=== PATIENT | male | born 1960 | race Caucasian/White ===

== ENCOUNTER 2020-10-05 14:36 | Emergency (ER) | payer MEDICAID, SELFPAY ==
[2020-10-05 14:49] VITALS: BP 0/0; PULSE 82; RESP 16; TEMP 36.6; O2SAT 95; BMI 20.5
[2020-10-05 14:55] VITALS: BP 143/84
--- NOTE | 2020-10-05 14:58 | ED.OVERDOSE ---
HPI - Overdose General Chief Complaint: Overdose Stated Complaint: heroin od,narcan given at dr office Time Seen by Provider: 10/05/20 14:58 Source: EMS and kettle cleaner Mode of arrival: EMS Limitations: no limitations History of Present Illness HPI Narrative: patient used IV heroin and cocaine went to his doctor's and c/o overdose but he never actually had LOC or looked overdosed - he was given 4mg IN narcan he is here asking for detox MD complaint: accidental overdose Onset (ago): minute(s) How Overdose Was Discovered: other (showed up to his doctor's office stating he was overdosing) Context: Accidental Overdose: wanted to get high Treatments Prior to Arrival: narcan (4mg IN) Related Data Allergies Allergy/AdvReac Type Severity Reaction Status Date / Time No Known Allergies Allergy Unverified 08/13/20 16:58 [No Known Allergies*] Review of Systems Review of Systems: Constitutional : No Fever, No Chills ENT/Mouth : No Ear Pain, No Nasal Congestion, No sore throat Eyes: No Eye Pain, No Swelling, No Redness Cardiovascular : No Chest Pain, No SOB Respiratory : No Cough, No Sputum, No Dyspnea Gastrointestinal : No Nausea, No Vomiting, No Diarrhea, No Hematochezia, No Melena Genitourinary : No Dysuria, No Urinary Frequency, No Hematuria Musculoskeletal : No Myalgias Skin : No Skin Lesions, No rash Neuro : No Weakness, No Numbness, No Paresthesias, No Dizziness, No Headache Psych : no Anxiety, no Depression, no SI/HI Heme/Lymph: No Lymphadenopathy Endocrine : No Polyuria, No Polydipsia All other systems reviewed and are negative FORMERLY [facility], [facility] Past Medical History Attestation statement: The following information was validated with the patient. Source: old records reviewed Medical History (Updated 10/05/20 @ 16:18 by Desire Reinoso DO) Alcoholism Asthma Depression Hepatitis HIV disease Substance abuse Social History Social History (Updated 10/05/20 @ 15:13 by Desire Reinoso DO) Smoking Status: Current every day smoker Substance Use Type: Crack/Cocaine, Heroin and IV Drugs Advance Directives: No Advance Directives Information Provided: Yes Physical Exam Vital Signs: Vital Signs: Last Vital Signs Temp 98 F 10/05/20 14:49 Pulse 82 10/05/20 14:49 Resp 16 10/05/20 14:49 BP 143/84 H 10/05/20 14:55 Pulse Ox 95 10/05/20 14:49 Body Mass Index 20.5 Appearance: Alert. Oriented X3. No acute distress. appears embarassed covering his head with his blanket Eyes: Pupils equal, round and reactive to light. ENT: Pharynx normal. Neck: Normal inspection. Neck supple. CVS: Normal heart rate and rhythm. Pulses normal. Respiratory: No respiratory distress. Breath sounds normal. Abdomen: Soft and nontender. Skin: Skin warm and dry. Normal skin color. Normal skin turgor. Extremities: No lower extremity edema. No calf ttp Neuro: Oriented X 3. No motor deficit. No sensory deficit. Course Course Course Narrative: signed out to Dr. Dye pending repeat troponin MDM - Overdose MDM Narrative Medical decision making narrative: 60 yo male with hx of overdose, HIV, hepatitis here with accidental OD given narcan but unsure if he needed, he is here asking for detox - has possible bed, labs EKG ordered Lab Data Result diagrams: 10/05/20 15:37 10/05/20 15:37 Labs: Lab Results 10/05/20 10/05/20 10/05/20 Range/Units 15:37 15:37 15:37 WBC 2.8 L (4.8-10.8) X10*3/uL RBC 3.45 L (4.60-5.80) X10*6/uL Hgb 10.3 L (14.0-18.0) g/dl Hct 31.8 L (42-52) % MCV 92.2 (80-98) fL MCH 29.9 (27.0-33.0) pg MCHC 32.4 (31.0-36.0) g/dl RDW 17.7 H (11.0-16.0) % Plt Count 88 L (160-400) X10*3/uL MPV 11.6 (9.4-12.4) fL Immature Gran % (Auto) 0.4 (0.0-0.4) % Neut % (Auto) 64.9 (45-73) % Lymph % (Auto) 20.0 (20-40) % [facility] % (Auto) 13.6 H (2-11) % Eos % (Auto) 0.7 (0-4) % Baso % (Auto) 0.4 (0-2) % Lymph # (Auto) 0.6 L (1.2-4.9) X10*3/uL [facility] # (Auto) 0.4 (0.1-1.2) X10*3/uL Eos # (Auto) 0.0 (0.0-0.4) X10*3/uL Baso # (Auto) 0.0 (0.0-0.2) X10*3/uL Abs Immat Gran (auto) 0.01 (0.00-0.03) X10*3/uL Absolute Neuts (auto) 1.8 L (2.0-8.3) X10*3/uL Absolute Nucleated RBC 0.000 (0.0-0.012) X10*3/uL Nucleated RBC % (auto) 0.0 (0.0-0.2) /100WBC PT 12.4 (10.8-13.0) SEC INR 1.0 (0.9-1.1) APTT 32.0 (24.1-38.0) SEC Sodium 139 (135-145) mmol/L Potassium 4.6 (3.3-5.1) mmol/l Chloride 104 (96-108) mmol/L Carbon Dioxide 30 H (22-29) mmol/L Anion Gap 10 L (12-20) BUN 11 (9-16) mg/dL Creatinine 0.96 (0.5-1.4) mg/dL Estim Creat Clear Calc 62.9 Estimated GFR > 60 Random Glucose 133 H (60-115) mg/dL Calcium 8.0 L (8.4-10.2) mg/dL Magnesium (1.6-2.6) mg/dL Troponin I High Sens (<3.5-35.0) ng/L Ethyl Alcohol mg/dL 10/05/20 10/05/20 10/05/20 Range/Units 15:37 15:37 15:37 WBC (4.8-10.8) X10*3/uL RBC (4.60-5.80) X10*6/uL Hgb (14.0-18.0) g/dl Hct (42-52) % MCV (80-98) fL MCH (27.0-33.0) pg MCHC (31.0-36.0) g/dl RDW (11.0-16.0) % Plt Count (160-400) X10*3/uL MPV (9.4-12.4) fL Immature Gran % (Auto) (0.0-0.4) % Neut % (Auto) (45-73) % Lymph % (Auto) (20-40) % [facility] % (Auto) (2-11) % Eos % (Auto) (0-4) % Baso % (Auto) (0-2) % Lymph # (Auto) (1.2-4.9) X10*3/uL [facility] # (Auto) (0.1-1.2) X10*3/uL Eos # (Auto) (0.0-0.4) X10*3/uL Baso # (Auto) (0.0-0.2) X10*3/uL Abs Immat Gran (auto) (0.00-0.03) X10*3/uL Absolute Neuts (auto) (2.0-8.3) X10*3/uL Absolute Nucleated RBC (0.0-0.012) X10*3/uL Nucleated RBC % (auto) (0.0-0.2) /100WBC PT (10.8-13.0) SEC INR (0.9-1.1) APTT (24.1-38.0) SEC Sodium (135-145) mmol/L Potassium (3.3-5.1) mmol/l Chloride (96-108) mmol/L Carbon Dioxide (22-29) mmol/L Anion Gap (12-20) BUN (9-16) mg/dL Creatinine (0.5-1.4) mg/dL Estim Creat Clear Calc Estimated GFR Random Glucose (60-115) mg/dL Calcium (8.4-10.2) mg/dL Magnesium 1.9 (1.6-2.6) mg/dL Troponin I High Sens 10.4 (<3.5-35.0) ng/L Ethyl Alcohol < 10 mg/dL ECG Data Attestation: I personally reviewed and interpreted this ECG as follows: ECG interpretation date: 10/05/20 ECG interpretation time: 15:32 Interpretation: Rate: 87 Rhythm: NSR [place]: normal Normal P waves. Normal AUGUSTUS. Normal QRS complex. ST T wave : inverted 1 and AvL, V2-V6, no UMBERTO qTC: prolonged prior studies: changed from 2014 The study has been interpreted contemporaneously by me. . Discharge Plan Discharge Clinical Impression: Drug overdose, Abnormal ECG Instructions: Adult Overdose (ED) Additional Instructions: return to ED for any worsening symptoms or concerns Print Language: Pashto
--- NOTE | 2020-10-05 15:13 | ECG_ITS ---
Test Reason : OD Blood Pressure : / mmHG Vent. Rate : 087 BPM Atrial Rate : 087 BPM P-R Int : 144 ms QRS Dur : 084 ms QT Int : 416 ms P-R-T Axes : 038 016 142 degrees QTc Int : 500 ms Normal sinus rhythm T wave abnormality, consider lateral ischemia Prolonged QT Abnormal ECG Heart rate has decreased T wave inversion now evident in Lateral leads Referred By: Desire Reinoso Electronically Signed By:TOMMIE JAMES MD
--- NOTE | 2020-10-05 15:32 | MHC.CARE ---
Addiction Consult Service note: Patient is a 60 year old Iranian speaking male who presented to [facility] ED after an accidental overdose. Patient reports he has been using heroin since his twenties and he has been to detox in the past. Patient interested in going to detox however he is not willing to go to [place]. [facility] reports the soonest intake time they have is 1AM. [facility] reports that they may have a male bed and that they will await labs. Patient demographics have been faxed to [phone] and [phone].
[2020-10-05] MEDS: Aspirin 81 MG TAB.CHEW 162 MG PO (15:40)
[2020-10-05 15:46] LABS: Eosinophils Percent Auto 0.7 % (0-4); Hemoglobin 10.3 g/dl (14.0-18.0); Imm Gran Abs Auto 0.01 X10*3/uL (0.00-0.03); MANUAL DIFF FLAG SCAN
[2020-10-05 15:53] LABS: Prothrombin Time 12.4 SEC (10.8-13.0)
[2020-10-05 15:54] LABS: Hematocrit 31.8 % (42-52); Mean Corpuscular HGB Conc 32.4 g/dl (31.0-36.0); Mean Corpuscular Hemoglobin 29.9 pg (27.0-33.0); PLT CLUMP 1; Red Cell Distribution Width 17.7 % (11.0-16.0); SCAN SMEAR FLAG 1
[2020-10-05 15:56] LABS: Basophils Percent Auto 0.4 % (0-2); Imm Gran Pct Auto 0.4 % (0.0-0.4); Lymphocytes Absolute Auto 0.6 X10*3/uL (1.2-4.9); Mean Corpuscular Volume 92.2 fL (80-98); Mean Platelet Volume 11.6 fL (9.4-12.4); Monocytes Absolute Auto 0.4 X10*3/uL (0.1-1.2); Monocytes Percent Auto 13.6 % (2-11); Neutrophils Absolute Auto 1.8 X10*3/uL (2.0-8.3); Neutrophils Percent Auto 64.9 % (45-73); Red Blood Count 3.45 X10*6/uL (4.60-5.80); White Blood Count 2.8 X10*3/uL (4.8-10.8)
[2020-10-05 15:57] LABS: Platelet Count 88 X10*3/uL (160-400)
[2020-10-05 16:08] LABS: Ethanol < 10 mg/dL
[2020-10-05 16:09] LABS: Anion Gap 10 (12-20); Blood Urea Nitrogen 11 mg/dL (9-16); Carbon Dioxide 30 mmol/L (22-29); Chloride 104 mmol/L (96-108); Creatinine Clr Calc Pharmacy 62.9; Estimated Glomerular Filt Rate > 60; Glucose Random 133 mg/dL (60-115); Magnesium 1.9 mg/dL (1.6-2.6); Potassium 4.6 mmol/l (3.3-5.1); Sodium 139 mmol/L (135-145)
[2020-10-05 16:16] LABS: Troponin-I High Sensitivity 10.4 ng/L (<3.5-35.0)
[2020-10-05 16:18] LABS: SLIDE REVIEW VERIFIED
[2020-10-05 17:47] VITALS: BP 151/87; PULSE 82; RESP 18; O2SAT 97
[2020-10-05 19:01] LABS: Troponin-I High Sensitivity 12.6 ng/L (<3.5-35.0)
--- NOTE | 2020-10-05 20:30 | PC.NURSE ---
I was informed by charge nurse that patient was in [address] was my new patient. I went to check on patient but he was not in the bed and kayley was on bed. I searched ER and was unable to locate the patient. I informed charge nurse that patient left.
== END 2020-10-05 20:30 | disposition left against medical advice (07) ==
PROVIDERS: Emergency Provider Emergency Medicine
DX: T40.1X1A Poisoning by heroin, accidental (unintentional), initial encounter (principal); T40.5X1A Poisoning by cocaine, accidental (unintentional), initial encounter; R94.31 Abnormal electrocardiogram [ECG] [EKG]; Y92.9 Unspecified place or not applicable; F17.200 Nicotine dependence, unspecified, uncomplicated; Z71.6 Tobacco abuse counseling; Z21 Asymptomatic human immunodeficiency virus [HIV] infection status; Z79.899 Other long term (current) drug therapy
CPT/HCPCS: 36415; 80048; 80320; 83735; 84484; 85025; 85610; 85730; 93005; 99284; 99285

== ENCOUNTER → 2021-05-03 08:14 | Outpatient (REF) | payer MEDICAID, SELFPAY ==
--- NOTE | 2021-05-03 08:35 | ECG_ITS ---
Test Reason : CHECK QT Blood Pressure : / mmHG Vent. Rate : 057 BPM Atrial Rate : 057 BPM P-R Int : 168 ms QRS Dur : 080 ms QT Int : 496 ms P-R-T Axes : 028 024 066 degrees QTc Int : 482 ms Sinus bradycardia Prolonged QT Abnormal ECG When compared with ECG of 05-OCT-2020 15:25, Vent. rate has decreased BY 30 BPM T wave inversion no longer evident in Anterolateral leads Referred By: Doreen Vasquez Electronically Signed By:ROSALINDA SHEPHERD MD
== END ==
LOC: HO.CARD 08:14
PROVIDERS: Absent Provider Nurse Practitioner Primary Care; PCP Nurse Practitioner Primary Care; Visit Provider Family Medicine
DX: R94.31 Abnormal electrocardiogram [ECG] [EKG] (principal)
CPT/HCPCS: 93005

== ENCOUNTER 2021-08-11 17:11 | Emergency (ER) | payer MEDICAID, SELFPAY ==
[2021-08-11 18:35] VITALS: BP 97/69; PULSE 67; RESP 18; TEMP 36.3; O2SAT 98; BMI 20.2
--- NOTE | 2021-08-11 18:52 | ED.EXTPRO ---
HPI - Extremity Problem General Chief complaint: Extremity Injury, Upper Stated complaint: swollen arm Time Seen by Provider: 08/11/21 18:49 Source: patient Mode of arrival: ambulatory Limitations: no limitations History of Present Illness HPI Narrative: 61 y/o male presenting for evaluation of left hand swelling, pain and redness after he was stung by multiple bees 3 days ago. He reports his hand swelled up immediately after the stinging. He saw his doctor the next day who started him on antibiotics. He reports only taking the antibiotic once. He has not taken any benadryl. He reports going back to his PCP today who instructed him to come to the ER for evaluation. He denies fevers. He is not diabetic. MD Complaint: extremity pain and extremity swelling Onset (ago): day(s) (3) Pain Consistency: constant Location: right and upper extremity Severity scale (1-10): 6 Quality: aching Radiation: proximal Relieving factors: immobilization and elevation Exacerbating factors: range of motion and palpation Associated symptoms: denies other symptoms Related Data Previous Rx's Medication Instructions Recorded cephalexin 500 mg capsule 500 mg PO Q6H 7 Days #28 cap 08/11/21 diphenhydramine HCl 25 mg tablet 25 mg PO TID #10 tab 08/11/21 (Benadryl Allergy) doxycycline monohydrate 100 mg 100 mg PO BID #14 cap 08/11/21 capsule Allergies Allergy/AdvReac Type Severity Reaction Status Date / Time No Known Allergies Allergy Verified 08/11/21 18:35 [No Known Allergies*] Review of Systems Review of Systems: Constitutional: No Fever, No Chills Cardiovascular: No Chest Pain, No SOB, No Orthopnea, No Edema Respiratory: No Cough, No Sputum, No Wheezing, No dyspnea Gastrointestinal: No Nausea, No Vomiting, No Diarrhea, No abdominal Pain Genitourinary: No Dysuria, No Urinary Frequency, No Hematuria Musculoskeletal: + joint pain, + Myalgias Skin: No Skin Lesions, No rash, +redness, +swelling Neuro: No Weakness, No Numbness, No Dizziness, No Headache Psych: No Anxiety/Panic, No Depression Heme/Lymph: No Bruising, No Lymphadenopathy PMFSH Past Medical History Medical History (Updated 08/11/21 @ 19:25 by RIDGE Love) Alcoholism Asthma Depression Hepatitis HIV disease Substance abuse Social History Social History (Updated 10/05/20 @ 15:13 by Desire Reinoso DO) Alcohol intake: never Substance Use Type: Crack/Cocaine and Heroin Advance Directives: No Advance Directives Information Provided: No Physical Exam Vital Signs: Vital Signs: Last Vital Signs Temp 97.3 F 08/11/21 18:35 Pulse 67 08/11/21 18:35 Resp 18 08/11/21 18:35 BP 97/69 08/11/21 18:35 Pulse Ox 98 08/11/21 18:35 Body Mass Index 20.2 Appearance: Alert. Oriented X3. No acute distress. HEENT: normal inspection CVS: Normal heart rate and rhythm. Pulses normal. Respiratory: No respiratory distress. Skin: Skin warm and dry. Normal skin color. Normal skin turgor. No rashes. Extremities: left hand with moderate generalized swelling of the dorsal aspect with erythema and warmth up to the wrist, no erythema or swelling beyond the wrist. mildly tender metacarpals, normal ROM of wrist and all digits, NV intact distally. Neuro: Oriented X 3. No motor deficit. No sensory deficit. Course Course Course Narrative: 61 y/o male presents with left hand swelling and erythema 3 days after being stung by multiple bees. Noncompliant with previously prescribed antibiotics. His symptoms are most likely due to localized inflammatory and allergic response. Doubt DVT with localized hand swelling not extending in the arm. He was counseled on need for compliance with medications. Will start double coverage abx and around the clock benadryl for his symptoms. Plan to follow up with PCP in 2 days. Patient agrees with plan. Stable for d/c. Critical Care Time Critical Care Time Critical Care Time: No Discharge Plan Discharge Clinical Impression: Cellulitis Qualifiers: Site of cellulitis: extremity Site of cellulitis of extremity: upper extremity Laterality: left Qualified Code(s): L03.114 - Cellulitis of left upper limb Allergic reaction Qualifiers: Encounter type: initial encounter Qualified Code(s): T78.40XA - Allergy, unspecified, initial encounter Patient Disposition: Home, Self-Care Instructions: Cellulitis (ED), General Allergic Reaction (ED) Additional Instructions: Take ALL of the medications as prescribed - you are being started on 2 antibiotics and a medication for the allergic reaction. Follow up with your doctor on Monday. If you have worsening pain, redness, swelling despite taking the medications as directed, come back to the ER for further evaluation. Prescriptions: New cephalexin 500 mg capsule 500 mg PO Q6H 7 Days Qty: 28 RF: 0 doxycycline monohydrate 100 mg capsule 100 mg PO BID Qty: 14 RF: 0 diphenhydramine HCl [Benadryl Allergy] 25 mg tablet 25 mg PO TID Qty: 10 RF: 0 Interventions: ED Discharge Assessment Last Done: 08/11/21 19:49 Discharge Date/Time: 08/11/21 19:50
[2021-08-11] MEDS: diphenhydrAMINE HCL 25 MG TABLET PO (19:42)
[2021-08-11] MEDS: cephALEXin 500 MG CAPSULE PO (19:42)
[2021-08-11] MEDS: predniSONE 20 MG TABLET 40 MG PO (19:42)
== END 2021-08-11 19:50 | disposition home or self-care (01) ==
PROVIDERS: Emergency Provider Emergency Medicine Emergency Medical Services
DX: L03.114 Cellulitis of left upper limb (principal); L50.0 Allergic urticaria; M79.642 Pain in left hand; F11.90 Opioid use, unspecified, uncomplicated; F14.90 Cocaine use, unspecified, uncomplicated; Z79.899 Other long term (current) drug therapy
CPT/HCPCS: 99283; Q0163

== ENCOUNTER → 2021-11-04 10:16 | Outpatient (BNVA) | payer MEDICAID, SELFPAY | PROVIDERS: PCP Nurse Practitioner Primary Care; Visit Provider Surgery Vascular Surgery | DX: I83.12 Varicose veins of left lower extremity with inflammation (principal) | CPT/HCPCS: 99202 ==

== ENCOUNTER 2022-01-25 13:53 | Inpatient (IN) | payer MEDICAID, SELFPAY ==
[2022-01-25] VITALS (21 sets, daily range): BP systolic 109–198; BP diastolic 66–98; PULSE 61–118; RESP 12–22; TEMP 35–37.2; O2SAT 97–100; BMI 21.9
--- NOTE | ~2022-01-25 | CT_ITS ---
EXAMINATION: CT CHEST WITHOUT CONTRAST CLINICAL INFORMATION: Acute mental status. Found down. Question overdose or seizure COMPARISON: Previous chest x-ray most recent July 2018 TECHNIQUE: Multidetector volumetric CT imaging of the chest was done. Axial MIP volume rendering provided. Sagittal and coronal reformatted images were obtained. This CT examination was performed using dose optimization techniques as appropriate, variously including the following: *Automated exposure control *Adjustment of mA and/or kV according to patient size (this includes techniques or standardized protocols for targeted exams where dose is matched to indication/reason for exam; i.e. extremities or head) *Use of iterative reconstruction technique DLP: 248 mGy-cm FINDINGS: MANAGER MEDICARE: LUNGS: There is minimal dependent atelectasis or consolidation at the lung bases. The lungs are otherwise clear. There is evidence of mild paraseptal emphysema. There is an endotracheal tube with tip 4.5 cm above the jaymie. MEDIASTINUM: The mediastinum is normal. PLEURA: There is no pleural effusion. No pleural mass or thickening. No pneumothorax. AXILLA: No lymphadenopathy. There is air seen in the vessels of the left lower neck and axilla likely related to IV injection. UPPER ABDOMEN: Unremarkable. OSSEOUS STRUCTURES: No fracture is seen. There is partial fusion of the right upper ribs. There is partial fusion at C7-T1. There is mild curvature of the proximal thoracic spine to the right and mild T2 hemivertebrae. CT/CT chest wo con IMPRESSION: Mild dependent atelectasis or consolidation at the lung bases. Endotracheal tube 4.5 cm above the jaymie. Fleischner guidelines were followed.
--- NOTE | ~2022-01-25 | CT_ITS ---
EXAMINATION: CT CERVICAL SPINE WITHOUT CONTRAST CLINICAL INFORMATION: Found down. Question overdose or seizure COMPARISON: None TECHNIQUE: Axial images through the cervical spine without contrast. Sagittal and coronal reconstructions on the technologist workstation were performed. Patient dose 3 3 5 mg/cm. This CT examination was performed using dose optimization techniques as appropriate, variously including the following: *Automated exposure control *Adjustment of mA and/or kV according to patient size (this includes techniques or standardized protocols for targeted exams where dose is matched to indication/reason for exam; i.e. extremities or head) *Use of iterative reconstruction technique DLP: 335 mGy-cm FINDINGS: The head is tilted slightly to the left. Bone alignment is otherwise normal. No acute fracture or dislocation is seen. There is soft tissue ossification posterior to the C5 spinous process likely related to old trauma. There is degenerative spondylosis from C3-C4 to C6-C7. There is degenerative disc disease at C3-C4, C5-C6 and C6-C7. There is an endotracheal tube in place. There is air in the soft tissues of the left neck likely related to IV. CT/CT cervical spine wo con IMPRESSION: Degenerative changes. No fracture or dislocation seen. Fleischner guidelines were followed.
--- NOTE | ~2022-01-25 | CT_ITS ---
EXAMINATION: CT HEAD WITHOUT CONTRAST CLINICAL INFORMATION: Acute mental status change. Fixed gaze. COMPARISON: Previous head CT February 2016 TECHNIQUE: Contiguous axial imaging was performed from the skull base to vertex without intravenous administration of contrast. This CT examination was performed using dose optimization techniques as appropriate, variously including the following: *Automated exposure control *Adjustment of mA and/or kV according to patient size (this includes techniques or standardized protocols for targeted exams where dose is matched to indication/reason for exam; i.e. extremities or head) *Use of iterative reconstruction technique DLP: 668 mGy-cm FINDINGS: There is no evidence of an extra-axial collection. There is no evidence of intra-axial or extra-axial hemorrhage. There is an old-appearing infarct of the right posterior parietal and occipital lobes. This is new in the interval from February 2016 exam. Agudelo-white matter differentiation is normal. No mass, mass effect or acute infarct is seen. Review at bone windows is normal. No skull fracture is seen. Visualized paranasal sinuses, mastoid air cells and middle ears are clear. 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 This appears old but is new in the interval from 2016 exam. Age could be more accurately determined with MRI if clinically indicated.
--- NOTE | ~2022-01-25 | CT_ITS ---
EXAMINATION: CT ABDOMEN AND PELVIS WITHOUT CONTRAST CLINICAL INFORMATION: Acute mental status change. Found down. Question overdose or seizure. COMPARISON: None TECHNIQUE: Multidetector volumetric imaging was performed from the superior aspect of the liver through the pubic symphysis. Sagittal and coronal reformatted images were obtained on the technologist's workstation. This CT examination was performed using dose optimization techniques as appropriate, variously including the following: *Automated exposure control *Adjustment of mA and/or kV according to patient size (this includes techniques or standardized protocols for targeted exams where dose is matched to indication/reason for exam; i.e. extremities or head) *Use of iterative reconstruction technique DLP: 509 mGy-cm FINDINGS: LIVER, GALLBLADDER, AND BILIARY TREE: There are mild cirrhotic changes of the liver. The liver is otherwise unremarkable. The gallbladder is unremarkable. PANCREAS: Unremarkable. SPLEEN: The spleen is slightly enlarged and measures 13.7 cm in length. ADRENAL GLANDS: Unremarkable. KIDNEYS AND URETERS: The kidneys are normal in size, shape, and attenuation. No hydronephrosis, hydroureter, or calculi seen. No perinephric stranding. BLADDER: Unremarkable. GASTROINTESTINAL TRACT: There is apparent wall thickening of the right colon. This may be artifactual due to underdistention. Small and large bowel is otherwise unremarkable. The appendix is unremarkable. The stomach is unremarkable. ABDOMINAL WALL: There is a small umbilical hernia containing fat. LYMPH NODES: Normal. VASCULAR: Unremarkable. PELVIC VISCERA: Unremarkable. OSSEOUS STRUCTURES: Unremarkable. CT/CT abdomen pelvis wo con IMPRESSION: Mild cirrhotic changes of the liver. Mild splenomegaly. Question mild wall thickening of the right colon. This may be artifactual due to underdistention. Fleischner guidelines were followed.
--- NOTE | ~2022-01-25 | XR_ITS ---
EXAMINATION: XR CHEST CLINICAL INFORMATION: OG tube placement COMPARISON: Chest x-ray 08/02/2018. CT of chest 01/25/2022 TECHNIQUE: Frontal portable view of the chest was obtained. 4:11 PM FINDINGS: Tubes and lines: 1. Endotracheal tube catheter 6 and is above the jaymie. 2. OG tube catheter passes below diaphragm into stomach. Catheter tip is below lower margin of film. The sidehole is also below the diaphragm. No acute airspace disease. No pulmonary vascular congestion. No pleural effusion or pneumothorax. XR/XR chest 1V IMPRESSION: 1. Endotracheal tube catheter 6 and is above the jaymie. 2. OG tube catheter passes below diaphragm into stomach. Catheter tip is below lower margin of film. The sidehole is also below the diaphragm. 3. No acute airspace disease.
--- NOTE | 2022-01-25 14:00 | PC.NURSE ---
Addendum entered by Ame Gomez 01/25/22 14:50: versed 4mg ivp x 1 Original Note: versed 44mg ivp x 1, rocuriom 50m ivp x1, decision to intuubate, 7.5 tuube with 23 at teeth to right with colormetric change. poc 134, ns 1l infusing. vvs 189/[phone].
--- NOTE | 2022-01-25 14:07 | ECG_ITS ---
Test Reason : Overdose Blood Pressure : / mmHG Vent. Rate : 087 BPM Atrial Rate : 087 BPM P-R Int : 178 ms QRS Dur : 086 ms QT Int : 408 ms P-R-T Axes : 069 054 076 degrees QTc Int : 490 ms Normal sinus rhythm Prolonged QT Abnormal ECG When compared with ECG of 03-MAY-2021 08:47, Vent. rate has increased BY 30 BPM Referred By: Desire Reinoso Electronically Signed By:Octavio Salinas
--- NOTE | 2022-01-25 14:12 | PC.NURSE ---
per ems - when pt had stopped seizing pt had fixed gaze to the right.
--- NOTE | 2022-01-25 14:13 | ED_ITS ---
HPI - Altered Mental Status General Chief Complaint: Overdose Stated Complaint: POST ICTAL Time Seen by Provider: 01/25/22 14:05 Source: EMS Mode of arrival: EMS Limitations: altered mental status History of Present Illness HPI narrative: 61 yo male with hx of asthma, HIV, substance abuse here with c/o being found down by a neighbor - unknown downtime or last seen. EMS reports he was given 8mg IN narcan. patient was found with drug paraphernalia EMS noted her was seizing with fixed gaze to the left with full GTC movements for 10+ given 2mg and 2mg IVP of versed but fixed gaze and movements of L side did not stop. On arrival to the ED he was still with fixed gaze unresponsive, making gurgling sounds, no response to painful stimuli, HTNive, 100% on NRB, at that time decision to intubate was made for airway protection. Concern for prolonged hypoxia / overdose / vs ICH . EMS notes BS > 120 with them MD complaint: other (found laying face down by a neighbor) Onset (ago): unknown Severity: severe Consistency of symptoms: getting Worse Context: drug abuse and HIV Associated symptoms: other (10 minutes of seizure activity) Treatments prior to arrival: IV fluid and other (NRB, 4mg IV versed, 8mg narcan) Related Data Home Medications Medication Instructions Recorded Confirmed albuterol sulfate 90 mcg/actuation 2 puff PO Q6H PRN 11/04/21 aerosol inhaler (ProAir HFA) bictegravir 50 mg-emtricitabine 1 tab PO DAILY 11/04/21 200 mg-tenofovir alafenam 25 mg tablet (Biktarvy) capsaicin 0.025 % topical cream 1 appl TOPICAL TID 11/04/21 capsaicin 0.025 % topical cream appl TOPICAL TID 11/04/21 cephalexin 500 mg capsule 500 mg PO Q8H 11/04/21 cetirizine 10 mg tablet 10 mg PO DAILY PRN 11/04/21 docusate sodium 100 mg capsule 100 mg PO BID 11/04/21 (Colace) food supplemt, lactose-reduced ea PO TIDWMEAL ml 11/04/21 (Ensure) methadone 10 mg/5 mL oral solution 2.5 mg PO Q6H 11/04/21 prednisone 20 mg tablet 20 mg PO BID 11/04/21 sennosides 8.6 mg tablet (Senna 8.6 - 17.2 mg PO BEDTIME PRN 11/04/21 Laxative) sertraline 50 mg tablet 50 mg PO QAM 11/04/21 sulfamethoxazole 800 1 tab PO Q12H 11/04/21 mg-trimethoprim 160 mg tablet (Bactrim DS) Previous Rx's Medication Instructions Recorded cephalexin 500 mg capsule 500 mg PO Q6H 7 Days #28 cap 08/11/21 diphenhydramine HCl 25 mg tablet 25 mg PO TID #10 tab 08/11/21 (Benadryl Allergy) doxycycline monohydrate 100 mg 100 mg PO BID #14 cap 08/11/21 capsule Allergies Allergy/AdvReac Type Severity Reaction Status Date / Time No Known Allergies Allergy Verified 11/04/21 10:40 [No Known Allergies*] Review of Systems Review of Systems: ROS unable to be obtained due to altered mental status [facility] Past Medical History Attestation statement: The following information was validated with the patient. Medical History Alcoholism Asthma Depression Hepatitis HIV disease Substance abuse Social History Social History (Updated 01/25/22 @ 14:13 by Desire Reinoso DO) Alcohol intake: never Patient Tobacco Use Status: Tobacco use Unknown Substance Use Type: Crack/Cocaine and Heroin Advance Directives: No Physical Exam ED Vital Signs: Vital Signs - 24 hr 01/25/22 14:04 01/25/22 14:31 01/25/22 15:15 Pulse Rate 118 H 109 H 93 Respiratory Rate 17 16 Blood Pressure 198/87 H 175/98 H 159/86 H Pulse Oximetry 100 97 01/25/22 15:35 01/25/22 15:46 Pulse Rate 83 86 Respiratory Rate 22 H 16 Blood Pressure 136/90 H 122/71 Pulse Oximetry BMI result Body Mass Index 21.9 Appearance: Somnolent, fixed gaze to left, gurgling sounds noted, severe distress ENT: Mouth clenched no emesis noted Neck: Normal inspection. Neck supple. CVS: tachycardic heart rate and rhythm. Pulses normal. Respiratory: Poor inspiratory effort Abdomen: Soft and nontender. no signs of trauma, defecated himself Skin: Skin warm and dry. pale skin color. Normal skin turgor. Extremities: No lower extremity edema. Neuro: fixed gaze, constant rhythmic movement of LUE, otherwise no response to painful stimuli Course Course Course Narrative: contact number listed went right to voicemail and the mailbox is full at this time no longer fixed gaze also patient noted to have purposeful movement of R hand up to chest and ETT per RN during procedure MDM - Altered Mental Status MDM Narrative Medical decision making narrative: 61 yo male with hx of asthma, HIV, substance abuse here with c/o being found down by a neighbor surrounded by drug paraphernalia - unknown downtime or last seen. EMS reports he was given 8mg IN narcan. EMS noted he was seizing with fixed gaze to the left with full GTC movements for 10+ given 2mg and 2mg IVP of versed but fixed gaze and movements of side did not stop. On arrival to the ED he was still with fixed gaze unresponsive, making gurgling sounds, no response to painful stimuli, HTNive, 100% on NRB, intubated for airway protection. Initial concerns for prolonged hypoxia / overdose / vs ICH . Labs, cultures, CT scans for trauma ordered. IV keppra given prolonged seizure like activity. Lab Data Result diagrams: 01/25/22 15:02 01/25/22 15:02 Labs: Lab Results 01/25/22 01/25/22 01/25/22 Range/Units 14:02 14:12 14:35 WBC (4.8-10.8) X10*3/uL RBC (4.60-5.80) X10*6/uL Hgb (14.0-18.0) g/dl Hct (42.0-52.0) % MCV (80.0-98.0) fL MCH (27.0-33.0) pg MCHC (31.0-36.0) g/dl RDW (11.0-16.0) % Plt Count (160-400) X10*3/uL MPV (9.4-12.4) fL Immature Gran % (Auto) (0.0-0.4) % Neut % (Auto) (45-73) % Lymph % (Auto) (20-40) % [place] % (Auto) (2-11) % Eos % (Auto) (0-4) % Baso % (Auto) (0-2) % Lymph # (Auto) (1.2-4.9) X10*3/uL [place] # (Auto) (0.1-1.2) X10*3/uL Eos # (Auto) (0.0-0.4) X10*3/uL Baso # (Auto) (0.0-0.2) X10*3/uL Abs Immat Gran (auto) (0.00-0.03) X10*3/uL Absolute Neuts (auto) (2.0-8.3) x10*3/uL Absolute Nucleated RBC (0.0-0.012) X10*3/uL Nucleated RBC % (auto) (0.0-0.2) /100WBC PT 13.5 H (9.9-13.0) SEC Whole Blood PT 13.9 H (11.1-13.5) sec INR 1.2 H (0.9-1.1) Whole Blood INR 1.2 H (0.9-1.1) VBG pH (7.32-7.43) VBG pCO2 mmHg VBG pO2 mmHg VBG HCO3 (22-26) mmol/L VBG O2 Saturation % VBG Base Excess mmol/L Sodium (135-145) mmol/L Potassium (3.3-5.1) mmol/L Chloride (96-108) mmol/L Carbon Dioxide (22-29) mmol/L Anion Gap (12-20) BUN (9-16) mg/dL Creatinine (0.5-1.4) mg/dL Estim Creat Clear Calc Estimated GFR POC Glucose 134 H (60-115) mg/dL Random Glucose (60-115) mg/dL Lactic Acid (0.5-2.0) mmol/L Calcium (8.4-10.2) mg/dL Magnesium (1.6-2.6) mg/dL Total Bilirubin (0.0-1.0) mg/dL Direct Bilirubin (0.0-0.5) mg/dL AST (5-37) U/L ALT (0-40) U/L Alkaline Phosphatase (39-117) U/L Ammonia (13-55) umol/L Total Creatine Kinase (38-174) U/L Troponin I High Sens (<3.5-35.0) ng/L Total Protein (6.5-8.0) g/dL Albumin (3.5-5.0) g/dL Lipase (8-78) U/L Urine Color Urine Appearance Urine pH (5.0-8.0) Ur Specific [place] (1.005-1.025) Urine Protein (NEG-TRACE) MG/DL Urine Glucose (UA) (NEG) MG/DL Urine Ketones (NEG) MG/DL Urine Blood (NEG) Urine Nitrite (NEG) Ur Leukocyte Esterase (NEG) Urine RBC (0) /HPF Urine WBC (0-4) /HPF Ur Squamous Epith Cells /LPF Ur Renal Epithelial Cell /LPF Urine Bacteria /LPF Epithelial Casts /LPF Urine Mucus /LPF Salicylates (15-30) mg/dL Urine Opiates Screen (Not Detect) Urine Fentanyl Screen (Not Detect) Acetaminophen (<30) mcg/mL Ur Barbiturates Screen (Not Detect) Ur Phencyclidine Scrn (Not Detect) Ur Amphetamines Screen (Not Detect) U Benzodiazepines Scrn (Not Detect) Urine Cocaine Screen (Not Detect) U Marijuana (THC) Screen (Not Detect) Ethyl Alcohol mg/dL Acetone, Qual (Negative) COVID-19 (SAIDA) (Negative) COVID-19 Clin Com 01/25/22 01/25/22 01/25/22 Range/Units 15:00 15:00 15:02 WBC (4.8-10.8) X10*3/uL RBC (4.60-5.80) X10*6/uL Hgb (14.0-18.0) g/dl Hct (42.0-52.0) % MCV (80.0-98.0) fL MCH (27.0-33.0) pg MCHC (31.0-36.0) g/dl RDW (11.0-16.0) % Plt Count (160-400) X10*3/uL MPV (9.4-12.4) fL Immature Gran % (Auto) (0.0-0.4) % Neut % (Auto) (45-73) % Lymph % (Auto) (20-40) % [place] % (Auto) (2-11) % Eos % (Auto) (0-4) % Baso % (Auto) (0-2) % Lymph # (Auto) (1.2-4.9) X10*3/uL [place] # (Auto) (0.1-1.2) X10*3/uL Eos # (Auto) (0.0-0.4) X10*3/uL Baso # (Auto) (0.0-0.2) X10*3/uL Abs Immat Gran (auto) (0.00-0.03) X10*3/uL Absolute Neuts (auto) (2.0-8.3) x10*3/uL Absolute Nucleated RBC (0.0-0.012) X10*3/uL Nucleated RBC % (auto) (0.0-0.2) /100WBC PT (9.9-13.0) SEC Whole Blood PT (11.1-13.5) sec INR (0.9-1.1) Whole Blood INR (0.9-1.1) VBG pH (7.32-7.43) VBG pCO2 mmHg VBG pO2 mmHg VBG HCO3 (22-26) mmol/L VBG O2 Saturation % VBG Base Excess mmol/L Sodium (135-145) mmol/L Potassium (3.3-5.1) mmol/L Chloride (96-108) mmol/L Carbon Dioxide (22-29) mmol/L Anion Gap (12-20) BUN (9-16) mg/dL Creatinine (0.5-1.4) mg/dL Estim Creat Clear Calc Estimated GFR POC Glucose (60-115) mg/dL Random Glucose (60-115) mg/dL Lactic Acid 10.5 H* (0.5-2.0) mmol/L Calcium (8.4-10.2) mg/dL Magnesium (1.6-2.6) mg/dL Total Bilirubin (0.0-1.0) mg/dL Direct Bilirubin (0.0-0.5) mg/dL AST (5-37) U/L ALT (0-40) U/L Alkaline Phosphatase (39-117) U/L Ammonia 94 H (13-55) umol/L Total Creatine Kinase (38-174) U/L Troponin I High Sens (<3.5-35.0) ng/L Total Protein (6.5-8.0) g/dL Albumin (3.5-5.0) g/dL Lipase (8-78) U/L Urine Color Urine Appearance Urine pH (5.0-8.0) Ur Specific [place] (1.005-1.025) Urine Protein (NEG-TRACE) MG/DL Urine Glucose (UA) (NEG) MG/DL Urine Ketones (NEG) MG/DL Urine Blood (NEG) Urine Nitrite (NEG) Ur Leukocyte Esterase (NEG) Urine RBC (0) /HPF Urine WBC (0-4) /HPF Ur Squamous Epith Cells /LPF Ur Renal Epithelial Cell /LPF Urine Bacteria /LPF Epithelial Casts /LPF Urine Mucus /LPF Salicylates < 5.0 L (15-30) mg/dL Urine Opiates Screen (Not Detect) Urine Fentanyl Screen (Not Detect) Acetaminophen < 1 (<30) mcg/mL Ur Barbiturates Screen (Not Detect) Ur Phencyclidine Scrn (Not Detect) Ur Amphetamines Screen (Not Detect) U Benzodiazepines Scrn (Not Detect) Urine Cocaine Screen (Not Detect) U Marijuana (THC) Screen (Not Detect) Ethyl Alcohol mg/dL Acetone, Qual (Negative) COVID-19 (SAIDA) (Negative) COVID-19 Clin Com 01/25/22 01/25/22 01/25/22 Range/Units 15:02 15:02 15:02 WBC 5.8 (4.8-10.8) X10*3/uL RBC 3.75 L (4.60-5.80) X10*6/uL Hgb 10.9 L (14.0-18.0) g/dl Hct 35.2 L (42.0-52.0) % MCV 93.9 (80.0-98.0) fL MCH 29.1 (27.0-33.0) pg MCHC 31.0 (31.0-36.0) g/dl RDW 15.8 (11.0-16.0) % Plt Count 99 L (160-400) X10*3/uL MPV 13.0 H (9.4-12.4) fL Immature Gran % (Auto) 0.9 H (0.0-0.4) % Neut % (Auto) 71.0 (45-73) % Lymph % (Auto) 13.3 L (20-40) % [place] % (Auto) 14.1 H (2-11) % Eos % (Auto) 0.5 (0-4) % Baso % (Auto) 0.2 (0-2) % Lymph # (Auto) 0.8 L (1.2-4.9) X10*3/uL [place] # (Auto) 0.8 (0.1-1.2) X10*3/uL Eos # (Auto) 0.0 (0.0-0.4) X10*3/uL Baso # (Auto) 0.0 (0.0-0.2) X10*3/uL Abs Immat Gran (auto) 0.05 H (0.00-0.03) X10*3/uL Absolute Neuts (auto) 4.1 (2.0-8.3) x10*3/uL Absolute Nucleated RBC 0.000 (0.0-0.012) X10*3/uL Nucleated RBC % (auto) 0.0 (0.0-0.2) /100WBC PT (9.9-13.0) SEC Whole Blood PT (11.1-13.5) sec INR (0.9-1.1) Whole Blood INR (0.9-1.1) VBG pH (7.32-7.43) VBG pCO2 mmHg VBG pO2 mmHg VBG HCO3 (22-26) mmol/L VBG O2 Saturation % VBG Base Excess mmol/L Sodium 136 (135-145) mmol/L Potassium 4.0 (3.3-5.1) mmol/L Chloride 106 (96-108) mmol/L Carbon Dioxide 15 L (22-29) mmol/L Anion Gap 19 (12-20) BUN 28 H (9-16) mg/dL Creatinine 1.25 (0.5-1.4) mg/dL Estim Creat Clear Calc 55.8 Estimated GFR 59 POC Glucose (60-115) mg/dL Random Glucose 124 H (60-115) mg/dL Lactic Acid (0.5-2.0) mmol/L Calcium 8.7 D (8.4-10.2) mg/dL Magnesium 2.6 (1.6-2.6) mg/dL Total Bilirubin 0.5 (0.0-1.0) mg/dL Direct Bilirubin 0.3 (0.0-0.5) mg/dL AST 71 H (5-37) U/L ALT 28 (0-40) U/L Alkaline Phosphatase 267 H (39-117) U/L Ammonia (13-55) umol/L Total Creatine Kinase 180 H (38-174) U/L Troponin I High Sens 24.8 (<3.5-35.0) ng/L Total Protein 9.6 H (6.5-8.0) g/dL Albumin 3.3 L (3.5-5.0) g/dL Lipase 87 H (8-78) U/L Urine Color Urine Appearance Urine pH (5.0-8.0) Ur Specific [place] (1.005-1.025) Urine Protein (NEG-TRACE) MG/DL Urine Glucose (UA) (NEG) MG/DL Urine Ketones (NEG) MG/DL Urine Blood (NEG) Urine Nitrite (NEG) Ur Leukocyte Esterase (NEG) Urine RBC (0) /HPF Urine WBC (0-4) /HPF Ur Squamous Epith Cells /LPF Ur Renal Epithelial Cell /LPF Urine Bacteria /LPF Epithelial Casts /LPF Urine Mucus /LPF Salicylates (15-30) mg/dL Urine Opiates Screen (Not Detect) Urine Fentanyl Screen (Not Detect) Acetaminophen (<30) mcg/mL Ur Barbiturates Screen (Not Detect) Ur Phencyclidine Scrn (Not Detect) Ur Amphetamines Screen (Not Detect) U Benzodiazepines Scrn (Not Detect) Urine Cocaine Screen (Not Detect) U Marijuana (THC) Screen (Not Detect) Ethyl Alcohol mg/dL Acetone, Qual Negative (Negative) COVID-19 (SAIDA) (Negative) COVID-19 Clin Com 01/25/22 01/25/22 01/25/22 Range/Units 15:02 15:02 15:06 WBC (4.8-10.8) X10*3/uL RBC (4.60-5.80) X10*6/uL Hgb (14.0-18.0) g/dl Hct (42.0-52.0) % MCV (80.0-98.0) fL MCH (27.0-33.0) pg MCHC (31.0-36.0) g/dl RDW (11.0-16.0) % Plt Count (160-400) X10*3/uL MPV (9.4-12.4) fL Immature Gran % (Auto) (0.0-0.4) % Neut % (Auto) (45-73) % Lymph % (Auto) (20-40) % [place] % (Auto) (2-11) % Eos % (Auto) (0-4) % Baso % (Auto) (0-2) % Lymph # (Auto) (1.2-4.9) X10*3/uL [place] # (Auto) (0.1-1.2) X10*3/uL Eos # (Auto) (0.0-0.4) X10*3/uL Baso # (Auto) (0.0-0.2) X10*3/uL Abs Immat Gran (auto) (0.00-0.03) X10*3/uL Absolute Neuts (auto) (2.0-8.3) x10*3/uL Absolute Nucleated RBC (0.0-0.012) X10*3/uL Nucleated RBC % (auto) (0.0-0.2) /100WBC PT (9.9-13.0) SEC Whole Blood PT (11.1-13.5) sec INR (0.9-1.1) Whole Blood INR (0.9-1.1) VBG pH 7.16 L* (7.32-7.43) VBG pCO2 39 mmHg VBG pO2 73 mmHg VBG HCO3 14 L (22-26) mmol/L VBG O2 Saturation 85.0 % VBG Base Excess -13.5 mmol/L Sodium (135-145) mmol/L Potassium (3.3-5.1) mmol/L Chloride (96-108) mmol/L Carbon Dioxide (22-29) mmol/L Anion Gap (12-20) BUN (9-16) mg/dL Creatinine (0.5-1.4) mg/dL Estim Creat Clear Calc Estimated GFR POC Glucose (60-115) mg/dL Random Glucose (60-115) mg/dL Lactic Acid (0.5-2.0) mmol/L Calcium (8.4-10.2) mg/dL Magnesium (1.6-2.6) mg/dL Total Bilirubin (0.0-1.0) mg/dL Direct Bilirubin (0.0-0.5) mg/dL AST (5-37) U/L ALT (0-40) U/L Alkaline Phosphatase (39-117) U/L Ammonia (13-55) umol/L Total Creatine Kinase (38-174) U/L Troponin I High Sens (<3.5-35.0) ng/L Total Protein (6.5-8.0) g/dL Albumin (3.5-5.0) g/dL Lipase (8-78) U/L Urine Color Urine Appearance Urine pH (5.0-8.0) Ur Specific [place] (1.005-1.025) Urine Protein (NEG-TRACE) MG/DL Urine Glucose (UA) (NEG) MG/DL Urine Ketones (NEG) MG/DL Urine Blood (NEG) Urine Nitrite (NEG) Ur Leukocyte Esterase (NEG) Urine RBC (0) /HPF Urine WBC (0-4) /HPF Ur Squamous Epith Cells /LPF Ur Renal Epithelial Cell /LPF Urine Bacteria /LPF Epithelial Casts /LPF Urine Mucus /LPF Salicylates (15-30) mg/dL Urine Opiates Screen (Not Detect) Urine Fentanyl Screen (Not Detect) Acetaminophen (<30) mcg/mL Ur Barbiturates Screen (Not Detect) Ur Phencyclidine Scrn (Not Detect) Ur Amphetamines Screen (Not Detect) U Benzodiazepines Scrn (Not Detect) Urine Cocaine Screen (Not Detect) U Marijuana (THC) Screen (Not Detect) Ethyl Alcohol < 10 mg/dL Acetone, Qual (Negative) COVID-19 (SAIDA) Negative (Negative) COVID-19 Clin Com See Note 01/25/22 01/25/22 Range/Units 15:21 15:21 WBC (4.8-10.8) X10*3/uL RBC (4.60-5.80) X10*6/uL Hgb (14.0-18.0) g/dl Hct (42.0-52.0) % MCV (80.0-98.0) fL MCH (27.0-33.0) pg MCHC (31.0-36.0) g/dl RDW (11.0-16.0) % Plt Count (160-400) X10*3/uL MPV (9.4-12.4) fL Immature Gran % (Auto) (0.0-0.4) % Neut % (Auto) (45-73) % Lymph % (Auto) (20-40) % [place] % (Auto) (2-11) % Eos % (Auto) (0-4) % Baso % (Auto) (0-2) % Lymph # (Auto) (1.2-4.9) X10*3/uL [place] # (Auto) (0.1-1.2) X10*3/uL Eos # (Auto) (0.0-0.4) X10*3/uL Baso # (Auto) (0.0-0.2) X10*3/uL Abs Immat Gran (auto) (0.00-0.03) X10*3/uL Absolute Neuts (auto) (2.0-8.3) x10*3/uL Absolute Nucleated RBC (0.0-0.012) X10*3/uL Nucleated RBC % (auto) (0.0-0.2) /100WBC PT (9.9-13.0) SEC Whole Blood PT (11.1-13.5) sec INR (0.9-1.1) Whole Blood INR (0.9-1.1) VBG pH (7.32-7.43) VBG pCO2 mmHg VBG pO2 mmHg VBG HCO3 (22-26) mmol/L VBG O2 Saturation % VBG Base Excess mmol/L Sodium (135-145) mmol/L Potassium (3.3-5.1) mmol/L Chloride (96-108) mmol/L Carbon Dioxide (22-29) mmol/L Anion Gap (12-20) BUN (9-16) mg/dL Creatinine (0.5-1.4) mg/dL Estim Creat Clear Calc Estimated GFR POC Glucose (60-115) mg/dL Random Glucose (60-115) mg/dL Lactic Acid (0.5-2.0) mmol/L Calcium (8.4-10.2) mg/dL Magnesium (1.6-2.6) mg/dL Total Bilirubin (0.0-1.0) mg/dL Direct Bilirubin (0.0-0.5) mg/dL AST (5-37) U/L ALT (0-40) U/L Alkaline Phosphatase (39-117) U/L Ammonia (13-55) umol/L Total Creatine Kinase (38-174) U/L Troponin I High Sens (<3.5-35.0) ng/L Total Protein (6.5-8.0) g/dL Albumin (3.5-5.0) g/dL Lipase (8-78) U/L Urine Color YELLOW Urine Appearance HAZY Urine pH 5.5 (5.0-8.0) Ur Specific [place] 1.025 (1.005-1.025) Urine Protein 1+ H (NEG-TRACE) MG/DL Urine Glucose (UA) NEG (NEG) MG/DL Urine Ketones NEG (NEG) MG/DL Urine Blood 3+ H (NEG) Urine Nitrite NEG (NEG) Ur Leukocyte Esterase NEG (NEG) Urine RBC 10-14 H (0) /HPF Urine WBC 0-2 (0-4) /HPF Ur Squamous Epith Cells 2+ /LPF Ur Renal Epithelial Cell 4+ /LPF Urine Bacteria NONE /LPF Epithelial Casts 0-2 /LPF Urine Mucus 4+ /LPF Salicylates (15-30) mg/dL Urine Opiates Screen POSITIVE H (Not Detect) Urine Fentanyl Screen POSITIVE H (Not Detect) Acetaminophen (<30) mcg/mL Ur Barbiturates Screen Not Detected (Not Detect) Ur Phencyclidine Scrn Not Detected (Not Detect) Ur Amphetamines Screen Not Detected (Not Detect) U Benzodiazepines Scrn POSITIVE H (Not Detect) Urine Cocaine Screen POSITIVE H (Not Detect) U Marijuana (THC) Screen Not Detected (Not Detect) Ethyl Alcohol mg/dL Acetone, Qual (Negative) COVID-19 (SAIDA) (Negative) COVID-19 Clin Com ECG Data ECG #1: Attestation: I personally reviewed and interpreted this ECG as follows: ECG interpretation date: 01/25/22 ECG interpretation time: 15:26 Interpretation: Rate: 87 Rhythm: NSR Hester: normal Normal P waves. Normal AUGUSTUS. Normal QRS complex. ST T wave : no UMBERTO, nonspecific qTC:prolonged prior studies: no acute ischemia The study has been interpreted contemporaneously by me. . Procedures EJ/Peripheral Line Neck L: Time Out Performed: Yes Skin Cleansed in Sterile Fashion: Yes Size (gauge): 18 IV Secured and Dressing Applied: Yes Patient Tolerated Procedure: well and no complications Intubation Time out performed: Yes sedative: Versed Mg Given: 4 paralytic: Rocuronium Mg Given: 50 Laryngoscope: other (glidescope 4 blade) ET Tube Size: 7.5 ET Tube Uncuffed: Yes Tube Secured Depth (cm): 23 Tube Secured Location: teeth Tube Placement Confirmation: visualized tube passing through cords, equal breath sounds bilaterally, no breath sounds over epigastrium and confirmation by capnometry Patient Tolerated Procedure: well and no complications Intubation Complications: none Critical Care Time Critical Care Time Critical Care Time: Yes Total Critical Care Time: 60 Attestation: review of records, bedside repeat assessments, medical admission to ICU, 2L of IVF I attest to this time spent taking care of the patient Discharge Plan Discharge Clinical Impression: Drug overdose, Metabolic acidosis, Acidosis, lactic, Seizure Patient Disposition: Admitted As Inpatient Prescriptions: No Action cephalexin 500 mg capsule 500 mg PO Q6H 7 Days Qty: 28 0RF doxycycline monohydrate 100 mg capsule 100 mg PO BID Qty: 14 0RF diphenhydramine HCl [Benadryl Allergy] 25 mg tablet 25 mg PO TID Qty: 10 0RF
[2022-01-25 14:16] LABS: Prothrombin Time Whole Bld POC 13.9 sec (11.1-13.5); ~PT, ~INR - Anti Coag Clinic 1.2 (0.9-1.1)
--- NOTE | 2022-01-25 14:29 | PC.NURSE ---
pt return from ct scan
[2022-01-25 14:30] LABS: Glucose, Whole Blood 134 mg/dL (60-115)
[2022-01-25] MEDS: propofoL 1,000 MG/100 ML VIAL 7.63 MG IVCONT (14:31)
[2022-01-25] MEDS: fentaNYL citrate/NS 1,000 MCG/100 ML PLAST..BAG 2.5 MCG IVCONT (14:46)
[2022-01-25] MEDS: levETIRAcetam in NaCl (iso-os) 1,000 MG/100 ML PIGGYBACK 400 MG IV (14:48)
[2022-01-25] MEDS: 0.9 % Sodium Chloride 1,000 ML 999 ML IVCONT (14:50)
[2022-01-25] MEDS: Midazolam HCl/PF 2 MG/2 ML VIAL 4 MG IVPUSH (14:54)
[2022-01-25] MEDS: Rocuronium Bromide 50 MG/5 ML VIAL IVPUSH (14:54)
--- NOTE | 2022-01-25 14:57 | HO.SUDE ---
Pt is not able to participate in SUDE assessment at this time due to current medical needs.
[2022-01-25 15:12] LABS: MANUAL DIFF FLAG NO
[2022-01-25 15:13] LABS: Basophils Percent Auto 0.2 % (0-2); Eosinophils Percent Auto 0.5 % (0-4); Hematocrit 35.2 % (42.0-52.0); Hemoglobin 10.9 g/dl (14.0-18.0); Imm Gran Abs Auto 0.05 X10*3/uL (0.00-0.03); Imm Gran Pct Auto 0.9 % (0.0-0.4); Lymphocytes Absolute Auto 0.8 X10*3/uL (1.2-4.9); Lymphocytes Percent Auto 13.3 % (20-40); Mean Corpuscular Hemoglobin 29.1 pg (27.0-33.0); Mean Corpuscular Volume 93.9 fL (80.0-98.0); Monocytes Absolute Auto 0.8 X10*3/uL (0.1-1.2); Monocytes Percent Auto 14.1 % (2-11); Neutrophils Absolute Auto 4.1 x10*3/uL (2.0-8.3); Red Blood Count 3.75 X10*6/uL (4.60-5.80); Red Cell Distribution Width 15.8 % (11.0-16.0); White Blood Count 5.8 X10*3/uL (4.8-10.8)
[2022-01-25 15:13] LABS: Venous Blood Gas Refer to POC result
[2022-01-25 15:14] LABS: VBG Base Excess -13.5 mmol/L; VBG HCO3 14 mmol/L (22-26); VBG pCO2 39 mmHg; VBG pH 7.16 (7.32-7.43); VBG pO2 73 mmHg
[2022-01-25 15:17] LABS: Platelet Count 99 X10*3/uL (160-400)
[2022-01-25 15:18] LABS: INTERNATIONAL NORM RATIO 1.2 (0.9-1.1); Prothrombin Time 13.5 SEC (9.9-13.0)
[2022-01-25 15:21] LABS: Ammonia 94 umol/L (13-55)
[2022-01-25 15:25] LABS: Ethanol < 10 mg/dL
[2022-01-25 15:28] LABS: Acetaminophen LAB < 1 mcg/mL (<30); Salicylate < 5.0 mg/dL (15-30)
[2022-01-25 15:29] LABS: COVID-19 Test Negative (Negative)
--- NOTE | 2022-01-25 15:30 | PC.NURSE ---
oragastric tube #14 place with + auscultation. scant amt of light brown/parekh fluids noted.
[2022-01-25 15:31] LABS: Alanine Aminotransferase 28 U/L (0-40); Albumin Level 3.3 g/dL (3.5-5.0); Alkaline Phosphatase 267 U/L (39-117); Anion Gap 19 (12-20); Aspartate Amino Transferase 71 U/L (5-37); Bilirubin Direct 0.3 mg/dL (0.0-0.5); Bilirubin Total 0.5 mg/dL (0.0-1.0); Blood Urea Nitrogen 28 mg/dL (9-16); Calcium 8.7 mg/dL (8.4-10.2); Carbon Dioxide 15 mmol/L (22-29); Chloride 106 mmol/L (96-108); Creatinine Clr Calc Pharmacy 55.8; Estimated Glomerular Filt Rate 59; Glucose Random 124 mg/dL (60-115); Lipase 87 U/L (8-78); Magnesium 2.6 mg/dL (1.6-2.6); Sodium 136 mmol/L (135-145); Total Protein 9.6 g/dL (6.5-8.0)
[2022-01-25 15:33] LABS: Troponin-I High Sensitivity 24.8 ng/L (<3.5-35.0)
[2022-01-25 15:33] LABS: Appearance Urine HAZY; Color Urine YELLOW; Glucose Urine UA NEG (NEG); Leukocyte Esterase Urine NEG (NEG); Nitrite Urine NEG (NEG); PH 5.5 (5.0-8.0); Specific Gravity - Urine 1.025 (1.005-1.025); UACC Culture Trigger NO; Urine Blood 3+ (NEG); Urine Ketones NEG (NEG); Urine Protein 1+ MG/DL (NEG-TRACE)
[2022-01-25 15:42] LABS: Epith (RTE) Cast 0-2 /LPF; Mucus Urine 4+ /LPF; Renal Epithelial Cells Urine 4+ /LPF; Squamous Epithelial Cell Urine 2+ /LPF; WBC Urine 0-2 /HPF (0-4)
[2022-01-25 15:44] LABS: Lactic Acid 10.5 mmol/L (0.5-2.0)
[2022-01-25 15:46] LABS: Acetone, serum QL Negative (Negative)
[2022-01-25 15:47] LABS: Amphetamine Screen Urine Not Detected (Not Detect); Barbiturates, Urine Not Detected (Not Detect); Benzodiazepines Screen Urine POSITIVE (Not Detect); Cannabinoid Screen Urine Not Detected (Not Detect); Cocaine Screen Urine POSITIVE (Not Detect); Fentanyl, urine POSITIVE (Not Detect); Opiate Screen Urine POSITIVE (Not Detect); Phencyclidine Screen Urine Not Detected (Not Detect)
[2022-01-25] MEDS: Piperacillin Sodium/Tazobactam 3.375 GM in 0.9 % Sodium Chloride 50 ML IV (16:03)
--- NOTE | 2022-01-25 16:12 | P.HPCC_ITS ---
History of Present Illness Date of Service: 01/25/22 Chief Complaint: Polysubstance overdose, acute respiratory failure 61-year-old gentleman with underlying history of asthma, HIV, Hep C, polysubstance abuse found unresponsiveby his neighbors with unclear down time. EMS called, patient with grand mal seizure and fluid given 4 mg of Versed. On ER evaluation still actively seizing requiring another for mg dose of Versed and intubation for airway protection. Initial CT head with no acute cranial abnormalities. Initial workup significant for metabolic acidosis, likely lactic acidosis secondary to seizures. CT abdomen and CT chest with no acute findings. Patient admitted to the intensive care unit. Review of Systems Review of Systems: Yes unobtainable due to endotracheal tube, Unobtainable due to mental condition and Unobtainable due to mental status PMFSH Past Medical History Medical History (Updated 01/25/22 @ 16:15 by Gibson Ford MD) Alcoholism Asthma Depression Hepatitis HIV disease Substance abuse Social History Social History (Updated 01/25/22 @ 14:13 by Desire Reinoso DO) Alcohol intake: never Patient Tobacco Use Status: Tobacco use Unknown Substance Use Type: Crack/Cocaine and Heroin Advance Directives: No Meds Allergies Allergy/AdvReac Type Severity Reaction Status Date / Time No Known Allergies Allergy Verified 11/04/21 10:40 [No Known Allergies*] Active Medications: Current Medications Chlorhexidine Gluconate (Chlorhexidine Gluc Oral Rinse 15 Ml Mouthwash) 15 ml BUCCAL Q8H [place] Famotidine (Famotidine/Pf 20 Mg/2 Ml Vial) 20 mg IVPUSH BID [place] Heparin Sodium (Porcine) (Heparin Sodium,Porcine 5,000 Unit/Ml Vial) 5,000 unit SUBCUT Q8H [place] Propofol (Diprivan) 1,000 mg in 100 mls @ 0 mls/hr IVCONT .Q0M [place]; Protocol Last Titration: 01/25/22 15:46 Dose: 31.26 mcg/kg/min, 11.93 mls/hr Documented by: Fentanyl (Sublimaze/Ns) 1,000 mcg in 100 mls @ 0 mls/hr IVCONT .Q0M [facility]; Protocol Last Titration: 01/25/22 15:51 Dose: 50 mcg/hr, 5 mls/hr Documented by: Naloxone HCl (Naloxone Hcl 0.4 Mg/Ml Vial) 0.2 mg IVPUSH Q2M PRN PRN Reason: Excessive sedation or RR < 8 Pharmacy Consult (Consult Rx Perform Med Rec) 1 each MISCELLANE ONCE PRN PRN Reason: Consult order Home Medications Medication Instructions Recorded Confirmed Last Taken Type albuterol sulfate 90 mcg/actuation 2 puff PO Q6H PRN 11/04/21 Unknown History aerosol inhaler (ProAir HFA) bictegravir 50 mg-emtricitabine 1 tab PO DAILY 11/04/21 Unknown History 200 mg-tenofovir alafenam 25 mg tablet (Biktarvy) capsaicin 0.025 % topical cream 1 appl TOPICAL TID 11/04/21 Unknown History capsaicin 0.025 % topical cream appl TOPICAL TID 11/04/21 Unknown History cephalexin 500 mg capsule 500 mg PO Q8H 11/04/21 Unknown History cetirizine 10 mg tablet 10 mg PO DAILY PRN 11/04/21 Unknown History docusate sodium 100 mg capsule 100 mg PO BID 11/04/21 Unknown History (Colace) food supplemt, lactose-reduced ea PO TIDWMEAL ml 11/04/21 Unknown History (Ensure) methadone 10 mg/5 mL oral solution 2.5 mg PO Q6H 11/04/21 Unknown History prednisone 20 mg tablet 20 mg PO BID 11/04/21 Unknown History sennosides 8.6 mg tablet (Senna 8.6 - 17.2 mg PO BEDTIME PRN 11/04/21 Unknown History Laxative) sertraline 50 mg tablet 50 mg PO QAM 11/04/21 Unknown History sulfamethoxazole 800 1 tab PO Q12H 11/04/21 Unknown History mg-trimethoprim 160 mg tablet (Bactrim DS) famotidine 40 mg tablet 20 mg PO BID 01/25/22 01/25/22 Unknown History Physical Exam Vital Signs: Vital Signs: Last Vital Signs Temp 99.0 F 01/25/22 16:00 Pulse 79 01/25/22 16:00 Resp 12 01/25/22 16:00 BP 122/71 01/25/22 16:00 Pulse Ox 100 01/25/22 16:00 BMI result Body Mass Index 21.9 Const: General: no acute distress and other (Sedated on the vent) Eyes: Sclerae: sclerae normal Neck: Neck: Yes no lymphadenopathy, Yes trachea midline and Yes supple Resp: Auscultation: clear to auscultation bilaterally Cardio: Rate: regular rate Rhythm: regular rhythm Heart sounds: no alicea ps, no murmurs and no rubs GI: Palpation (GI): Soft to palpation and Other GI palpation findings present ( Nontender) Auscultation: normal bowel sounds Extrem: General: Yes no pedal edema, No clubbing and No cyanosis Results Labs CBC and Chem 7: 01/25/22 15:02 01/25/22 15:02 Labs: Laboratory Results - last 24 hr 01/25/22 01/25/22 01/25/22 14:02 14:12 14:35 MCV MCH MCHC RDW Plt Count MPV Immature Gran % (Auto) Neut % (Auto) Lymph % (Auto) [place] % (Auto) Eos % (Auto) Baso % (Auto) Lymph # (Auto) [place] # (Auto) Eos # (Auto) Baso # (Auto) Abs Immat Gran (auto) Absolute Neuts (auto) Absolute Nucleated RBC Nucleated RBC % (auto) PT 13.5 H Whole Blood PT 13.9 H INR 1.2 H Whole Blood INR 1.2 H VBG pH VBG pCO2 VBG pO2 VBG HCO3 VBG O2 Saturation VBG Base Excess Anion Gap Estim Creat Clear Calc Estimated GFR POC Glucose 134 H Random Glucose Lactic Acid Calcium Magnesium Total Bilirubin Direct Bilirubin AST ALT Alkaline Phosphatase Ammonia Total Creatine Kinase Total Protein Albumin Lipase Urine Color Urine Appearance Urine pH Ur Specific [place] Urine Protein Urine Glucose (UA) Urine Ketones Urine Blood Urine Nitrite Ur Leukocyte Esterase Urine RBC Urine WBC Ur Squamous Epith Cells Ur Renal Epithelial Cell Urine Bacteria Epithelial Casts Urine Mucus Salicylates Urine Opiates Screen Urine Fentanyl Screen Acetaminophen Ur Barbiturates Screen Ur Phencyclidine Scrn Ur Amphetamines Screen U Benzodiazepines Scrn Urine Cocaine Screen U Marijuana (THC) Screen Ethyl Alcohol Acetone, Qual COVID-19 (SAIDA) COVID-19 Clin Com 01/25/22 01/25/22 01/25/22 15:00 15:00 15:02 MCV MCH MCHC RDW Plt Count MPV Immature Gran % (Auto) Neut % (Auto) Lymph % (Auto) [place] % (Auto) Eos % (Auto) Baso % (Auto) Lymph # (Auto) [place] # (Auto) Eos # (Auto) Baso # (Auto) Abs Immat Gran (auto) Absolute Neuts (auto) Absolute Nucleated RBC Nucleated RBC % (auto) PT Whole Blood PT INR Whole Blood INR VBG pH VBG pCO2 VBG pO2 VBG HCO3 VBG O2 Saturation VBG Base Excess Anion Gap Estim Creat Clear Calc Estimated GFR POC Glucose Random Glucose Lactic Acid 10.5 H* Calcium Magnesium Total Bilirubin Direct Bilirubin AST ALT Alkaline Phosphatase Ammonia 94 H Total Creatine Kinase Total Protein Albumin Lipase Urine Color Urine Appearance Urine pH Ur Specific [place] Urine Protein Urine Glucose (UA) Urine Ketones Urine Blood Urine Nitrite Ur Leukocyte Esterase Urine RBC Urine WBC Ur Squamous Epith Cells Ur Renal Epithelial Cell Urine Bacteria Epithelial Casts Urine Mucus Salicylates < 5.0 L Urine Opiates Screen Urine Fentanyl Screen Acetaminophen < 1 Ur Barbiturates Screen Ur Phencyclidine Scrn Ur Amphetamines Screen U Benzodiazepines Scrn Urine Cocaine Screen U Marijuana (THC) Screen Ethyl Alcohol Acetone, Qual COVID-19 (SAIDA) COVID-19 Clin Com 01/25/22 01/25/22 01/25/22 15:02 15:02 15:02 MCV 93.9 MCH 29.1 MCHC 31.0 RDW 15.8 Plt Count 99 L MPV 13.0 H Immature Gran % (Auto) 0.9 H Neut % (Auto) 71.0 Lymph % (Auto) 13.3 L [place] % (Auto) 14.1 H Eos % (Auto) 0.5 Baso % (Auto) 0.2 Lymph # (Auto) 0.8 L [place] # (Auto) 0.8 Eos # (Auto) 0.0 Baso # (Auto) 0.0 Abs Immat Gran (auto) 0.05 H Absolute Neuts (auto) 4.1 Absolute Nucleated RBC 0.000 Nucleated RBC % (auto) 0.0 PT Whole Blood PT INR Whole Blood INR VBG pH VBG pCO2 VBG pO2 VBG HCO3 VBG O2 Saturation VBG Base Excess Anion Gap 19 Estim Creat Clear Calc 55.8 Estimated GFR 59 POC Glucose Random Glucose 124 H Lactic Acid Calcium 8.7 D Magnesium 2.6 Total Bilirubin 0.5 Direct Bilirubin 0.3 AST 71 H ALT 28 Alkaline Phosphatase 267 H Ammonia Total Creatine Kinase 180 H Total Protein 9.6 H Albumin 3.3 L Lipase 87 H Urine Color Urine Appearance Urine pH Ur Specific [place] Urine Protein Urine Glucose (UA) Urine Ketones Urine Blood Urine Nitrite Ur Leukocyte Esterase Urine RBC Urine WBC Ur Squamous Epith Cells Ur Renal Epithelial Cell Urine Bacteria Epithelial Casts Urine Mucus Salicylates Urine Opiates Screen Urine Fentanyl Screen Acetaminophen Ur Barbiturates Screen Ur Phencyclidine Scrn Ur Amphetamines Screen U Benzodiazepines Scrn Urine Cocaine Screen U Marijuana (THC) Screen Ethyl Alcohol Acetone, Qual Negative COVID-19 (SAIDA) Negative COVID-19 Clin Com See Note 01/25/22 01/25/22 01/25/22 15:02 15:06 15:21 MCV MCH MCHC RDW Plt Count MPV Immature Gran % (Auto) Neut % (Auto) Lymph % (Auto) [place] % (Auto) Eos % (Auto) Baso % (Auto) Lymph # (Auto) [place] # (Auto) Eos # (Auto) Baso # (Auto) Abs Immat Gran (auto) Absolute Neuts (auto) Absolute Nucleated RBC Nucleated RBC % (auto) PT Whole Blood PT INR Whole Blood INR VBG pH 7.16 L* VBG pCO2 39 VBG pO2 73 VBG HCO3 14 L VBG O2 Saturation 85.0 VBG Base Excess -13.5 Anion Gap Estim Creat Clear Calc Estimated GFR POC Glucose Random Glucose Lactic Acid Calcium Magnesium Total Bilirubin Direct Bilirubin AST ALT Alkaline Phosphatase [place] Total Creatine Kinase Total Protein Albumin Lipase Urine Color YELLOW Urine Appearance HAZY Urine pH 5.5 Ur Specific [place] 1.025 Urine Protein 1+ H Urine Glucose (UA) NEG Urine Ketones NEG Urine Blood 3+ H Urine Nitrite NEG Ur Leukocyte Esterase NEG Urine RBC 10-14 H Urine WBC 0-2 Ur Squamous Epith Cells 2+ Ur Renal Epithelial Cell 4+ Urine Bacteria NONE Epithelial Casts 0-2 Urine Mucus 4+ Salicylates Urine Opiates Screen Urine Fentanyl Screen Acetaminophen Ur Barbiturates Screen Ur Phencyclidine Scrn Ur Amphetamines Screen U Benzodiazepines Scrn Urine Cocaine Screen U Marijuana (THC) Screen Ethyl Alcohol < 10 Acetone, Qual COVID-19 (SAIDA) COVID-19 Clin Com 01/25/22 15:21 MCV MCH MCHC RDW Plt Count MPV Immature Gran % (Auto) Neut % (Auto) Lymph % (Auto) [place] % (Auto) Eos % (Auto) Baso % (Auto) Lymph # (Auto) [place] # (Auto) Eos # (Auto) Baso # (Auto) Abs Immat Gran (auto) Absolute Neuts (auto) Absolute Nucleated RBC Nucleated RBC % (auto) PT Whole Blood PT INR Whole Blood INR VBG pH VBG pCO2 VBG pO2 VBG HCO3 VBG O2 Saturation VBG Base Excess Anion Gap Estim Creat Clear Calc Estimated GFR POC Glucose Random Glucose Lactic Acid Calcium Magnesium Total Bilirubin Direct Bilirubin AST ALT Alkaline Phosphatase [place] Total Creatine Kinase Total Protein Albumin Lipase Urine Color Urine Appearance Urine pH Ur Specific [place] Urine Protein Urine Glucose (UA) Urine Ketones Urine Blood Urine Nitrite Ur Leukocyte Esterase Urine RBC Urine WBC Ur Squamous Epith Cells Ur Renal Epithelial Cell Urine Bacteria Epithelial Casts Urine Mucus Salicylates Urine Opiates Screen POSITIVE H Urine Fentanyl Screen POSITIVE H Acetaminophen Ur Barbiturates Screen Not Detected Ur Phencyclidine Scrn Not Detected Ur Amphetamines Screen Not Detected U Benzodiazepines Scrn POSITIVE H Urine Cocaine Screen POSITIVE H U Marijuana (THC) Screen Not Detected Ethyl Alcohol Acetone, Qual COVID-19 (SAIDA) COVID-19 Clin Com Imaging Radiologist's Impressions: Impressions Abdomen/Pelvis CT 01/25/22 14:56 IMPRESSION: Mild cirrhotic changes of the liver. Mild splenomegaly. Question mild wall thickening of the right colon. This may be artifactual due to underdistention. Fleischner guidelines were followed. Cervical Spine CT 01/25/22 14:56 IMPRESSION: Degenerative changes. No fracture or dislocation seen. Fleischner guidelines were followed. Chest CT 01/25/22 14:56 IMPRESSION: Mild dependent atelectasis or consolidation at the lung bases. Endotracheal tube 4.5 cm above the jyamie. Fleischner guidelines were followed. 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 This appears old but is new in the interval from 2016 exam. Age could be more accurately determined with MRI if clinically indicated. Assessment and Plan (1) Drug overdose: Qualifiers: Encounter type: initial encounter Injury intent: undetermined intent Qualified Code(s): T50.904A - Poisoning by unspecified drugs, medicaments and biological substances, undetermined, initial encounter Status: Acute (2) Metabolic acidosis: Status: Acute (3) Seizure: Status: Acute (4) Acute respiratory failure: Status: Acute (5) Hepatitis C: Status: Acute (6) HIV disease: Status: Acute (7) Acidosis, lactic: Status: Acute Plan Assessment: 61-year-old gentleman admitted with polysubstance abuse, new onset of seizures, alteration of mental status with unclear down time requiring intubation and ventilatory support for airway protection. Plan: Neuro: New onset seizures, initial CT head with no acute findings. Concern for possible hypoxic damage. Also, polysubstance abuse. Continue Keppra. Cardiac: No acute issues. Pulmonary: Acute respiratory failure requiring intubation for airway protection and ventilatory support. Continue to titrate off as tolerated. Renal: No acute issues. Endo: No acute issues. GI: No acute issues. ID: No acute issues. Underlying history of hepatitis-C and HIV. Heme/Onc: No acute issues. Psych: No acute issues. Miscellaneous: No acute issues. Prophylaxis: Heparin, famotidine Diet: Nothing by mouth Critical care time spent: 45 minutes
[2022-01-25 16:33] LABS: ABG Base Excess -4.1 mmol/L; ABG HCO3 20 mmol/L (22-26); ABG pCO2 35 mmHg (32-45); ABG pH 7.36 (7.35-7.45); ABG pO2 74 mmHg (83-108)
--- NOTE | 2022-01-25 16:40 | PHA.MEDREC ---
MED REC DONE BY PHARMACY CLAIM HISTORY, WHEN PATIENT IS ALERT AND ORIENTED WE CAN REVIEW MED LIST Pharmacy Consult ? Medication Reconciliation Pharmacy has completed the medication reconciliation.
[2022-01-25 17:10] LABS: Reflex Lactate? Lactic Acid Added
[2022-01-25] MEDS: Heparin Sodium,Porcine 5,000 UNIT/ML VIAL 5000 UNIT SUBCUT (18:19)
[2022-01-25 18:26] LABS: ~Lactic Acid-LAB USE ONLY 3.4 mmol/L (0.5-2.0)
[2022-01-25 18:35] LABS: ABG Refer to POC result
[2022-01-25] MEDS: propofoL 1,000 MG/100 ML VIAL 11.93 MG IVCONT (19:02)
[2022-01-25 19:44] LABS: Reflex Lactate? 2 Y
[2022-01-25 20:25] LABS: ~Lactic Acid-LAB USE ONLY 1.3 mmol/L (0.5-2.0)
[2022-01-25] MEDS: Chlorhexidine Gluc Oral Rinse 15 ML MOUTHWASH BUCCAL (22:11)
[2022-01-25] MEDS: Famotidine/PF 20 MG/2 ML VIAL IVPUSH (22:13)
[2022-01-26] VITALS (28 sets, daily range): BP systolic 96–161; BP diastolic 52–91; PULSE 59–83; RESP 14–114; TEMP 34–37.6; O2SAT 91–99; BMI 20.8
[2022-01-26] MEDS: propofoL 1,000 MG/100 ML VIAL 7.63 MG IVCONT (01:37)
[2022-01-26] MEDS: levETIRAcetam in NaCl (iso-os) 1,000 MG/100 ML PIGGYBACK 400 MG IV ×2 (04:07→16:14)
[2022-01-26] MEDS: Heparin Sodium,Porcine 5,000 UNIT/ML VIAL 5000 UNIT SUBCUT ×3 (04:07→17:34)
--- NOTE | 2022-01-26 05:06 | PC.NURSE ---
Pt admitted to ICU at approx 1999. Afebrile. NSR on tele, HR 60s. SBP WNL. Sedated on propofol/fentanyl, titrated down as tolerated- responds to tactile stimuli, agitated with care and reaches for lines/tubes. ETT #7.5, 23 cm at lip. On AC 20/450/5/21%, synchronous, SpO2>97%. Scant oral secretions. Garnica in place, UOP approx 30 ml/hr. Skin intact. Family called/updated on plan of care.
[2022-01-26 05:23] LABS: VBG Base Excess -0.3 mmol/L; VBG HCO3 20 mmol/L (22-26); VBG pCO2 23 mmHg; VBG pH 7.55 (7.32-7.43); VBG pO2 86 mmHg
[2022-01-26 05:24] LABS: Venous Blood Gas Refer to POC result
[2022-01-26 05:33] LABS: Basophils Percent Auto 0.3 % (0-2); Eosinophils Percent Auto 0.7 % (0-4); Hematocrit 27.3 % (42.0-52.0); Hemoglobin 9.1 g/dl (14.0-18.0); Imm Gran Abs Auto 0.01 X10*3/uL (0.00-0.03); Imm Gran Pct Auto 0.3 % (0.0-0.4); Lymphocytes Percent Auto 36.2 % (20-40); Mean Corpuscular HGB Conc 33.3 g/dl (31.0-36.0); Mean Corpuscular Hemoglobin 29.4 pg (27.0-33.0); Mean Corpuscular Volume 88.1 fL (80.0-98.0); Mean Platelet Volume 12.4 fL (9.4-12.4); Monocytes Absolute Auto 0.5 X10*3/uL (0.1-1.2); Monocytes Percent Auto 17.8 % (2-11); Neutrophils Absolute Auto 1.3 x10*3/uL (2.0-8.3); Neutrophils Percent Auto 44.7 % (45-73); Red Cell Distribution Width 15.8 % (11.0-16.0); White Blood Count 2.9 X10*3/uL (4.8-10.8)
[2022-01-26 05:39] LABS: MANUAL DIFF FLAG SCAN; Platelet Count 73 X10*3/uL (160-400)
[2022-01-26 05:50] LABS: Alanine Aminotransferase 23 U/L (0-40); Albumin Level 2.6 g/dL (3.5-5.0); Alkaline Phosphatase 199 U/L (39-117); Anion Gap 10 (12-20); Aspartate Amino Transferase 65 U/L (5-37); Bilirubin Total 0.8 mg/dL (0.0-1.0); Blood Urea Nitrogen 24 mg/dL (9-16); Calcium 8.1 mg/dL (8.4-10.2); Carbon Dioxide 21 mmol/L (22-29); Chloride 109 mmol/L (96-108); Creatinine Clr Calc Pharmacy 67.6; Estimated Glomerular Filt Rate > 60; Glucose Random 79 mg/dL (60-115); Magnesium 2.3 mg/dL (1.6-2.6); Phosphorus 2.8 mg/dL (2.7-4.5); Potassium 3.7 mmol/L (3.3-5.1); Sodium 136 mmol/L (135-145); Total Protein 7.5 g/dL (6.5-8.0)
[2022-01-26 05:52] LABS: SLIDE REVIEW VERIFIED
[2022-01-26] MEDS: fentaNYL citrate/NS 1,000 MCG/100 ML PLAST..BAG 5 MCG IVCONT (06:33)
--- NOTE | 2022-01-26 07:18 | P.CDIC_ITS ---
CDI Concurrent Query Documentation Clarification: PHYSICIAN'S DOCUMENTATION REQUEST Date of Query: 01/26/22 0719 Patient Name: Mino Morales Admit Date: 01/25/22 Dear Doctor, A review of the medical record indicates additional documentation may be needed. Please review below and update the documentation accordingly. Clinical Indicators: The following information is noted in the medical record: Risk Factors/Clinical Indicators/Treatments Per ED note: found down and unresponsive, seizing, altered mental status, somnolent, fixed gaze to left. Per H&P: possible hypoxic damage Based on the above, could you clarify in the Progress Notes which, if any of the following, best reflects the patient's level of consciousness? * Unconscious * Comatose * Persistent vegetative state * Transient level of awareness * Other (please specify) * Unable to determine Use of terms such as suspected, likely, concern for, or probable (associated with a specific diagnosis that is being evaluated, monitored, or treated as if it exists) are acceptable and can be coded in the inpatient setting, when documented at the time of discharge. Thank you, Dalia Garvey RN Extension: [phone] Please use your independent medical judgment in providing your response. THIS QUERY IS PART OF THE PERMANENT MEDICAL RECORD Provider Response: Other (Postictal) Other Diagnosis: postictal
[2022-01-26] MEDS: Albumin Human 25 % 100 ML IV ×3 (08:12→20:38)
[2022-01-26] MEDS: Famotidine/PF 20 MG/2 ML VIAL IVPUSH (08:12)
[2022-01-26] MEDS: Chlorhexidine Gluc Oral Rinse 15 ML MOUTHWASH BUCCAL (08:12)
--- NOTE | 2022-01-26 11:37 | P.PNCC_ITS ---
Subjective Subjective Date of Service: 01/26/22 Interval History: 61-year-old gentleman with underlying history of asthma, HIV, Hep C, polysubstance abuse found unresponsiveby his neighbors with unclear down time. EMS called, patient with grand mal seizure and fluid given 4 mg of Versed. On ER evaluation still actively seizing requiring another for mg dose of Versed and intubation for airway protection. Initial CT head with no acute cranial abnormalities. Initial workup significant for metabolic acidosis, likely lactic acidosis secondary to seizures. CT abdomen and CT chest with no acute findings. Patient admitted to the intensive care unit. No events overnight. No recurrence of seizures. Extubated uneventfully this a.m.. Critical Care Time (minutes): 45 Physical Exam Vital Signs: Vital Signs: Last Vital Signs Temp 98.1 F 01/26/22 11:00 Pulse 66 01/26/22 11:00 Resp 17 01/26/22 11:00 BP 139/84 01/26/22 11:00 Pulse Ox 94 01/26/22 11:00 BMI result Body Mass Index 20.8 Const: General: no acute distress and lethargic ( Arousable and follows comma nds) Orientation/consciousness: lethargic ( Arousable and follows commands) Eyes: Sclerae: sclerae normal EOM: EOMs intact bilaterally Neck: Neck: Yes no lymphadenopathy, Yes trachea midline and Yes supple Resp: Effort & Inspection: normal respiratory effort and no respiratory distr ess Auscultation: clear to auscultation bilaterally Cardio: Rate: regular rate Rhythm: regular rhythm Heart sounds: no gallops, no murmurs and no rubs GI: Palpation (GI): Soft to palpation and Other GI palpation findings present ( Nontender) Auscultation: normal bowel sounds Extrem: General: Yes no pedal edema, No clubbing and No cyanosis Objective Data Labs CBC & Chem 7: 01/26/22 05:17 01/26/22 05:17 Labs: Laboratory Results - last 24 hr 01/25/22 01/25/22 01/25/22 14:02 14:12 14:35 WBC RBC Hgb Hct MCV MCH MCHC RDW Plt Count MPV Immature Gran % (Auto) Neut % (Auto) Lymph % (Auto) [place] % (Auto) Eos % (Auto) Baso % (Auto) Lymph # (Auto) [place] # (Auto) Eos # (Auto) Baso # (Auto) Abs Immat Gran (auto) Absolute Neuts (auto) Absolute Nucleated RBC Nucleated RBC % (auto) Smear Tech's Comments PT 13.5 H Whole Blood PT 13.9 H INR 1.2 H Whole Blood INR 1.2 H O2 Saturation ABG pH at Pt Temp ABG pCO2 at Pt Temp ABG pO2 at Pt Temp ABG HCO3 ABG Base Excess (Actual) VBG pH VBG pCO2 VBG pO2 VBG HCO3 VBG O2 Saturation VBG Base Excess Sodium Potassium Chloride Carbon Dioxide Anion Gap BUN Creatinine Estim Creat Clear Calc Estimated GFR POC Glucose 134 H Random Glucose Lactic Acid Lactic Acid F/U @ 2Hr Lactic Acid F/U @ 4Hr Calcium Phosphorus Magnesium Total Bilirubin Direct Bilirubin AST ALT Alkaline Phosphatase Ammonia Total Creatine Kinase Troponin I High Sens Total Protein Albumin Lipase Urine Color Urine Appearance Urine pH Ur Specific [place] Urine Protein Urine Glucose (UA) Urine Ketones Urine Blood Urine Nitrite Ur Leukocyte Esterase Urine RBC Urine WBC Ur Squamous Epith Cells Ur Renal Epithelial Cell Urine Bacteria Epithelial Casts Urine Mucus Salicylates Urine Opiates Screen Urine Fentanyl Screen Acetaminophen Ur Barbiturates Screen Ur Phencyclidine Scrn Ur Amphetamines Screen U Benzodiazepines Scrn Urine Cocaine Screen U Marijuana (THC) Screen Ethyl Alcohol Acetone, Qual COVID-19 (SAIDA) COVID-19 Clin Com 01/25/22 01/25/22 01/25/22 15:00 15:00 15:02 WBC RBC Hgb Hct MCV MCH MCHC RDW Plt Count MPV Immature Gran % (Auto) Neut % (Auto) Lymph % (Auto) [place] % (Auto) Eos % (Auto) Baso % (Auto) Lymph # (Auto) [place] # (Auto) Eos # (Auto) Baso # (Auto) Abs Immat Gran (auto) Absolute Neuts (auto) Absolute Nucleated RBC Nucleated RBC % (auto) Smear Tech's Comments PT Whole Blood PT INR Whole Blood INR O2 Saturation ABG pH at Pt Temp ABG pCO2 at Pt Temp ABG pO2 at Pt Temp ABG HCO3 ABG Base Excess (Actual) VBG pH VBG pCO2 VBG pO2 VBG HCO3 VBG O2 Saturation VBG Base Excess Sodium Potassium Chloride Carbon Dioxide Anion Gap BUN Creatinine Estim Creat Clear Calc Estimated GFR POC Glucose Random Glucose Lactic Acid 10.5 H* Lactic Acid F/U @ 2Hr Lactic Acid F/U @ 4Hr Calcium Phosphorus Magnesium Total Bilirubin Direct Bilirubin AST ALT Alkaline Phosphatase Ammonia 94 H Total Creatine Kinase Troponin I High Sens Total Protein Albumin Lipase Urine Color Urine Appearance Urine pH Ur Specific [place] Urine Protein Urine Glucose (UA) Urine Ketones Urine Blood Urine Nitrite Ur Leukocyte Esterase Urine RBC Urine WBC Ur Squamous Epith Cells Ur Renal Epithelial Cell Urine Bacteria Epithelial Casts Urine Mucus Salicylates < 5.0 L Urine Opiates Screen Urine Fentanyl Screen Acetaminophen < 1 Ur Barbiturates Screen Ur Phencyclidine Scrn Ur Amphetamines Screen U Benzodiazepines Scrn Urine Cocaine Screen U Marijuana (THC) Screen Ethyl Alcohol Acetone, Qual COVID-19 (SAIDA) COVID-19 Clin Com 01/25/22 01/25/22 01/25/22 15:02 15:02 15:02 WBC 5.8 RBC 3.75 L Hgb 10.9 L Hct 35.2 L MCV 93.9 MCH 29.1 MCHC 31.0 RDW 15.8 Plt Count 99 L MPV 13.0 H Immature Gran % (Auto) 0.9 H Neut % (Auto) 71.0 Lymph % (Auto) 13.3 L [place] % (Auto) 14.1 H Eos % (Auto) 0.5 Baso % (Auto) 0.2 Lymph # (Auto) 0.8 L [place] # (Auto) 0.8 Eos # (Auto) 0.0 Baso # (Auto) 0.0 Abs Immat Gran (auto) 0.05 H Absolute Neuts (auto) 4.1 Absolute Nucleated RBC 0.000 Nucleated RBC % (auto) 0.0 Smear Tech's Comments PT Whole Blood PT INR Whole Blood INR O2 Saturation ABG pH at Pt Temp ABG pCO2 at Pt Temp ABG pO2 at Pt Temp ABG HCO3 ABG Base Excess (Actual) VBG pH VBG pCO2 VBG pO2 VBG HCO3 VBG O2 Saturation VBG Base Excess Sodium 136 Potassium 4.0 Chloride 106 Carbon Dioxide 15 L Anion Gap 19 BUN 28 H Creatinine 1.25 Estim Creat Clear Calc 55.8 Estimated GFR 59 POC Glucose Random Glucose 124 H Lactic Acid Lactic Acid F/U @ 2Hr Lactic Acid F/U @ 4Hr Calcium 8.7 D Phosphorus Magnesium 2.6 Total Bilirubin 0.5 Direct Bilirubin 0.3 AST 71 H ALT 28 Alkaline Phosphatase 267 H Ammonia Total Creatine Kinase 180 H Troponin I High Sens 24.8 Total Protein 9.6 H Albumin 3.3 L Lipase 87 H Urine Color Urine Appearance Urine pH Ur Specific [place] Urine Protein Urine Glucose (UA) Urine Ketones Urine Blood Urine Nitrite Ur Leukocyte Esterase Urine RBC Urine WBC Ur Squamous Epith Cells Ur Renal Epithelial Cell Urine Bacteria Epithelial Casts Urine Mucus Salicylates Urine Opiates Screen Urine Fentanyl Screen Acetaminophen Ur Barbiturates Screen Ur Phencyclidine Scrn Ur Amphetamines Screen U Benzodiazepines Scrn Urine Cocaine Screen U Marijuana (THC) Screen Ethyl Alcohol Acetone, Qual Negative COVID-19 (SAIDA) COVID-19 Clin Com 01/25/22 01/25/22 01/25/22 15:02 15:02 15:06 WBC RBC Hgb Hct MCV MCH MCHC RDW Plt Count MPV Immature Gran % (Auto) Neut % (Auto) Lymph % (Auto) [place] % (Auto) Eos % (Auto) Baso % (Auto) Lymph # (Auto) [place] # (Auto) Eos # (Auto) Baso # (Auto) Abs Immat Gran (auto) Absolute Neuts (auto) Absolute Nucleated RBC Nucleated RBC % (auto) Smear Tech's Comments PT Whole Blood PT INR Whole Blood INR O2 Saturation ABG pH at Pt Temp ABG pCO2 at Pt Temp ABG pO2 at Pt Temp ABG HCO3 ABG Base Excess (Actual) VBG pH 7.16 L* VBG pCO2 39 VBG pO2 73 VBG HCO3 14 L VBG O2 Saturation 85.0 VBG Base Excess -13.5 Sodium Potassium Chloride Carbon Dioxide Anion Gap BUN Creatinine Estim Creat Clear Calc Estimated GFR POC Glucose Random Glucose Lactic Acid Lactic Acid F/U @ 2Hr Lactic Acid F/U @ 4Hr Calcium Phosphorus Magnesium Total Bilirubin Direct Bilirubin AST ALT Alkaline Phosphatase Ammonia Total Creatine Kinase Troponin I High Sens Total Protein Albumin Lipase Urine Color Urine Appearance Urine pH Ur Specific [place] Urine Protein Urine Glucose (UA) Urine Ketones Urine Blood Urine Nitrite Ur Leukocyte Esterase Urine RBC Urine WBC Ur Squamous Epith Cells Ur Renal Epithelial Cell Urine Bacteria Epithelial Casts Urine Mucus Salicylates Urine Opiates Screen Urine Fentanyl Screen Acetaminophen Ur Barbiturates Screen Ur Phencyclidine Scrn Ur Amphetamines Screen U Benzodiazepines Scrn Urine Cocaine Screen U Marijuana (THC) Screen Ethyl Alcohol < 10 Acetone, Qual COVID-19 (SAIDA) Negative COVID-19 Clin Com See Note 01/25/22 01/25/22 01/25/22 15:21 15:21 16:26 WBC RBC Hgb Hct MCV MCH MCHC RDW Plt Count MPV Immature Gran % (Auto) Neut % (Auto) Lymph % (Auto) [place] % (Auto) Eos % (Auto) Baso % (Auto) Lymph # (Auto) [place] # (Auto) Eos # (Auto) Baso # (Auto) Abs Immat Gran (auto) Absolute Neuts (auto) Absolute Nucleated RBC Nucleated RBC % (auto) Smear Tech's Comments PT Whole Blood PT INR Whole Blood INR O2 Saturation 90.0 ABG pH at Pt Temp 7.36 ABG pCO2 at Pt Temp 35 ABG pO2 at Pt Temp 74 L ABG HCO3 20 L ABG Base Excess (Actual) -4.1 VBG pH VBG pCO2 VBG pO2 VBG HCO3 VBG O2 Saturation VBG Base Excess Sodium Potassium Chloride Carbon Dioxide Anion Gap BUN Creatinine Estim Creat Clear Calc Estimated GFR POC Glucose Random Glucose Lactic Acid Lactic Acid F/U @ 2Hr Lactic Acid F/U @ 4Hr Calcium Phosphorus Magnesium Total Bilirubin Direct Bilirubin AST ALT Alkaline Phosphatase Ammon[place] Total Creatine Kinase Troponin I High Sens Total Protein Albumin Lipase Urine Color YELLOW Urine Appearance HAZY Urine pH 5.5 Ur Specific [place] 1.025 Urine Protein 1+ H Urine Glucose (UA) NEG Urine Ketones NEG Urine Blood 3+ H Urine Nitrite NEG Ur Leukocyte Esterase NEG Urine RBC 10-14 H Urine WBC 0-2 Ur Squamous Epith Cells 2+ Ur Renal Epithelial Cell 4+ Urine Bacteria NONE Epithelial Casts 0-2 Urine Mucus 4+ Salicylates Urine Opiates Screen POSITIVE H Urine Fentanyl Screen POSITIVE H Acetaminophen Ur Barbiturates Screen Not Detected Ur Phencyclidine Scrn Not Detected Ur Amphetamines Screen Not Detected U Benzodiazepines Scrn POSITIVE H Urine Cocaine Screen POSITIVE H U Marijuana (THC) Screen Not Detected Ethyl Alcohol Acetone, Qual COVID-19 (SAIDA) COVID-19 Clin Com 01/25/22 01/25/22 01/26/22 17:42 20:06 05:15 WBC RBC Hgb Hct MCV MCH MCHC RDW Plt Count MPV Immature Gran % (Auto) Neut % (Auto) Lymph % (Auto) [place] % (Auto) Eos % (Auto) Baso % (Auto) Lymph # (Auto) [place] # (Auto) Eos # (Auto) Baso # (Auto) Abs Immat Gran (auto) Absolute Neuts (auto) Absolute Nucleated RBC Nucleated RBC % (auto) Smear Tech's Comments PT Whole Blood PT INR Whole Blood INR O2 Saturation ABG pH at Pt Temp ABG pCO2 at Pt Temp ABG pO2 at Pt Temp ABG HCO3 ABG Base Excess (Actual) VBG pH 7.55 H VBG pCO2 23 VBG pO2 86 VBG HCO3 20 L VBG O2 Saturation 96.0 VBG Base Excess -0.3 Sodium Potassium Chloride Carbon Dioxide Anion Gap BUN Creatinine Estim Creat Clear Calc Estimated GFR POC Glucose Random Glucose Lactic Acid Lactic Acid F/U @ 2Hr 3.4 H* Lactic Acid F/U @ 4Hr 1.3 Calcium Phosphorus Magnesium Total Bilirubin Direct Bilirubin AST ALT Alkaline Phosphatase Ammonia Total Creatine Kinase Troponin I High Sens Total Protein Albumin Lipase Urine Color Urine Appearance Urine pH Ur Specific [place] Urine Protein Urine Glucose (UA) Urine Ketones Urine Blood Urine Nitrite Ur Leukocyte Esterase Urine RBC Urine WBC Ur Squamous Epith Cells Ur Renal Epithelial Cell Urine Bacteria Epithelial Casts Urine Mucus Salicylates Urine Opiates Screen Urine Fentanyl Screen Acetaminophen Ur Barbiturates Screen Ur Phencyclidine Scrn Ur Amphetamines Screen U Benzodiazepines Scrn Urine Cocaine Screen U Marijuana (THC) Screen Ethyl Alcohol Acetone, Qual COVID-19 (SAIDA) COVID-19 Clin Com 01/26/22 01/26/22 05:17 05:17 WBC 2.9 L RBC 3.10 L Hgb 9.1 L Hct 27.3 L D MCV 88.1 D MCH 29.4 MCHC 33.3 RDW 15.8 Plt Count 73 L D MPV 12.4 Immature Gran % (Auto) 0.3 Neut % (Auto) 44.7 L Lymph % (Auto) 36.2 [place] % (Auto) 17.8 H Eos % (Auto) 0.7 Baso % (Auto) 0.3 Lymph # (Auto) 1.0 L [place] # (Auto) 0.5 Eos # (Auto) 0.0 Baso # (Auto) 0.0 Abs Immat Gran (auto) 0.01 Absolute Neuts (auto) 1.3 L Absolute Nucleated RBC 0.000 Nucleated RBC % (auto) 0.0 Smear Tech's Comments VERIFIED PT Whole Blood PT INR Whole Blood INR O2 Saturation ABG pH at Pt Temp ABG pCO2 at Pt Temp ABG pO2 at Pt Temp ABG HCO3 ABG Base Excess (Actual) VBG pH VBG pCO2 VBG pO2 VBG HCO3 VBG O2 Saturation VBG Base Excess Sodium 136 Potassium 3.7 Chloride 109 H Carbon Dioxide 21 L Anion Gap 10 L BUN 24 H Creatinine 0.98 Estim Creat Clear Calc 67.6 Estimated GFR > 60 POC Glucose Random Glucose 79 D Lactic Acid Lactic Acid F/U @ 2Hr Lactic Acid F/U @ 4Hr Calcium 8.1 L D Phosphorus 2.8 Magnesium 2.3 Total Bilirubin 0.8 Direct Bilirubin AST 65 H ALT 23 Alkaline Phosphatase 199 H D Ammonia Total Creatine Kinase Troponin I High Sens Total Protein 7.5 D Albumin 2.6 L D Lipase Urine Color Urine Appearance Urine pH Ur Specific [place] Urine Protein Urine Glucose (UA) Urine Ketones Urine Blood Urine Nitrite Ur Leukocyte Esterase Urine RBC Urine WBC Ur Squamous Epith Cells Ur Renal Epithelial Cell Urine Bacteria Epithelial Casts Urine Mucus Salicylates Urine Opiates Screen Urine Fentanyl Screen Acetaminophen Ur Barbiturates Screen Ur Phencyclidine Scrn Ur Amphetamines Screen U Benzodiazepines Scrn Urine Cocaine Screen U Marijuana (THC) Screen Ethyl Alcohol Acetone, Qual COVID-19 (SAIDA) COVID-19 Clin Com Progress Note: A&P Assessment and plan (1) Hepatitis C: Status: Acute (2) HIV disease: Status: Acute (3) Drug overdose: Status: Acute (4) Seizure: Status: Acute Plan Assessment: 61-year-old gentleman admitted with polysubstance abuse, new onset of seizures, alteration of mental status with unclear down time requiring intubation and ventilatory support for airway protection. Plan: Neuro: New onset seizures, initial CT head with no acute findings. Polysubstance abuse. No recurrence of seizures. Continue Keppra. Cardiac: No acute issues. Pulmonary: Acute respiratory failure requiring intubation for airway protection and ventilatory support. Extubated uneventfully this a.m.. Renal: No acute issues. Endo: No acute issues. GI: No acute issues. ID: No acute issues. Underlying history of hepatitis-C and HIV. Heme/Onc: No acute issues. Psych: No acute issues. Miscellaneous: No acute issues. Prophylaxis: Heparin Diet: pending swallow evaluation Critical care time spent: 45 minutes Quality Stroke Does the patient have a stroke diagnosis?: No VTE Prior VTE?: No VTE Risk Level:: Medical - moderate - high VTE Device Contraindication: Treatment Not Indicated VTE Drug Contraindication: N/A - Med Ordered
--- NOTE | 2022-01-26 14:34 | MHC.CM.PN ---
Pt in ICU recently extubated: Attempted to meet with pt who was sluggish to respond and not in a condition to relay accurate information. CM to follow pt on 01/27 for completion of CM assessment and d/c planning needs. Information obtained from EMR notes pt is an active substance abuser - no HCP found. CM to follow on 01/27
[2022-01-26] MEDS: Haloperidol Lactate 5 MG/ML VIAL IVPUSH (23:33)
[2022-01-27] VITALS (13 sets, daily range): BP systolic 112–161; BP diastolic 67–82; PULSE 65–96; RESP 19–25; TEMP 37.5–38; O2SAT 90–96; BMI 19.8
[2022-01-27] MEDS: Albumin Human 25 % 100 ML IV (02:51)
[2022-01-27] MEDS: Heparin Sodium,Porcine 5,000 UNIT/ML VIAL 5000 UNIT SUBCUT (02:52)
[2022-01-27] MEDS: levETIRAcetam in NaCl (iso-os) 1,000 MG/100 ML PIGGYBACK 400 MG IV (04:49)
[2022-01-27 05:28] LABS: VBG Base Excess 2.6 mmol/L; VBG HCO3 24 mmol/L (22-26); VBG pCO2 27 mmHg; VBG pH 7.54 (7.32-7.43); VBG pO2 46 mmHg
[2022-01-27 05:29] LABS: Venous Blood Gas Refer to POC result
[2022-01-27 05:52] LABS: Basophils Percent Auto 0.5 % (0-2); Eosinophils Percent Auto 0.9 % (0-4); Hematocrit 28.3 % (42.0-52.0); Hemoglobin 9.2 g/dl (14.0-18.0); Lymphocytes Absolute Auto 0.7 X10*3/uL (1.2-4.9); Lymphocytes Percent Auto 30.7 % (20-40); MANUAL DIFF FLAG SCAN; Mean Corpuscular HGB Conc 32.5 g/dl (31.0-36.0); Mean Corpuscular Hemoglobin 28.9 pg (27.0-33.0); Mean Platelet Volume 13.4 fL (9.4-12.4); Monocytes Absolute Auto 0.4 X10*3/uL (0.1-1.2); Monocytes Percent Auto 20.5 % (2-11); Neutrophils Percent Auto 47.4 % (45-73); Red Blood Count 3.18 X10*6/uL (4.60-5.80); Red Cell Distribution Width 15.7 % (11.0-16.0); SCAN SMEAR FLAG 1
[2022-01-27 05:53] LABS: Platelet Count 59 X10*3/uL (160-400); White Blood Count 2.2 X10*3/uL (4.8-10.8)
[2022-01-27 06:28] LABS: Albumin Level 3.9 g/dL (3.5-5.0); Anion Gap 14 (12-20); Blood Urea Nitrogen 13 mg/dL (9-16); Calcium 8.8 mg/dL (8.4-10.2); Carbon Dioxide 20 mmol/L (22-29); Chloride 107 mmol/L (96-108); Creatinine Clr Calc Pharmacy 73.9; Estimated Glomerular Filt Rate > 60; Glucose Random 95 mg/dL (60-115); Phosphorus 2.7 mg/dL (2.7-4.5); Potassium 3.7 mmol/L (3.3-5.1); Sodium 137 mmol/L (135-145)
[2022-01-27 07:48] LABS: SLIDE REVIEW VERIFIED
[2022-01-27] MEDS: Bictegrav/Emtricit/Tenofov Ala TABLET 1 TAB PO (08:32)
--- NOTE | 2022-01-27 08:55 | MHC.CLN ---
F/U PT EXTUBATED DIET ADVANCED TO REGULAR PO 75% X 1 MEAL RECOMMEND ADDING ENSURE BID TO INCREASE KCALS R/T MALNUTRITION MONITOR PO INTAKE CLOSELY
--- NOTE | 2022-01-27 10:16 | MHC.CM.PN ---
Addendum entered by Holly Black 01/27/22 10:24: Attempted to contact pts sisterReshma: no answer and no VM option: attempted to contact pt's mother - same scenario. Original Note: Met with pt in ICU to discuss d/c plans: pt having difficulty focusing - continuously asking to leave, Where are my possessions? I want to go home Pt trying to get OOB: redirected. Pt will transfer to [facility] for continued care. Pt vague with responses: states he had a COVID vax x1 and listed his PCP at Dr. Isaac at [facility]. Declined HCP completion. States he can get himself home but would not state how. Unknown if pt has any services or if he uses any adaptive equipment. Updated MD on pt's anxiousness and requesting to leave. Will update [facility] CM on above.
--- NOTE | 2022-01-27 11:45 | P.PNCC_ITS ---
Subjective Subjective Date of Service: 01/27/22 Interval History: 61-year-old gentleman with underlying history of asthma, HIV, Hep C, polysubstance abuse found unresponsiveby his neighbors with unclear down time. EMS called, patient with grand mal seizure and fluid given 4 mg of Versed. On ER evaluation still actively seizing requiring another for mg dose of Versed and intubation for airway protection. Initial CT head with no acute cranial abnormalities. Initial workup significant for metabolic acidosis, likely lactic acidosis secondary to seizures. CT abdomen and CT chest with no acute findings. Patient admitted to the intensive care unit. No events overnight. No recurrence of seizures. Passed swallow evaluation. Critical Care Time (minutes): 0 Physical Exam Vital Signs: Vital Signs: Last Vital Signs Temp 100.0 F 01/27/22 07:57 Pulse 66 01/27/22 07:57 Resp 25 H 01/27/22 07:57 BP 141/76 H 01/27/22 07:57 Pulse Ox 95 01/27/22 07:57 BMI result Body Mass Index 19.8 Const: General: no acute distress, alert and awake Eyes: Sclerae: sclerae normal EOM: EOMs intact bilaterally Neck: Neck: Yes no lymphadenopathy, Yes trachea midline and Yes supple Resp: Effort & Inspection: normal respiratory effort and no respiratory distress Auscultation: clear to auscultation bilaterally Cardio: Rate: regular rate Rhythm: regular rhythm Heart sounds: no gallops, no murmurs and no rubs GI: Palpation (GI): Soft to palpation and Other GI palpation findings present ( Nontender) Auscultation: normal bowel sounds Extrem: General: Yes no pedal edema, No clubbing and No cyanosis Objective Data Labs CBC & Chem 7: 01/27/22 05:26 01/27/22 05:26 Labs: Laboratory Results - last 24 hr 01/27/22 01/27/22 01/27/22 05:21 05:26 05:26 WBC 2.2 L RBC 3.18 L Hgb 9.2 L Hct 28.3 L MCV 89.0 MCH 28.9 MCHC 32.5 RDW 15.7 Plt Count 59 L MPV 13.4 H Immature Gran % (Auto) 0.0 Neut % (Auto) 47.4 Lymph % (Auto) 30.7 [place] % (Auto) 20.5 H Eos % (Auto) 0.9 Baso % (Auto) 0.5 Lymph # (Auto) 0.7 L [place] # (Auto) 0.4 Eos # (Auto) 0.0 Baso # (Auto) 0.0 Abs Immat Gran (auto) 0.00 Absolute Neuts (auto) 1.0 L Absolute Nucleated RBC 0.000 Nucleated RBC % (auto) 0.0 Smear Tech's Comments VERIFIED Smear Path Review SEE NOTE VBG pH 7.54 H VBG pCO2 27 VBG pO2 46 VBG HCO3 24 VBG O2 Saturation 78.0 VBG Base Excess 2.6 Sodium 137 Potassium 3.7 Chloride 107 Carbon Dioxide 20 L Anion Gap 14 BUN 13 Creatinine 0.85 Estim Creat Clear Calc 73.9 Estimated GFR > 60 Random Glucose 95 Calcium 8.8 D Phosphorus 2.7 Magnesium 2.0 Albumin 3.9 D Microbiology Microbiology Results: Microbiology 01/25/22 18:54 Blood - Venous Blood Culture - Preliminary No growth after 24 hours. 01/25/22 18:54 Blood - Venous Blood Culture - Preliminary No growth after 24 hours. Progress Note: A&P Assessment and plan (1) Hepatitis C: Status: Acute (2) HIV disease: Status: Acute (3) Acute respiratory failure: Status: Acute (4) Drug overdose: Status: Acute (5) Seizure: Status: Acute Plan Assessment: 61-year-old gentleman admitted with polysubstance abuse, new onset of seizures, alteration of mental status with unclear down time requiring intubation and ventilatory support for airway protection. Plan: Neuro: New onset seizures, initial CT head with no acute findings. Polysubstance abuse. No recurrence of seizures. Continue Keppra. Neurology evaluation requested. Cardiac: No acute issues. Pulmonary: Acute respiratory failure requiring intubation for airway protection and ventilatory support. Extubated 01/26/2022. Renal: No acute issues. Endo: No acute issues. GI: No acute issues. ID: No acute issues. Underlying history of hepatitis-C and HIV. Heme/Onc: No acute issues. Psych: No acute issues. Miscellaneous: No acute issues. Prophylaxis: Heparin Diet: Regular Quality Stroke Does the patient have a stroke diagnosis?: No VTE Prior VTE?: No VTE Risk Level:: Medical - moderate - high VTE Device Contraindication: Treatment Not Indicated VTE Drug Contraindication: N/A - Med Ordered
--- NOTE | 2022-01-27 13:29 | PC.NURSE ---
dunham removed, dtv at [phone]
--- NOTE | 2022-01-27 14:17 | PM.NEUROCN ---
History of Present Illness Data of Consult Service Date: 01/27/22 Primary Care Provider: Dilia Isaac NP [facility] Reason for consult: Seizure 61 years old man with HIV, hepatitis C and polydrug abuse brought to hospital with change in mental status and had couple of grand mal seizures. Now he was in ICU. His initial drug screen was positive for cocaine. Review of Systems Review of Systems: Positive recent drug use PMFSH Past Medical History Medical History (Updated 01/25/22 @ 16:15 by Gibson Ford MD) Alcoholism Asthma Depression Hepatitis HIV disease Substance abuse Social History Social History (Updated 01/25/22 @ 14:13 by Desire Reinoso DO) Household Members: Unknown / Unable to assess Unable to assess alcohol history related to: Unknown Alcohol intake: never Patient Tobacco Use Status: Tobacco use Unknown Substance Use Type: Crack/Cocaine and Heroin service: No Current occupational status: unemployed Meds Allergies Allergy/AdvReac Type Severity Reaction Status Date / Time No Known Allergies Allergy Verified 11/04/21 10:40 [No Known Allergies*] Active Medications: Current Medications Albuterol Sulfate (Albuterol Sulfate 90 Mcg 8 Gm Inhaler) 2 puff INHALE RQ6H PRN PRN Reason: Respiratory Distress Bictegravir/Emtricitabine/Tenofovir (Bictegrav/Emtricit/Tenofov Ala Tablet) 1 tab PO DAILY [facility] Last Admin: 01/27/22 08:32 Dose: 1 tab Documented by: Famotidine (Famotidine 20 Mg Tablet) 20 mg PO BID [place] Haloperidol Lactate (Haloperidol Lactate 5 Mg/Ml Vial) 5 mg IVPUSH ONCE PRN PRN Reason: anxiety/restlessness Last Admin: 01/26/22 23:33 Dose: 5 mg Documented by: Levetiracetam (Levetiracetam 1,000 Mg Tablet) 1,000 mg PO BID [place] Loratadine (Loratadine 10 Mg Tablet) 10 mg PO DAILY PRN PRN Reason: SWELLING Mirtazapine (Mirtazapine 7.5 Mg Tablet) 7.5 mg PO BEDTIME [facility] Multivitamins/Vitamin C (Multivitamin Tablet) 1 tab PO DAILY [facility] Pharmacy Consult (Consult Rx Perform Med Rec) 1 each MISCELLANE ONCE PRN PRN Reason: Consult order Quetiapine Fumarate (Quetiapine Fumarate 50 Mg Tablet) 150 mg PO DAILY [facility] Sertraline HCl (Sertraline Hcl 50 Mg Tablet) 50 mg PO DAILY [facility] Home Medications Medication Instructions Recorded Confirmed Last Taken Type albuterol sulfate 90 mcg/actuation 2 puff PO Q6H PRN 11/04/21 01/25/22 Unknown History aerosol inhaler (ProAir HFA) bictegravir 50 mg-emtricitabine 1 tab PO DAILY 11/04/21 01/25/22 Unknown History 200 mg-tenofovir alafenam 25 mg tablet (Biktarvy) capsaicin 0.025 % topical cream 1 appl TOPICAL TID 11/04/21 01/25/22 Unknown History cetirizine 10 mg tablet 10 mg PO DAILY PRN 11/04/21 01/25/22 Unknown History docusate sodium 100 mg capsule 100 mg PO BID 11/04/21 Unknown History (Colace) food supplemt, lactose-reduced ea PO TIDWMEAL ml 11/04/21 Unknown History (Ensure) methadone 10 mg/5 mL oral solution 2.5 mg PO Q6H 11/04/21 Unknown History sennosides 8.6 mg tablet (Senna 8.6 - 17.2 mg PO BEDTIME PRN 11/04/21 Unknown History Laxative) sertraline 50 mg tablet 50 mg PO DAILY 11/04/21 01/25/22 Unknown History famotidine 40 mg tablet 20 mg PO BID 01/25/22 01/25/22 Unknown History levetiracetam 1,000 mg tablet 1,000 mg PO BID 01/25/22 01/25/22 Unknown History (Keppra) mirtazapine 7.5 mg tablet 7.5 mg PO BEDTIME 01/25/22 01/25/22 Unknown History multivitamin 1 tab PO DAILY 01/25/22 01/25/22 Unknown History quetiapine 100 mg tablet (Seroquel) 150 mg PO DAILY 01/25/22 01/25/22 Unknown History Physical Exam Vital Signs: Vital Signs: Last Vital Signs Temp 100.2 F 01/27/22 12:00 Pulse 83 01/27/22 12:00 Resp 20 01/27/22 12:00 BP 151/79 H 01/27/22 12:00 Pulse Ox 94 01/27/22 12:00 BMI result Body Mass Index 19.8 Neuro: Other: Alert and awake with normal spontaneity of speech and fluency. Affect was jovial. Face was symmetrical. Visual bentley were probably okay. There was no obvious focal weakness. Deep tendon reflexes are absent with withdrawing plantars. Results Labs CBC & Chem 7: 01/27/22 05:26 01/27/22 05:26 Labs: Short CBC 01/27/22 Range/Units 05:26 WBC 2.2 L (4.8-10.8) X10*3/uL Hgb 9.2 L (14.0-18.0) g/dl Hct 28.3 L (42.0-52.0) % Plt Count 59 L (160-400) X10*3/uL BMP 01/27/22 05:26 Sodium 137 Potassium 3.7 Chloride 107 Carbon Dioxide 20 L BUN 13 Creatinine 0.85 Calcium 8.8 D Liver Function 01/27/22 Range/Units 05:26 Albumin 3.9 D (3.5-5.0) g/dL Noncontrast head CT revealed [id number] diffuse atrophy and a chronic right occipital area hypodensity probably and chronic ischemic infarction. Microbiology Microbiology Results: Microbiology 01/25/22 18:54 Blood - Venous Blood Culture - Preliminary No growth after 24 hours. 01/25/22 18:54 Blood - Venous Blood Culture - Preliminary No growth after 24 hours. Assessment and Plan (1) Seizure: Status: Acute 61 years old man with underlying history of HIV disease hepatitis C and polydrug abuse including cocaine. He was brought to hospital with unresponsiveness and and then had 2 seizures. His tox screen was positive for cocaine in his head CT revealed a right occipital chronic ischemic infarction. His potential risk for seizure disorder is high and it might be reasonable to continue a prophylactic medicine such as Keppra. But the issue is that he also was positive for cocaine that could trigger seizures. If he was not taking Keppra before this hospitalization, I would suggest decreasing it to 500 mg twice a day. But if he was already taking it then 1000 mg twice a day is fine. He should be advised to not use drug of abuse and not drive. Procedures Date of Service Date of Service: 01/27/22
[2022-01-27] MEDS: levETIRAcetam 1,000 MG TABLET 1000 MG PO (20:53)
[2022-01-27] MEDS: Mirtazapine 7.5 MG TABLET PO (20:53)
[2022-01-27] MEDS: Famotidine 20 MG TABLET PO (20:53)
[2022-01-28 04:05] VITALS: BP 142/79; PULSE 75; RESP 15; TEMP 36.8; O2SAT 99
[2022-01-28 06:29] LABS: Basophils Percent Auto 0.4 % (0-2); Eosinophils Percent Auto 1.1 % (0-4); Hematocrit 33.4 % (42.0-52.0); Hemoglobin 11.1 g/dl (14.0-18.0); Imm Gran Abs Auto 0.01 X10*3/uL (0.00-0.03); Imm Gran Pct Auto 0.4 % (0.0-0.4); Lymphocytes Absolute Auto 0.8 X10*3/uL (1.2-4.9); MANUAL DIFF FLAG SCAN; Mean Corpuscular HGB Conc 33.2 g/dl (31.0-36.0); Mean Corpuscular Hemoglobin 29.6 pg (27.0-33.0); Mean Corpuscular Volume 89.1 fL (80.0-98.0); Mean Platelet Volume 12.2 fL (9.4-12.4); Monocytes Absolute Auto 0.6 X10*3/uL (0.1-1.2); Monocytes Percent Auto 22.1 % (2-11); Neutrophils Absolute Auto 1.4 x10*3/uL (2.0-8.3); Red Blood Count 3.75 X10*6/uL (4.60-5.80); Red Cell Distribution Width 15.4 % (11.0-16.0); SCAN SMEAR FLAG 1; White Blood Count 2.8 X10*3/uL (4.8-10.8)
[2022-01-28 06:49] LABS: Anion Gap 12 (12-20); Blood Urea Nitrogen 14 mg/dL (9-16); Calcium 9.6 mg/dL (8.4-10.2); Carbon Dioxide 24 mmol/L (22-29); Chloride 103 mmol/L (96-108); Creatinine Clr Calc Pharmacy 80.6; Estimated Glomerular Filt Rate > 60; Glucose Random 101 mg/dL (60-115); Potassium 3.9 mmol/L (3.3-5.1); Sodium 135 mmol/L (135-145)
[2022-01-28 07:29] LABS: Platelet Count 81 X10*3/uL (160-400)
[2022-01-28 07:31] LABS: SLIDE REVIEW VERIFIED
[2022-01-28 07:37] VITALS: BP 132/92; PULSE 79; RESP 18; TEMP 37.7; O2SAT 98
[2022-01-28] MEDS: QUEtiapine Fumarate 50 MG TABLET 150 MG PO (07:50)
[2022-01-28] MEDS: levETIRAcetam 1,000 MG TABLET 1000 MG PO (07:50)
[2022-01-28] MEDS: Bictegrav/Emtricit/Tenofov Ala TABLET 1 TAB PO (07:51)
[2022-01-28] MEDS: Famotidine 20 MG TABLET PO (07:51)
[2022-01-28] MEDS: Multivitamin TABLET 1 TAB PO (07:51)
[2022-01-28] MEDS: Sertraline HCL 50 MG TABLET PO (07:51)
--- NOTE | 2022-01-28 09:35 | PM.DS ---
DS: Providers Provider Date of Service: 01/28/22 Date of admission: 01/25/22 16:07 Primary care physician: Dilia Isaac NP Consults: 01/27/22 11:51 Consult to Neurology Routine Consulting Provider: [facility] [place] [facility] Reason for consultation: New onset seizures Has provider been notified: No 01/28/22 07:43 Consult to Care Team Routine Comment: Reason for consultation: polysubstance abuse 01/28/22 09:28 Addiction Medicine Routine Consulting Provider: Beatriz Ibrahim Reason for consultation: Substance dependence Has provider been notified: Yes DS: Diagnosis Discharge Diagnosis (1) Seizure: Status: Acute DS: Summary Hospital Course Hospital Course: Chief Complaint: Polysubstance overdose, acute respiratory failure 61-year-old gentleman with underlying history of asthma, HIV, Hep C, polysubstance abuse found unresponsiveby his neighbors with unclear down time. EMS called, patient with grand mal seizure and fluid given 4 mg of Versed.? On ER evaluation still actively seizing requiring another for mg dose of Versed and intubation for airway protection.? Initial CT head with no acute cranial abnormalities.? Initial workup significant for metabolic acidosis, likely lactic acidosis secondary to seizures.? CT abdomen and CT chest with no acute findings.? Patient admitted to the intensive care unit. hospital course: This patient with comobid condition of asthama, HIV, Hep C, polysubstance abuse was found down and witnessed to have grand mal seizures as described above and was intubated and admitted to the ICU for airway protection and was extubated the following day. He has been given keppra per Neurology recommendation. He has not had further seizures since admission and Neurology is recommendation permanent use of anti seizure meds therefore will discharge him on Keppra 500 bid, further testing included CT of head showing right posterior parietal and occipital infarct or encephalomalacia--this old which is likely focus area of seizure. For addiction including cocaine use--He was evaluated and councelled by Addiction medicine provider Beatriz Ibrahim NP and restarted on Methatone and advised to avoid substance. He is to continue chronic medications for HIV, to seek outpatient treatment for Hep C Time Spent with Patient Time attestation: Total time spent providing and/or coordinating discharge services: Discharge coordination time: Greater than 30 minutes Quality: Stroke Does the patient have a stroke diagnosis?: No Physical Exam Vital Signs: Vital Signs: Last Vital Signs Temp 99.8 F 01/28/22 07:37 Pulse 79 01/28/22 07:37 Resp 18 01/28/22 07:37 BP 132/92 H 01/28/22 07:37 Pulse Ox 98 01/28/22 07:37 BMI result Body Mass Index 19.8 DS: Data Data Completed and Pending Labs on day of discharge: Laboratory Results - last 24 hr 01/27/22 01/28/22 01/28/22 05:26 06:16 06:16 WBC 2.8 L RBC 3.75 L Hgb 11.1 L D Hct 33.4 L MCV 89.1 MCH 29.6 MCHC 33.2 RDW 15.4 Plt Count 81 L D MPV 12.2 Immature Gran % (Auto) 0.4 Neut % (Auto) 49.0 Lymph % (Auto) 27.0 [place] % (Auto) 22.1 H Eos % (Auto) 1.1 Baso % (Auto) 0.4 Lymph # (Auto) 0.8 L [place] # (Auto) 0.6 Eos # (Auto) 0.0 Baso # (Auto) 0.0 Abs Immat Gran (auto) 0.01 Absolute Neuts (auto) 1.4 L Absolute Nucleated RBC 0.000 Nucleated RBC % (auto) 0.0 Smear Tech's Comments VERIFIED Smear Path Review SEE NOTE Sodium 135 Potassium 3.9 Chloride 103 Carbon Dioxide 24 Anion Gap 12 BUN 14 Creatinine 0.78 Estim Creat Clear Calc 80.6 Estimated GFR > 60 Random Glucose 101 Calcium 9.6 D Preliminary micro results at discharge 01/25/22 18:54 Blood Culture - Preliminary Blood - Venous No growth after 48 hours. 01/25/22 18:54 Blood Culture - Preliminary Blood - Venous No growth after 48 hours. Discharge Plan Discharge Anticipated Discharge Date/Time: 01/28/22 09:29 Patient Disposition: Home, Self-Care Discharge Diagnosis: Seizure Referrals: Dilia Isaac NP [Primary Care Provider] - 1 Week Discharge Medications: New levetiracetam [Keppra] 500 mg tablet 500 mg PO BID Qty: 60 0RF Continued doxycycline monohydrate 100 mg capsule 100 mg PO BID Qty: 14 0RF diphenhydramine HCl [Benadryl Allergy] 25 mg tablet 25 mg PO TID Qty: 10 0RF famotidine 40 mg Tablet 20 mg PO BID 0RF quetiapine [Seroquel] 100 mg Tablet 150 mg PO DAILY 0RF mirtazapine 7.5 mg Tablet 7.5 mg PO BEDTIME 0RF levetiracetam [Keppra] 1,000 mg Tablet 1,000 mg PO BID 0RF multivitamin Tablet 1 tab PO DAILY 0RF albuterol sulfate [ProAir HFA] 90 mcg/actuation HFA aerosol inhaler 2 puff PO Q6H PRN (Reason: Respiratory Distress) 0RF capsaicin 0.025 % cream 1 appl topical TID 0RF Biktarvy 50-200-25 mg tablet 1 tab PO DAILY 0RF cetirizine 10 mg tablet 10 mg PO DAILY PRN (Reason: SWELLING) 0RF sertraline 50 mg tablet 50 mg PO DAILY 0RF Discharge Orders: Discharge Order (Routine); Ordered 01/28/22 Ordered By: Marcello Elizabeth Diet: advance to usual diet Activity on Discharge: As tolerated Stand Alone Forms: Patient Portal Discharge page Care Plan Goals: Seizure prevent and to stay away from ilicit substances Health Concerns: new onset seizure Plan of Treatment: Take Keppra as recommended, follow up with your Doctor in aweek, call for appointment Avoid all ilicit substances including cocaine He advised NOT to drive or operate heavy machinery or swiming unattended Assessment: as above Discharge Date/Time: 01/28/22 12:51
--- NOTE | 2022-01-28 09:49 | HO.ADDICTCON ---
History of Present Illness Date of Service: 01/28/2022 Chief Complaint: Polysubstance overdose,acute respiratory failure Reason for Consult: OUD, overdose Requesting physician: Marcello Elizabeth Discussed with referring provider: Yes Sources of Information: patient interviewed and chart reviewed HPI Narrative: Patient is a 61 year old male with history of OUD and HIV. Presented to [facility] after being found by neighbor unresponsive. Patient intubated in ED and later extubated without issue while in ICU. Seen by this rewriter yesterday, and patient was awake, alert, but question of some delirium as patient was giggling and appeared to be looking at things that were not there. Seen again today and clear, oriented and appropriate Discussed his overdose, reports that he used 2 bags. Unwilling to discuss use any further Reports he is engaged with [facility] in [place] (RSRN confirmed last dose as 01/23 82mg) Reports several previous ODs, though not any in the last year History of MOUD both methadone and buprenorphine BH history not reviewed, althought patient is prescribed higher dose of seroquel QD He reports engagement with all providers and denies any need for further supports Has not had any methadone since 01/23. Denies any withdrawal sx, requesting discharge Medical Evaluation Reviewed: Yes Review of Systems Constitutional: Reports as per HPI and Reports no additional constitutional complaints Diagnostics Vital Signs (24Hr): Vital Signs - 24 hr 01/27/22 12:00 01/27/22 15:57 01/27/22 19:07 Temperature 100.2 F 99.5 F 100.2 F Pulse Rate 83 96 80 Respiratory Rate 20 20 20 Blood Pressure 151/79 H 158/77 H 161/71 H Pulse Oximetry 94 96 93 01/27/22 23:06 01/28/22 04:05 01/28/22 07:37 Temperature 100.4 F 98.3 F 99.8 F Pulse Rate 75 75 79 Respiratory Rate 20 15 18 Blood Pressure 144/78 H 142/79 H 132/92 H Pulse Oximetry 96 99 98 BMI result Body Mass Index 19.8 Labs Results: 01/28/22 06:16 01/28/22 06:16 Labs: Laboratory Results - last 48 hr 01/27/22 01/27/22 01/27/22 05:21 05:26 05:26 WBC 2.2 L RBC 3.18 L Hgb 9.2 L Hct 28.3 L MCV 89.0 MCH 28.9 MCHC 32.5 RDW 15.7 Plt Count 59 L MPV 13.4 H Immature Gran % (Auto) 0.0 Neut % (Auto) 47.4 Lymph % (Auto) 30.7 [place] % (Auto) 20.5 H Eos % (Auto) 0.9 Baso % (Auto) 0.5 Lymph # (Auto) 0.7 L [place] # (Auto) 0.4 Eos # (Auto) 0.0 Baso # (Auto) 0.0 Abs Immat Gran (auto) 0.00 Absolute Neuts (auto) 1.0 L Absolute Nucleated RBC 0.000 Nucleated RBC % (auto) 0.0 Smear Tech's Comments VERIFIED Smear Path Review SEE NOTE VBG pH 7.54 H VBG pCO2 27 VBG pO2 46 VBG HCO3 24 VBG O2 Saturation 78.0 VBG Base Excess 2.6 Sodium 137 Potassium 3.7 Chloride 107 Carbon Dioxide 20 L Anion Gap 14 BUN 13 Creatinine 0.85 Estim Creat Clear Calc 73.9 Estimated GFR > 60 Random Glucose 95 Calcium 8.8 D Phosphorus 2.7 Magnesium 2.0 Albumin 3.9 D 01/28/22 01/28/22 06:16 06:16 WBC 2.8 L RBC 3.75 L Hgb 11.1 L D Hct 33.4 L MCV 89.1 MCH 29.6 MCHC 33.2 RDW 15.4 Plt Count 81 L D MPV 12.2 Immature Gran % (Auto) 0.4 Neut % (Auto) 49.0 Lymph % (Auto) 27.0 [place] % (Auto) 22.1 H Eos % (Auto) 1.1 Baso % (Auto) 0.4 Lymph # (Auto) 0.8 L [place] # (Auto) 0.6 Eos # (Auto) 0.0 Baso # (Auto) 0.0 Abs Immat Gran (auto) 0.01 Absolute Neuts (auto) 1.4 L Absolute Nucleated RBC 0.000 Nucleated RBC % (auto) 0.0 Smear Tech's Comments VERIFIED Smear Path Review VBG pH VBG pCO2 VBG pO2 VBG HCO3 VBG O2 Saturation VBG Base Excess Sodium 135 Potassium 3.9 Chloride 103 Carbon Dioxide 24 Anion Gap 12 BUN 14 Creatinine 0.78 Estim Creat Clear Calc 80.6 Estimated GFR > 60 Random Glucose 101 Calcium 9.6 D Phosphorus Magnesium Albumin Imaging Radiology Impressions: ITS Impressions Abdomen/Pelvis CT 01/25/22 14:56 IMPRESSION: Mild cirrhotic changes of the liver. Mild splenomegaly. Question mild wall thickening of the right colon. This may be artifactual due to underdistention. Fleischner guidelines were followed. Cervical Spine CT 01/25/22 14:56 IMPRESSION: Degenerative changes. No fracture or dislocation seen. Fleischner guidelines were followed. Chest CT 01/25/22 14:56 IMPRESSION: Mild dependent atelectasis or consolidation at the lung bases. Endotracheal tube 4.5 cm above the jaymie. Fleischner guidelines were followed. 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 This appears old but is new in the interval from 2016 exam. Age could be more accurately determined with MRI if clinically indicated. Chest X-Ray 01/25/22 16:15 IMPRESSION: 1. Endotracheal tube catheter 6 and is above the jaymie. 2. OG tube catheter passes below diaphragm into stomach. Catheter tip is below lower margin of film. The sidehole is also below the diaphragm. 3. No acute airspace disease. Mental Status Exam Mental Status Exam Patient Appearance: Disheveled and Appropriate Patient Orientation: Person, Place, Time and Situation Level of Consciousness: Awake, Appropriate and Alert Patient Behavior: Appropriate Mood Description: Appropriate (slightly irritable ) Affect Description: Appropriate Speech Pattern: Clear Judgement: Fair Medications Medications Current Medications Albuterol Sulfate (Albuterol Sulfate 90 Mcg 8 Gm Inhaler) 2 puff INHALE RQ6H PRN PRN Reason: Respiratory Distress Bictegravir/Emtricitabine/Tenofovir (Bictegrav/Emtricit/Tenofov Ala Tablet) 1 tab PO DAILY [facility] Last Admin: 01/28/22 07:51 Dose: 1 tab Documented by: Famotidine (Famotidine 20 Mg Tablet) 20 mg PO BID [facility] Last Admin: 01/28/22 07:51 Dose: 20 mg Documented by: Haloperidol Lactate (Haloperidol Lactate 5 Mg/Ml Vial) 5 mg IVPUSH ONCE PRN PRN Reason: anxiety/restlessness Last Admin: 01/26/22 23:33 Dose: 5 mg Documented by: Levetiracetam (Levetiracetam 1,000 Mg Tablet) 1,000 mg PO BID [facility] Last Admin: 01/28/22 07:50 Dose: 1,000 mg Documented by: Loratadine (Loratadine 10 Mg Tablet) 10 mg PO DAILY PRN PRN Reason: SWELLING Methadone HCl (Methadone Hcl 20 Mg/2 Ml Oral.Conc) 30 mg PO ONCE ONE Stop: 01/28/22 09:30 Mirtazapine (Mirtazapine 7.5 Mg Tablet) 7.5 mg PO BEDTIME [facility] Last Admin: 01/27/22 20:53 Dose: 7.5 mg Documented by: Multivitamins/Vitamin C (Multivitamin Tablet) 1 tab PO DAILY [facility] Last Admin: 01/28/22 07:51 Dose: 1 tab Documented by: Naloxone HCl (Naloxone Hcl Nasal Take Home 4 Mg [place]) 4 mg NOSTRILALT ONCE ONE Stop: 01/28/22 09:46 Pharmacy Consult (Consult Rx Perform Med Rec) 1 each MISCELLANE ONCE PRN PRN Reason: Consult order Quetiapine Fumarate (Quetiapine Fumarate 50 Mg Tablet) 150 mg PO DAILY [facility] Last Admin: 01/28/22 07:50 Dose: 150 mg Documented by: Sertraline HCl (Sertraline Hcl 50 Mg Tablet) 50 mg PO DAILY [facility] Last Admin: 01/28/22 07:51 Dose: 50 mg Documented by: Allergies Allergies Allergy/AdvReac Type Severity Reaction Status Date / Time No Known Allergies Allergy Verified 11/04/21 10:40 [No Known Allergies*] Assessment & Plan Assessment & Plan (1) Opioid use disorder: Status: Acute Code(s): F11.90 - Opioid use, unspecified, uncomplicated Assessment and Plan: restart methadone at 40mg since it has been 4+ days since last dose take home narcan ordered discussion with OTP provider regarding reduction in dose no further follow up necessary I spent __50____ minutes with the patient and/or on the patient floor today, greater than?50% of which was spent counseling/coordinating care. PMFSH Past Medical History Medical History (Updated 01/28/22 @ 12:28 by Beatriz Ibrahim CNP) Alcoholism Asthma Depression Hepatitis HIV disease Substance abuse Social History Social History (Updated 01/25/22 @ 14:13 by Desire Reinoso DO) Household Members: Unknown / Unable to assess Unable to assess alcohol history related to: Unknown Alcohol intake: never Patient Tobacco Use Status: Tobacco use Unknown Substance Use Type: Crack/Cocaine and Heroin service: No Current occupational status: unemployed
[2022-01-28] MEDS: methADONE HCl 20 MG/2 ML ORAL.CONC 40 MG PO (10:13)
--- NOTE | 2022-01-28 10:20 | HO.SUDE ---
Please see Addiction Medicine Consult note by Beatriz Ibrahim, COREY.
--- NOTE | 2022-01-28 10:59 | MHC.CM.PN ---
Recieved callback from Reshma, pt's sister: per Reshma, her brother is very vague at baseline but able to manage his own care at home. 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 Pt will need [facility] [place] transportation as family is not able to transport today.
--- NOTE | 2022-01-28 11:17 | MHC.CM.PN ---
Addendum entered by Celina Moss 01/28/22 12:28: PT PROVIDED WITH A SWEATSHIRT, SOCKS AND PANTS HIS WERE WET. PT REPORTS HIS COAT AND SHOES ARE OK TO WEAR SHUTTLE TRANSPORT HAS BEEN ARRANGED FOR 1330 HOURS. VOUCHER WAS GIVEN TO PT Original Note: PT WILL DC HOME TODAY WITH NO NEW SERVICES PT WILL NEED TRANSPORT VIA [facility] SHUTTLE
[2022-01-28] MEDS: Naloxone HCl Nasal TAKE HOME 4 MG SPRAY NOSTRILALT (12:48)
--- NOTE | 2022-01-28 12:52 | PC.NURSE ---
Narcan given to take home. Understands med
== END 2022-01-28 12:51 | disposition home or self-care (01) | DRG 816 ==
LOC: HO.ED 16:04 → HO.EDOVER 16:14 → HO.ICU 18:13 → HO.IMC 01-27 15:11
PROVIDERS: Registered Nurse Community Health; Admitting Provider Internal Medicine Pulmonary Disease; Emergency Provider Emergency Medicine; PCP Nurse Practitioner Primary Care; Visit Provider Internal Medicine
DX: T40.5X1A Poisoning by cocaine, accidental (unintentional), initial encounter (principal); E87.2 Acidosis; G40.409 Other generalized epilepsy and epileptic syndromes, not intractable, without status epilepticus; F11.20 Opioid dependence, uncomplicated; Z21 Asymptomatic human immunodeficiency virus [HIV] infection status; B19.20 Unspecified viral hepatitis C without hepatic coma; Z20.822 Contact with and (suspected) exposure to COVID-19; Z79.899 Other long term (current) drug therapy
CPT/HCPCS: 36415; 36600; 70450; 71045; 71250; 72125; 74176; 80048; 80053; 80076; 80143; 80179; 80307; 81001; 82009; 82040; 82077; 82140; 82550; 82803; 82947; 83605; 83690; 83735; 84100; 84484; 85025; 85610; 87040; 87635; 93005; 94002; 94003; 94799; 99285; J1953; J2250; J2543; J3010; P9047

== ENCOUNTER 2022-06-19 09:41 | Emergency (ER) | payer MEDICAID, SELFPAY ==
--- NOTE | ~2022-06-19 | US_ITS ---
EXAMINATION: US VENOUS ULTRASOUND WITH DOPPLER LOWER EXTREMITY, LEFT CLINICAL INFORMATION: Left leg edema. Evaluate for a deep vein thrombosis. COMPARISON: None TECHNIQUE: Ultrasound of the deep veins is performed from the hip to the calf with compression sonography and color and pulse Doppler assessment. Spectral analysis with color-flow imaging is performed. FINDINGS: There is normal venous compression and respiratory variation and augmented flow. The visualized common femoral vein, superficial femoral vein, profunda femoral vein, popliteal vein, and the trifurcation region shows no evidence of deep venous thrombosis. There is no significant popliteal fossa cyst. Left inguinal lymph nodes with the largest measuring up to 2.5 x 0.8 x 1.9 cm. The lymph nodes demonstrate normal architecture. If the patient's symptoms persist, followup ultrasound in 5 days 7 days might be of value to exclude proximal propagation from a non-visualized calf vein. US/US venous duplex LE LT IMPRESSION: No DVT demonstrated in the left lower extremity. Mildly prominent left inguinal lymph nodes.
--- NOTE | 2022-06-19 10:02 | ED.GENADULT ---
HPI - General Adult General Chief complaint: General Medical Stated complaint: dvt? Time Seen by Provider: 06/19/22 09:54 Source: patient Mode of arrival: EMS Limitations: no limitations History of Present Illness HPI narrative: This is 61 years old patient with history of opioid use disorder on methadone, HIV presented to the emergency department complaining of left lower extremity pain x1 month. Denies any fever and chills denies any trauma Onset (ago): month(s) (1) Location: lower extremity (left) Radiation: non-radiation Severity: mild Quality: burning Relieving factors: none Exacerbating factors: none Related Data Home Medications Medication Instructions Recorded Confirmed albuterol sulfate 90 mcg/actuation 2 puff PO Q6H PRN Respiratory 11/04/21 01/25/22 aerosol inhaler (ProAir HFA) Distress bictegravir 50 mg-emtricitabine 1 tab PO DAILY 11/04/21 01/25/22 200 mg-tenofovir alafenam 25 mg tablet (Biktarvy) capsaicin 0.025 % topical cream 1 appl topical TID 11/04/21 01/25/22 cetirizine 10 mg tablet 10 mg PO DAILY PRN SWELLING 11/04/21 01/25/22 docusate sodium 100 mg capsule 100 mg PO BID 11/04/21 (Colace) food supplemt, lactose-reduced ea PO TIDWMEAL 11/04/21 (Ensure oral liquid) methadone 10 mg/5 mL oral solution 2.5 mg PO Q6H 11/04/21 sennosides 8.6 mg tablet (Senna 8.6 - 17.2 mg PO BEDTIME PRN 11/04/21 Laxative) constipation sertraline 50 mg tablet 50 mg PO DAILY 11/04/21 01/25/22 famotidine 40 mg tablet 20 mg PO BID 01/25/22 01/25/22 levetiracetam 1,000 mg tablet 1,000 mg PO BID 01/25/22 01/25/22 (Keppra) mirtazapine 7.5 mg tablet 7.5 mg PO BEDTIME 01/25/22 01/25/22 multivitamin 1 tab PO DAILY 01/25/22 01/25/22 quetiapine 100 mg tablet (Seroquel) 150 mg PO DAILY 01/25/22 01/25/22 Previous Rx's Medication Instructions Recorded diphenhydramine HCl 25 mg tablet 25 mg PO TID #10 tabs 08/11/21 (Benadryl Allergy) doxycycline monohydrate 100 mg 100 mg PO BID #14 caps 08/11/21 capsule levetiracetam 500 mg tablet 500 mg PO BID #60 tabs 01/28/22 (Keppra) cephalexin 500 mg capsule 500 mg PO Q8H #21 caps 06/19/22 Allergies Allergy/AdvReac Type Severity Reaction Status Date / Time No Known Allergies Allergy Verified 11/04/21 10:40 [No Known Allergies*] Review of Systems Constitutional: Constitutional: Reports no additional constitutional complaints Cardiovascular: Cardiovascular: Reports no additional cardiovascular complaints Gastrointestinal: Gastrointestinal: Reports no additional gastrointestinal complaints [facility] Past Medical History Medical History Alcoholism Asthma Depression Hepatitis HIV disease Substance abuse Social History Social History Household Members: Unknown / Unable to assess Unable to assess alcohol history related to: Unknown Alcohol intake: never Patient Tobacco Use Status: Tobacco use Unknown Substance Use Type: Crack/Cocaine and Heroin Advance Directives: No Advance Directives Information Provided: Yes service: No Current occupational status: unemployed Physical Exam ED Vital Signs: Vital Signs - 24 hr 06/19/22 10:09 06/19/22 12:21 Temperature 98.3 F 97.6 F Pulse Rate 78 66 Respiratory Rate 14 12 Blood Pressure 96/57 L 141/72 H Pulse Oximetry 94 96 Oxygen Delivery Method Room Air BMI result Body Mass Index 20.6 Const General: cooperative, comfortable and no acute distress HENMT Head: Yes normal to inspection and Yes No palpable skull fracture present General nose exam: Normal external nose present Face and sinus: Yes normal facial exam Mouth: Normal oral and palatal mucosa present Throat: Yes posterior oropharynx normal Neck Neck: Yes normal visual inspection and Yes full ROM Thyroid: Thyroid normal Carotids: normal carotid upstroke Chest Chest palpation & inspection: normal inspection of the chest Resp Effort & Inspection: normal respiratory effort Auscultation: clear to auscultation bilaterally Cardio Jugular venous distension: no JVD Rate: regular rate Rhythm: regular rhythm GI Inspection: Yes normal to inspection Palpation (GI): Soft to palpation, not firm, nontender and no aortic enlargement Percussion: Yes normal to percussion Skin General skin exam: no rashes or lesions noted and elasticity normal Rashes: no rashes Extrem Other: Examination of the left lower extremity shows good peripheral pulses, left leg is slightly red, there is some calf tenderness. Course Reevaluation(s) Reevaluation #1: Patient is stable ultrasound is negative;he is fully ambulatory; at this time a will discharge the patient home I will cover him with antibiotics ant treat him as early cellulitis given his immune deficiency (HIV) Medical Decision Making Lab Data Result diagrams: 06/19/22 10:49 06/19/22 10:49 Labs: Lab Results 06/19/22 06/19/22 06/19/22 Range/Units 10:49 10:49 10:49 WBC 2.3 L (4.8-10.8) X10*3/uL RBC 3.14 L (4.60-5.80) X10*6/uL Hgb 9.1 L (14.0-18.0) g/dl Hct 28.5 L (42.0-52.0) % MCV 90.8 (80.0-98.0) fL MCH 29.0 (27.0-33.0) pg MCHC 31.9 (31.0-36.0) g/dl RDW 17.2 H (11.0-16.0) % Plt Count 73 L (160-400) X10*3/uL MPV 11.8 (9.4-12.4) fL Immature Gran % (Auto) 0.0 (0.0-0.4) % Neut % (Auto) 42.0 L (45-73) % Lymph % (Auto) 39.4 (20-40) % [place] % (Auto) 15.9 H (2-11) % Eos % (Auto) 2.7 (0-4) % Baso % (Auto) 0.0 (0-2) % Lymph # (Auto) 0.9 L (1.2-4.9) X10*3/uL [place] # (Auto) 0.4 (0.1-1.2) X10*3/uL Eos # (Auto) 0.1 (0.0-0.4) X10*3/uL Baso # (Auto) 0.0 (0.0-0.2) X10*3/uL Abs Immat Gran (auto) 0.00 (0.00-0.03) X10*3/uL Absolute Neuts (auto) 1.0 L (2.0-8.3) x10*3/uL Absolute Nucleated RBC 0.000 (0.0-0.012) X10*3/uL Nucleated RBC % (auto) 0.0 (0.0-0.2) /100WBC Smear Tech's Comments VERIFIED APTT 34.7 (24.1-38.0) SEC Sodium 138 (135-145) mmol/L Potassium 3.3 (3.3-5.1) mmol/L Chloride 107 (96-108) mmol/L Carbon Dioxide 27 (22-29) mmol/L Anion Gap 7 L (12-20) BUN 12 (9-16) mg/dL Creatinine 0.77 (0.5-1.4) mg/dL Estim Creat Clear Calc 85.0 Estimated GFR > 60 Random Glucose 131 H (60-115) mg/dL Calcium 7.9 L D (8.4-10.2) mg/dL Total Bilirubin 0.3 (0.0-1.0) mg/dL AST 61 H (5-37) U/L ALT 27 (0-40) U/L Alkaline Phosphatase 291 H D (39-117) U/L Total Protein 7.8 (6.5-8.0) g/dL Albumin 2.3 L D (3.5-5.0) g/dL Imaging Data us lower extr: Radiologist's impression: US VENOUS ULTRASOUND WITH DOPPLER LOWER EXTREMITY, LEFT CLINICAL INFORMATION:? Left leg edema. Evaluate for a deep vein thrombosis. COMPARISON:? None TECHNIQUE: Ultrasound of the deep veins is performed from the hip to the calf with compression sonography and color and pulse Doppler assessment. Spectral analysis with color-flow imaging is performed. FINDINGS: There is normal venous compression and respiratory variation and augmented flow. The visualized common femoral vein, superficial femoral vein, profunda femoral vein, popliteal vein, and the trifurcation region shows no evidence of deep venous thrombosis. There is no significant popliteal fossa cyst. Left inguinal lymph nodes with the largest measuring up to 2.5 x 0.8 x 1.9 cm. The lymph nodes demonstrate normal architecture. If the patient's symptoms persist, followup ultrasound in 5 days 7 days might be of value to exclude proximal propagation from a non-visualized calf vein. US/US venous duplex LE LT IMPRESSION: No DVT demonstrated in the left lower extremity. ? Mildly prominent left inguinal lymph nodes. Discharge Plan Discharge Clinical Impression: Acute pain of left lower extremity, Cellulitis Patient Disposition: Home, Self-Care Instructions: Leg Pain (ED) Additional Instructions: Follow-up with your primary care physician in 1-2 days ,return if you worse Prescriptions: New cephalexin 500 mg capsule 500 mg PO Q8H Qty: 21 0RF No Action doxycycline monohydrate 100 mg capsule 100 mg PO BID Qty: 14 0RF diphenhydramine HCl [Benadryl Allergy] 25 mg tablet 25 mg PO TID Qty: 10 0RF famotidine 40 mg Tablet 20 mg PO BID quetiapine [Seroquel] 100 mg Tablet 150 mg PO DAILY mirtazapine 7.5 mg Tablet 7.5 mg PO BEDTIME levetiracetam [Keppra] 1,000 mg Tablet 1,000 mg PO BID multivitamin Tablet 1 tab PO DAILY levetiracetam [Keppra] 500 mg tablet 500 mg PO BID Qty: 60 0RF albuterol sulfate [ProAir HFA] 90 mcg/actuation HFA aerosol inhaler 2 puff PO Q6H PRN (Reason: Respiratory Distress) capsaicin 0.025 % cream 1 appl topical TID Biktarvy 50-200-25 mg tablet 1 tab PO DAILY cetirizine 10 mg tablet 10 mg PO DAILY PRN (Reason: SWELLING) sertraline 50 mg tablet 50 mg PO DAILY Referrals: Dilia Isaac, [employer] [employer] [facility] DIRECTOR [Primary Care Provider] - 2 days
[2022-06-19 10:09] VITALS: BP 110/70; BP 96/57; PULSE 78; PULSE 90; RESP 14; TEMP 36.8; O2SAT 94; O2SAT 97; BMI 20.6
[2022-06-19 10:56] LABS: Eosinophils Absolute Auto 0.1 X10*3/uL (0.0-0.4); Eosinophils Percent Auto 2.7 % (0-4); Hematocrit 28.5 % (42.0-52.0); Hemoglobin 9.1 g/dl (14.0-18.0); Lymphocytes Absolute Auto 0.9 X10*3/uL (1.2-4.9); Lymphocytes Percent Auto 39.4 % (20-40); MANUAL DIFF FLAG SCAN; Mean Corpuscular HGB Conc 31.9 g/dl (31.0-36.0); Mean Corpuscular Volume 90.8 fL (80.0-98.0); Mean Platelet Volume 11.8 fL (9.4-12.4); Monocytes Absolute Auto 0.4 X10*3/uL (0.1-1.2); Monocytes Percent Auto 15.9 % (2-11); Red Blood Count 3.14 X10*6/uL (4.60-5.80); Red Cell Distribution Width 17.2 % (11.0-16.0); SCAN SMEAR FLAG 1
[2022-06-19 11:00] LABS: Platelet Count 73 X10*3/uL (160-400); White Blood Count 2.3 X10*3/uL (4.8-10.8)
[2022-06-19 11:05] LABS: Partial Thromboplastin Time 34.7 SEC (24.1-38.0)
[2022-06-19 11:18] LABS: Alanine Aminotransferase 27 U/L (0-40); Albumin Level 2.3 g/dL (3.5-5.0); Alkaline Phosphatase 291 U/L (39-117); Anion Gap 7 (12-20); Aspartate Amino Transferase 61 U/L (5-37); Bilirubin Total 0.3 mg/dL (0.0-1.0); Blood Urea Nitrogen 12 mg/dL (9-16); Calcium 7.9 mg/dL (8.4-10.2); Carbon Dioxide 27 mmol/L (22-29); Chloride 107 mmol/L (96-108); Estimated Glomerular Filt Rate > 60; Glucose Random 131 mg/dL (60-115); Potassium 3.3 mmol/L (3.3-5.1); SLIDE REVIEW VERIFIED; Sodium 138 mmol/L (135-145); Total Protein 7.8 g/dL (6.5-8.0)
[2022-06-19 12:21] VITALS: BP 141/72; PULSE 66; RESP 12; TEMP 36.4; O2SAT 96
== END 2022-06-19 13:33 | disposition home or self-care (01) ==
PROVIDERS: Emergency Provider Emergency Medicine; PCP Nurse Practitioner Primary Care
DX: R60.0 Localized edema (principal); M79.605 Pain in left leg; M79.604 Pain in right leg; L03.116 Cellulitis of left lower limb; F11.10 Opioid abuse, uncomplicated; F14.10 Cocaine abuse, uncomplicated; Z79.899 Other long term (current) drug therapy
CPT/HCPCS: 36415; 80053; 85025; 85730; 93971; 99283

== ENCOUNTER 2022-09-08 19:31 | Emergency (ER) | payer MEDICAID, SELFPAY ==
--- NOTE | ~2022-09-08 | CT_ITS ---
EXAMINATION: CT head/brain wo IV con CLINICAL INFORMATION: Reason for Exam AMS COMPARISON: CT head without contrast 01/25/2022 TECHNIQUE: Contiguous axial imaging was performed from the skull base to vertex without intravenous contrast. Sagittal and coronal reformatted images were obtained. This CT examination was performed using dose optimization techniques as appropriate, variously including the following: * Automated exposure control * Adjustment of mA and/or kV according to patient size (this includes techniques or standardized protocols for targeted exams where dose is matched to indication/reason for exam; i.e. extremities or head) Use of iterative reconstruction technique DLP: 1055 mGy-cm FINDINGS: No acute osseous or soft tissue abnormality. The mastoid air cells and visualized portions of the paranasal sinuses are well aerated. There is no evidence of acute intracranial hemorrhage or territorial infarction. No abnormal mass effect or midline shift is seen. [place] to white matter differentiation is well preserved. No extra-axial fluid collections are identified. No hydrocephalus. Proportional prominence of the ventricles and sulcal spaces is consistent with mild volume loss. Patchy periventricular and deep white matter hypoattenuation is consistent with mild small vessel ischemic changes. Chronic encephalomalacia in the right parietal and occipital lobes. 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 CT/CT head/brain wo IV con IMPRESSION: No acute intracranial abnormality including hemorrhage, mass effect, hydrocephalus, or acute territorial edematous infarction.
[2022-09-08 19:41] VITALS: BP 148/91; PULSE 98; O2SAT 96
--- NOTE | 2022-09-08 19:43 | ED.AMS ---
HPI - Altered Mental Status General Chief Complaint: General Medical Stated Complaint: Crisis Drug use Time Seen by Provider: 09/08/22 19:34 Source: patient and old records reviewed Mode of arrival: EMS Limitations: altered mental status History of Present Illness HPI narrative: 62 yo male with hx of opiate and cocaine abuse, HIV, asthma, hepatitis C, seizure back in january was on keppra 1000BID but I do not see a fill since April - tonight was found wandering the streets with no pants - he walked into a house and defecated on the floor. He is confused. Patient has dried blood on his chin. He cannot provide history MD complaint: altered mental status and intoxication Onset (ago): unknown Severity: moderate Consistency of symptoms: unknown Context: drug abuse and seizure disorder Associated symptoms: denies other symptoms Treatments prior to arrival: other (none) Related Data Home Medications Medication Instructions Recorded Confirmed albuterol sulfate 90 mcg/actuation 2 puff PO Q6H PRN Respiratory 11/04/21 01/25/22 aerosol inhaler (ProAir HFA) Distress bictegravir 50 mg-emtricitabine 1 tab PO DAILY 11/04/21 01/25/22 200 mg-tenofovir alafenam 25 mg tablet (Biktarvy) capsaicin 0.025 % topical cream 1 appl topical TID 11/04/21 01/25/22 cetirizine 10 mg tablet 10 mg PO DAILY PRN SWELLING 11/04/21 01/25/22 docusate sodium 100 mg capsule 100 mg PO BID 11/04/21 (Colace) food supplemt, lactose-reduced ea PO TIDWMEAL 11/04/21 (Ensure oral liquid) methadone 10 mg/5 mL oral solution 2.5 mg PO Q6H 11/04/21 sennosides 8.6 mg tablet (Senna 8.6 - 17.2 mg PO BEDTIME PRN 11/04/21 Laxative) constipation sertraline 50 mg tablet 50 mg PO DAILY 11/04/21 01/25/22 famotidine 40 mg tablet 20 mg PO BID 01/25/22 01/25/22 levetiracetam 1,000 mg tablet 1,000 mg PO BID 01/25/22 01/25/22 (Keppra) mirtazapine 7.5 mg tablet 7.5 mg PO BEDTIME 01/25/22 01/25/22 multivitamin 1 tab PO DAILY 01/25/22 01/25/22 quetiapine 100 mg tablet (Seroquel) 150 mg PO DAILY 01/25/22 01/25/22 Previous Rx's Medication Instructions Recorded diphenhydramine HCl 25 mg tablet 25 mg PO TID #10 tabs 08/11/21 (Benadryl Allergy) doxycycline monohydrate 100 mg 100 mg PO BID #14 caps 08/11/21 capsule levetiracetam 500 mg tablet 500 mg PO BID #60 tabs 01/28/22 (Keppra) cephalexin 500 mg capsule 500 mg PO Q8H #21 caps 06/19/22 Allergies Allergy/AdvReac Type Severity Reaction Status Date / Time No Known Allergies Allergy Verified 11/04/21 10:40 [No Known Allergies*] Review of Systems Review of Systems: ROS unable to be obtained due to altered mental status [facility] Past Medical History Source: old records reviewed Medical History Alcoholism Asthma Depression Hepatitis HIV disease Polysubstance abuse Substance abuse Social History Social History Household Members: Unknown / Unable to assess Unable to assess alcohol history related to: Unknown Alcohol intake: current Alcohol intake frequency: a few times a week Alcohol type: hard liquor Patient Tobacco Use Status: Current everyday Tobacco user Smoked in Last 30 Days: Yes Substance Use Type: Crack/Cocaine and Heroin Advance Directives: No Advance Directives Information Provided: No service: No Current occupational status: unemployed Physical Exam ED Vital Signs: Vital Signs - 24 hr 09/08/22 20:15 09/08/22 20:41 09/08/22 21:36 Temperature 98.1 F 99.3 F 99.1 F Pulse Rate 83 77 75 Respiratory Rate 19 15 20 Blood Pressure 134/82 138/84 142/79 H Pulse Oximetry 98 98 97 Oxygen Delivery Method Room Air Room Air Room Air BMI result Body Mass Index 20.6 Appearance: Somnolent, Confused. No acute distress. Eyes: Pupils equal, round and reactive to light. ENT: Pharynx normal. no tongue biting, dried blood on left lower chin/lip area small abrasion Neck: Normal inspection. Neck supple. CVS: Normal heart rate and rhythm. Pulses normal. Respiratory: No respiratory distress. Breath sounds normal. Abdomen: Soft and non-tender. atraumatic Skin: Skin warm and dry. Normal skin color. Normal skin turgor. Extremities: No lower extremity edema. No calf ttp Neuro: confused No motor deficit. No sensory deficit. Course Course Course Narrative: COVID + no hypoxia, WBC at baseline Physician observation started at 946pm Patient placed in physician observation because the patient needed more time for sobriety and observation given presentation. At the time observation was started the patient's vitals were stable, patient is still sleepy, Neuro: nonfocal, CV RRR, Lungs clear. urine tox study pending signed out to Dr. Bonilla MDM - Altered Mental Status MDM Narrative Medical decision making narrative: 62 yo male with hx of opiate and cocaine abuse, HIV, asthma, hepatitis C, seizure here with c/o being found wandering the streets he has dried blood on chin - at this time will need labs, CT head for trauma, I am going to load him with keppra in case this was a seizure and not substance related. Dispo per results and findings. Lab Data Result diagrams: 09/08/22 20:23 09/08/22 20:23 Labs: Lab Results 09/08/22 09/08/22 09/08/22 Range/Units 20:23 20:23 20:38 WBC 2.1 L (4.8-10.8) X10*3/uL RBC 4.08 L D (4.60-5.80) X10*6/uL Hgb 11.8 L D (14.0-18.0) g/dl Hct 36.1 L D (42.0-52.0) % MCV 88.5 (80.0-98.0) fL MCH 28.9 (27.0-33.0) pg MCHC 32.7 (31.0-36.0) g/dl RDW 15.7 (11.0-16.0) % Plt Count 72 L (160-400) X10*3/uL MPV 12.9 H (9.4-12.4) fL Immature Gran % (Auto) 0.0 (0.0-0.4) % Neut % (Auto) 57.4 (45-73) % Lymph % (Auto) 20.1 (20-40) % [place] % (Auto) 19.1 H (2-11) % Eos % (Auto) 2.9 (0-4) % Baso % (Auto) 0.5 (0-2) % Lymph # (Auto) 0.4 L (1.2-4.9) X10*3/uL [place] # (Auto) 0.4 (0.1-1.2) X10*3/uL Eos # (Auto) 0.1 (0.0-0.4) X10*3/uL Baso # (Auto) 0.0 (0.0-0.2) X10*3/uL Abs Immat Gran (auto) 0.00 (0.00-0.03) X10*3/uL Absolute Neuts (auto) 1.2 L (2.0-8.3) x10*3/uL Absolute Nucleated RBC 0.000 (0.0-0.012) X10*3/uL Nucleated RBC % (auto) 0.0 (0.0-0.2) /100WBC Smear Tech's Comments VERIFIED Sodium 136 (135-145) mmol/L Potassium 4.1 D (3.3-5.1) mmol/L Chloride 102 (96-108) mmol/L Carbon Dioxide 24 (22-29) mmol/L Anion Gap 14 (12-20) BUN 7 L (9-16) mg/dL Creatinine 0.77 (0.5-1.4) mg/dL Estim Creat Clear Calc 83.9 Estimated GFR > 60 Random Glucose 93 (60-115) mg/dL Calcium 8.8 D (8.4-10.2) mg/dL Magnesium 1.8 (1.6-2.6) mg/dL Total Bilirubin 0.4 (0.0-1.0) mg/dL Direct Bilirubin 0.2 (0.0-0.5) mg/dL AST 84 H (5-37) U/L ALT 34 (0-40) U/L Alkaline Phosphatase 309 H (39-117) U/L Total Protein 8.7 H (6.5-8.0) g/dL Albumin 2.8 L D (3.5-5.0) g/dL Ethyl Alcohol < 10 mg/dL COVID-19 ([facility]IDA) Positive A (Negative) COVID-19 Clin Com See Note Discharge Plan Discharge Clinical Impression: COVID-19, Acute alteration in mental status, Polysubstance abuse Patient Disposition: Still a Patient Prescriptions: No Action doxycycline monohydrate 100 mg capsule 100 mg PO BID Qty: 14 0RF diphenhydramine HCl [Benadryl Allergy] 25 mg tablet 25 mg PO TID Qty: 10 0RF cephalexin 500 mg capsule 500 mg PO Q8H Qty: 21 0RF famotidine 40 mg Tablet 20 mg PO BID quetiapine [Seroquel] 100 mg Tablet 150 mg PO DAILY mirtazapine 7.5 mg Tablet 7.5 mg PO BEDTIME levetiracetam [Keppra] 1,000 mg Tablet 1,000 mg PO BID multivitamin Tablet 1 tab PO DAILY levetiracetam [Keppra] 500 mg tablet 500 mg PO BID Qty: 60 0RF albuterol sulfate [ProAir HFA] 90 mcg/actuation HFA aerosol inhaler 2 puff PO Q6H PRN (Reason: Respiratory Distress) capsaicin 0.025 % cream 1 appl topical TID Biktarvy 50-200-25 mg tablet 1 tab PO DAILY cetirizine 10 mg tablet 10 mg PO DAILY PRN (Reason: SWELLING) sertraline 50 mg tablet 50 mg PO DAILY
[2022-09-08 20:15] VITALS: BP 134/82; BP 148/91; PULSE 83; PULSE 98; RESP 19; TEMP 36.7; O2SAT 96; O2SAT 98; BMI 20.6
[2022-09-08] MEDS: levETIRAcetam in NaCl (iso-os) 1,000 MG/100 ML PIGGYBACK 400 MG IV (20:26)
[2022-09-08 20:30] LABS: Basophils Percent Auto 0.5 % (0-2); Eosinophils Absolute Auto 0.1 X10*3/uL (0.0-0.4); Eosinophils Percent Auto 2.9 % (0-4); Hematocrit 36.1 % (42.0-52.0); Hemoglobin 11.8 g/dl (14.0-18.0); Lymphocytes Absolute Auto 0.4 X10*3/uL (1.2-4.9); Lymphocytes Percent Auto 20.1 % (20-40); MANUAL DIFF FLAG SCAN; Mean Corpuscular HGB Conc 32.7 g/dl (31.0-36.0); Mean Corpuscular Hemoglobin 28.9 pg (27.0-33.0); Mean Corpuscular Volume 88.5 fL (80.0-98.0); Mean Platelet Volume 12.9 fL (9.4-12.4); Monocytes Absolute Auto 0.4 X10*3/uL (0.1-1.2); Monocytes Percent Auto 19.1 % (2-11); Neutrophils Absolute Auto 1.2 x10*3/uL (2.0-8.3); Neutrophils Percent Auto 57.4 % (45-73); Red Blood Count 4.08 X10*6/uL (4.60-5.80); Red Cell Distribution Width 15.7 % (11.0-16.0); SCAN SMEAR FLAG 1
--- NOTE | 2022-09-08 20:33 | PC.NURSE ---
Pt V/S are stable, pt temp is 99.3, pt reports drinking alcohol, smoking crack and injecting heroin prior coming into the hospital. Pt clothes was wet, pt was change into a hospital gown, pt meds administered as order by the provider. Pt has hx of seizures, and was placed on seizures precautions. Pt lower lips are bitten and with blood. Pt has an IV on his right forearm. Pt bowel sounds were active on 4 quadrants, lungs sounds are clear. Pt was connected on the telemetry and it shows NSR. Pt capillary refills <3 sec. pt is a/o x 2.
[2022-09-08 20:41] VITALS: BP 138/84; PULSE 77; RESP 15; TEMP 37.4; O2SAT 98
[2022-09-08 20:46] LABS: Alanine Aminotransferase 34 U/L (0-40); Albumin Level 2.8 g/dL (3.5-5.0); Alkaline Phosphatase 309 U/L (39-117); Anion Gap 14 (12-20); Aspartate Amino Transferase 84 U/L (5-37); Bilirubin Direct 0.2 mg/dL (0.0-0.5); Bilirubin Total 0.4 mg/dL (0.0-1.0); Blood Urea Nitrogen 7 mg/dL (9-16); Calcium 8.8 mg/dL (8.4-10.2); Carbon Dioxide 24 mmol/L (22-29); Chloride 102 mmol/L (96-108); Creatinine Clr Calc Pharmacy 83.9; Estimated Glomerular Filt Rate > 60; Ethanol < 10 mg/dL; Glucose Random 93 mg/dL (60-115); Magnesium 1.8 mg/dL (1.6-2.6); Potassium 4.1 mmol/L (3.3-5.1); Sodium 136 mmol/L (135-145); Total Protein 8.7 g/dL (6.5-8.0)
[2022-09-08 20:48] LABS: Platelet Count 72 X10*3/uL (160-400); White Blood Count 2.1 X10*3/uL (4.8-10.8)
[2022-09-08 20:49] LABS: SLIDE REVIEW VERIFIED
[2022-09-08 20:52] LABS: COVID-19 Test Positive (Negative); IDNOW Serial# 16C4AD1C
[2022-09-08 21:36] VITALS: BP 142/79; PULSE 75; RESP 20; TEMP 37.3; O2SAT 97
[2022-09-08 23:42] VITALS: BP 123/78; PULSE 71; RESP 21; O2SAT 95
[2022-09-09 05:56] VITALS: BP 104/59; PULSE 67; RESP 18; TEMP 37.3; O2SAT 97
[2022-09-09 15:19] VITALS: BP 116/74; PULSE 77; RESP 18; TEMP 37.1; O2SAT 98
[2022-09-09 15:44] LABS: Amphetamine Screen Urine Not Detected (Not Detect); Barbiturates, Urine Not Detected (Not Detect); Benzodiazepines Screen Urine Not Detected (Not Detect); Cannabinoid Screen Urine Not Detected (Not Detect); Cocaine Screen Urine POSITIVE (Not Detect); Fentanyl, urine POSITIVE (Not Detect); Opiate Screen Urine POSITIVE (Not Detect); Phencyclidine Screen Urine Not Detected (Not Detect)
--- NOTE | 2022-09-09 16:07 | PC.NURSE ---
PT resting quietly, denies pain, breakfast, lunch, and warm blankets given.
--- NOTE | 2022-09-09 17:11 | MHC.RECOVSUP ---
Recovery Support note: Patient is a 62 year old Turkish speaking male who presented to [facility] ED due to being in the community under the influence of substances. 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 Patient denied all substance use. This fiction writer reassured patient we are not interested in causing problems for him and only want to help. Patient acknowledged and continued to deny substance use. Patient reports he has an apartment he can go back to. Clean clothes provided. Discussed case with ED provider and RN.
== END 2022-09-09 17:35 | disposition home or self-care (01) ==
PROVIDERS: Emergency Provider Emergency Medicine; PCP Nurse Practitioner Primary Care
DX: U07.1 COVID-19 (principal); R41.82 Altered mental status, unspecified; F19.10 Other psychoactive substance abuse, uncomplicated; F14.10 Cocaine abuse, uncomplicated; B20 Human immunodeficiency virus [HIV] disease; B19.20 Unspecified viral hepatitis C without hepatic coma; G40.909 Epilepsy, unspecified, not intractable, without status epilepticus; F17.200 Nicotine dependence, unspecified, uncomplicated; Z79.899 Other long term (current) drug therapy
CPT/HCPCS: 36415; 70450; 80048; 80076; 80307; 82077; 83735; 85025; 87635; 96374; 99284; J1953

== ENCOUNTER 2022-09-18 14:12 | Inpatient (IN) | payer MEDICAID, SELFPAY ==
[2022-09-18] VITALS (7 sets, daily range): BP systolic 123–187; BP diastolic 71–99; PULSE 73–95; RESP 16–22; TEMP 36.6–37.4; O2SAT 96–100; BMI 22.2
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
--- NOTE | 2022-09-18 14:51 | ECG_ITS ---
Test Reason : SEIZURE Blood Pressure : / mmHG Vent. Rate : 091 BPM Atrial Rate : 091 BPM P-R Int : 200 ms QRS Dur : 080 ms QT Int : 380 ms P-R-T Axes : 063 009 083 degrees QTc Int : 467 ms Normal sinus rhythm RSR' or QR pattern in V1 suggests right ventricular conduction delay Nonspecific ST abnormality Lateral leads Abnormal ECG When compared with ECG of 25-JAN-2022 15:20, No significant change was found Referred By: Aurea Carson Electronically Signed By:TOMMIE JAMES MD
[2022-09-18 17:31] LABS: Basophils Percent Auto 0.3 % (0-2); Eosinophils Percent Auto 0.7 % (0-4); Hemoglobin 11.2 g/dl (14.0-18.0); PLT CLUMP 1; SCAN SMEAR FLAG 1
[2022-09-18 17:33] LABS: Hematocrit 33.7 % (42.0-52.0); Imm Gran Abs Auto 0.01 X10*3/uL (0.00-0.03); Imm Gran Pct Auto 0.3 % (0.0-0.4); Lymphocytes Absolute Auto 0.6 X10*3/uL (1.2-4.9); Lymphocytes Percent Auto 18.4 % (20-40); MANUAL DIFF FLAG SCAN; Mean Corpuscular HGB Conc 33.2 g/dl (31.0-36.0); Mean Corpuscular Hemoglobin 29.6 pg (27.0-33.0); Mean Corpuscular Volume 89.2 fL (80.0-98.0); Mean Platelet Volume 11.3 fL (9.4-12.4); Monocytes Absolute Auto 0.4 X10*3/uL (0.1-1.2); Neutrophils Percent Auto 67.3 % (45-73); Red Blood Count 3.78 X10*6/uL (4.60-5.80); Red Cell Distribution Width 15.3 % (11.0-16.0)
[2022-09-18 17:45] LABS: Ammonia 41 umol/L (13-55)
[2022-09-18 17:48] LABS: Alanine Aminotransferase 32 U/L (0-40); Albumin Level 2.8 g/dL (3.5-5.0); Alkaline Phosphatase 299 U/L (39-117); Anion Gap 12 (12-20); Aspartate Amino Transferase 71 U/L (5-37); Bilirubin Direct 0.3 mg/dL (0.0-0.5); Bilirubin Total 0.6 mg/dL (0.0-1.0); Blood Urea Nitrogen 6 mg/dL (9-16); Calcium 8.6 mg/dL (8.4-10.2); Carbon Dioxide 28 mmol/L (22-29); Chloride 101 mmol/L (96-108); Estimated Glomerular Filt Rate > 60; Ethanol < 10 mg/dL; Glucose Random 105 mg/dL (60-115); Lipase 18 U/L (8-78); Magnesium 1.9 mg/dL (1.6-2.6); Potassium 4.6 mmol/L (3.3-5.1); Sodium 136 mmol/L (135-145); Total Protein 8.5 g/dL (6.5-8.0)
[2022-09-18 17:49] LABS: Platelet Count 82 X10*3/uL (160-400); SLIDE REVIEW VERIFIED
[2022-09-18 17:50] LABS: Lactic Acid 2.1 mmol/L (0.5-2.0)
[2022-09-18 17:50] LABS: Troponin-I High Sensitivity 21.1 ng/L (<3.5-35.0)
[2022-09-18 17:59] LABS: Acetaminophen LAB < 1 mcg/mL (<30); Salicylate < 5.0 mg/dL (15-30)
[2022-09-18] MEDS: Midazolam HCl/PF 2 MG/2 ML VIAL 4 MG IM (18:40)
--- NOTE | 2022-09-18 18:54 | PC.NURSE ---
attempted IV insertion, failed, charge nurse attempted to establish access, where pt eyes began rolling back in head with tonic clonic movements lasting approximately 3min 20sec, airway suctioned, safety maintained- pt transferred to main ED
[2022-09-18 18:59] LABS: Appearance Urine Cloudy; Color Urine Yellow; Glucose Urine UA Negative (Negative); Leukocyte Esterase Urine Negative (Negative); Nitrite Urine Negative (Negative); Specific Gravity - Urine 1.015 (1.005-1.025); UMIC TRIGGER UACC YES; Urine Blood Negative (Negative); Urine Ketones Negative (Negative); Urine Protein 100 (2+) mg/dL (Neg-Trace)
[2022-09-18] MEDS: levETIRAcetam in NaCl (iso-os) 1,000 MG/100 ML PIGGYBACK 400 MG IV (19:05)
[2022-09-18] MEDS: 0.9 % Sodium Chloride 1,000 ML 999 ML IV ×2 (19:05→20:45)
--- NOTE | 2022-09-18 19:08 | PC.NURSE ---
Float RN This RN to [facility] to assist for pt seizing, brought to Main ED room 9. IV access obtained, 20g to right wrist and 18g to left EJ by Dr Bonilla. Pt medicated prior to transfer to main ED with Versed 4mg IM. Pt appears postictal, rectal temp 99.3. Fluids infusing and Keppra started. Initially on NRB titrated to 6lpm via nc. VSS. NSR on tele rate 90s.
[2022-09-18 19:13] LABS: Amphetamine Screen Urine Not Detected (Not Detect); Bacteria Urine None Seen (None Seen); Barbiturates, Urine Not Detected (Not Detect); Benzodiazepines Screen Urine Not Detected (Not Detect); Cannabinoid Screen Urine Not Detected (Not Detect); Cocaine Screen Urine POSITIVE (Not Detect); Fentanyl, urine POSITIVE (Not Detect); Hyaline Casts Urine 0-2 /LPF (0-2); Opiate Screen Urine POSITIVE (Not Detect); Phencyclidine Screen Urine Not Detected (Not Detect); Squamous Epithelial Cell Urine 0-2 /HPF (0-2); WBC Urine 0-5 /HPF (0-5)
[2022-09-18 19:23] LABS: COVID-19 Test Positive (Negative); IDNOW Serial# 16C4AD1C
[2022-09-18 19:26] LABS: Reflex Lactate? Lactic Acid Added
[2022-09-18 19:30] LABS: Influenza A Negative (Negative); Influenza B2 Negative (Negative)
--- NOTE | 2022-09-18 20:21 | PC.NURSE ---
MULTIPLE ATTEMPT MADE TO DO EKG ,PT UNCOOPERATIVE3 ,ALFRED LITTLE AND PA FLOR AWARE .
[2022-09-18 20:36] LABS: ~Lactic Acid-LAB USE ONLY 3.9 mmol/L (0.5-2.0)
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
[2022-09-18] MEDS: Midazolam HCl/PF 2 MG/2 ML VIAL IVPUSH (21:05)
--- NOTE | 2022-09-18 21:05 | PC.NURSE ---
please see medication restraint form
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
[2022-09-18 22:19] LABS: Reflex Lactate? 2 Y
[2022-09-18] MEDS: Enoxaparin Sodium 40 MG/0.4 ML SYRINGE SUBCUT (22:54)
[2022-09-18] MEDS: PHENobarbitaL sodium 130 MG/ML IM ONCE 218 MG IM (22:54)
--- NOTE | 2022-09-18 23:03 | PC.NURSE ---
pt medicated per order, lab draw performed, fun house attendant nsr 80s, seizure precautions in place, pt wakes and becomes combative provider notified, call willis within reach, will continue to monitor
[2022-09-18 23:23] LABS: ~Lactic Acid-LAB USE ONLY 1.4 mmol/L (0.5-2.0)
[2022-09-19] VITALS (7 sets, daily range): BP systolic 116–169; BP diastolic 63–82; PULSE 70–79; RESP 17–25; TEMP 36.2–37.3; O2SAT 93–98; BMI 23.2
[2022-09-19] MEDS: Haloperidol Lactate 5 MG/ML VIAL 2.5 MG IVPUSH (01:01)
--- NOTE | 2022-09-19 01:03 | PC.NURSE ---
pt sleeping, RR even and unlabored, repositioned, medicated per provider order.
[2022-09-19] MEDS: PHENobarbitaL sodium 130 MG/ML VIAL IM Q3Hx2 164 MG IM ×2 (03:34→06:13)
--- NOTE | 2022-09-19 03:38 | PC.NURSE ---
medicated per provider order, pt sleeping RR even and unlabored, camera at bedside.
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
[2022-09-19] MEDS: 0.9 % Sodium Chloride Flush 3 ML SYRINGE IVFLUSH ×2 (09:53→22:22)
--- NOTE | 2022-09-19 10:40 | PHA.MEDREC ---
Pharmacy Consult ? Medication Reconciliation Pharmacy has completed the medication reconciliation.Used tank cleaner services. Patient is poor historian and unable to confirm medications. Used claim history to review medication history. 

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
--- NOTE | 2022-09-19 15:36 | PC.NURSE ---
PT HAS BEEN NON COOPERATIVE, PULLING OFF EVERYTHING, PULLED OUT EJ, HAS BEEN VOIDING ON FLOOR AND IN TRASH CANS PROVIDER AWARE
--- NOTE | 2022-09-19 16:41 | PC.NURSE ---
At approx 1600 responded to Stat alarm in pt room, pt found on floor. Patient had avasys camera in place, per patient observer patient quickly got out of bed and lowered himself to floor. Patient denies hitting head, VSS. Denies dizziness prior to fall. Supervisor Knitting to bedside with this RN to assess what occurred, pt asked why he got out of bed, unable to verbalize and very vague. Pt re-instructed on fall precautions, requires frequent re-direction; several minutes after patient fall patient attempted to get OOB again. Noncompliant with care, refusing IV start. Oriented to person and place but very vague. All high fall risk precautions in place including bed alarm and avasys camera. Hospitalist notified of event, to come and assess patient.
--- NOTE | 2022-09-19 16:46 | PM.EVENT ---
Event Note Date of Service: 09/19/22 Event Note: Fall in ED, discussed with nurse Ash. Camera captured the fall, patient had no trauma to his head. Mental status seems to be at baseline at this point. No need for further testing, monitor vital signs.
[2022-09-19] MEDS: levETIRAcetam in NaCl (iso-os) 500 MG/100 ML PIGGYBACK 400 MG IV (19:01)
--- NOTE | 2022-09-19 21:08 | PC.NURSE ---
Nurse to nurse report given to ALFRED Wright at [facility], patient to be transferred by health information technologist to [facility], bed 478.
[2022-09-19] MEDS: Enoxaparin Sodium 40 MG/0.4 ML SYRINGE SUBCUT (22:11)
[2022-09-19] MEDS: PHENobarbitaL 15 MG TABLET 45 MG PO (22:11)
[2022-09-20] VITALS (7 sets, daily range): BP systolic 137–163; BP diastolic 73–97; PULSE 66–85; RESP 16–20; TEMP 36.4–37.3; O2SAT 82–98
[2022-09-20] MEDS: levETIRAcetam in NaCl (iso-os) 500 MG/100 ML PIGGYBACK 400 MG IV ×2 (06:25→17:05)
[2022-09-20] MEDS: 0.9 % Sodium Chloride Flush 3 ML SYRINGE IVFLUSH ×2 (07:36→11:17)
[2022-09-20] MEDS: PHENobarbitaL 15 MG TABLET 45 MG PO ×2 (07:36→21:01)
[2022-09-20] MEDS: Acetaminophen 325 MG TABLET 650 MG PO (07:44)
--- NOTE | 2022-09-20 08:12 | PC.NURSE ---
Patient reports he takes methadone at the [facility] on [address] in [place]. Called to verify dose at this time with ELLIOT Moffett- Methadone dose at 60mg PO. She verifies the last time he was physically in the clinic and dosed was on 09/13. She details he was provided 2 bottles on 09/13 to take home because he was Covid positive- those doses would've been for 09/14 and 09/15. Patient did not show up in our ED until 09/18. Dr. Elizabeth aware at this time via tiger text.
--- NOTE | 2022-09-20 09:32 | HE.PHANOTE ---
METHADONE VERIFICATION SPOKE WITH RAQUEL AT [facility]. PATIENT TAKES 60 MG DAILY. PATIENT WAS LAST AT CLINIC ON 09/13/22 AND WAS GIVEN TAKE HOME DOSES FOR 09/14/22 AND 09/17/22. PATIENT HAS NOT RECEIVED A DOSE SINCE 09/15. METHADONE CLINIC WILL NOT ADJUST DOSES UNTIL PATIENT HAS MISSED >7 DAYS
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
[2022-09-20] MEDS: methADONE HCl 20 MG/2 ML ORAL.CONC 60 MG PO (11:17)
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
[2022-09-20 16:16] LABS: Glucose, Whole Blood 90 mg/dL (60-115)
[2022-09-20] MEDS: Enoxaparin Sodium 40 MG/0.4 ML SYRINGE SUBCUT (21:01)
[2022-09-21] VITALS (7 sets, daily range): BP systolic 122–152; BP diastolic 69–97; PULSE 68–98; RESP 16–20; TEMP 36.1–37.4; O2SAT 94–99
[2022-09-21] MEDS: 0.9 % Sodium Chloride Flush 3 ML SYRINGE IVFLUSH ×2 (01:55→09:24)
[2022-09-21] MEDS: levETIRAcetam in NaCl (iso-os) 500 MG/100 ML PIGGYBACK 400 MG IV ×2 (06:13→20:03)
[2022-09-21] MEDS: methADONE HCl 20 MG/2 ML ORAL.CONC 60 MG PO (09:20)
[2022-09-21] MEDS: PHENobarbitaL 15 MG TABLET 45 MG PO (09:24)
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
--- NOTE | 2022-09-21 14:26 | MHC.CM.PN ---
PER PT/MD NOTE, UNSAFE TO DC HOME AT THIS TIME, SN[facility] REFERRALS PLACED TO [facility]. AWAITING RESPONSES.
--- NOTE | 2022-09-21 16:20 | PM.EVENT ---
Event Note Date of Service: 09/21/22 Event Note: Patient is not exhibing right judgement, he has poor insight into why he's here, he's very unsteady on his feet and is at high risk for fall. He wants to leave AMA which at this this point, I don't think is he's in right mind right now and poses great risk for self injury. Will request a sitter. Psych consult to help determine capacity. I needed use meds to calm him down
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
[2022-09-21] MEDS: QUEtiapine Fumarate 25 MG TABLET PO (20:50)
[2022-09-21] MEDS: PHENobarbitaL 30 MG TABLET PO (20:50)
[2022-09-21] MEDS: Enoxaparin Sodium 40 MG/0.4 ML SYRINGE SUBCUT (20:55)
[2022-09-22] MEDS: QUEtiapine Fumarate 25 MG TABLET PO ×3 (02:21→20:15)
[2022-09-22] MEDS: Melatonin 3 MG TABLET 6 MG PO (02:21)
[2022-09-22] MEDS: 0.9 % Sodium Chloride Flush 3 ML SYRINGE IVFLUSH ×4 (02:23→20:40)
[2022-09-22 03:21] VITALS: BP 122/72; PULSE 89; RESP 16; TEMP 36.9; O2SAT 95
[2022-09-22] MEDS: levETIRAcetam in NaCl (iso-os) 500 MG/100 ML PIGGYBACK 400 MG IV ×2 (06:17→20:15)
[2022-09-22 07:43] VITALS: BP 104/57; PULSE 110; RESP 20; TEMP 36.4; O2SAT 97
[2022-09-22] MEDS: methADONE HCl 20 MG/2 ML ORAL.CONC 60 MG PO (08:05)
[2022-09-22] MEDS: PHENobarbitaL 30 MG TABLET PO ×2 (08:06→20:15)
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
[2022-09-22 11:14] VITALS: BP 117/76; PULSE 74; RESP 20; TEMP 36.3; O2SAT 98
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
[2022-09-22] MEDS: Midazolam HCl/PF 2 MG/2 ML VIAL IM (14:43)
[2022-09-22 15:51] VITALS: BP 143/65; PULSE 82; RESP 19; TEMP 36.3
[2022-09-22 19:18] VITALS: BP 155/81; PULSE 70; RESP 19; TEMP 36.1
[2022-09-22] MEDS: Enoxaparin Sodium 40 MG/0.4 ML SYRINGE SUBCUT (20:41)
[2022-09-23] VITALS (8 sets, daily range): BP systolic 100–144; BP diastolic 63–82; PULSE 77–89; RESP 15–18; TEMP 36.2–37.3; O2SAT 98–99
[2022-09-23] MEDS: QUEtiapine Fumarate 25 MG TABLET PO (02:36)
[2022-09-23] MEDS: Melatonin 3 MG TABLET 6 MG PO (02:36)
[2022-09-23] MEDS: PHENobarbitaL 30 MG TABLET PO (07:18)
[2022-09-23] MEDS: levETIRAcetam in NaCl (iso-os) 500 MG/100 ML PIGGYBACK 400 MG IV ×2 (07:18→19:56)
[2022-09-23] MEDS: methADONE HCl 20 MG/2 ML ORAL.CONC 60 MG PO (07:18)
[2022-09-23] MEDS: 0.9 % Sodium Chloride Flush 3 ML SYRINGE IVFLUSH ×3 (07:18→23:02)
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
[2022-09-23] MEDS: Midazolam HCl/PF 2 MG/2 ML VIAL IM (14:32)
--- NOTE | 2022-09-23 16:29 | MHC.CM.PN ---
Per MD rounds reconsult PT and Psych. PT re LTC. Psych eval pending. [facility] will follow for placement. Tj and Marni Viveros are following. Patient will transport via S.
--- NOTE | 2022-09-23 17:22 | PM.PSYCN ---
History of Present Illness Date of Service: 09/23/2022 Chief Complaint: seizure,withdrawl Reason for Consult: capacity Requesting physician: Marcello Elizabeth Discussed with referring provider: Yes Sources of Information: patient interviewed, chart reviewed and crisis/core team assessment reviewed HPI Narrative: Pt seen in follow up for re-evaluation of capacity. He is agitated, security had to be called. Pt continues to present with lack of understanding for his medical condition. Unable to tell me what meds he takes or how he would obtain them. Disregarding and dismissive of PT recommendations. He does not appear to understand the risks of not treating his seizures, wont even engage in a conversation about safe discharge planning. Insists he has to go home to obtain his check and pay bills. Says he was told he could leave this morning, continues to appear confused. At this time, pt appears to lack capacity to make medical decisions. Recommend for case management to obtain VNA services for pt prior to him going home, as he has been unable to remember to take his medication. Past Psychiatric History: Hx of OP psych services at [facility], has not followed up since 10/2021, non-adherent with remeron, sertraline, and seroquel since 06/2022. [facility] Medical History Alcoholism Asthma Depression Hepatitis HIV disease Polysubstance abuse Seizure Substance abuse Diagnostics Vital Signs (24Hr): Vital Signs - 24 hr 09/22/22 19:18 09/23/22 00:00 09/23/22 03:34 Temperature 96.9 F 99.2 F 99.0 F Pulse Rate 70 77 82 Respiratory Rate 19 15 15 Blood Pressure 155/81 H 144/82 H 125/73 Pulse Oximetry 99 98 Oxygen Delivery Method Room Air Room Air Room Air Fraction of Inspired Oxygen 99 09/23/22 07:06 09/23/22 11:30 09/23/22 12:56 Temperature 98.3 F 98.2 F Pulse Rate 87 89 89 Respiratory Rate 18 18 Blood Pressure 120/80 100/63 100/63 Pulse Oximetry 98 99 99 Oxygen Delivery Method Room Air Room Air Fraction of Inspired Oxygen 09/23/22 15:22 Temperature 97.1 F Pulse Rate 78 Respiratory Rate 18 Blood Pressure 122/70 Pulse Oximetry 98 Oxygen Delivery Method Room Air Fraction of Inspired Oxygen BMI result Body Mass Index 23.2 Labs Results: 09/18/22 17:22 09/18/22 17:22 Labs: Laboratory Results - last 48 hr 09/18/22 20:45 Levetiracetam 25.0 Imaging Radiology Impressions: ITS Impressions Cervical Spine CT 09/18/22 15:49 IMPRESSION: 1. Straightening of the normal cervical lordosis may be secondary to positioning and/or muscle spasm. 2. Mild to moderate multilevel degenerative changes without acute abnormality. Degenerative changes are mildly increased compared to the previous study. Face CT 09/18/22 15:49 IMPRESSION: 1. No acute facial bone fracture appreciated. 2. Chronic sinusitis. Head CT 09/18/22 15:49 IMPRESSION: No acute intracranial pathology. Increased paranasal sinus inflammatory changes. Abdomen/Pelvis CT 09/18/22 15:51 IMPRESSION: No fractures or acute abnormalities seen. Hepatic cirrhosis with splenomegaly Chest CT 09/18/22 15:51 IMPRESSION: No fractures or acute abnormalities seen. Hepatic cirrhosis with splenomegaly Mental Status Exam Mental Status Exam Narrative: A&O. Frail, has scab on face, unkempt. Poor eye contact, inattentive. No Tics or Tremors. No abnormal involuntary movements. Agitated, guarded, pacing. Non-pressured speech, spontaneous with regular rate and rhythm, normal volume and prosody. No prolonged speech latency or dysarthria. Mood is agitated, affect is constricted. Denies SI/SIB/HI upon inquiry. Denies A/VH or delusional thought content. Thoughts are perseverative on leaving. Insight/ Judgment poor. Medications Medications Current Medications Acetaminophen (Acetaminophen 325 Mg Tablet) 650 mg PO Q6H PRN PRN Reason: Pain, Mild (Pain Scale 1-3) Last Admin: 09/20/22 07:44 Dose: 650 mg Docusate Sodium (Docusate Sodium 100 Mg Capsule) 100 mg PO DAILY PRN PRN Reason: Constipation Enoxaparin Sodium (Enoxaparin Sodium 40 Mg/0.4 Ml Syringe) 40 mg SUBCUT Q24H [facility] Last Admin: 09/22/22 20:41 Dose: 40 mg Levetiracetam (Keppra) 500 mg in 100 mls @ 400 mls/hr IV Q12H [facility] Last Infusion: 09/23/22 07:43 Dose: Infused Melatonin (Melatonin 3 Mg Tablet) 6 mg PO BEDTIME PRN PRN Reason: insomnia Last Admin: 09/23/22 02:36 Dose: 6 mg Methadone HCl (Methadone Hcl 20 Mg/2 Ml Oral.Conc) 60 mg PO DAILY [facility] Last Admin: 09/23/22 07:18 Dose: 60 mg Midazolam HCl (Midazolam Hcl/Pf 2 Mg/2 Ml Vial) 2 mg IM Q8H PRN PRN Reason: anxiety/agitation Last Admin: 09/23/22 14:32 Dose: 2 mg Ondansetron HCl (Ondansetron Hcl 4 Mg/2 Ml Vial) 4 mg IVPUSH Q8H PRN PRN Reason: Nausea and Vomiting Pharmacy Consult (Consult Rx Etoh Phenob Im/Po) 1 each MISCELLANE ONCE PRN; Protocol PRN Reason: Consult order Pharmacy Consult (Consult Rx Perform Med Rec) 1 each MISCELLANE ONCE PRN PRN Reason: Consult order Phenobarbital (Phenobarbital 15 Mg Tablet) 15 mg PO DAILY [facility] Stop: 09/25/22 09:01 Quetiapine Fumarate (Quetiapine Fumarate 25 Mg Tablet) 25 mg PO Q6H PRN PRN Reason: anxiety, agitation Last Admin: 09/23/22 02:36 Dose: 25 mg Sodium Chloride (0.9 % Sodium Chloride Flush 3 Ml Syringe) 3 ml IVFLUSH QSHIFT [facility] Last Admin: 09/23/22 07:18 Dose: 3 ml Allergies Allergies Allergy/AdvReac Type Severity Reaction Status Date / Time No Known Allergies Allergy Verified 11/04/21 10:40 [No Known Allergies*] Assessment & Plan Assessment & Plan (1) Alcohol abuse with withdrawal: Status: Acute Code(s): F10.139 - Alcohol abuse with withdrawal, unspecified (2) Polysubstance abuse: Status: Acute Code(s): F19.10 - Other psychoactive substance abuse, uncomplicated Plan At this time, pt appears to lack capacity to make medical decisions. Recommend for case management to obtain VNA services for pt prior to him going home, as he has been unable to remember to take his keppra and does not understand the risks involved. I have shared this with Dr. Nava Thank you for this consultation. If you have any questions or concerns, please do not hesitate to contact psychiatry service. I spent minutes with the patient and/or on the patient floor today, greater than?50% of which was spent counseling/coordinating care. Patient educated on: medication risk/benefits and therapeutic strategies
[2022-09-23] MEDS: OLANZapine 10 MG TABLET PO (18:57)
--- NOTE | 2022-09-23 19:40 | PC.NURSE ---
At 18:00 Patient became anxious and agitated wanting to leave the hospital AMA. Behavioral Nurse Practitioner determine that pt is not on capacity to leave AMA, Nurse building insulation supervisor and security at bedside. Zyprexa 10mg order and given. PT lying down quietly in bed afterwards.
[2022-09-23] MEDS: Enoxaparin Sodium 40 MG/0.4 ML SYRINGE SUBCUT (22:57)
[2022-09-24 04:00] VITALS: BP 147/92; PULSE 85; RESP 21; O2SAT 100
[2022-09-24] MEDS: OLANZapine 10 MG TABLET PO ×2 (04:09→14:44)
[2022-09-24] MEDS: levETIRAcetam in NaCl (iso-os) 500 MG/100 ML PIGGYBACK 400 MG IV ×2 (06:19→18:18)
[2022-09-24 07:32] VITALS: BP 160/93; PULSE 88; RESP 18; TEMP 36.8; O2SAT 100
[2022-09-24 07:52] LABS: Glucose, Whole Blood 88 mg/dL (60-115)
[2022-09-24] MEDS: methADONE HCl 20 MG/2 ML ORAL.CONC 60 MG PO (08:26)
[2022-09-24] MEDS: PHENobarbitaL 15 MG TABLET PO (08:27)
[2022-09-24] MEDS: 0.9 % Sodium Chloride Flush 3 ML SYRINGE IVFLUSH ×2 (08:34→18:05)
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
[2022-09-24 11:23] VITALS: BP 110/72; PULSE 88; RESP 18; TEMP 36.9; O2SAT 100
[2022-09-24 16:00] VITALS: BP 144/80; PULSE 71; RESP 16; TEMP 36.2; O2SAT 98
[2022-09-24 20:00] VITALS: BP 153/87; PULSE 84; RESP 16; TEMP 36.2
[2022-09-24] MEDS: Enoxaparin Sodium 40 MG/0.4 ML SYRINGE SUBCUT (21:53)
[2022-09-25 04:00] VITALS: BP 152/89; PULSE 95; RESP 20; TEMP 36.6; O2SAT 99
[2022-09-25] MEDS: OLANZapine 10 MG TABLET PO (04:08)
[2022-09-25] MEDS: 0.9 % Sodium Chloride Flush 3 ML SYRINGE IVFLUSH ×3 (06:15→17:56)
[2022-09-25] MEDS: levETIRAcetam in NaCl (iso-os) 500 MG/100 ML PIGGYBACK 400 MG IV ×2 (06:15→18:00)
[2022-09-25 08:00] VITALS: BP 142/84; PULSE 85; RESP 18; TEMP 36.6; O2SAT 99
[2022-09-25] MEDS: methADONE HCl 20 MG/2 ML ORAL.CONC 60 MG PO (09:40)
[2022-09-25] MEDS: PHENobarbitaL 15 MG TABLET PO (09:41)
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
[2022-09-25 11:54] VITALS: BP 139/73; PULSE 90; RESP 18; TEMP 36.4; O2SAT 97
[2022-09-25 16:00] VITALS: BP 119/60; PULSE 90; RESP 17; TEMP 37.5; O2SAT 98
[2022-09-25 19:52] VITALS: BP 133/64; PULSE 94; RESP 17; TEMP 37.5; O2SAT 98
[2022-09-25] MEDS: Enoxaparin Sodium 40 MG/0.4 ML SYRINGE SUBCUT (21:16)
[2022-09-26] MEDS: 0.9 % Sodium Chloride Flush 3 ML SYRINGE IVFLUSH ×2 (01:50→08:54)
[2022-09-26 03:12] VITALS: BP 114/69; PULSE 76; RESP 14; TEMP 37.3; O2SAT 98
[2022-09-26 07:55] VITALS: BP 119/86; PULSE 102; RESP 18; TEMP 36.8; O2SAT 99
[2022-09-26] MEDS: methADONE HCl 20 MG/2 ML ORAL.CONC 60 MG PO (08:54)
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
[2022-09-26 11:37] VITALS: BP 155/73; PULSE 96; RESP 20; TEMP 36.9; O2SAT 98
[2022-09-26] MEDS: levETIRAcetam 500 MG TABLET PO (12:10)
--- NOTE | 2022-09-26 14:13 | MHC.CM.PN ---
Male 62 DX SZ WD Patient has been evaluated for capacity by Psych [facility]. Patient does not have capacity per documentation. [facility] and [facility] are following. The referrals has been updated. No bed available today.
--- NOTE | 2022-09-26 15:44 | MHC.CM.PN ---
Patient's PCP is Dr. Dilia Isaac.
[2022-09-26 16:00] VITALS: BP 141/110; PULSE 98; RESP 16; TEMP 37.2; O2SAT 98
== END 2022-09-26 17:14 | disposition home health service (06) | DRG 53 ==
LOC: HO.ED 19:56 → HO.EDOVER 09-19 07:13 → HO.IMC 09-19 19:50
PROVIDERS: Physician Assistant; Admitting Provider Internal Medicine; Emergency Provider Emergency Medicine; PCP Nurse Practitioner Primary Care; Visit Provider Internal Medicine
DX: G40.909 Epilepsy, unspecified, not intractable, without status epilepticus (principal); U07.1 COVID-19; F10.239 Alcohol dependence with withdrawal, unspecified; F11.20 Opioid dependence, uncomplicated; R56.9 Unspecified convulsions; Z21 Asymptomatic human immunodeficiency virus [HIV] infection status; F41.8 Other specified anxiety disorders; Z91.14 Patient's other noncompliance with medication regimen; Z79.899 Other long term (current) drug therapy
CPT/HCPCS: 36415; 70450; 70486; 71250; 72125; 74176; 80048; 80076; 80143; 80177; 80179; 80307; 81001; 82077; 82140; 82550; 82947; 83605; 83690; 83735; 84484; 85025; 85610; 87040; 87502; 87635; 93005; 97116; 97163; 99285; J1650; J1953; J2250; J2560

== ENCOUNTER 2022-11-25 19:37 | Emergency (ER) | payer MEDICAID, SELFPAY ==
--- NOTE | 2022-11-25 | ECG_ITS ---
Test Reason : CHEST PAIN Blood Pressure : / mmHG Vent. Rate : 080 BPM Atrial Rate : 080 BPM P-R Int : 190 ms QRS Dur : 084 ms QT Int : 408 ms P-R-T Axes : -10 029 -18 degrees QTc Int : 470 ms Normal sinus rhythm T wave abnormality, consider inferior ischemia Abnormal ECG When compared with ECG of 18-SEP-2022 21:14, T wave inversion now evident in Inferior leads Nonspecific T wave abnormality no longer evident in Anterior leads Referred By: Generic ED Physician Electronically Signed By:ROSALINDA SHEPHERD MD
--- NOTE | ~2022-11-25 | XR_ITS ---
EXAMINATION: XR CHEST CLINICAL INFORMATION: Chest pain COMPARISON: Chest x-ray 01/25/2022 TECHNIQUE: Frontal view of the chest was obtained. FINDINGS: The lungs appear clear. No airspace consolidation. No pleural effusion or pneumothorax is identified. The cardiomediastinal silhouette and pulmonary vascularity within normal limits. No evidence pulmonary edema. No acute osseous injury identified. XR/XR chest 1V IMPRESSION: No acute pulmonary disease.
[2022-11-25 19:44] VITALS: BP 143/84; BP 158/83; PULSE 79; PULSE 81; RESP 18; TEMP 36.7; O2SAT 98; O2SAT 99; BMI 17.7
[2022-11-25 20:23] LABS: Hemoglobin 11.9 g/dl (14.0-18.0); Red Cell Distribution Width 15.4 % (11.0-16.0); SCAN SMEAR FLAG 1
[2022-11-25 20:25] LABS: Hematocrit 35.7 % (42.0-52.0); Imm Gran Abs Auto 0.01 X10*3/uL (0.00-0.03); Imm Gran Pct Auto 0.3 % (0.0-0.4); Lymphocytes Absolute Auto 0.6 X10*3/uL (1.2-4.9); MANUAL DIFF FLAG SCAN; Mean Corpuscular HGB Conc 33.3 g/dl (31.0-36.0); Mean Corpuscular Hemoglobin 29.5 pg (27.0-33.0); Mean Corpuscular Volume 88.4 fL (80.0-98.0); Mean Platelet Volume 12.6 fL (9.4-12.4); Monocytes Absolute Auto 0.2 X10*3/uL (0.1-1.2); Monocytes Percent Auto 6.6 % (2-11); Neutrophils Absolute Auto 2.4 x10*3/uL (2.0-8.3); Neutrophils Percent Auto 75.1 % (45-73); Red Blood Count 4.04 X10*6/uL (4.60-5.80); White Blood Count 3.2 X10*3/uL (4.8-10.8)
[2022-11-25 20:30] VITALS: BP 123/77; PULSE 78; RESP 16; TEMP 37; O2SAT 98
[2022-11-25 20:32] LABS: PLT ABN DIST 1; Platelet Count 74 X10*3/uL (160-400)
[2022-11-25 20:42] LABS: SLIDE REVIEW VERIFIED
[2022-11-25 20:50] LABS: Troponin-I High Sensitivity 19.2 ng/L (<3.5-35.0)
[2022-11-25 21:06] LABS: Alanine Aminotransferase 23 U/L (0-40); Albumin Level 3.3 g/dL (3.5-5.0); Alkaline Phosphatase 219 U/L (39-117); Anion Gap 15 (12-20); Aspartate Amino Transferase 71 U/L (5-37); Bilirubin Total 0.7 mg/dL (0.0-1.0); Blood Urea Nitrogen 20 mg/dL (9-16); Calcium 9.2 mg/dL (8.4-10.2); Carbon Dioxide 23 mmol/L (22-29); Chloride 101 mmol/L (96-108); Creatinine Clr Calc Pharmacy 55.7; Estimated Glomerular Filt Rate > 60; Glucose Random 114 mg/dL (60-115); Potassium 5.6 mmol/L (3.3-5.1); Sodium 133 mmol/L (135-145); Total Protein 9.6 g/dL (6.5-8.0)
--- NOTE | 2022-11-25 21:15 | ED.CHESTPAIN ---
HPI - Chest Pain General Chief Complaint: Chest Pain Stated Complaint: ams Time Seen by Provider: 11/25/22 21:15 Source: EMS Mode of arrival: EMS History of Present Illness HPI narrative: Patient is 62 years old with past medical history of alcoholism, asthma, depression, hepatitis, HIV, history of cocaine and opiate abuse, TBI with history of seizures on Keppra was found confused and lethargic at [employer] saturating 98% at room air Related Data Home Medications Medication Instructions Recorded Confirmed albuterol sulfate 90 mcg/actuation 2 puff inhalation Q6H PRN 09/19/22 09/19/22 aerosol inhaler (ProAir HFA) Shortness Of Breath hydrocortisone 1 % topical cream appl topical BID 09/19/22 moxifloxacin 0.5 % eye drops 1 drp ophthalmic-Right QID 09/19/22 09/19/22 methadone 10 mg/mL oral concentrate 60 mg PO DAILY 09/20/22 09/20/22 Previous Rx's Medication Instructions Recorded levetiracetam 500 mg tablet 500 mg PO BID #60 tabs 09/26/22 Allergies Allergy/AdvReac Type Severity Reaction Status Date / Time No Known Allergies Allergy Verified 11/04/21 10:40 [No Known Allergies*] Review of Systems Review of Systems: Yes Unobtainable due to mental status PMFSH Past Medical History Medical History Alcoholism Asthma Depression Depression with anxiety Hepatitis HIV disease Polysubstance abuse Polysubstance abuse Seizure Substance abuse Social History Social History Household Members: Unknown / Unable to assess Housing: Unknown / Unable to assess Unable to assess alcohol history related to: Refusing to respond Alcohol intake: current Alcohol intake frequency: a few times a week Alcohol type: hard liquor Patient Tobacco Use Status: Refuse Tobacco use screen Substance Use Type: Crack/Cocaine and Heroin Advance Directives: No Advance Directives Information Provided: No service: No Current occupational status: unemployed Physical Exam Vital Signs: Vital Signs: Last Vital Signs Temp 97.7 F 11/26/22 03:58 Pulse 72 11/26/22 05:43 Resp 16 11/26/22 05:43 BP 129/69 11/26/22 05:43 Pulse Ox 95 11/26/22 05:43 O2 Del Method 11/26/22 05:43 BMI result Body Mass Index 17.7 Appearance: Alert. Oriented X1-2. No acute distress. Eyes: PERRLA, No Nystagmus ENT: Pharynx normal. Oral Mucosa moist Neck: Normal inspection. Neck supple. CVS: Normal heart rate and rhythm. Pulses normal. Respiratory: No respiratory distress. Equal air entry bilateral, no wheezing/rales/rhonchi Abdomen: Soft and nontender. Bowel sounds are present, no mass palpable, no CVA tenderness Skin: Skin warm and dry. Normal skin color. Normal skin turgor. Extremities: No lower extremity edema. No calf tenderness IVDA track monzon++ Neuro: Oriented X1-2. No motor deficit. No sensory deficit.No cerebellar signs , cranial nerves II-XII intact Medical Decision Making Medical Decision Making [facility] Narrative: Patient ambulatory at this time denies any complaints 2 sets of troponin negative EKG without acute ischemic changes discharge patient home urine positive for cocaine and opiates patient potassium was 5.6 with normal kidney functions with no history of hyperkalemia this sample was with moderate hemolysis likely the cause of hyperkalemia Lab Data [facility] Lab Attestation statement: I reviewed the patient's lab results. Result Diagrams: 11/25/22 20:18 11/25/22 20:18 Labs: Lab Results 11/25/22 11/25/22 11/25/22 Range/Units 20:18 20:18 20:18 WBC 3.2 L (4.8-10.8) X10*3/uL RBC 4.04 L (4.60-5.80) X10*6/uL Hgb 11.9 L (14.0-18.0) g/dl Hct 35.7 L (42.0-52.0) % MCV 88.4 (80.0-98.0) fL MCH 29.5 (27.0-33.0) pg MCHC 33.3 (31.0-36.0) g/dl RDW 15.4 (11.0-16.0) % Plt Count 74 L (160-400) X10*3/uL MPV 12.6 H (9.4-12.4) fL Immature Gran % (Auto) 0.3 (0.0-0.4) % Neut % (Auto) 75.1 H (45-73) % Lymph % (Auto) 18.0 L (20-40) % [place] % (Auto) 6.6 (2-11) % Eos % (Auto) 0.0 (0-4) % Baso % (Auto) 0.0 (0-2) % Lymph # (Auto) 0.6 L (1.2-4.9) X10*3/uL [place] # (Auto) 0.2 (0.1-1.2) X10*3/uL Eos # (Auto) 0.0 (0.0-0.4) X10*3/uL Baso # (Auto) 0.0 (0.0-0.2) X10*3/uL Abs Immat Gran (auto) 0.01 (0.00-0.03) X10*3/uL Absolute Neuts (auto) 2.4 (2.0-8.3) x10*3/uL Absolute Nucleated RBC 0.000 (0.0-0.012) X10*3/uL Nucleated RBC % (auto) 0.0 (0.0-0.2) /100WBC Smear Tech's Comments VERIFIED PT (10.0-13.1) SEC INR (0.9-1.1) APTT (26.0-36.4) SEC Sodium 133 L (135-145) mmol/L Potassium 5.6 H D (3.3-5.1) mmol/L Chloride 101 (96-108) mmol/L Carbon Dioxide 23 (22-29) mmol/L Anion Gap 15 (12-20) BUN 20 H D (9-16) mg/dL Creatinine 0.97 (0.5-1.4) mg/dL Estim Creat Clear Calc 55.7 Estimated GFR > 60 Random Glucose 114 (60-115) mg/dL Calcium 9.2 D (8.4-10.2) mg/dL Total Bilirubin 0.7 (0.0-1.0) mg/dL AST 71 H (5-37) U/L ALT 23 (0-40) U/L Alkaline Phosphatase 219 H D (39-117) U/L Troponin I High Sens 19.2 (<3.5-35.0) ng/L Total Protein 9.6 H (6.5-8.0) g/dL Albumin 3.3 L (3.5-5.0) g/dL Urine Opiates Screen (Not Detect) Urine Fentanyl Screen (Not Detect) Ur Barbiturates Screen (Not Detect) Ur Phencyclidine Scrn (Not Detect) Ur Amphetamines Screen (Not Detect) U Benzodiazepines Scrn (Not Detect) Urine Cocaine Screen (Not Detect) U Marijuana (THC) Screen (Not Detect) Ethyl Alcohol < 10 mg/dL Influenza Type A (PCR) (Negative) Influenza Type B (PCR) (Negative) RSV RNA Qual (PCR) (Negative) SARS-CoV-2 RNA (RT-PCR) (Negative) 11/25/22 11/25/22 11/25/22 Range/Units 20:32 21:50 22:30 WBC (4.8-10.8) X10*3/uL RBC (4.60-5.80) X10*6/uL Hgb (14.0-18.0) g/dl Hct (42.0-52.0) % MCV (80.0-98.0) fL MCH (27.0-33.0) pg MCHC (31.0-36.0) g/dl RDW (11.0-16.0) % Plt Count (160-400) X10*3/uL MPV (9.4-12.4) fL Immature Gran % (Auto) (0.0-0.4) % Neut % (Auto) (45-73) % Lymph % (Auto) (20-40) % [place] % (Auto) (2-11) % Eos % (Auto) (0-4) % Baso % (Auto) (0-2) % Lymph # (Auto) (1.2-4.9) X10*3/uL [place] # (Auto) (0.1-1.2) X10*3/uL Eos # (Auto) (0.0-0.4) X10*3/uL Baso # (Auto) (0.0-0.2) X10*3/uL Abs Immat Gran (auto) (0.00-0.03) X10*3/uL Absolute Neuts (auto) (2.0-8.3) x10*3/uL Absolute Nucleated RBC (0.0-0.012) X10*3/uL Nucleated RBC % (auto) (0.0-0.2) /100WBC Smear Tech's Comments PT 12.5 (10.0-13.1) SEC INR 1.1 (0.9-1.1) APTT 30.8 (26.0-36.4) SEC Sodium (135-145) mmol/L Potassium (3.3-5.1) mmol/L Chloride (96-108) mmol/L Carbon Dioxide (22-29) mmol/L Anion Gap (12-20) BUN (9-16) mg/dL Creatinine (0.5-1.4) mg/dL Estim Creat Clear Calc Estimated GFR Random Glucose (60-115) mg/dL Calcium (8.4-10.2) mg/dL Total Bilirubin (0.0-1.0) mg/dL AST (5-37) U/L ALT (0-40) U/L Alkaline Phosphatase (39-117) U/L Troponin I High Sens (<3.5-35.0) ng/L Total Protein (6.5-8.0) g/dL Albumin (3.5-5.0) g/dL Urine Opiates Screen POSITIVE H (Not Detect) Urine Fentanyl Screen POSITIVE H (Not Detect) Ur Barbiturates Screen Not Detected (Not Detect) Ur Phencyclidine Scrn Not Detected (Not Detect) Ur Amphetamines Screen Not Detected (Not Detect) U Benzodiazepines Scrn Not Detected (Not Detect) Urine Cocaine Screen POSITIVE H (Not Detect) U Marijuana (THC) Screen Not Detected (Not Detect) Ethyl Alcohol mg/dL Influenza Type A (PCR) NEGATIVE (Negative) Influenza Type B (PCR) NEGATIVE (Negative) RSV RNA Qual (PCR) NEGATIVE (Negative) SARS-CoV-2 RNA (RT-PCR) NEGATIVE (Negative) 11/26/22 Range/Units 01:07 WBC (4.8-10.8) X10*3/uL RBC (4.60-5.80) X10*6/uL Hgb (14.0-18.0) g/dl Hct (42.0-52.0) % MCV (80.0-98.0) fL MCH (27.0-33.0) pg MCHC (31.0-36.0) g/dl RDW (11.0-16.0) % Plt Count (160-400) X10*3/uL MPV (9.4-12.4) fL Immature Gran % (Auto) (0.0-0.4) % Neut % (Auto) (45-73) % Lymph % (Auto) (20-40) % [place] % (Auto) (2-11) % Eos % (Auto) (0-4) % Baso % (Auto) (0-2) % Lymph # (Auto) (1.2-4.9) X10*3/uL [place] # (Auto) (0.1-1.2) X10*3/uL Eos # (Auto) (0.0-0.4) X10*3/uL Baso # (Auto) (0.0-0.2) X10*3/uL Abs Immat Gran (auto) (0.00-0.03) X10*3/uL Absolute Neuts (auto) (2.0-8.3) x10*3/uL Absolute Nucleated RBC (0.0-0.012) X10*3/uL Nucleated RBC % (auto) (0.0-0.2) /100WBC Smear Tech's Comments PT (10.0-13.1) SEC INR (0.9-1.1) APTT (26.0-36.4) SEC Sodium (135-145) mmol/L Potassium (3.3-5.1) mmol/L Chloride (96-108) mmol/L Carbon Dioxide (22-29) mmol/L Anion Gap (12-20) BUN (9-16) mg/dL Creatinine (0.5-1.4) mg/dL Estim Creat Clear Calc Estimated GFR Random Glucose (60-115) mg/dL Calcium (8.4-10.2) mg/dL Total Bilirubin (0.0-1.0) mg/dL AST (5-37) U/L ALT (0-40) U/L Alkaline Phosphatase (39-117) U/L Troponin I High Sens 15.4 (<3.5-35.0) ng/L Total Protein (6.5-8.0) g/dL Albumin (3.5-5.0) g/dL Urine Opiates Screen (Not Detect) Urine Fentanyl Screen (Not Detect) Ur Barbiturates Screen (Not Detect) Ur Phencyclidine Scrn (Not Detect) Ur Amphetamines Screen (Not Detect) U Benzodiazepines Scrn (Not Detect) Urine Cocaine Screen (Not Detect) U Marijuana (THC) Screen (Not Detect) Ethyl Alcohol mg/dL Influenza Type A (PCR) (Negative) Influenza Type B (PCR) (Negative) RSV RNA Qual (PCR) (Negative) SARS-CoV-2 RNA (RT-PCR) (Negative) Independent Interpretation I performed an independent interpretation of an: EKG Interpretation: Normal sinus rhythm heart rate 80 beats per T inversion in lead 3 and AVF which is new, no acute ST elevation normal axis Discharge Plan Discharge Clinical Impression: Polysubstance (including opioids) dependence, daily use Patient Disposition: Home, Self-Care Instructions: Narcotic Use Disorder (ED) Additional Instructions: Stop using drugs and follow up with detox Prescriptions: No Action hydrocortisone 1 % cream topical BID moxifloxacin 0.5 % drops 1 drp ophthalmic-Right QID albuterol sulfate [ProAir HFA] 90 mcg/actuation HFA aerosol inhaler 2 puff INHALATION Q6H MDD 4 PRN (Reason: Shortness Of Breath) methadone 10 mg/mL Concentrate 60 mg PO DAILY Rx Instructions: CALLED [facility] AND VERIFIED DOSE levetiracetam 500 mg Tablet 500 mg PO BID Qty: 60 2RF
[2022-11-25 21:20] LABS: Influenza A PCR NEGATIVE (Negative); Influenza B PCR NEGATIVE (Negative); Resp Syncy Virus RNA Qual PCR NEGATIVE (Negative); SARS COV2 PCR INHOUSE NEGATIVE (Negative)
--- NOTE | 2022-11-25 21:52 | PC.NURSE ---
Pt resting quietly, pt informed they need to provide a urine sample.
[2022-11-25 21:55] VITALS: BP 141/90; PULSE 66; RESP 16; TEMP 36.5; O2SAT 96
[2022-11-25 22:00] LABS: INTERNATIONAL NORM RATIO 1.1 (0.9-1.1); Prothrombin Time 12.5 SEC (10.0-13.1)
[2022-11-25 22:03] LABS: Partial Thromboplastin Time 30.8 SEC (26.0-36.4)
[2022-11-25 22:46] LABS: Ethanol < 10 mg/dL
[2022-11-25 22:48] LABS: Fentanyl, urine POSITIVE (Not Detect)
[2022-11-25 22:50] LABS: Amphetamine Screen Urine Not Detected (Not Detect); Barbiturates, Urine Not Detected (Not Detect); Benzodiazepines Screen Urine Not Detected (Not Detect); Cannabinoid Screen Urine Not Detected (Not Detect); Opiate Screen Urine POSITIVE (Not Detect); Phencyclidine Screen Urine Not Detected (Not Detect)
[2022-11-25 23:15] LABS: Cocaine Screen Urine POSITIVE (Not Detect)
--- NOTE | 2022-11-25 23:19 | PC.NURSE ---
Pt sleeping, VSS.
[2022-11-26] VITALS: BP 127/74; PULSE 74; RESP 16; TEMP 36.9; O2SAT 98
--- NOTE | 2022-11-26 00:55 | PC.NURSE ---
Pt sleeping, VSS
[2022-11-26 01:43] VITALS: BP 117/70; PULSE 73; RESP 16; TEMP 36.6; O2SAT 96
[2022-11-26 01:47] LABS: Troponin-I High Sensitivity 15.4 ng/L (<3.5-35.0)
--- NOTE | 2022-11-26 02:31 | PC.NURSE ---
Pt walked to restroom, pt has steady gait.
[2022-11-26 03:58] VITALS: BP 120/71; PULSE 81; RESP 16; TEMP 36.5; O2SAT 97
--- NOTE | 2022-11-26 04:47 | PC.NURSE ---
Pt sleeping at this time, respirations regular.
[2022-11-26 05:43] VITALS: BP 129/69; PULSE 72; RESP 16; O2SAT 95
[2022-11-26 06:00] VITALS: BP 132/66; PULSE 73; RESP 16; TEMP 36.5; O2SAT 98
== END 2022-11-26 06:26 | disposition home or self-care (01) ==
PROVIDERS: Emergency Provider Internal Medicine
DX: F11.20 Opioid dependence, uncomplicated (principal); R07.89 Other chest pain; F14.10 Cocaine abuse, uncomplicated; Z20.822 Contact with and (suspected) exposure to COVID-19; Z71.51 Drug abuse counseling and surveillance of drug abuser; Z79.899 Other long term (current) drug therapy
CPT/HCPCS: 0241U; 36415; 71045; 80053; 80307; 82077; 84484; 85025; 85610; 85730; 93005; 99284

== ENCOUNTER 2023-02-15 10:43 | Inpatient (IN) | payer MEDICAID, SELFPAY ==
--- NOTE | ~2023-02-15 | CT_ITS ---
EXAMINATION: CT HEAD WITHOUT CONTRAST CLINICAL INFORMATION: Seizure COMPARISON: CT brain 09/18/2022 TECHNIQUE: Contiguous axial imaging was performed from the skull base to vertex without intravenous administration of contrast. This CT examination was performed using dose optimization techniques as appropriate, variously including the following: *Automated exposure control *Adjustment of mA and/or kV according to patient size (this includes techniques or standardized protocols for targeted exams where dose is matched to indication/reason for exam; i.e. extremities or head) *Use of iterative reconstruction technique DLP: 615 mGy-cm FINDINGS: There is no acute intra-axial, extra-axial bleed, masses or midline shift. There is no acute infarction evolution. No edema or midline shift. There is old right upper lobe infarct without mass effect. The lateral ventricles are symmetrical in size and configuration but mildly enlarged. There is dystrophic bibasal ganglia calcification. Bone windows reveal no calvarial abnormality. There is no scalp soft tissue abnormality. CT/CT head/brain wo IV con IMPRESSION: 1. No acute intracranial process seen. 2. Old right frontal lobe infarct. 3. Mild cerebral volume loss.
--- NOTE | ~2023-02-15 | XR_ITS ---
EXAMINATION: XR CHEST CLINICAL INFORMATION: Seizure COMPARISON: 03/26/2022 TECHNIQUE: Frontal view of the chest was obtained. FINDINGS: Mid to upper lobe opacities on the right hand left. This could represent vascular cephalization. The cardiac silhouette is within normal limits for AP projection. Mediastinum is not widened. There is no effusion. There is no pneumothorax. No displaced fracture is seen. XR/XR chest 1V IMPRESSION: Mild mid to upper lung opacities could represent vascular prominence. Attention to follow-up. No overt failure. Mild retrocardiac opacity could represent mild atelectasis or infiltrate.
[2023-02-15 10:48] VITALS: BP 138/94; PULSE 96; RESP 20; O2SAT 97; BMI 20.2
--- NOTE | 2023-02-15 10:48 | ED.SEIZURE ---
HPI - Seizure General Chief Complaint: Seizure Stated Complaint: Witnessed seizure, AMS per EMS Source: patient and EMS Mode of arrival: EMS History of Present Illness HPI Narrative: 62-year-old male with a past medical history of alcoholism, asthma, depression, hepatitis, HIV, polysubstance abuse, seizures on Keppra, BIBA s/p witnessed seizure on bus [employer]. Per EMS/bystanders patient was sitting, no evidence of head trauma, & was incontinent of stool. After EMS arrival patient became combative received 2mg IM Versed. On ED arrival patient remains confused, lethargic, easily arousable, does not remember incident. No evidence of head trauma. MD complaint: possible seizure Onset (ago): minute(s) Related Data Home Medications Medication Instructions Recorded Confirmed albuterol sulfate 90 mcg/actuation 2 puff inhalation Q6H PRN 09/19/22 02/15/23 aerosol inhaler (ProAir HFA) Shortness Of Breath hydrocortisone 1 % topical cream 1 appl topical BID 09/19/22 02/15/23 methadone 10 mg/mL oral concentrate 60 mg PO DAILY 09/20/22 09/20/22 atovaquone 750 mg/5 mL oral 5 ml PO DAILY 02/15/23 02/15/23 suspension bictegravir 50 mg-emtricitabine 1 tab PO BEDTIME 02/15/23 02/15/23 200 mg-tenofovir alafenam 25 mg tablet (Biktarvy) cetirizine 10 mg tablet 1 tab PO DAILY 02/15/23 02/15/23 docusate sodium 100 mg capsule 1 cap PO BID PRN constipation 02/15/23 02/15/23 mirtazapine 7.5 mg tablet 1 tab PO BEDTIME 02/15/23 02/15/23 quetiapine 50 mg tablet 1 tab PO BEDTIME 02/15/23 02/15/23 sertraline 25 mg tablet 1 tab PO DAILY 02/15/23 02/15/23 Previous Rx's Medication Instructions Recorded levetiracetam 500 mg tablet 500 mg PO BID #60 tabs 09/26/22 Allergies Allergy/AdvReac Type Severity Reaction Status Date / Time No Known Allergies Allergy Verified 11/04/21 10:40 [No Known Allergies*] Review of Systems Review of Systems: ROS limited due to patient's acute mental status Yes all other systems are reviewed and are negative Constitutional: Constitutional: Reports as per HPI Neurologic: Reports confusion Psychiatric: Psychiatric: Reports confusion [facility] Past Medical History Attestation statement: The following information was validated with the patient. Medical History Alcoholism Asthma Depression Depression with anxiety Hepatitis HIV disease Polysubstance abuse Polysubstance abuse Seizure Substance abuse Social History Social History Household Members: Unknown / Unable to assess Housing: Unknown / Unable to assess Unable to assess alcohol history related to: Refusing to respond Alcohol intake: current Alcohol intake frequency: a few times a week Alcohol type: hard liquor Patient Tobacco Use Status: Refuse Tobacco use screen Substance Use Type: Crack/Cocaine and Heroin Advance Directives: No Advance Directives Information Provided: No service: No Current occupational status: unemployed Physical Exam Vital Signs: Vital Signs: Last Vital Signs Pulse 96 02/15/23 10:48 Resp 20 02/15/23 10:48 BP 138/94 H 02/15/23 10:48 Pulse Ox 97 02/15/23 10:48 O2 Del Method 02/15/23 10:48 BMI result Body Mass Index 20.2 Const: Other: lethargic/confused, alert to voice General: confusion Orientation/consciousness: confusion HEENT: Head: Yes normal to inspection and Yes atraumatic Ears: hearing grossly normal bilaterally General nose exam: Normal external nose present Face and sinus: Yes normal facial exam Eyes: General: appearance normal, both eyes and all related structures Pupils: Dilated pupils bilaterally EOM: EOMs intact bilaterally Neck: Neck: Yes normal visual inspection and Yes no meningeal signs Resp: Effort & Inspection: normal respiratory effort and no respiratory distress Auscultation: clear to auscultation bilaterally Cardio: Rate: regular rate Heart sounds: S1 normal heart sound present and S2 normal heart sound present GI: Inspection: Yes normal to inspection Palpation (GI): Soft to palpation, nontender, no guarding and not rigid Skin: Rashes: no rashes Wounds: no wounds Neuro: General: tone normal, moves all extremities, no meningeal signs and confusion Extrem: General: Yes normal to inspection Course Course Course Narrative: -1305--chronic pancytopenia likely from ETOH abuse. Lactic acidosis of 5.6 > likely from seizure activity rather than severe sepsis. -initial troponin 6.5 > will obtain 3 hour repeat -ethanol negative XR chest 1V IMPRESSION: Mild mid to upper lung opacities could represent vascular prominence. Attention to follow-up. No overt failure. ? Mild retrocardiac opacity could represent mild atelectasis or infiltrate. >> Will give empiric IV Zosyn -patient ambulating in room, reports he had a seizure. States last seizure about 3 weeks ago, reports noncompliance with his medications. Denies EtOH or drug use. States he is on methadone -1350--patient with grand mal seizure while in the ED, given 2 mg of IM Ativan, patient very combative, swinging at staff, given 2 mg of IM Versed and loading dose of IV Keppra. Plan to admit for further management CT head/brain wo IV con IMPRESSION: 1.? No acute intracranial process seen. 2.? Old right frontal lobe infarct. 3.? Mild cerebral volume loss. -tox screen positive for opiates, fentanyl, benzos, cocaine Medications Administered Discontinued Medications Generic Name Dose Route Start Last Admin Trade Name Freq PRN Reason Stop Dose Admin Sodium Chloride 1,000 mls @ 999 mls/hr 02/15/23 11:00 02/15/23 12:28 Ns IV 02/15/23 12:00 Infused .Q1H1M DEBORA Infusion Sodium Chloride 1,000 mls @ 999 mls/hr 02/15/23 12:15 02/15/23 14:22 Ns IV 02/15/23 13:15 Infused .Q1H1M DEBORA Infusion Piperacillin Sod/Tazobactam 50 mls @ 100 mls/hr 02/15/23 12:51 02/15/23 13:50 Sod 3.375 gm/ Sodium Chloride IV 02/15/23 13:20 Infused ONCE ONE Infusion Lorazepam 2 mg 02/15/23 13:54 02/15/23 13:54 Lorazepam 2 Mg/Ml Vial IM 02/15/23 13:55 2 mg STAT STA Administration Midazolam HCl 2 mg 02/15/23 13:54 02/15/23 13:58 Midazolam Hcl/Pf 2 Mg/2 Ml Vial IM 02/15/23 13:55 2 mg ONCE ONE Administration Medical Decision Making Medical Decision Making MDM Narrative: 62-year-old male with a past medical history of alcoholism, asthma, depression, hepatitis, HIV, polysubstance abuse, seizures on Keppra BIBA s/p witnessed seizure on bus [employer]. On ED arrival vital signs stable, patient remains confused, lethargic, easily arousable, does not remember incident. No evidence of trauma. Concern for grand mal seizure with postictal state vs ETOH withdrawal seizure vs substance abuse vs metabolic/infectious etiologies. Lower suspicion for ICH/CVA Plan: EKG, labs, UA, CXR, head CT, drug screen, anticipated admission Please refer to course for remaining clinical decision making, interpretation of labs/imaging results, and discussions with consultants and/or family members. Differential Diagnosis Differential Diagnoses: The differential diagnosis associated with the presentation includes As above Admission/Observation Consideration of admission/observation: Escalation of care including admission/observation considered Consult Healthcare Provider Management of the patient was discussed with: Hospitalist Lab Data MDM Lab Attestation statement: I reviewed the patient's lab results. 02/15/23 11:24 02/15/23 11:24 Labs: Lab Results 02/15/23 02/15/23 02/15/23 Range/Units 11:24 11:24 11:24 WBC 2.2 L (4.8-10.8) X10*3/uL RBC 3.72 L (4.60-5.80) X10*6/uL Hgb 10.9 L (14.0-18.0) g/dl Hct 33.6 L (42.0-52.0) % MCV 90.3 (80.0-98.0) fL MCH 29.3 (27.0-33.0) pg MCHC 32.4 (31.0-36.0) g/dl RDW 16.7 H (11.0-16.0) % Plt Count 92 L (160-400) X10*3/uL MPV 10.8 (9.4-12.4) fL Immature Gran % (Auto) 0.5 H (0.0-0.4) % Neut % (Auto) 57.2 (45-73) % Lymph % (Auto) 24.3 (20-40) % [place] % (Auto) 14.7 H (2-11) % Eos % (Auto) 2.8 (0-4) % Baso % (Auto) 0.5 (0-2) % Lymph # (Auto) 0.5 L (1.2-4.9) X10*3/uL [place] # (Auto) 0.3 (0.1-1.2) X10*3/uL Eos # (Auto) 0.1 (0.0-0.4) X10*3/uL Baso # (Auto) 0.0 (0.0-0.2) X10*3/uL Abs Immat Gran (auto) 0.01 (0.00-0.03) X10*3/uL Absolute Neuts (auto) 1.3 L (2.0-8.3) x10*3/uL Absolute Nucleated RBC 0.000 (0.0-0.012) X10*3/uL Nucleated RBC % (auto) 0.0 (0.0-0.2) /100WBC Smear Tech's Comments VERIFIED PT 11.9 (10.0-13.1) SEC INR 1.0 (0.9-1.1) Sodium 136 (135-145) mmol/L Potassium 3.5 D (3.3-5.1) mmol/L Chloride 107 (96-108) mmol/L Carbon Dioxide 21 L (22-29) mmol/L Anion Gap 12 (12-20) BUN 13 (9-16) mg/dL Creatinine 0.88 (0.5-1.4) mg/dL Estim Creat Clear Calc 70.1 Estimated GFR > 60 Random Glucose 107 (60-115) mg/dL Lactic Acid (0.5-2.0) mmol/L Calcium 8.2 L D (8.4-10.2) mg/dL Magnesium 2.0 (1.6-2.6) mg/dL Total Bilirubin 0.7 (0.0-1.0) mg/dL Direct Bilirubin 0.3 (0.0-0.5) mg/dL AST 73 H (5-37) U/L ALT 27 (0-40) U/L Alkaline Phosphatase 233 H (39-117) U/L Troponin I High Sens (<3.5-35.0) ng/L B-Natriuretic Peptide (<100) pg/mL Total Protein 7.8 (6.5-8.0) g/dL Albumin 2.8 L (3.5-5.0) g/dL Lipase 30 (8-78) U/L Urine Color Urine Appearance Urine pH (5.0-9.0) Ur Specific [place] (1.005-1.025) Urine Protein (Neg-Trace) mg/dL Urine Glucose (UA) (Negative) mg/dL Urine Ketones (Negative) mg/dL Urine Blood (Negative) Urine Nitrite (Negative) Ur Leukocyte Esterase (Negative) Urine RBC (0-2) /HPF Urine WBC (0-5) /HPF Ur Squamous Epith Cells (0-2) /HPF Urine Bacteria (None Seen) Hyaline Casts (0-2) /LPF Urine Opiates Screen (Not Detect) Urine Fentanyl Screen (Not Detect) Ur Barbiturates Screen (Not Detect) Ur Phencyclidine Scrn (Not Detect) Ur Amphetamines Screen (Not Detect) U Benzodiazepines Scrn (Not Detect) Urine Cocaine Screen (Not Detect) U Marijuana (THC) Screen (Not Detect) Ethyl Alcohol < 10 mg/dL COVID-19 ([facility]) (Negative) COVID-19 Clin Com Influenza Type A (PCR) (Negative) Influenza Type B (PCR) (Negative) RSV RNA Qual (PCR) (Negative) SARS-CoV-2 RNA (RT-PCR) (Negative) 02/15/23 02/15/23 02/15/23 Range/Units 11:24 11:24 11:24 WBC (4.8-10.8) X10*3/uL RBC (4.60-5.80) X10*6/uL Hgb (14.0-18.0) g/dl Hct (42.0-52.0) % MCV (80.0-98.0) fL MCH (27.0-33.0) pg MCHC (31.0-36.0) g/dl RDW (11.0-16.0) % Plt Count (160-400) X10*3/uL MPV (9.4-12.4) fL Immature Gran % (Auto) (0.0-0.4) % Neut % (Auto) (45-73) % Lymph % (Auto) (20-40) % [place] % (Auto) (2-11) % Eos % (Auto) (0-4) % Baso % (Auto) (0-2) % Lymph # (Auto) (1.2-4.9) X10*3/uL [place] # (Auto) (0.1-1.2) X10*3/uL Eos # (Auto) (0.0-0.4) X10*3/uL Baso # (Auto) (0.0-0.2) X10*3/uL Abs Immat Gran (auto) (0.00-0.03) X10*3/uL Absolute Neuts (auto) (2.0-8.3) x10*3/uL Absolute Nucleated RBC (0.0-0.012) X10*3/uL Nucleated RBC % (auto) (0.0-0.2) /100WBC Smear Tech's Comments PT (10.0-13.1) SEC INR (0.9-1.1) Sodium (135-145) mmol/L Potassium (3.3-5.1) mmol/L Chloride (96-108) mmol/L Carbon Dioxide (22-29) mmol/L Anion Gap (12-20) BUN (9-16) mg/dL Creatinine (0.5-1.4) mg/dL Estim Creat Clear Calc Estimated GFR Random Glucose (60-115) mg/dL Lactic Acid 5.6 H* (0.5-2.0) mmol/L Calcium (8.4-10.2) mg/dL Magnesium (1.6-2.6) mg/dL Total Bilirubin (0.0-1.0) mg/dL Direct Bilirubin (0.0-0.5) mg/dL AST (5-37) U/L ALT (0-40) U/L Alkaline Phosphatase (39-117) U/L Troponin I High Sens 6.5 D (<3.5-35.0) ng/L B-Natriuretic Peptide (<100) pg/mL Total Protein (6.5-8.0) g/dL Albumin (3.5-5.0) g/dL Lipase (8-78) U/L Urine Color Urine Appearance Urine pH (5.0-9.0) Ur Specific [place] (1.005-1.025) Urine Protein (Neg-Trace) mg/dL Urine Glucose (UA) (Negative) mg/dL Urine Ketones (Negative) mg/dL Urine Blood (Negative) Urine Nitrite (Negative) Ur Leukocyte Esterase (Negative) Urine RBC (0-2) /HPF Urine WBC (0-5) /HPF Ur Squamous Epith Cells (0-2) /HPF Urine Bacteria (None Seen) Hyaline Casts (0-2) /LPF Urine Opiates Screen (Not Detect) Urine Fentanyl Screen (Not Detect) Ur Barbiturates Screen (Not Detect) Ur Phencyclidine Scrn (Not Detect) Ur Amphetamines Screen (Not Detect) U Benzodiazepines Scrn (Not Detect) Urine Cocaine Screen (Not Detect) U Marijuana (THC) Screen (Not Detect) Ethyl Alcohol mg/dL COVID-19 ([facility]) Negative (Negative) COVID-19 Clin Com See Note Influenza Type A (PCR) (Negative) Influenza Type B (PCR) (Negative) RSV RNA Qual (PCR) (Negative) SARS-CoV-2 RNA (RT-PCR) (Negative) 02/15/23 02/15/23 02/15/23 Range/Units 11:24 11:24 13:16 WBC (4.8-10.8) X10*3/uL RBC (4.60-5.80) X10*6/uL Hgb (14.0-18.0) g/dl Hct (42.0-52.0) % MCV (80.0-98.0) fL MCH (27.0-33.0) pg MCHC (31.0-36.0) g/dl RDW (11.0-16.0) % Plt Count (160-400) X10*3/uL MPV (9.4-12.4) fL Immature Gran % (Auto) (0.0-0.4) % Neut % (Auto) (45-73) % Lymph % (Auto) (20-40) % [place] % (Auto) (2-11) % Eos % (Auto) (0-4) % Baso % (Auto) (0-2) % Lymph # (Auto) (1.2-4.9) X10*3/uL [place] # (Auto) (0.1-1.2) X10*3/uL Eos # (Auto) (0.0-0.4) X10*3/uL Baso # (Auto) (0.0-0.2) X10*3/uL Abs Immat Gran (auto) (0.00-0.03) X10*3/uL Absolute Neuts (auto) (2.0-8.3) x10*3/uL Absolute Nucleated RBC (0.0-0.012) X10*3/uL Nucleated RBC % (auto) (0.0-0.2) /100WBC Smear Tech's Comments PT (10.0-13.1) SEC INR (0.9-1.1) Sodium (135-145) mmol/L Potassium (3.3-5.1) mmol/L Chloride (96-108) mmol/L Carbon Dioxide (22-29) mmol/L Anion Gap (12-20) BUN (9-16) mg/dL Creatinine (0.5-1.4) mg/dL Estim Creat Clear Calc Estimated GFR Random Glucose (60-115) mg/dL Lactic Acid (0.5-2.0) mmol/L Calcium (8.4-10.2) mg/dL Magnesium (1.6-2.6) mg/dL Total Bilirubin (0.0-1.0) mg/dL Direct Bilirubin (0.0-0.5) mg/dL AST (5-37) U/L ALT (0-40) U/L Alkaline Phosphatase (39-117) U/L Troponin I High Sens (<3.5-35.0) ng/L B-Natriuretic Peptide 20 (<100) pg/mL Total Protein (6.5-8.0) g/dL Albumin (3.5-5.0) g/dL Lipase (8-78) U/L Urine Color Yellow Urine Appearance Clear Urine pH 6.5 (5.0-9.0) Ur Specific [place] 1.015 (1.005-1.025) Urine Protein 30 (1+) H (Neg-Trace) mg/dL Urine Glucose (UA) Negative (Negative) mg/dL Urine Ketones Negative (Negative) mg/dL Urine Blood Negative (Negative) Urine Nitrite Negative (Negative) Ur Leukocyte Esterase Negative (Negative) Urine RBC 0-2 (0-2) /HPF Urine WBC 0-5 (0-5) /HPF Ur Squamous Epith Cells 0-2 (0-2) /HPF Urine Bacteria None Seen (None Seen) Hyaline Casts 0-2 (0-2) /LPF Urine Opiates Screen (Not Detect) Urine Fentanyl Screen (Not Detect) Ur Barbiturates Screen (Not Detect) Ur Phencyclidine Scrn (Not Detect) Ur Amphetamines Screen (Not Detect) U Benzodiazepines Scrn (Not Detect) Urine Cocaine Screen (Not Detect) U Marijuana (THC) Screen (Not Detect) Ethyl Alcohol mg/dL COVID-19 ([facility]) (Negative) COVID-19 Clin Com Influenza Type A (PCR) NEGATIVE (Negative) Influenza Type B (PCR) NEGATIVE (Negative) RSV RNA Qual (PCR) NEGATIVE (Negative) SARS-CoV-2 RNA (RT-PCR) NEGATIVE (Negative) 02/15/23 Range/Units 13:16 WBC (4.8-10.8) X10*3/uL RBC (4.60-5.80) X10*6/uL Hgb (14.0-18.0) g/dl Hct (42.0-52.0) % MCV (80.0-98.0) fL MCH (27.0-33.0) pg MCHC (31.0-36.0) g/dl RDW (11.0-16.0) % Plt Count (160-400) X10*3/uL MPV (9.4-12.4) fL Immature Gran % (Auto) (0.0-0.4) % Neut % (Auto) (45-73) % Lymph % (Auto) (20-40) % [place] % (Auto) (2-11) % Eos % (Auto) (0-4) % Baso % (Auto) (0-2) % Lymph # (Auto) (1.2-4.9) X10*3/uL [place] # (Auto) (0.1-1.2) X10*3/uL Eos # (Auto) (0.0-0.4) X10*3/uL Baso # (Auto) (0.0-0.2) X10*3/uL Abs Immat Gran (auto) (0.00-0.03) X10*3/uL Absolute Neuts (auto) (2.0-8.3) x10*3/uL Absolute Nucleated RBC (0.0-0.012) X10*3/uL Nucleated RBC % (auto) (0.0-0.2) /100WBC Smear Tech's Comments PT (10.0-13.1) SEC INR (0.9-1.1) Sodium (135-145) mmol/L Potassium (3.3-5.1) mmol/L Chloride (96-108) mmol/L Carbon Dioxide (22-29) mmol/L Anion Gap (12-20) BUN (9-16) mg/dL Creatinine (0.5-1.4) mg/dL Estim Creat Clear Calc Estimated GFR Random Glucose (60-115) mg/dL Lactic Acid (0.5-2.0) mmol/L Calcium (8.4-10.2) mg/dL Magnesium (1.6-2.6) mg/dL Total Bilirubin (0.0-1.0) mg/dL Direct Bilirubin (0.0-0.5) mg/dL AST (5-37) U/L ALT (0-40) U/L Alkaline Phosphatase (39-117) U/L Troponin I High Sens (<3.5-35.0) ng/L B-Natriuretic Peptide (<100) pg/mL Total Protein (6.5-8.0) g/dL Albumin (3.5-5.0) g/dL Lipase (8-78) U/L Urine Color Urine Appearance Urine pH (5.0-9.0) Ur Specific [place] (1.005-1.025) Urine Protein (Neg-Trace) mg/dL Urine Glucose (UA) (Negative) mg/dL Urine Ketones (Negative) mg/dL Urine Blood (Negative) Urine Nitrite (Negative) Ur Leukocyte Esterase (Negative) Urine RBC (0-2) /HPF Urine WBC (0-5) /HPF Ur Squamous Epith Cells (0-2) /HPF Urine Bacteria (None Seen) Hyaline Casts (0-2) /LPF Urine Opiates Screen POSITIVE H (Not Detect) Urine Fentanyl Screen POSITIVE H (Not Detect) Ur Barbiturates Screen Not Detected (Not Detect) Ur Phencyclidine Scrn Not Detected (Not Detect) Ur Amphetamines Screen Not Detected (Not Detect) U Benzodiazepines Scrn POSITIVE H (Not Detect) Urine Cocaine Screen POSITIVE H (Not Detect) U Marijuana (THC) Screen Not Detected (Not Detect) Ethyl Alcohol mg/dL COVID-19 ([facility]) (Negative) COVID-19 Clin Com Influenza Type A (PCR) (Negative) Influenza Type B (PCR) (Negative) RSV RNA Qual (PCR) (Negative) SARS-CoV-2 RNA (RT-PCR) (Negative) Independent Interpretation I performed an independent interpretation of an: EKG Interpretation: My interpretation EKG is normal sinus rhythm at a rate of 82. GA interval 164. QTC 486. No STEMI. Radiology Impression Discussion of test interpretation with radiology: I have reviewed the radiologist's reading. External Record Review External record reviewed: Inpatient record, Office record, Outpatient record, Prior outpatient labs, Prior outpatient radiology, Primary care record and Outside ED record Critical Care Time Critical Care Time Critical Care Time: Yes Total Critical Care Time: 40 Attestation: I have personally provided critical care time exclusive of time spent on separately billable procedures. Time includes review of lab data, radiology results, discussion with consultants, and monitoring for potential decompensation. Intervention performed as documented. Discharge Plan Discharge Clinical Impression: Seizure, Pneumonia, Polysubstance abuse Patient Disposition: Admitted As Inpatient
--- NOTE | 2023-02-15 10:52 | ECG_ITS ---
Test Reason : seizure Blood Pressure : / mmHG Vent. Rate : 082 BPM Atrial Rate : 082 BPM P-R Int : 164 ms QRS Dur : 076 ms QT Int : 416 ms P-R-T Axes : 051 006 089 degrees QTc Int : 486 ms Normal sinus rhythm Nonspecific ST abnormality Prolonged QT Abnormal ECG When compared with ECG of 25-NOV-2022 20:04, Non-specific change in ST segment in Inferior leads ST now depressed in Lateral leads T wave inversion no longer evident in Inferior leads T wave amplitude has decreased in Anterolateral leads Referred By: Aurea Carson Electronically Signed By:ROSALINDA SHEPHERD MD
[2023-02-15] MEDS: 0.9 % Sodium Chloride 1,000 ML 999 ML IV ×2 (11:27→13:21)
[2023-02-15 11:31] LABS: Basophils Percent Auto 0.5 % (0-2); Eosinophils Absolute Auto 0.1 X10*3/uL (0.0-0.4); Eosinophils Percent Auto 2.8 % (0-4); Hematocrit 33.6 % (42.0-52.0); Hemoglobin 10.9 g/dl (14.0-18.0); Imm Gran Abs Auto 0.01 X10*3/uL (0.00-0.03); Imm Gran Pct Auto 0.5 % (0.0-0.4); Lymphocytes Absolute Auto 0.5 X10*3/uL (1.2-4.9); Lymphocytes Percent Auto 24.3 % (20-40); MANUAL DIFF FLAG SCAN; Mean Corpuscular HGB Conc 32.4 g/dl (31.0-36.0); Mean Corpuscular Hemoglobin 29.3 pg (27.0-33.0); Mean Corpuscular Volume 90.3 fL (80.0-98.0); Mean Platelet Volume 10.8 fL (9.4-12.4); Monocytes Absolute Auto 0.3 X10*3/uL (0.1-1.2); Monocytes Percent Auto 14.7 % (2-11); Neutrophils Absolute Auto 1.3 x10*3/uL (2.0-8.3); Neutrophils Percent Auto 57.2 % (45-73); Platelet Count 92 X10*3/uL (160-400); Red Blood Count 3.72 X10*6/uL (4.60-5.80); Red Cell Distribution Width 16.7 % (11.0-16.0); SCAN SMEAR FLAG 1; White Blood Count 2.2 X10*3/uL (4.8-10.8)
[2023-02-15 11:45] LABS: Prothrombin Time 11.9 SEC (10.0-13.1)
[2023-02-15 11:48] LABS: SLIDE REVIEW VERIFIED
[2023-02-15 11:55] LABS: Troponin-I High Sensitivity 6.5 ng/L (<3.5-35.0)
[2023-02-15 11:56] LABS: Alanine Aminotransferase 27 U/L (0-40); Albumin Level 2.8 g/dL (3.5-5.0); Alkaline Phosphatase 233 U/L (39-117); Anion Gap 12 (12-20); Aspartate Amino Transferase 73 U/L (5-37); Bilirubin Direct 0.3 mg/dL (0.0-0.5); Bilirubin Total 0.7 mg/dL (0.0-1.0); Blood Urea Nitrogen 13 mg/dL (9-16); Calcium 8.2 mg/dL (8.4-10.2); Carbon Dioxide 21 mmol/L (22-29); Chloride 107 mmol/L (96-108); Creatinine Clr Calc Pharmacy 70.1; Estimated Glomerular Filt Rate > 60; Ethanol < 10 mg/dL; Glucose Random 107 mg/dL (60-115); Lipase 30 U/L (8-78); Potassium 3.5 mmol/L (3.3-5.1); Sodium 136 mmol/L (135-145); Total Protein 7.8 g/dL (6.5-8.0)
[2023-02-15 12:04] LABS: Lactic Acid 5.6 mmol/L (0.5-2.0)
[2023-02-15 12:05] LABS: COVID-19 Test Negative (Negative); IDNOW Serial# 08D9AD1C
[2023-02-15 12:12] LABS: Influenza A PCR NEGATIVE (Negative); Influenza B PCR NEGATIVE (Negative); Resp Syncy Virus RNA Qual PCR NEGATIVE (Negative); SARS COV2 PCR INHOUSE NEGATIVE (Negative)
--- NOTE | 2023-02-15 12:30 | PHA.MEDREC ---
Pharmacy Consult ? Medication Reconciliation Pharmacy has completed the medication reconciliation. Med rec done with claim history due to patient mental status post seizure.
[2023-02-15] MEDS: Piperacillin Sodium/Tazobactam 3.375 GM in 0.9 % Sodium Chloride 50 ML IV (13:20)
[2023-02-15 13:26] LABS: Appearance Urine Clear; Color Urine Yellow; Glucose Urine UA Negative (Negative); Leukocyte Esterase Urine Negative (Negative); Nitrite Urine Negative (Negative); PH 6.5 (5.0-9.0); Specific Gravity - Urine 1.015 (1.005-1.025); UMIC TRIGGER UACC YES; Urine Blood Negative (Negative); Urine Ketones Negative (Negative); Urine Protein 30 (1+) mg/dL (Neg-Trace)
[2023-02-15 13:27] LABS: Reflex Lactate? Lactic Acid Added
[2023-02-15 13:31] LABS: Bacteria Urine None Seen (None Seen); Hyaline Casts Urine 0-2 /LPF (0-2); RBC Urine 0-2 /HPF (0-2); Squamous Epithelial Cell Urine 0-2 /HPF (0-2); WBC Urine 0-5 /HPF (0-5)
[2023-02-15 13:34] LABS: Amphetamine Screen Urine Not Detected (Not Detect); Barbiturates, Urine Not Detected (Not Detect); Benzodiazepines Screen Urine POSITIVE (Not Detect); Cannabinoid Screen Urine Not Detected (Not Detect); Cocaine Screen Urine POSITIVE (Not Detect); Fentanyl, urine POSITIVE (Not Detect); Opiate Screen Urine POSITIVE (Not Detect); Phencyclidine Screen Urine Not Detected (Not Detect)
[2023-02-15] MEDS: LORazepam 2 MG/ML VIAL IM (13:54)
[2023-02-15 13:56] LABS: B Type Natriuretic Peptide 20 pg/mL (<100)
[2023-02-15] MEDS: Midazolam HCl/PF 2 MG/2 ML VIAL IM (13:58)
--- NOTE | 2023-02-15 15:05 | PC.NURSE ---
Patient seizing in MD betsy made aware. 2mg IM ativan given. Patient becoming very aggressive and resless, IM versed given per MAR. IV infiltrating, this RN attempting twice, Ramiro RN also attempting. Provider made aware patient does not have IV access at this time.
[2023-02-15 16:11] VITALS: BP 169/92; PULSE 82; RESP 16; TEMP 36.2; O2SAT 94
--- NOTE | 2023-02-15 16:23 | P.HPHOSP_ITS ---
History of Present Illness Date of Service: 02/15/23 Attending physician on admission: Jada Burroughs Chief Complaint: Witnessed seizure Pt is a 62-year-old male with a PMH significant for?alcohol use disorder, asthma, depression, HIV, hepatitis B and C, polysubstance abuse, seizure disorder on Keppra, and hx of alcohol withdrawal who presents to the ED via EMS after a witnessed seizure on a [employer] bus. Patient currently According to EMS/witnesses, pt was sitting at the time of seizure and became incontinent of stool. No evidence pt suffered head trauma. EMS states pt became combative when they arrived and was given 2mg of Versed. In the ED pt was postictal: confused, lethargic, easily arousable, and with no memory of seizures incident. Patient became agitated and combative in the ED. Experienced another witnessed tonic- clonic seizure, given lorazepam and midazolam IM. Patient sleeping, possibly postictal at time of interview. Unable to obtain history. In the ED patient was afebrile, satting at 97% on RA. Labs were significant for chronic pancytopenia of WBC 2.2, H&H of 10.9/33.6, lactic acid of 5.6. AST and alk-phos chronically elevated. Tox screen positive for opiates, fentanyl, benzodiazepines, and cocaine. Ethyl alcohol undetectable. Patient is negative for COVID, influenza type A and B, RSV. CXR showed mild retrocardiac opacity: Mild atelectasis versus infiltrate. CT of?head showed no acute intracranial process. EKG demonstrated normal sinus rhythm with nonspecific ST abnormality and prolonged QTc of 486. Pt was treated with IVF, Zosyn, lorazepam, and midazolam. Pt will be admitted to the hospital to telemetry overtreatment further evaluation of seizure disorder and possible pneumonia. Review of Systems Review of Systems: Unable to obtain due to patient's mentation [facility] Medical History Alcoholism Asthma Depression Depression with anxiety Hepatitis HIV disease Polysubstance abuse Polysubstance abuse Seizure Substance abuse Social History Household Members: Unknown / Unable to assess Housing: Unknown / Unable to assess Unable to assess alcohol history related to: Refusing to respond Alcohol intake: current Alcohol intake frequency: a few times a week Alcohol type: hard liquor Patient Tobacco Use Status: Refuse Tobacco use screen Substance Use Type: Crack/Cocaine and Heroin Advance Directives: No Advance Directives Information Provided: No service: No Current occupational status: unemployed Meds Allergies Allergy/AdvReac Type Severity Reaction Status Date / Time No Known Allergies Allergy Verified 11/04/21 10:40 [No Known Allergies*] Active Medications: Current Medications Acetaminophen (Acetaminophen 325 Mg Tablet) 650 mg PO Q6H PRN PRN Reason: Pain, Mild (Pain Scale 1-3) Albuterol Sulfate (Albuterol Sulfate 90 Mcg 8 Gm Inhaler) 2 puff INHALE Q6H PRN PRN Reason: Shortness Of Breath Atovaquone (Atovaquone 750 Mg/5 Ml Oral.Susp) 750 mg PO DAILY [facility] Bictegravir/Emtricitabine/Tenofovir (Bictegrav/Emtricit/Tenofov Ala Tablet) 1 tab PO BEDTIME [facility] Enoxaparin Sodium (Enoxaparin Sodium 40 Mg/0.4 Ml Syringe) 40 mg SUBCUT Q24H [facility] Levetiracetam (Levetiracetam 500 Mg/5 Ml Vial) 500 mg IV BID [facility] Loratadine (Loratadine 10 Mg Tablet) 10 mg PO DAILY [facility] Lorazepam (Lorazepam 2 Mg/Ml Vial) 2 mg IVPUSH Q4H PRN PRN Reason: Seizures Mirtazapine (Mirtazapine 7.5 Mg Tablet) 7.5 mg PO BEDTIME [facility] Quetiapine Fumarate (Quetiapine Fumarate 50 Mg Tablet) 50 mg PO BEDTIME [facility] Sertraline HCl (Sertraline Hcl 25 Mg Tablet) 25 mg PO DAILY [facility] Sodium Chloride (0.9 % Sodium Chloride Flush 3 Ml Syringe) 3 ml IVFLUSH QSHIFT [facility] Sodium Chloride (0.9 % Sodium Chloride Flush 3 Ml Syringe) 3 ml IVFLUSH QSHIFT [facility] Home Medications Medication Instructions Recorded Confirmed Last Taken Type albuterol sulfate 90 mcg/actuation 2 puff inhalation Q6H PRN 09/19/22 02/15/23 Unknown History aerosol inhaler (ProAir HFA) Shortness Of Breath hydrocortisone 1 % topical cream 1 appl topical BID 09/19/22 02/15/23 Unknown H istory methadone 10 mg/mL oral concentrate 60 mg PO DAILY 09/20/22 09/20/22 09/15/22 History atovaquone 750 mg/5 mL oral 5 ml PO DAILY 02/15/23 02/15/23 Unknown History suspension bictegravir 50 mg-emtricitabine 1 tab PO BEDTIME 02/15/23 02/15/23 Unknown History 200 mg-tenofovir alafenam 25 mg tablet (Biktarvy) cetirizine 10 mg tablet 1 tab PO DAILY 02/15/23 02/15/23 Unknown History docusate sodium 100 mg capsule 1 cap PO BID PRN constipation 02/15/23 02/15/23 Unknown History mirtazapine 7.5 mg tablet 1 tab PO BEDTIME 02/15/23 02/15/23 Unknown History quetiapine 50 mg tablet 1 tab PO BEDTIME 02/15/23 02/15/23 Unknown History sertraline 25 mg tablet 1 tab PO DAILY 02/15/23 02/15/23 Unknown History Physical Exam Vital Signs and Narrative: Vital Signs: Last Vital Signs Pulse 96 02/15/23 10:48 Resp 20 02/15/23 10:48 BP 138/94 H 02/15/23 10:48 Pulse Ox 97 02/15/23 10:48 O2 Del Method 02/15/23 10:48 BMI result Body Mass Index 20.2 Is difficult to obtain a full exam due to patient's mentation and uncooperativeness. General: Pt sleeping, possibly postictal. Opens eyes with sternal rub. Incapable of answering questions or responding to commands. Resp: Diffuse expiratory rhonchi. CVS: S1, S2, RRR GI: +BS, NT, no distention Skin: No rash Neuro: Moves all extremities spontaneously Extremities: No edema Results Labs 02/15/23 11:24 02/15/23 11:24 Labs: Laboratory Results - last 24 hr 02/15/23 02/15/23 02/15/23 11:24 11:24 11:24 MCV 90.3 MCH 29.3 MCHC 32.4 RDW 16.7 H Plt Count 92 L MPV 10.8 Immature Gran % (Auto) 0.5 H Neut % (Auto) 57.2 Lymph % (Auto) 24.3 [place] % (Auto) 14.7 H Eos % (Auto) 2.8 Baso % (Auto) 0.5 Lymph # (Auto) 0.5 L [place] # (Auto) 0.3 Eos # (Auto) 0.1 Baso # (Auto) 0.0 Abs Immat Gran (auto) 0.01 Absolute Neuts (auto) 1.3 L Absolute Nucleated RBC 0.000 Nucleated RBC % (auto) 0.0 Smear Tech's Comments VERIFIED PT 11.9 INR 1.0 Anion Gap 12 Estim Creat Clear Calc 70.1 Estimated GFR > 60 Random Glucose 107 Lactic Acid Calcium 8.2 L D Magnesium 2.0 Total Bilirubin 0.7 Direct Bilirubin 0.3 AST 73 H ALT 27 Alkaline Phosphatase 233 H Troponin I High Sens B-Natriuretic Peptide Total Protein 7.8 Albumin 2.8 L Lipase 30 Urine Color Urine Appearance Urine pH Ur Specific [place] Urine Protein Urine Glucose (UA) Urine Ketones Urine Blood Urine Nitrite Ur Leukocyte Esterase Urine RBC Urine WBC Ur Squamous Epith Cells Urine Bacteria Hyaline Casts Urine Opiates Screen Urine Fentanyl Screen Ur Barbiturates Screen Ur Phencyclidine Scrn Ur Amphetamines Screen U Benzodiazepines Scrn Urine Cocaine Screen U Marijuana (THC) Screen Ethyl Alcohol < 10 COVID-19 ([facility]) COVID-19 Clin Com Influenza Type A (PCR) Influenza Type B (PCR) RSV RNA Qual (PCR) SARS-CoV-2 RNA (RT-PCR) 02/15/23 02/15/23 02/15/23 11:24 11:24 11:24 MCV MCH MCHC RDW Plt Count MPV Immature Gran % (Auto) Neut % (Auto) Lymph % (Auto) [place] % (Auto) Eos % (Auto) Baso % (Auto) Lymph # (Auto) [place] # (Auto) Eos # (Auto) Baso # (Auto) Abs Immat Gran (auto) Absolute Neuts (auto) Absolute Nucleated RBC Nucleated RBC % (auto) Smear Tech's Comments PT INR Anion Gap Estim Creat Clear Calc Estimated GFR Random Glucose Lactic Acid 5.6 H* Calcium Magnesium Total Bilirubin Direct Bilirubin AST ALT Alkaline Phosphatase Troponin I High Sens 6.5 D B-Natriuretic Peptide Total Protein Albumin Lipase Urine Color Urine Appearance Urine pH Ur Specific [place] Urine Protein Urine Glucose (UA) Urine Ketones Urine Blood Urine Nitrite Ur Leukocyte Esterase Urine RBC Urine WBC Ur Squamous Epith Cells Urine Bacteria Hyaline Casts Urine Opiates Screen Urine Fentanyl Screen Ur Barbiturates Screen Ur Phencyclidine Scrn Ur Amphetamines Screen U Benzodiazepines Scrn Urine Cocaine Screen U Marijuana (THC) Screen Ethyl Alcohol COVID-19 ([facility]) Negative COVID-19 Clin Com See Note Influenza Type A (PCR) Influenza Type B (PCR) RSV RNA Qual (PCR) SARS-CoV-2 RNA (RT-PCR) 02/15/23 02/15/23 02/15/23 11:24 11:24 13:16 MCV MCH MCHC RDW Plt Count MPV Immature Gran % (Auto) Neut % (Auto) Lymph % (Auto) [place] % (Auto) Eos % (Auto) Baso % (Auto) Lymph # (Auto) [place] # (Auto) Eos # (Auto) Baso # (Auto) Abs Immat Gran (auto) Absolute Neuts (auto) Absolute Nucleated RBC Nucleated RBC % (auto) Smear Tech's Comments PT INR Anion Gap Estim Creat Clear Calc Estimated GFR Random Glucose Lactic Acid Calcium Magnesium Total Bilirubin Direct Bilirubin AST ALT Alkaline Phosphatase Troponin I High Sens B-Natriuretic Peptide 20 Total Protein Albumin Lipase Urine Color Yellow Urine Appearance Clear Urine pH 6.5 Ur Specific [place] 1.015 Urine Protein 30 (1+) H Urine Glucose (UA) Negative Urine Ketones Negative Urine Blood Negative Urine Nitrite Negative Ur Leukocyte Esterase Negative Urine RBC 0-2 Urine WBC 0-5 Ur Squamous Epith Cells 0-2 Urine Bacteria None Seen Hyaline Casts 0-2 Urine Opiates Screen Urine Fentanyl Screen Ur Barbiturates Screen Ur Phencyclidine Scrn Ur Amphetamines Screen U Benzodiazepines Scrn Urine Cocaine Screen U Marijuana (THC) Screen Ethyl Alcohol COVID-19 ([facility]) COVID-19 Clin Com Influenza Type A (PCR) NEGATIVE Influenza Type B (PCR) NEGATIVE RSV RNA Qual (PCR) NEGATIVE SARS-CoV-2 RNA (RT-PCR) NEGATIVE 02/15/23 13:16 MCV MCH MCHC RDW Plt Count MPV Immature Gran % (Auto) Neut % (Auto) Lymph % (Auto) [place] % (Auto) Eos % (Auto) Baso % (Auto) Lymph # (Auto) [place] # (Auto) Eos # (Auto) Baso # (Auto) Abs Immat Gran (auto) Absolute Neuts (auto) Absolute Nucleated RBC Nucleated RBC % (auto) Smear Tech's Comments PT INR Anion Gap Estim Creat Clear Calc Estimated GFR Random Glucose Lactic Acid Calcium Magnesium Total Bilirubin Direct Bilirubin AST ALT Alkaline Phosphatase Troponin I High Sens B-Natriuretic Peptide Total Protein Albumin Lipase Urine Color Urine Appearance Urine pH Ur Specific [place] Urine Protein Urine Glucose (UA) Urine Ketones Urine Blood Urine Nitrite Ur Leukocyte Esterase Urine RBC Urine WBC Ur Squamous Epith Cells Urine Bacteria Hyaline Casts Urine Opiates Screen POSITIVE H Urine Fentanyl Screen POSITIVE H Ur Barbiturates Screen Not Detected Ur Phencyclidine Scrn Not Detected Ur Amphetamines Screen Not Detected U Benzodiazepines Scrn POSITIVE H Urine Cocaine Screen POSITIVE H U Marijuana (THC) Screen Not Detected Ethyl Alcohol COVID-19 ([facility]) COVID-19 Clin Com Influenza Type A (PCR) Influenza Type B (PCR) RSV RNA Qual (PCR) SARS-CoV-2 RNA (RT-PCR) Imaging Radiologist's Impressions: Impressions Chest X-Ray 02/15/23 11:07 IMPRESSION: Mild mid to upper lung opacities could represent vascular prominence. Attention to follow-up. No overt failure. Mild retrocardiac opacity could represent mild atelectasis or infiltrate. Head CT 02/15/23 11:51 IMPRESSION: 1. No acute intracranial process seen. 2. Old right frontal lobe infarct. 3. Mild cerebral volume loss. Assessment and Plan (1) Seizure: Status: Acute (2) Pneumonia: Status: Acute (3) Polysubstance abuse: Status: Acute Plan Pt is a 62-year-old male with a PMH significant for?alcohol use disorder, asthma, depression, HIV, hepatitis B and C, polysubstance abuse, seizure disorder on Keppra, and hx of alcohol withdrawal who presents to the ED via EMS after a witnessed seizure on a [employer] bus. Pt will be admitted to the hospital to telemetry overtreatment further evaluation of seizure disorder and possible pneumonia. Acute seizure episode Most likely secondary to non-compliance with Keppra, less likely from alcohol withdrawal Patient with previous history of admissions for similar symptoms Keppra level pending At this time continue keppra 500 mg b.i.d. Ativan 2mg q4 prn for break-thru seizures Seizure protocols Neurology consult Admit to telemetry Question of pneumonia CXR shows mild retrocardiac opacity: Mild atelectasis versus infiltrate Likely non-compliant with atovaquone, ?aspiration from seizure IV abx: Zosyn and doxy ID consult Lactic acidosis Most likely secondary to seizure episode, not sepsis Repeat lactic acid, if trending down do not repeat Pt receiving IVF and IV abx Hx of alcohol withdrawal Unable to determine when last drink was Ethyl alcohol levels undetectable in the ED CIWA scale Prolonged QTc EKG with QTc of 486 Avoid QT-prolonging agents Mood disorder Continue quetiapine, sertraline HIV Continue Biktarvy COPD Continue home inhalers Full Code Attending:?Dr. Burroughs DVT Prophylaxis: Lovenox Pt will require a hospitalization of at least two nights for treatment of? seizure disorder and pneumonia with IV abx. Time Spent With Patient Time: Total time managing care of this patient today ____ minutes. Quality Stroke Does the patient have a stroke diagnosis?: No VTE Prior VTE?: No VTE Risk Level:: Medical - moderate - high VTE Device Contraindication: Treatment Not Indicated VTE Drug Contraindication: N/A - Med Ordered
[2023-02-15] MEDS: levETIRAcetam in NaCl (iso-os) 1,000 MG/100 ML PIGGYBACK 400 MG IV (16:28)
[2023-02-15 16:33] LABS: Glucose, Whole Blood 98 mg/dL (60-115)
--- NOTE | 2023-02-15 16:34 | PC.NURSE ---
IV access obtained, Zhengra infusing at this time.
--- NOTE | 2023-02-15 16:37 | PM.EVENT ---
Event Note Date of Service: 02/16/23 Event Note: This patient is seen and examined with APC. Patient 62-year-old male with multiple comorbidities including alcoholism, asthma, depression, HIV-brought to the emergency room because of seizure-in the EMS he received Versed-patient had another grand mal seizure in the ED received Ativan and also was combative, received Versed also and loading dose of IV Keppra-seems to be postictal when we saw the patient open eyes but does not answer any questions. Unable to obtain history. Lab imaging, EKG reviewed. Pancytopenia seems chronic, BMP seems fine, acute lactic acidosis, mild elevated LFTs-seems chronic also. EKG -nsr Hypoalbuminemia-probably related to poor oral intake. CT head: No new changes,cxr: Chest x-ray question of atelectasis/pneumonia Physical exam and assessment and plan coordinated in APCs note, Agree with the plan in addition: Breakthrough seizure: Question noncompliant to seizure medication, polysubstance use, currently postictal status post IV Ativan/Versed Seizure precaution, neurology evaluation, IV Keppra, check keppra levels Acute lactic acidosis: Probably related to seizure episode. Add hydration, repeat lactic acid if trending down no need to further trend. Possible pneumonia:? Related to seizure episode/aspiration: Continue doxycycline/Zosyn.blood culture sent. added procalcitonin levels id eval-pneumonia/hiv Pancytopenia seems chronic possible related to hiv, mild elevated LFTs-seems chronic also. Hypoalbuminemia-probably related to poor oral intake.nutrition eval need care team eval for polysubstance use (opoids,fentnyl,cocaine). alcochol use -moniter yannick,? unable to tell if drinkin Time Spent With Patient Time: Total time managing care of this patient today ____ minutes.
[2023-02-15] MEDS: Doxycycline Hyclate 100 MG in 0.9 % Sodium Chloride 250 ML 166.67 MG IV (17:06)
[2023-02-15] MEDS: Enoxaparin Sodium 40 MG/0.4 ML SYRINGE SUBCUT (17:06)
--- NOTE | 2023-02-15 17:07 | P.CNID_ITS ---
History of Present Illness Data of Consult Service Date: 02/15/23 Requesting physician: Luis Reyes Primary Care Provider: [facility] HPI Reason for consult: seizure? pneumonia He presents after witnessed seizure at bus stop. He was incontinent of stool and postictal combative after event. CT head no intracranial bleed or acute abnormality. He takes Keppra for seizures. He has no fever or chills or leukocytosis. I see him at [facility] for HIV care which he has been compliant. Review of Systems Review of Systems: Yes Unobtainable due to mental status PMFSH Past Medical History Medical History Alcoholism Asthma Depression Depression with anxiety Hepatitis HIV disease Polysubstance abuse Polysubstance abuse Seizure Substance abuse Family History Family history: reviewed and not pertinent Social History Social History Household Members: Unknown / Unable to assess Housing: Unknown / Unable to assess Unable to assess alcohol history related to: Refusing to respond Alcohol intake: current Alcohol intake frequency: a few times a week Alcohol type: hard liquor Patient Tobacco Use Status: Refuse Tobacco use screen Substance Use Type: Crack/Cocaine and Heroin Advance Directives: No Advance Directives Information Provided: No service: No Current occupational status: unemployed Meds Allergies Allergy/AdvReac Type Severity Reaction Status Date / Time No Known Allergies Allergy Verified 11/04/21 10:40 [No Known Allergies*] Active Medications: Current Medications Acetaminophen (Acetaminophen 325 Mg Tablet) 650 mg PO Q6H PRN PRN Reason: Pain, Mild (Pain Scale 1-3) Albuterol Sulfate (Albuterol Sulfate 90 Mcg 8 Gm Inhaler) 2 puff INHALE Q6H PRN PRN Reason: Shortness Of Breath Atovaquone (Atovaquone 750 Mg/5 Ml Oral.Susp) 750 mg PO DAILY [facility] Bictegravir/Emtricitabine/Tenofovir (Bictegrav/Emtricit/Tenofov Ala Tablet) 1 tab PO BEDTIME [facility] Enoxaparin Sodium (Enoxaparin Sodium 40 Mg/0.4 Ml Syringe) 40 mg SUBCUT Q24H [facility] Last Admin: 02/15/23 17:06 Dose: 40 mg Doxycycline Hyclate 100 mg/ (Sodium Chloride) 250 mls @ 166.67 mls/hr IV Q12H [facility] Last Admin: 02/15/23 17:06 Dose: 166.67 mls/hr Levetiracetam (Keppra) 500 mg in 100 mls @ 400 mls/hr IV BID [facility] Lactated Ringer's (Lr) 1,000 mls @ 100 mls/hr IVCONT .Q10H [facility] Thiamine HCl 400 mg/ Sodium (Chloride) 104 mls @ 208 mls/hr IV Q12H [facility] Folic Acid 1 mg/ Sodium (Chloride) 50.2 mls @ 100.4 mls/hr IV DAILY [facility] Potassium Chloride (Potassium Chloride/H20) 10 meq in 100 mls @ 100 mls/hr IV Q1H [facility] Stop: 02/15/23 18:59 Loratadine (Loratadine 10 Mg Tablet) 10 mg PO DAILY [facility] Lorazepam (Lorazepam 2 Mg/Ml Vial) 2 mg IVPUSH Q4H PRN PRN Reason: Seizures Mirtazapine (Mirtazapine 7.5 Mg Tablet) 7.5 mg PO BEDTIME [facility] Quetiapine Fumarate (Quetiapine Fumarate 50 Mg Tablet) 50 mg PO BEDTIME [facility] Sertraline HCl (Sertraline Hcl 25 Mg Tablet) 25 mg PO DAILY [facility] Sodium Chloride (0.9 % Sodium Chloride Flush 3 Ml Syringe) 3 ml IVFLUSH QSHIFT [facility] Sodium Chloride (0.9 % Sodium Chloride Flush 3 Ml Syringe) 3 ml IVFLUSH QSHIFT [facility] Home Medications Medication Instructions Recorded Confirmed Last Taken Type albuterol sulfate 90 mcg/actuation 2 puff inhalation Q6H PRN 09/19/22 02/15/23 Unknown History aerosol inhaler (ProAir HFA) Shortness Of Breath hydrocortisone 1 % topical cream 1 appl topical BID 09/19/22 02/15/23 Unknown History methadone 10 mg/mL oral concentrate 60 mg PO DAILY 09/20/22 09/20/22 09/15/22 History atovaquone 750 mg/5 mL oral 5 ml PO DAILY 02/15/23 02/15/23 Unknown History suspension bictegravir 50 mg-emtricitabine 1 tab PO BEDTIME 02/15/23 02/15/23 Unknown History 200 mg-tenofovir alafenam 25 mg tablet (Biktarvy) cetirizine 10 mg tablet 1 tab PO DAILY 02/15/23 02/15/23 Unknown History docusate sodium 100 mg capsule 1 cap PO BID PRN constipation 02/15/23 02/15/23 Unknown History mirtazapine 7.5 mg tablet 1 tab PO BEDTIME 02/15/23 02/15/23 Unknown History quetiapine 50 mg tablet 1 tab PO BEDTIME 02/15/23 02/15/23 Unknown History sertraline 25 mg tablet 1 tab PO DAILY 02/15/23 02/15/23 Unknown History Physical Exam Vital Signs: Vital Signs: Last Vital Signs Temp 97.1 F 02/15/23 16:11 Pulse 82 02/15/23 16:11 Resp 16 02/15/23 16:11 BP 169/92 H 02/15/23 16:11 Pulse Ox 94 02/15/23 16:11 O2 Del Method 02/15/23 16:11 BMI result Body Mass Index 20.2 Const: General: cooperative HEENT: Head: Yes normal to inspection Face and sinus: Yes normal facial exam Mouth: Normal oral and palatal mucosa present Teeth and gingiva: dentition normal Eyes: General: appearance normal, both eyes and all related structures Pupils: Equal, round and reactive pupils present Resp: Effort & Inspection: normal respiratory effort Cardio: Rate: regular rate Rhythm: regular rhythm GI: Palpation (GI): Soft to palpation and nontender : General: Yes no CVA tenderness Back/Spine/Pelvis: Back: no CVA tenderness Skin: General skin exam: no rashes or lesions noted Neuro: General: moves all extremities Cranial nerves: Yes Equal, round and reactive pupils present Extrem: Other: thin male thin extremities curled up Psych: Appearance: disheveled Results Labs 02/15/23 11:24 02/15/23 11:24 Labs: Short CBC 02/15/23 Range/Units 11:24 WBC 2.2 L (4.8-10.8) X10*3/uL Hgb 10.9 L (14.0-18.0) g/dl Hct 33.6 L (42.0-52.0) % Plt Count 92 L (160-400) X10*3/uL BMP 02/15/23 11:24 Sodium 136 Potassium 3.5 D Chloride 107 Carbon Dioxide 21 L BUN 13 Creatinine 0.88 Calcium 8.2 L D Liver Function 02/15/23 Range/Units 11:24 Total Bilirubin 0.7 (0.0-1.0) mg/dL Direct Bilirubin 0.3 (0.0-0.5) mg/dL AST 73 H (5-37) U/L ALT 27 (0-40) U/L Alkaline Phosphatase 233 H (39-117) U/L Albumin 2.8 L (3.5-5.0) g/dL Urine 02/15/23 Range/Units 13:16 Urine Color Yellow Urine Appearance Clear Urine pH 6.5 (5.0-9.0) Ur Specific [place] 1.015 (1.005-1.025) Urine Protein 30 (1+) H (Neg-Trace) mg/dL Urine Glucose (UA) Negative (Negative) mg/dL Assessment and Plan (1) Seizure: Status: Acute He has had seizures in past,likely related to prior TBI due to CVA/scarring There has been no evidence of acute concerns on CT or meningitis and has been on Keppra If drinking alcohol or using cocaine this can be contributory. Sometimes herpes simplex or zoster in CSF can cause seizures (2) Pneumonia: Status: Acute pneumonia is very small retrocardiac there is no bacterial lobar aspiration pneumonia requiring broad spectrum intense gram negative coverage at this point most acute aspiration immediately postictal is chemical such as acidic gastric fluid ,not resistant bacteria With that being said he may have some early general community acquired pneumonia (3) Hepatitis B: Status: Acute his HIV regimen consisting of Biktarvy treats Hepatitis B (4) HIV disease: Status: Acute He still has low CD4 count but has been attending appointments at [facility] and is prescribed Biktarvy (integrase inhibitor with two NRTIs) Plan Ceftriaxone and Doxycycline appropriate for now and when alert possible po Doxycycline outpatient seven days. Continue Biktarvy daily as treats HIV and Hepatitis B Have Neurology see patient and adjust seizure regimen if needed. May hold atovaquone for now (liquid with aspiration potential). Time Spent With Patient Time: Total time managing care of this patient today ____ minutes.
[2023-02-15 17:08] LABS: ~Lactic Acid-LAB USE ONLY 1.8 mmol/L (0.5-2.0)
--- NOTE | 2023-02-15 17:25 | PC.NURSE ---
This RN trying to call for nurse to nurse report. Told they will take a message and call back.
--- NOTE | 2023-02-15 17:26 | MHC.SLORD ---
Addendum entered and electronically signed by Elisabeth Jimenes MA, CCC-HEATING AND COOLING SYSTEMS ENGINEER 02/16/23 15:46: D.S. Original Note: Speech Language Pathology Order Status: HEATING AND COOLING SYSTEMS ENGINEER bedside swallow evaluation received. Per MD, patient not appropriate for swallow evaluation at current time. HEATING AND COOLING SYSTEMS ENGINEER to attempt bedside swallow evaluation tomorrow morning 02/16.
[2023-02-15 18:09] LABS: Procalcitonin 0.21 ng/mL
--- NOTE | 2023-02-15 18:17 | PC.NURSE ---
Patient getting out of bed, walking and urinating in hallway. Patient removed IV again. Provider to place ultrasound guided.
[2023-02-15 19:46] VITALS: BP 146/69; PULSE 70; RESP 14; TEMP 36.6; O2SAT 95
[2023-02-15] MEDS: cefTRIAXone sodium 2 GM in 0.9 % Sodium Chloride 50 ML IV (20:11)
[2023-02-15] MEDS: Thiamine HCL 400 MG in 0.9 % Sodium Chloride 100 ML 208 MG IV (21:04)
[2023-02-15] MEDS: levETIRAcetam in NaCl (iso-os) 500 MG/100 ML PIGGYBACK 400 MG IV (22:16)
[2023-02-15 23:14] VITALS: BP 139/76; PULSE 80; RESP 14; TEMP 37.4; O2SAT 95
[2023-02-15] MEDS: 0.9 % Sodium Chloride Flush 3 ML SYRINGE IVFLUSH (23:26)
[2023-02-15] MEDS: Potassium Chloride/H20 10 MEQ/100 ML PIGGYBACK 100 MEQ IV (23:26)
--- NOTE | 2023-02-16 00:08 | PC.NURSE ---
Addendum entered by Dolly Moffett RN 02/16/23 03:17: ordered po IV replacement which Pt took fine. New IV placed. IVF infusing, 1:1 sitter at bedside. Original Note: Pt not able to tolerate IV potassium. His last K+ level was a 3.5. He attempted to pull out IV and IV is infiltrated. Currently no access. Will work on re-establishing access. Pt is also requesting to eat. He passed a nursing swallow eval. He was able to swallow some water w/o coughing and take a bite of applesauce sitting up without coughing.
[2023-02-16] MEDS: Potassium Chloride Packet 20 MEQ PACKET 40 MEQ PO (00:31)
[2023-02-16] MEDS: Lactated Ringers 1,000 ML 100 ML IVCONT (01:20)
[2023-02-16 02:59] VITALS: BP 121/69; PULSE 69; RESP 14; TEMP 36.9; O2SAT 97
[2023-02-16] MEDS: Doxycycline Hyclate 100 MG in 0.9 % Sodium Chloride 250 ML 166.67 MG IV ×2 (06:57→16:59)
[2023-02-16 07:00] LABS: Hematocrit 31.2 % (42.0-52.0); Hemoglobin 10.2 g/dl (14.0-18.0); Mean Corpuscular HGB Conc 32.7 g/dl (31.0-36.0); Mean Corpuscular Hemoglobin 29.2 pg (27.0-33.0); Mean Corpuscular Volume 89.4 fL (80.0-98.0); Mean Platelet Volume 12.4 fL (9.4-12.4); Red Blood Count 3.49 X10*6/uL (4.60-5.80); White Blood Count 2.7 X10*3/uL (4.8-10.8)
[2023-02-16 07:02] LABS: Platelet Count 96 X10*3/uL (160-400)
[2023-02-16 07:43] VITALS: BP 119/82; PULSE 77; RESP 20; TEMP 36.7; O2SAT 93
--- NOTE | 2023-02-16 09:53 | MHC.CM.PN ---
CM attempted to meet with Patient in his room; upon entering MD was in room with Patient and an Television Production Assistant. Patient wants to leave and appeared agitated. CM will re-attempt to meet with Patient. PCP appears to be Dr. Dilia Isaac. Patient does nor appear to be Covid vax'd. Patient is on Methadone and walking independently in the room. CM will follow.
[2023-02-16] MEDS: Loratadine 10 MG TABLET PO (10:30)
[2023-02-16] MEDS: Atovaquone 750 MG/5 ML ORAL.SUSP PO (10:30)
[2023-02-16] MEDS: Sertraline HCL 25 MG TABLET PO (10:30)
[2023-02-16] MEDS: levETIRAcetam in NaCl (iso-os) 500 MG/100 ML PIGGYBACK 400 MG IV (10:30)
[2023-02-16] MEDS: 0.9 % Sodium Chloride Flush 3 ML SYRINGE IVFLUSH ×3 (10:31→17:01)
--- NOTE | 2023-02-16 10:49 | MHC.CM.PN ---
Per ROUNDS discussion, Patient will be evaluated by Psych for capacity. CM spoke briefly with Sister/Primary Contact/Reshma at [phone]. Reshma is unsure where Patient gets his Methadone but she believes that Patient has a [employer] & RN visits. PCP is from [facility]. Reshma was unsure of covid vax status. CM will follow.
--- NOTE | 2023-02-16 11:23 | MHC.CARE ---
CARE Team spoke with Dr. Burroughs for clarification regarding CARE Team consult - Per Dr. Burroughs he is requesting recovery consult and psych consult for capacity. CARE Team intervention not requested at this time.
--- NOTE | 2023-02-16 11:42 | P.CNPS_ITS ---
History of Present Illness Date of Service: 02/16/2023 Chief Complaint: Seizure,Pneumonia Reason for Consult: capacity Requesting physician: Jada Burroughs Discussed with referring provider: Yes Sources of Information: patient interviewed, chart reviewed and crisis/core team assessment reviewed Additional Sources of Information: This food writer obtained collateral information from Sister Reshma [phone] HPI Narrative: Mr. Goldstein is a 62 year-old male with hx of HIV, opioid, cocaine use disorder who was brought via EMS after witnessed seizure at bus stop. Pt combative and confused in ED. Utox positive for opioid, fentanyl, cocaine, benzodiazepine. Pt admitted medically for pneumonia. Psychiatry asked to see pt for evaluation of capacity. Pt has been seen by psychiatry back in 09/21/2022 also for evaluation of capacity as pt was asking to leave AMA- found not to have capacity as pt unable to show understanding of medical condition and appreciation for risks versus benefits of accepting or refusing care. Today, pt laying in bed, he is superficially cooperative. He reports he feels better and wants to leave because he has to see his mother who is sick. When asked about his understanding of events leading to this admission and reasons for continued medical treatment, pt states he had a seizure. He reports he has not taken his seizure medications. When asked about reason for continued medical admission, pt states I feel fine, I can go now, can you go get my clothes. Pt informed about diagnosis of pneumonia and treatment with IV antibiotics. Pt continues to state, I'm fine, I can go now! Pt unable to show appreciation of risks versus benefits of accepting or refusing medical treatment. Pt asked if craving substances, he states he does not. Pt is oriented to place, month, did say year is 1922. Collateral information was gathered from his sister who reports neither her nor their mother has seen pt since last year. Sister reports she also suspects pt may be craving substances and this also playing a role as to why he wants to go. Past Psychiatric History: Hx of OP psych services at [facility], has not followed up since 10/2021, non-adherent with remeron, sertraline, and seroquel since 06/2022. Medical Evaluation Reviewed: Yes [facility] Medical History Alcoholism Asthma Depression Depression with anxiety Hepatitis HIV disease Polysubstance abuse Polysubstance abuse Seizure Substance abuse Diagnostics Vital Signs (24Hr): Vital Signs - 24 hr 02/15/23 16:11 02/15/23 19:46 02/15/23 23:14 Temperature 97.1 F 97.8 F 99.3 F Pulse Rate 82 70 80 Respiratory Rate 16 14 14 Blood Pressure 169/92 H 146/69 H 139/76 Pulse Oximetry 94 95 95 Oxygen Delivery Method Room Air Room Air Room Air 02/16/23 02:59 02/16/23 07:43 Temperature 98.5 F 98.0 F Pulse Rate 69 77 Respiratory Rate 14 20 Blood Pressure 121/69 119/82 Pulse Oximetry 97 93 Oxygen Delivery Method Room Air Room Air BMI result Body Mass Index 20.2 Labs 02/16/23 06:10 02/15/23 11:24 Labs: Laboratory Results - last 48 hr 02/15/23 02/15/23 02/15/23 11:24 11:24 11:24 WBC 2.2 L RBC 3.72 L Hgb 10.9 L Hct 33.6 L MCV 90.3 MCH 29.3 MCHC 32.4 RDW 16.7 H Plt Count 92 L MPV 10.8 Immature Gran % (Auto) 0.5 H Neut % (Auto) 57.2 Lymph % (Auto) 24.3 [place] % (Auto) 14.7 H Eos % (Auto) 2.8 Baso % (Auto) 0.5 Lymph # (Auto) 0.5 L [place] # (Auto) 0.3 Eos # (Auto) 0.1 Baso # (Auto) 0.0 Abs Immat Gran (auto) 0.01 Absolute Neuts (auto) 1.3 L Absolute Nucleated RBC 0.000 Nucleated RBC % (auto) 0.0 Smear Tech's Comments VERIFIED PT 11.9 INR 1.0 Sodium 136 Potassium 3.5 D Chloride 107 Carbon Dioxide 21 L Anion Gap 12 BUN 13 Creatinine 0.88 Estim Creat Clear Calc 70.1 Estimated GFR > 60 POC Glucose Random Glucose 107 Lactic Acid Lactic Acid F/U @ 2Hr Calcium 8.2 L D Magnesium 2.0 Total Bilirubin 0.7 Direct Bilirubin 0.3 AST 73 H ALT 27 Alkaline Phosphatase 233 H Troponin I High Sens B-Natriuretic Peptide Total Protein 7.8 Albumin 2.8 L Lipase 30 Procalcitonin 0.21 Urine Color Urine Appearance Urine pH Ur Specific [place] Urine Protein Urine Glucose (UA) Urine Ketones Urine Blood Urine Nitrite Ur Leukocyte Esterase Urine RBC Urine WBC Ur Squamous Epith Cells Urine Bacteria Hyaline Casts Urine Opiates Screen Urine Fentanyl Screen Ur Barbiturates Screen Ur Phencyclidine Scrn Ur Amphetamines Screen U Benzodiazepines Scrn Urine Cocaine Screen U Marijuana (THC) Screen Ethyl Alcohol < 10 COVID-19 ([facility]) COVID-19 Clin Com Influenza Type A (PCR) Influenza Type B (PCR) RSV RNA Qual (PCR) SARS-CoV-2 RNA (RT-PCR) 02/15/23 02/15/23 02/15/23 11:24 11:24 11:24 WBC RBC Hgb Hct MCV MCH MCHC RDW Plt Count MPV Immature Gran % (Auto) Neut % (Auto) Lymph % (Auto) [place] % (Auto) Eos % (Auto) Baso % (Auto) Lymph # (Auto) [place] # (Auto) Eos # (Auto) Baso # (Auto) Abs Immat Gran (auto) Absolute Neuts (auto) Absolute Nucleated RBC Nucleated RBC % (auto) Smear Tech's Comments PT INR Sodium Potassium Chloride Carbon Dioxide Anion Gap BUN Creatinine Estim Creat Clear Calc Estimated GFR POC Glucose Random Glucose Lactic Acid 5.6 H* Lactic Acid F/U @ 2Hr Calcium Magnesium Total Bilirubin Direct Bilirubin AST ALT Alkaline Phosphatase Troponin I High Sens 6.5 D B-Natriuretic Peptide Total Protein Albumin Lipase Procalcitonin Urine Color Urine Appearance Urine pH Ur Specific [place] Urine Protein Urine Glucose (UA) Urine Ketones Urine Blood Urine Nitrite Ur Leukocyte Esterase Urine RBC Urine WBC Ur Squamous Epith Cells Urine Bacteria Hyaline Casts Urine Opiates Screen Urine Fentanyl Screen Ur Barbiturates Screen Ur Phencyclidine Scrn Ur Amphetamines Screen U Benzodiazepines Scrn Urine Cocaine Screen U Marijuana (THC) Screen Ethyl Alcohol COVID-19 ([facility]) Negative COVID-19 Clin Com See Note Influenza Type A (PCR) Influenza Type B (PCR) RSV RNA Qual (PCR) SARS-CoV-2 RNA (RT-PCR) 02/15/23 02/15/23 02/15/23 11:24 11:24 13:16 WBC RBC Hgb Hct MCV MCH MCHC RDW Plt Count MPV Immature Gran % (Auto) Neut % (Auto) Lymph % (Auto) [place] % (Auto) Eos % (Auto) Baso % (Auto) Lymph # (Auto) [place] # (Auto) Eos # (Auto) Baso # (Auto) Abs Immat Gran (auto) Absolute Neuts (auto) Absolute Nucleated RBC Nucleated RBC % (auto) Smear Tech's Comments PT INR Sodium Potassium Chloride Carbon Dioxide Anion Gap BUN Creatinine Estim Creat Clear Calc Estimated GFR POC Glucose Random Glucose Lactic Acid Lactic Acid F/U @ 2Hr Calcium Magnesium Total Bilirubin Direct Bilirubin AST ALT Alkaline Phosphatase Troponin I High Sens B-Natriuretic Peptide 20 Total Protein Albumin Lipase Procalcitonin Urine Color Yellow Urine Appearance Clear Urine pH 6.5 Ur Specific [place] 1.015 Urine Protein 30 (1+) H Urine Glucose (UA) Negative Urine Ketones Negative Urine Blood Negative Urine Nitrite Negative Ur Leukocyte Esterase Negative Urine RBC 0-2 Urine WBC 0-5 Ur Squamous Epith Cells 0-2 Urine Bacteria None Seen Hyaline Casts 0-2 Urine Opiates Screen Urine Fentanyl Screen Ur Barbiturates Screen Ur Phencyclidine Scrn Ur Amphetamines Screen U Benzodiazepines Scrn Urine Cocaine Screen U Marijuana (THC) Screen Ethyl Alcohol COVID-19 ([facility]) COVID-19 Clin Com Influenza Type A (PCR) NEGATIVE Influenza Type B (PCR) NEGATIVE RSV RNA Qual (PCR) NEGATIVE SARS-CoV-2 RNA (RT-PCR) NEGATIVE 02/15/23 02/15/23 02/15/23 13:16 16:29 16:47 WBC RBC Hgb Hct MCV MCH MCHC RDW Plt Count MPV Immature Gran % (Auto) Neut % (Auto) Lymph % (Auto) [place] % (Auto) Eos % (Auto) Baso % (Auto) Lymph # (Auto) [place] # (Auto) Eos # (Auto) Baso # (Auto) Abs Immat Gran (auto) Absolute Neuts (auto) Absolute Nucleated RBC Nucleated RBC % (auto) Smear Tech's Comments PT INR Sodium Potassium Chloride Carbon Dioxide Anion Gap BUN Creatinine Estim Creat Clear Calc Estimated GFR POC Glucose 98 Random Glucose Lactic Acid Lactic Acid F/U @ 2Hr 1.8 Calcium Magnesium Total Bilirubin Direct Bilirubin AST ALT Alkaline Phosphatase Troponin I High Sens B-Natriuretic Peptide Total Protein Albumin Lipase Procalcitonin Urine Color Urine Appearance Urine pH Ur Specific [place] Urine Protein Urine Glucose (UA) Urine Ketones Urine Blood Urine Nitrite Ur Leukocyte Esterase Urine RBC Urine WBC Ur Squamous Epith Cells Urine Bacteria Hyaline Casts Urine Opiates Screen POSITIVE H Urine Fentanyl Screen POSITIVE H Ur Barbiturates Screen Not Detected Ur Phencyclidine Scrn Not Detected Ur Amphetamines Screen Not Detected U Benzodiazepines Scrn POSITIVE H Urine Cocaine Screen POSITIVE H U Marijuana (THC) Screen Not Detected Ethyl Alcohol COVID-19 ([facility]) COVID-19 Clin Com Influenza Type A (PCR) Influenza Type B (PCR) RSV RNA Qual (PCR) SARS-CoV-2 RNA (RT-PCR) 02/16/23 06:10 WBC 2.7 L RBC 3.49 L Hgb 10.2 L Hct 31.2 L MCV 89.4 MCH 29.2 MCHC 32.7 RDW 16.0 Plt Count 96 L MPV 12.4 Immature Gran % (Auto) Neut % (Auto) Lymph % (Auto) [place] % (Auto) Eos % (Auto) Baso % (Auto) Lymph # (Auto) [place] # (Auto) Eos # (Auto) Baso # (Auto) Abs Immat Gran (auto) Absolute Neuts (auto) Absolute Nucleated RBC 0.000 Nucleated RBC % (auto) 0.0 Smear Tech's Comments PT INR Sodium Potassium Chloride Carbon Dioxide Anion Gap BUN Creatinine Estim Creat Clear Calc Estimated GFR POC Glucose Random Glucose Lactic Acid Lactic Acid F/U @ 2Hr Calcium Magnesium Total Bilirubin Direct Bilirubin AST ALT Alkaline Phosphatase Troponin I High Sens B-Natriuretic Peptide Total Protein Albumin Lipase Procalcitonin Urine Color Urine Appearance Urine pH Ur Specific [place] Urine Protein Urine Glucose (UA) Urine Ketones Urine Blood Urine Nitrite Ur Leukocyte Esterase Urine RBC Urine WBC Ur Squamous Epith Cells Urine Bacteria Hyaline Casts Urine Opiates Screen Urine Fentanyl Screen Ur Barbiturates Screen Ur Phencyclidine Scrn Ur Amphetamines Screen U Benzodiazepines Scrn Urine Cocaine Screen U Marijuana (THC) Screen Ethyl Alcohol COVID-19 ([facility]) COVID-19 Clin Com Influenza Type A (PCR) Influenza Type B (PCR) RSV RNA Qual (PCR) SARS-CoV-2 RNA (RT-PCR) Imaging Radiology Impressions: ITS Impressions Chest X-Ray 02/15/23 11:07 IMPRESSION: Mild mid to upper lung opacities could represent vascular prominence. Attention to follow-up. No overt failure. Mild retrocardiac opacity could represent mild atelectasis or infiltrate. Head CT 02/15/23 11:51 IMPRESSION: 1. No acute intracranial process seen. 2. Old right frontal lobe infarct. 3. Mild cerebral volume loss. Mental Status Exam Mental Status Exam Narrative: Appearance: thin, wearing hospital gown, fair hygiene, in NAD Behavior: superficially cooperative Psychomotor: some agitation as he is getting up asking firmly this food writer to get his clothes otherwise he is leaving. TP: goal oriented in that he is wanting to go TC: no overt psychosis or delusions, wanting to leave Mood: fine Affect: somewhat irritable SI: denies HI: denies VH/AH: none Delusions: none Insight/judgment: impaired x 2. Memory/cog: alert, oriented to place, month, not date nor year. Medications Medications Current Medications Acetaminophen (Acetaminophen 325 Mg Tablet) 650 mg PO Q6H PRN PRN Reason: Pain, Mild (Pain Scale 1-3) Albuterol Sulfate (Albuterol Sulfate 90 Mcg 8 Gm Inhaler) 2 puff INHALE Q6H PRN PRN Reason: Shortness Of Breath Atovaquone (Atovaquone 750 Mg/5 Ml Oral.Susp) 750 mg PO DAILY [facility] Last Admin: 02/16/23 10:30 Dose: 750 mg Bictegravir/Emtricitabine/Tenofovir (Bictegrav/Emtricit/Tenofov Ala Tablet) 1 tab PO BEDTIME [facility] Last Admin: 02/15/23 20:20 Dose: Not Given Enoxaparin Sodium (Enoxaparin Sodium 40 Mg/0.4 Ml Syringe) 40 mg SUBCUT Q24H [facility] Last Admin: 02/15/23 17:06 Dose: 40 mg Doxycycline Hyclate 100 mg/ (Sodium Chloride) 250 mls @ 166.67 mls/hr IV Q12H [facility] Last Infusion: 02/16/23 09:39 Dose: Infused Levetiracetam (Keppra) 500 mg in 100 mls @ 400 mls/hr IV BID [facility] Last Infusion: 02/16/23 10:51 Dose: Infused Lactated Ringer's (Lr) 1,000 mls @ 100 mls/hr IVCONT .Q10H [facility] Last Admin: 02/16/23 06:58 Dose: Not Given Thiamine HCl 400 mg/ Sodium (Chloride) 104 mls @ 208 mls/hr IV Q12H [facility] Last Admin: 02/16/23 10:49 Dose: Not Given Folic Acid 1 mg/ Sodium (Chloride) 50.2 mls @ 100.4 mls/hr IV DAILY [facility] Last Admin: 02/16/23 10:50 Dose: Not Given Ceftriaxone Sodium 2 gm/ (Sodium Chloride) 50 mls @ 100 mls/hr IV Q24H [facility] Last Infusion: 02/15/23 20:59 Dose: Infused Loratadine (Loratadine 10 Mg Tablet) 10 mg PO DAILY [facility] Last Admin: 02/16/23 10:30 Dose: 10 mg Lorazepam (Lorazepam 2 Mg/Ml Vial) 2 mg IVPUSH Q4H PRN PRN Reason: Seizures Mirtazapine (Mirtazapine 7.5 Mg Tablet) 7.5 mg PO BEDTIME [facility] Last Admin: 02/15/23 20:11 Dose: Not Given Olanzapine (Olanzapine 10 Mg Tablet) 10 mg PO Q8H PRN PRN Reason: agitation Quetiapine Fumarate (Quetiapine Fumarate 50 Mg Tablet) 50 mg PO BEDTIME [facility] Last Admin: 02/15/23 20:11 Dose: Not Given Sertraline HCl (Sertraline Hcl 25 Mg Tablet) 25 mg PO DAILY [facility] Last Admin: 02/16/23 10:30 Dose: 25 mg Sodium Chloride (0.9 % Sodium Chloride Flush 3 Ml Syringe) 3 ml IVFLUSH QSHIFT [facility] Last Admin: 02/16/23 10:31 Dose: 3 ml Sodium Chloride (0.9 % Sodium Chloride Flush 3 Ml Syringe) 3 ml IVFLUSH QSHIFT [facility] Last Admin: 02/16/23 10:31 Dose: 3 ml Allergies Allergies Allergy/AdvReac Type Severity Reaction Status Date / Time No Known Allergies Allergy Verified 11/04/21 10:40 [No Known Allergies*] Assessment & Plan Assessment & Plan (1) Polysubstance (including opioids) dependence, daily use: Status: Acute Code(s): F11.20 - Opioid dependence, uncomplicated; F19.20 - Other psychoactive substance dependence, uncomplicated Plan Mr. Goldstein is a 62 year-old male with hx of opioid, cocaine use disorder, b rought via EMS after he was witnessed having seizure. In the ED pt positive for cocaine, opioids, fentanyl, benzodiazepine. Pt combative and confused in the ED. He was admitted for pneumonia and further treatment of seizure disorder. Pt asking to leave. Pt unable to show understanding of medical condition treated on medical floor (at this point pneumonia), unable to show appreciation of risks versus benefits of accepting or rejecting treatment. Despite explaining potential consequences of leaving without tx of pneumonia in setting of HIV, pt continuously just asking to leave. Collateral informatino from sister who reports neither her nor their mother have seen pt since last year but also mar spects pt may be craving sustances and this also playing role into his impulsive erratic decisions of leaving AMA. PLAN 1. Pt does not show capacity to make medical decisions in that he is not able to show understanding of risks versus benefits of accepting or refusing treatment. Pt also not able to show understanding or current reason for being in hospital such as pneumonia. Total time managing care of this patient today ____ minutes.
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
[2023-02-16 11:49] VITALS: BP 116/71; PULSE 69; RESP 20; TEMP 36.9; O2SAT 98
--- NOTE | 2023-02-16 12:31 | PC.NURSE ---
pt A&O x 3, uncertain of date. pt has a 1:1. pt is adamant leaving - provider and clothing room supervisor notified and came to bedside. pt refused assessment and IV thiamine and folic acid for clothing room supervisor, Saroj, and refused LR for me. pt states he takes methadone and states i needs to go get my methadone - care team is consulted.
[2023-02-16] MEDS: Thiamine HCL 100 MG TABLET PO (13:56)
[2023-02-16] MEDS: methADONE HCl 20 MG/2 ML ORAL.CONC 40 MG PO (13:56)
[2023-02-16] MEDS: Folic Acid 1 MG TABLET PO (13:56)
--- NOTE | 2023-02-16 14:33 | MHC.CM.PN ---
Per casket upholsterer/Abril, Patient gets his Methadone fro [facility], who has been working with Soniya from PCP/Dr. Dilia Isaac's office to get Patient home delivered Methadone via [facility]. A referral has been made to [facility] and CM will follow.
--- NOTE | 2023-02-16 14:47 | MHC.RECOVRN ---
Met with pt in 468 after consult placed to CARE Team for substance use. Pt pacing around room, anxious, requesting to dc, pleasant and engages in conversation. Pt does not appear to be in withdrawal. Pt is currently on methadone, 40 mg, through [facility], reports last dose yesterday. Pt denies current withdrawal symptoms. Pt denies current use. Spoke with Milly at [facility], [facility] would like pt to have take homes due to unsteady gait and risk of falls going to [facility]. However, pt has had take homes and becomes forgetful and will take more than one dose per day. [facility] has been in contact with Soniya at PCPs office (Dilia Isaac), to initiate [facility] services with [facility]. Milly requesting [facility] to follow up during hospitalization. Pts last dose 02/14 9:13AM, 40 mg. Methadone verification scanned to pharmacy. Discussed with provider, RN, as well as CM. T/w available if needed.
--- NOTE | 2023-02-16 14:58 | P.CDIM_ITS ---
PROVIDER RESPONSE TEXT: To clarify, the appropriate diagnosis supported by the clinical indicators: Other: unable to determine QUERY TEXT: PHYSICIAN'S DOCUMENTATION REQUEST Date of Query: 02/16/2023 10:36 AM EDT Patient Name: Mino Weinberg Admit Date: 02/15/2023 Dear Jada Burroughs, A review of the medical record indicates additional documentation may be needed. Please review below and update the documentation accordingly. Clinical Indicators: Per provider H&P: Pt is a 62-year-old male with a PMH significant for alcohol use disorder, asthma, depression, HIV, h epatitis B and C Per ID consult on 02/15: Hepatitis B: Status: Acute his HIV regimen consisting of Biktarvy treats Hepatitis B Based on the above, could you clarify the appropriate diagnosis, if significant, that supports the ab ove abnormalities and additional evaluation, monitoring, and/or treatment rendered: Acute/subacute on chronic Hepatitis B Chronic Hepatitis B Other (Please specify) Other (explain) Clinically unable to determine (explain) Thank you, Louise Roberto, MS, RN, CCRN Use of terms such as suspected, likely, concern for, or probable (associated with a specific diagnosi s that is being evaluated, monitored, or treated as if it exists) are acceptable and can be coded in the inpatient se tting, when documented at the time of discharge. Please use your independent medical judgment in providing your response. THIS QUERY IS PART OF THE PERMANENT MEDICAL RECORD
--- NOTE | 2023-02-16 14:58 | P.CDIM_ITS ---
PROVIDER RESPONSE TEXT: To clarify, the appropriate diagnosis supported by the clinical indicators: Other: UNABLE TO Determine QUERY TEXT: PHYSICIAN'S DOCUMENTATION REQUEST Date of Query: 02/16/2023 10:34 AM EDT Patient Name: Mino Weinberg Admit Date: 02/15/2023 Dear Jada Burroughs, A review of the medical record indicates additional documentation may be needed. Please review below and update the documentation accordingly. The following was documented in the record on regarding HIV/AIDS: Per provider H&P: PMH: HIV disease HIV Continue Biktarvy Per ID consult on 02/15: HIV disease: Status: Acute He still has low CD4 count but has been attending appointments at [facility] and is prescr ibed Biktarvy (integrase inhibitor with two NRTIs) Other indicators/risk factors: -Patient with possible PNA -Patient with acute on chronic Hepatitis B per ID Please clarify in the Progress Notes further specificity regarding the patient's HIV status: Asymptomatic HIV infection status: HIV+ but no history of associated opportunistic infection HIV disease: (AIDS, AIDS-related complex (ARC) HIV infection, symptomatic) Other (Please specify) Other (explain) Clinically unable to determine (explain) Thank you, Louise Roberto, MS, RN, CCRN Use of terms such as suspected, likely, concern for, or probable (associated with a specific diagnosi s that is being evaluated, monitored, or treated as if it exists) are acceptable and can be coded in the inpatient se tting, when documented at the time of discharge. Please use your independent medical judgment in providing your response. THIS QUERY IS PART OF THE PERMANENT MEDICAL RECORD
--- NOTE | 2023-02-16 14:58 | P.CDIM_ITS ---
PROVIDER RESPONSE TEXT: To clarify, the appropriate diagnosis supported by the clinical indicators: Pancytopenia due to other cause: pancytopenia ch. possible due to hiv QUERY TEXT: PHYSICIAN'S DOCUMENTATION REQUEST Date of Query: 02/16/2023 10:40 AM EDT Patient Name: Mino Weinberg Admit Date: 02/15/2023 Dear Jada Burroughs, A review of the medical record indicates additional documentation may be needed. Please review below and update the documentation accordingly. Clinical Indicators: Per provider event note on 02/15: Pancytopenia seems chronic, BMP seems fine, acute lactic acidosis, mild elevated LFTs-seems chronic also. Labs on 02/15: WBC - 2.2 RBC - 3.72 Hgb - 10.9 Plt - 92 Other indicators/risk factors: -PMH: HIV, polysubstance abuse, Hepatitis B & C Based on the above, could you clarify the appropriate diagnosis, if significant, that supports the ab ove abnormalities and additional evaluation, monitoring, and/or treatment rendered: Drug-induced Pancytopenia Pancytopenia due to HIV disease Pancytopenia due to other cause (Please specify cause) Other (Please specify) Other (explain) Clinically unable to determine (explain) Thank you, Louise Roberto MS, RN, CCRN Use of terms such as suspected, likely, concern for, or probable (associated with a specific diagnosi s that is being evaluated, monitored, or treated as if it exists) are acceptable and can be coded in the inpatient se tting, when documented at the time of discharge. Please use your independent medical judgment in providing your response. THIS QUERY IS PART OF THE PERMANENT MEDICAL RECORD
[2023-02-16 15:16] VITALS: PULSE 75; RESP 18; TEMP 36.7; O2SAT 95
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
[2023-02-16] MEDS: Enoxaparin Sodium 40 MG/0.4 ML SYRINGE SUBCUT (17:00)
[2023-02-16 19:58] VITALS: BP 143/83; PULSE 72; RESP 18; TEMP 37.1; O2SAT 98
[2023-02-16] MEDS: cefTRIAXone sodium 2 GM in 0.9 % Sodium Chloride 50 ML IV (20:29)
[2023-02-16] MEDS: Bictegrav/Emtricit/Tenofov Ala TABLET 1 TAB PO (20:31)
[2023-02-16] MEDS: Mirtazapine 7.5 MG TABLET PO (20:31)
[2023-02-16] MEDS: levETIRAcetam 500 MG TABLET PO (20:31)
[2023-02-16] MEDS: QUEtiapine Fumarate 50 MG TABLET PO (20:32)
[2023-02-17 04:00] VITALS: BP 116/62; PULSE 63; RESP 20; TEMP 36.9; O2SAT 95
[2023-02-17] MEDS: Doxycycline Hyclate 100 MG in 0.9 % Sodium Chloride 250 ML 166.67 MG IV (06:29)
[2023-02-17 08:00] VITALS: BP 123/76; PULSE 68; RESP 18; TEMP 36.6; O2SAT 98
--- NOTE | 2023-02-17 08:41 | HE.PHANOTE ---
Methadone Maintenance Clinic Verification Form [facility] Methandone Dose 40 mg
[2023-02-17 09:31] LABS: Anion Gap 11 (12-20); Blood Urea Nitrogen 9 mg/dL (9-16); Calcium 8.1 mg/dL (8.4-10.2); Carbon Dioxide 22 mmol/L (22-29); Chloride 107 mmol/L (96-108); Creatinine Clr Calc Pharmacy 76.2; Estimated Glomerular Filt Rate > 60; Glucose Random 120 mg/dL (60-115); Potassium 3.9 mmol/L (3.3-5.1); Sodium 136 mmol/L (135-145)
[2023-02-17] MEDS: methADONE HCl 20 MG/2 ML ORAL.CONC 40 MG PO (09:56)
[2023-02-17] MEDS: Folic Acid 1 MG TABLET PO (09:57)
[2023-02-17] MEDS: Loratadine 10 MG TABLET PO (09:57)
[2023-02-17] MEDS: Sertraline HCL 25 MG TABLET PO (09:57)
[2023-02-17] MEDS: Atovaquone 750 MG/5 ML ORAL.SUSP PO (09:57)
[2023-02-17] MEDS: levETIRAcetam 500 MG TABLET PO ×2 (09:57→20:22)
[2023-02-17] MEDS: 0.9 % Sodium Chloride Flush 3 ML SYRINGE IVFLUSH ×2 (09:57→23:35)
[2023-02-17] MEDS: Thiamine HCL 100 MG TABLET PO (09:57)
--- NOTE | 2023-02-17 10:16 | PC.NURSE ---
provider changed IV thiamine and folic acid to PO, Pt tolerating well. IV meds to be d/c by provider. MD aware pt refusing LR
[2023-02-17 12:00] VITALS: BP 125/70; PULSE 74; RESP 17; TEMP 36.7; O2SAT 99
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
[2023-02-17 15:30] VITALS: BP 121/78; PULSE 67; RESP 17; TEMP 36.5; O2SAT 98
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
--- NOTE | 2023-02-17 16:05 | P.PNID_ITS ---
Subjective Subjective Date of Service: 02/17/23 Critical Care Time (minutes): 15 Comment: patient feels improved,wants to leave Objective Data Labs 02/16/23 06:10 02/17/23 08:58 Labs: Laboratory Results - last 24 hr 02/17/23 08:58 Sodium 136 Potassium 3.9 Chloride 107 Carbon Dioxide 22 Anion Gap 11 L BUN 9 Creatinine 0.81 Estim Creat Clear Calc 76.2 Estimated GFR > 60 Random Glucose 120 H Calcium 8.1 L Microbiology Microbiology Results: Microbiology 02/15/23 11:24 Blood - Venous Blood Culture - Preliminary No growth after 48 hours. 02/16/23 02:06 Blood - Venous Blood Culture - Preliminary No growth after 24 hours. 02/16/23 02:06 Blood - Venous Blood Culture - Preliminary No growth after 24 hours. 02/15/23 11:24 Blood - Venous Blood Culture - Final Bacillus species Physical Exam Vital Signs: Vital Signs: Last Vital Signs Temp 97.7 F 02/17/23 15:30 Pulse 67 02/17/23 15:30 Resp 17 02/17/23 15:30 BP 121/78 02/17/23 15:30 Pulse Ox 98 02/17/23 15:30 O2 Del Method Room Air 02/17/23 15:30 BMI result Body Mass Index 20.2 Const: General: cooperative HEENT: Head: Yes normal to inspection Mouth: Normal oral and palatal mucosa present Resp: Effort & Inspection: normal respiratory effort Cardio: Rate: regular rate Rhythm: regular rhythm GI: Auscultation: normal bowel sounds Assessment and Plan Assessment and plan (1) Seizure: Problem details: resolved Status: Acute Assessment and Plan: Resolved seizure and no evidence of pneumonia at this time and is on room air (2) Pneumonia: Status: Acute Plan Po Doxycycline for a week. Continue Atovaquone and Biktarvy. Case management support work with [facility] return to his housing as he is now at baseline and not postictal. Time Spent With Patient Time: Total time managing care of this patient today ____ minutes.
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
--- NOTE | 2023-02-17 16:22 | MHC.CM.PN ---
psych has cleared pt for dc ..unable to reach allied health worker yan at [phone] to notify of dc sister contacted unable to bring pt home and has no idea who service delivery director is dc canceled at this time
[2023-02-17] MEDS: OLANZapine 10 MG TABLET PO (18:20)
[2023-02-17] MEDS: Enoxaparin Sodium 40 MG/0.4 ML SYRINGE SUBCUT (18:20)
[2023-02-17] MEDS: Doxycycline Monohydrate 100 MG CAPSULE PO (18:21)
[2023-02-17 19:20] VITALS: BP 134/76; PULSE 69; RESP 17; TEMP 37; O2SAT 95
[2023-02-17] MEDS: Bictegrav/Emtricit/Tenofov Ala TABLET 1 TAB PO (20:21)
[2023-02-17] MEDS: Mirtazapine 7.5 MG TABLET PO (20:22)
[2023-02-17] MEDS: QUEtiapine Fumarate 50 MG TABLET PO (20:22)
[2023-02-17 23:58] VITALS: BP 144/80; PULSE 72; RESP 18; TEMP 36.6; O2SAT 95
[2023-02-18] MEDS: Doxycycline Monohydrate 100 MG CAPSULE PO ×3 (03:58→15:31)
[2023-02-18 04:00] VITALS: BP 107/56; PULSE 67; RESP 18; TEMP 36.5; O2SAT 96
[2023-02-18 07:50] VITALS: BP 116/73; PULSE 73; RESP 20; TEMP 36.7; O2SAT 97
--- NOTE | 2023-02-18 09:23 | MHC.CM.PN ---
Per MD's request, CM attempted to reach out to Patient's Sister/Reshma at listed number; Reshma did not answer and there was no voice mail set up. CM spoke with Second Contact/Mother/Melissa with the assist of a Telephonic Nipping Machine Operator at [phone] but Melissa explained that she knows very little about her Son and she was not able to confirm if Patient has any services/[employer] [place] in the community. CM met with Patient who indicated that he does NOT have a [place]. NINO relayed this information to MD. Previous CM had a name/number of valeria Quinteros at [phone] (Allied health worker) and CM left a message art this number but now can only wait for a return call. CM will follow.
[2023-02-18] MEDS: Sertraline HCL 25 MG TABLET PO (10:09)
[2023-02-18] MEDS: Loratadine 10 MG TABLET PO (10:09)
[2023-02-18] MEDS: Atovaquone 750 MG/5 ML ORAL.SUSP PO (10:09)
[2023-02-18] MEDS: Folic Acid 1 MG TABLET PO (10:09)
[2023-02-18] MEDS: levETIRAcetam 500 MG TABLET PO (10:09)
[2023-02-18] MEDS: Thiamine HCL 100 MG TABLET PO (10:09)
[2023-02-18 11:17] VITALS: BP 164/79; PULSE 72; RESP 17; TEMP 36.7; O2SAT 99
--- NOTE | 2023-02-18 13:54 | MHC.CM.PN ---
CM met with Patient with MD and Insurance Law Specialist to discuss dc planning. Patient will dc to home today at 4PM via [facility].
[2023-02-18] MEDS: Naloxone HCl Nasal TAKE HOME 4 MG SPRAY NOSTRILALT (14:32)
[2023-02-18] MEDS: methADONE HCl 20 MG/2 ML ORAL.CONC 40 MG PO (15:00)
--- NOTE | 2023-02-18 15:13 | MHC.CM.PN ---
NINO has confirmed with Kell at [facility] that Ambulance crew will come at 4PM to the 4th floor, bring Patient to Security where his belongings are, and then take Patient home. Per RN, Patient's belongings cannot be brought to the floor; Patient must pick them up at Security and then leave the hospital.
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
[2023-02-19 19:53] LABS: Levetiracetam Keppra <2.0 mcg/mL (6.0-46.0)
== END 2023-02-18 16:41 | disposition home or self-care (01) | DRG 53 ==
LOC: HO.ED 14:48 → HO.EDOVER 16:43 → HO.IMC 17:05
PROVIDERS: Physician Assistant; Admitting Provider Student in an Organized Health Care Education/Training Program; Emergency Provider Emergency Medicine; Visit Provider Internal Medicine
DX: G40.909 Epilepsy, unspecified, not intractable, without status epilepticus (principal); D61.818 Other pancytopenia; E87.21 Acute metabolic acidosis; J18.9 Pneumonia, unspecified organism; B19.10 Unspecified viral hepatitis B without hepatic coma; F10.239 Alcohol dependence with withdrawal, unspecified; F32.A Depression, unspecified; T42.6X6A Underdosing of other antiepileptic and sedative-hypnotic drugs, initial encounter; F41.9 Anxiety disorder, unspecified; Z21 Asymptomatic human immunodeficiency virus [HIV] infection status; R94.31 Abnormal electrocardiogram [ECG] [EKG]; F11.20 Opioid dependence, uncomplicated; G40.509 Epileptic seizures related to external causes, not intractable, without status epilepticus; Z91.14 Patient's other noncompliance with medication regimen; Z20.822 Contact with and (suspected) exposure to COVID-19; Z79.899 Other long term (current) drug therapy
CPT/HCPCS: 0241U; 36415; 70450; 71045; 80048; 80076; 80177; 80307; 81001; 82077; 82947; 83605; 83690; 83735; 83880; 84145; 84484; 85025; 85027; 85610; 87040; 87205; 87635; 93005; 99285; J0696; J1650; J1953; J2060; J2250; J2543; J3411

== ENCOUNTER 2023-04-27 16:51 | Emergency (ER) | payer MEDICAID, SELFPAY ==
--- NOTE | ~2023-04-27 | XR_ITS ---
EXAMINATION: XR CHEST CLINICAL INFORMATION: Pain COMPARISON: 02/15/2023, 11/25/2022, 08/02/2018 TECHNIQUE: 2 views of the chest were obtained. FINDINGS: No convincing evidence for an acute process. The lung bentley are felt to be comparable. No evolving finding. No infiltrate. No effusion. The cardiac silhouette is within normal limits. Mildly tortuous versus ectatic arch and descending aorta are once again seen. Findings suggest a compression injury of a lower thoracic vertebrae mid to anterior. This appears new from CT dated 09/18/2022 XR/XR chest 2V IMPRESSION: There is mild mid to anterior compression of a lower thoracic vertebrae which may be D12 appears new from previous CT of 09/18/2022. Age however is indeterminate. If further evaluation is warranted recommend MRI Otherwise no acute finding in the lungs. No failure or effusion.
[2023-04-27 17:00] VITALS: BP 125/77; BP 129/80; PULSE 72; PULSE 90; RESP 20; TEMP 36.7; O2SAT 97; O2SAT 98; BMI 23.3
--- NOTE | 2023-04-27 17:33 | ED.GENADULT ---
HPI - General Adult General Chief complaint: General Medical Stated complaint: cough Time Seen by Provider: 04/27/23 16:56 Source: patient, RN notes reviewed, old records reviewed and contract accountant Mode of arrival: EMS Limitations: language barrier History of Present Illness HPI narrative: 62-year-old male past medical history significant for polysubstance abuse, HIV, hepatitis B, hepatitis-C, tobacco dependence, TBI presents for evaluation of a cough. Patient reports that he started to feel unwell yesterday with upper abdominal pain, cough and headache. He denies any fevers. The patient is immunocompromised due to his HIV status but he is currently on treatment reports being compliant with this The patient was sent here from [facility] for further evaluation due to the cough and he was felt to have a high temperature of 99? The patient states that he is hungry has no other complaints at this time Related Data Home Medications Medication Instructions Recorded Confirmed albuterol sulfate 90 mcg/actuation 2 puff inhalation Q6H PRN 09/19/22 02/15/23 aerosol inhaler (ProAir HFA) Shortness Of Breath hydrocortisone 1 % topical cream 1 appl topical BID 09/19/22 02/15/23 methadone 10 mg/mL oral concentrate 60 mg PO DAILY 09/20/22 09/20/22 atovaquone 750 mg/5 mL oral 5 ml PO DAILY 02/15/23 02/15/23 suspension bictegravir 50 mg-emtricitabine 1 tab PO BEDTIME 02/15/23 02/15/23 200 mg-tenofovir alafenam 25 mg tablet (Biktarvy) cetirizine 10 mg tablet 1 tab PO DAILY 02/15/23 02/15/23 docusate sodium 100 mg capsule 1 cap PO BID PRN constipation 02/15/23 02/15/23 mirtazapine 7.5 mg tablet 1 tab PO BEDTIME 02/15/23 02/15/23 quetiapine 50 mg tablet 1 tab PO BEDTIME 02/15/23 02/15/23 sertraline 25 mg tablet 1 tab PO DAILY 02/15/23 02/15/23 Previous Rx's Medication Instructions Recorded doxycycline hyclate 100 mg capsule 100 mg PO BID #12 caps 02/18/23 levetiracetam 500 mg tablet 500 mg PO BID #60 tabs 02/18/23 benzonatate 200 mg capsule 200 mg PO TID PRN cough #20 caps 04/27/23 Allergies Allergy/AdvReac Type Severity Reaction Status Date / Time No Known Allergies Allergy Verified 11/04/21 10:40 [No Known Allergies*] Review of Systems Constitutional: Constitutional: Reports as per HPI, Denies chills, Denies fatigue, Denies fever(s) and Reports malaise Cardiovascular: Cardiovascular: Denies chest pain and Denies dyspnea Respiratory: Respiratory: Reports cough and Denies dyspnea Gastrointestinal: Gastrointestinal: Reports abdominal pain, Denies constipation, Denies nausea and Denies vomiting Genitourinary: Genitourinary: Denies difficulty urinating and Denies dysuria Neurologic: Denies focal weakness Endocrine: Endocrine: Denies fatigue PMFSH Past Medical History Medical History Alcoholism Asthma Depression Depression with anxiety Hepatitis HIV disease Polysubstance abuse Polysubstance abuse Seizure Substance abuse Social History Social History Household Members: Unknown / Unable to assess Housing: Unknown / Unable to assess Unable to assess alcohol history related to: Unknown Alcohol intake: current Alcohol intake frequency: a few times a week Alcohol type: hard liquor Patient Tobacco Use Status: Refuse Tobacco use screen Substance Use Type: Crack/Cocaine and Heroin Advance Directives: No Advance Directives Information Provided: Yes service: No Current occupational status: unemployed and disabled Physical Exam ED Vital Signs: Vital Signs - 24 hr 04/27/23 17:00 Temperature 98.1 F Pulse Rate 72 Respiratory Rate 20 Blood Pressure 125/77 Pulse Oximetry 98 Oxygen Delivery Method Room Air BMI result Body Mass Index 23.3 Const General: healthy appearing, comfortable, no acute distress, alert and awake Nutritional Appearance: thin Orientation/consciousness: patient oriented x3 HENMT Head: Yes normocephalic and Yes atraumatic Eyes Eyelids: Yes eyelids normal Conjunctivae: conjunctivae normal Sclerae: sclerae normal Corneas: corneas normal Pupils: Equal, round and reactive pupils present EOM: EOMs intact bilaterally Neck Neck: Yes full ROM Resp Effort & Inspection: normal respiratory effort, able to speak in complete sentences, no audible wheezes and not labored Auscultation: clear to auscultation bilaterally Cardio Rate: regular rate Rhythm: regular rhythm GI Inspection: No distended Palpation (GI): Soft to palpation, not firm, Tenderness to palpation present (GI) (Mild upper abdominal tenderness without guarding), no guarding and not rigid Auscultation: normoactive bowel sounds Skin Other: Patient has a dried, crusted lesion to the left lower lip approximately 2 cm large. Appears chronic, no surrounding erythema or edema General skin exam: elasticity normal Neuro General: patient oriented x3 Cranial nerves: Yes Equal, round and reactive pupils present and Yes Bilaterally intact EOM present Cognition (Neuro): normal cognition Extrem Other: Moving all extremities well without any obvious deformities Course Reevaluation(s) Reevaluation #1: Chest x-ray without acute infiltrate. Patient's labs reviewed with the chronic pancytopenia. The patient is quite well appearing still vital signs. No evidence of infection, we will discharge the patient with benzonatate Perles and he will be discharged to follow-up with his PCP Time: 19:00 Medical Decision Making Medical Decision Making MDM Narrative: 62-year-old male presents for evaluation of cough. His symptoms started yesterday. Given his HIV status he was sent to the ER for further evaluation. Will check basic labs, chest x-ray and a viral swab. His abdominal pain is mild, he has no guarding on exam. He is requesting food and has not been nauseous or vomiting. Doubt intra-abdominal pathology at this time. Will consider further evaluation depending on results of labs. Differential Diagnosis Bronchitis Pneumonia Acute cough Viral syndrome COVID-19 Abdominal pain Gastroenteritis Lab Data 04/27/23 17:53 04/27/23 17:53 Labs: Lab Results 04/27/23 04/27/23 04/27/23 Range/Units 17:53 17:53 17:53 WBC 2.5 L (4.8-10.8) X10*3/uL RBC 3.75 L (4.60-5.80) X10*6/uL Hgb 10.9 L (14.0-18.0) g/dl Hct 34.0 L (42.0-52.0) % MCV 90.7 (80.0-98.0) fL MCH 29.1 (27.0-33.0) pg MCHC 32.1 (31.0-36.0) g/dl RDW 15.9 (11.0-16.0) % Plt Count 70 L D (160-400) X10*3/uL MPV 11.6 (9.4-12.4) fL Immature Gran % (Auto) 0.4 (0.0-0.4) % Neut % (Auto) 56.3 (45-73) % Lymph % (Auto) 25.9 (20-40) % Harney % (Auto) 16.2 H (2-11) % Eos % (Auto) 0.8 (0-4) % Baso % (Auto) 0.4 (0-2) % Lymph # (Auto) 0.6 L (1.2-4.9) X10*3/uL Harney # (Auto) 0.4 (0.1-1.2) X10*3/uL Eos # (Auto) 0.0 (0.0-0.4) X10*3/uL Baso # (Auto) 0.0 (0.0-0.2) X10*3/uL Abs Immat Gran (auto) 0.01 (0.00-0.03) X10*3/uL Absolute Neuts (auto) 1.4 L (2.0-8.3) x10*3/uL Absolute Nucleated RBC 0.000 (0.0-0.012) X10*3/uL Nucleated RBC % (auto) 0.0 (0.0-0.2) /100WBC PT 12.2 (10.0-13.1) SEC INR 1.1 (0.9-1.1) APTT 26.4 (26.0-36.4) SEC Sodium 138 (135-145) mmol/L Potassium 4.6 (3.3-5.1) mmol/L Chloride 107 (96-108) mmol/L Carbon Dioxide 25 (22-29) mmol/L Anion Gap 11 L (12-20) BUN 21 H (9-16) mg/dL Creatinine 0.92 (0.5-1.4) mg/dL Estim Creat Clear Calc 61.5 Estimated GFR > 60 Random Glucose 83 (60-115) mg/dL Calcium 9.1 D (8.4-10.2) mg/dL Total Bilirubin 0.6 (0.0-1.0) mg/dL AST 57 H (5-37) U/L ALT 23 (0-40) U/L Alkaline Phosphatase 215 H (39-117) U/L Total Protein 8.9 H (6.5-8.0) g/dL Albumin 3.0 L (3.5-5.0) g/dL Lipase 27 (8-78) U/L Influenza Type A (PCR) (Negative) Influenza Type B (PCR) (Negative) RSV RNA Qual (PCR) (Negative) SARS-CoV-2 RNA (RT-PCR) (Negative) 04/27/23 Range/Units 17:53 WBC (4.8-10.8) X10*3/uL RBC (4.60-5.80) X10*6/uL Hgb (14.0-18.0) g/dl Hct (42.0-52.0) % MCV (80.0-98.0) fL MCH (27.0-33.0) pg MCHC (31.0-36.0) g/dl RDW (11.0-16.0) % Plt Count (160-400) X10*3/uL MPV (9.4-12.4) fL Immature Gran % (Auto) (0.0-0.4) % Neut % (Auto) (45-73) % Lymph % (Auto) (20-40) % Harney % (Auto) (2-11) % Eos % (Auto) (0-4) % Baso % (Auto) (0-2) % Lymph # (Auto) (1.2-4.9) X10*3/uL Harney # (Auto) (0.1-1.2) X10*3/uL Eos # (Auto) (0.0-0.4) X10*3/uL Baso # (Auto) (0.0-0.2) X10*3/uL Abs Immat Gran (auto) (0.00-0.03) X10*3/uL Absolute Neuts (auto) (2.0-8.3) x10*3/uL Absolute Nucleated RBC (0.0-0.012) X10*3/uL Nucleated RBC % (auto) (0.0-0.2) /100WBC PT (10.0-13.1) SEC INR (0.9-1.1) APTT (26.0-36.4) SEC Sodium (135-145) mmol/L Potassium (3.3-5.1) mmol/L Chloride (96-108) mmol/L Carbon Dioxide (22-29) mmol/L Anion Gap (12-20) BUN (9-16) mg/dL Creatinine (0.5-1.4) mg/dL Estim Creat Clear Calc Estimated GFR Random Glucose (60-115) mg/dL Calcium (8.4-10.2) mg/dL Total Bilirubin (0.0-1.0) mg/dL AST (5-37) U/L ALT (0-40) U/L Alkaline Phosphatase (39-117) U/L Total Protein (6.5-8.0) g/dL Albumin (3.5-5.0) g/dL Lipase (8-78) U/L Influenza Type A (PCR) NEGATIVE (Negative) Influenza Type B (PCR) NEGATIVE (Negative) RSV RNA Qual (PCR) NEGATIVE (Negative) SARS-CoV-2 RNA (RT-PCR) NEGATIVE (Negative) Discharge Plan Discharge Clinical Impression: Acute cough Patient Disposition: Home, Self-Care Instructions: Acute Cough (ED) Additional Instructions: Your x-ray did not show any evidence of pneumonia. Your blood work is consistent with your usual baseline. Use the Tessalon Perles as needed for cough Follow-up with your primary doctor Prescriptions: New benzonatate 200 mg capsule 200 mg PO TID PRN (Reason: cough) Qty: 20 0RF No Action hydrocortisone 1 % cream 1 appl topical BID albuterol sulfate [ProAir HFA] 90 mcg/actuation HFA aerosol inhaler 2 puff INHALATION Q6H MDD 4 PRN (Reason: Shortness Of Breath) methadone 10 mg/mL Concentrate 60 mg PO DAILY Rx Instructions: CALLED [facility] AND VERIFIED DOSE cetirizine 10 mg tablet 1 tab PO DAILY docusate sodium 100 mg capsule 1 cap PO BID PRN (Reason: constipation) sertraline 25 mg tablet 1 tab PO DAILY atovaquone 750 mg/5 mL suspension 5 ml PO DAILY mirtazapine 7.5 mg tablet 1 tab PO BEDTIME quetiapine 50 mg tablet 1 tab PO BEDTIME Biktarvy 50-200-25 mg tablet 1 tab PO BEDTIME levetiracetam 500 mg Tablet 500 mg PO BID Qty: 60 2RF doxycycline hyclate 100 mg capsule 100 mg PO BID Qty: 12 0RF
[2023-04-27 17:57] LABS: MANUAL DIFF FLAG NO
[2023-04-27 18:07] LABS: Basophils Percent Auto 0.4 % (0-2); Eosinophils Percent Auto 0.8 % (0-4); Hemoglobin 10.9 g/dl (14.0-18.0); Imm Gran Abs Auto 0.01 X10*3/uL (0.00-0.03); Imm Gran Pct Auto 0.4 % (0.0-0.4); Lymphocytes Absolute Auto 0.6 X10*3/uL (1.2-4.9); Lymphocytes Percent Auto 25.9 % (20-40); Mean Corpuscular HGB Conc 32.1 g/dl (31.0-36.0); Mean Corpuscular Hemoglobin 29.1 pg (27.0-33.0); Mean Corpuscular Volume 90.7 fL (80.0-98.0); Mean Platelet Volume 11.6 fL (9.4-12.4); Monocytes Absolute Auto 0.4 X10*3/uL (0.1-1.2); Monocytes Percent Auto 16.2 % (2-11); Neutrophils Absolute Auto 1.4 x10*3/uL (2.0-8.3); Neutrophils Percent Auto 56.3 % (45-73); Red Blood Count 3.75 X10*6/uL (4.60-5.80); Red Cell Distribution Width 15.9 % (11.0-16.0); SCAN SMEAR FLAG 1
[2023-04-27 18:08] LABS: INTERNATIONAL NORM RATIO 1.1 (0.9-1.1); Prothrombin Time 12.2 SEC (10.0-13.1)
[2023-04-27 18:09] LABS: Platelet Count 70 X10*3/uL (160-400); White Blood Count 2.5 X10*3/uL (4.8-10.8)
[2023-04-27 18:10] LABS: Partial Thromboplastin Time 26.4 SEC (26.0-36.4)
[2023-04-27 18:31] LABS: Alanine Aminotransferase 23 U/L (0-40); Alkaline Phosphatase 215 U/L (39-117); Anion Gap 11 (12-20); Aspartate Amino Transferase 57 U/L (5-37); Bilirubin Total 0.6 mg/dL (0.0-1.0); Blood Urea Nitrogen 21 mg/dL (9-16); Calcium 9.1 mg/dL (8.4-10.2); Carbon Dioxide 25 mmol/L (22-29); Chloride 107 mmol/L (96-108); Creatinine Clr Calc Pharmacy 61.5; Estimated Glomerular Filt Rate > 60; Glucose Random 83 mg/dL (60-115); Lipase 27 U/L (8-78); Potassium 4.6 mmol/L (3.3-5.1); Sodium 138 mmol/L (135-145); Total Protein 8.9 g/dL (6.5-8.0)
[2023-04-27 18:39] LABS: Influenza A PCR NEGATIVE (Negative); Influenza B PCR NEGATIVE (Negative); Resp Syncy Virus RNA Qual PCR NEGATIVE (Negative); SARS COV2 PCR INHOUSE NEGATIVE (Negative)
== END 2023-04-27 19:22 | disposition home or self-care (01) ==
PROVIDERS: Physician Assistant; Emergency Provider Internal Medicine
DX: R05.9 Cough, unspecified (principal); R07.89 Other chest pain; Z79.899 Other long term (current) drug therapy; Z20.822 Contact with and (suspected) exposure to COVID-19; Z20.828 Contact with and (suspected) exposure to other viral communicable diseases
CPT/HCPCS: 0241U; 71046; 80053; 83690; 85025; 85610; 85730; 99282; 99283

== ENCOUNTER 2023-10-23 11:03 | Outpatient (REF) | payer MEDICAID, SELFPAY ==
[2023-10-23 13:36] LABS: Basophils Percent Auto 0.3 % (0-2); Hemoglobin 11.7 g/dl (14.0-18.0); Imm Gran Abs Auto 0.01 X10*3/uL (0.00-0.03); Imm Gran Pct Auto 0.3 % (0.0-0.4); MANUAL DIFF FLAG SCAN; Red Cell Distribution Width 15.6 % (11.0-16.0); SCAN SMEAR FLAG 1
[2023-10-23 13:38] LABS: Eosinophils Percent Auto 0.9 % (0-4); Hematocrit 36.9 % (42.0-52.0); Lymphocytes Absolute Auto 0.6 X10*3/uL (1.2-4.9); Lymphocytes Percent Auto 18.6 % (20-40); Mean Corpuscular HGB Conc 31.7 g/dl (31.0-36.0); Mean Corpuscular Hemoglobin 29.1 pg (27.0-33.0); Mean Corpuscular Volume 91.8 fL (80.0-98.0); Mean Platelet Volume 13.7 fL (9.4-12.4); Monocytes Absolute Auto 0.5 X10*3/uL (0.1-1.2); Monocytes Percent Auto 15.8 % (2-11); Neutrophils Absolute Auto 2.1 x10*3/uL (2.0-8.3); Neutrophils Percent Auto 64.1 % (45-73); Red Blood Count 4.02 X10*6/uL (4.60-5.80); White Blood Count 3.2 X10*3/uL (4.8-10.8)
[2023-10-23 14:07] LABS: PLT ABN DIST 1; Platelet Count 86 X10*3/uL (160-400)
[2023-10-23 14:16] LABS: Alanine Aminotransferase 26 U/L (0-40); Albumin Level 3.1 g/dL (3.5-5.0); Alkaline Phosphatase 224 U/L (39-117); Anion Gap 11 (12-20); Aspartate Amino Transferase 61 U/L (5-37); Bilirubin Total 0.5 mg/dL (0.0-1.0); Blood Urea Nitrogen 13 mg/dL (9-16); Calcium 8.9 mg/dL (8.4-10.2); Carbon Dioxide 27 mmol/L (22-29); Chloride 104 mmol/L (96-108); Cholesterol 162 mg/dL (<200); Estimated Glomerular Filt Rate > 60; Glucose Random 111 mg/dL (60-115); HDL Cholesterol 35 mg/dL (>40); Iron 57 mcg/dL (45-160); LDL Cholesterol Calculated 86 mg/dL (<100); Percent Iron Saturation 17 % (15-50); Potassium 4.7 mmol/L (3.3-5.1); Sodium 137 mmol/L (135-145); Total Iron Binding Capacity 330 mcg/dL (228-428); Total Protein 9.5 g/dL (6.5-8.0); Triglycerides 206 mg/dL (<150); Unsaturated Iron Binding 273 ug/dL
[2023-10-23 14:20] LABS: Cholesterol 164 mg/dL (<200); HDL Cholesterol 33 mg/dL (>40); LDL Cholesterol Calculated 91 mg/dL (<100); Triglycerides 203 mg/dL (<150)
[2023-10-23 14:21] LABS: Reflex LDLD? No
[2023-10-23 14:42] LABS: SLIDE REVIEW VERIFIED
[2023-10-24 10:18] LABS: Absolute CD3 Count 304 cells/uL (840-3060); Absolute CD4 Count 168 cells/uL (490-1740); Absolute CD8 Count 134 cells/uL (180-1170); Absolute Lymphocytes 497 cells/uL (850-3900); CD4 CD8 Ratio 1.25 (0.86-5.00); Percent CD3 Cells 61 % (57-85); Percent CD4 Cells 34 % (30-61); Percent CD8 Cells 27 % (12-42)
[2023-10-24 13:43] LABS: HCV Log PCR <1.18 NOT DETECTED Log IU/mL (NOT DETECTED); HepC Viral Load <15 NOT DETECTED IU/mL (NOT DETECTED)
[2023-10-24 14:09] LABS: RPR Rapid Plasma Reagin NON-REACTIVE (NON-REACTIVE)
[2023-10-24 14:54] LABS: HIV RNA PCR Qn Copies 61 copies/mL (NOT DETECTED); HIV RNA PCR Qn Log Copies 1.79 (NOT DETECTED)
[2023-10-25 17:19] LABS: TS Negative Control Passed; TS Panel A 0; TS Panel B 0; TS Positive Control Passed; TSpotTB Negative (Negative)
== END 2023-10-23 11:04 | disposition home or self-care (01) ==
LOC: HO.HHCL 11:03
PROVIDERS: Visit Provider Internal Medicine
DX: Z00.00 Encounter for general adult medical examination without abnormal findings (principal); D64.9 Anemia, unspecified; B20 Human immunodeficiency virus [HIV] disease
CPT/HCPCS: 36415; 80053; 80061; 83540; 85025; 86359; 86360; 86481; 86592; 87522; 87536

== ENCOUNTER 2023-10-25 11:46 | Outpatient (REF) | payer MEDICAID, SELFPAY | END 2023-10-25 11:47 | disposition home or self-care (01) | LOC: HO.HHCL 11:46 | PROVIDERS: Visit Provider Internal Medicine | DX: Z13.89 Encounter for screening for other disorder (principal) ==

== ENCOUNTER 2024-01-03 10:50 | Outpatient (REF) | payer MEDICAID, SELFPAY ==
[2024-01-03 12:56] LABS: Basophils Percent Auto 1.1 % (0-2); Eosinophils Absolute Auto 0.1 X10*3/uL (0.0-0.4); Eosinophils Percent Auto 3.2 % (0-4); Hematocrit 32.3 % (42.0-52.0); Hemoglobin 10.5 g/dl (14.0-18.0); Lymphocytes Absolute Auto 0.4 X10*3/uL (1.2-4.9); Lymphocytes Percent Auto 22.6 % (20-40); Mean Corpuscular HGB Conc 32.5 g/dl (31.0-36.0); Mean Corpuscular Hemoglobin 29.1 pg (27.0-33.0); Mean Corpuscular Volume 89.5 fL (80.0-98.0); Mean Platelet Volume 12.9 fL (9.4-12.4); Monocytes Absolute Auto 0.3 X10*3/uL (0.1-1.2); Monocytes Percent Auto 15.1 % (2-11); Neutrophils Absolute Auto 1.1 x10*3/uL (2.0-8.3); Red Blood Count 3.61 X10*6/uL (4.60-5.80); Red Cell Distribution Width 15.3 % (11.0-16.0)
[2024-01-03 12:59] LABS: Platelet Count 89 X10*3/uL (160-400); White Blood Count 1.9 X10*3/uL (4.8-10.8)
[2024-01-03 13:33] LABS: Alanine Aminotransferase 24 U/L (0-40); Albumin Level 2.5 g/dL (3.5-5.0); Alkaline Phosphatase 214 U/L (39-117); Anion Gap 10 (12-20); Aspartate Amino Transferase 59 U/L (5-37); Bilirubin Total 0.4 mg/dL (0.0-1.0); Blood Urea Nitrogen 6 mg/dL (9-16); Calcium 8.2 mg/dL (8.4-10.2); Carbon Dioxide 27 mmol/L (22-29); Chloride 106 mmol/L (96-108); Estimated Glomerular Filt Rate > 60; Glucose Random 114 mg/dL (60-115); Sodium 139 mmol/L (135-145)
== END 2024-01-03 10:51 | disposition home or self-care (01) ==
LOC: HO.LAB 10:50
PROVIDERS: PCP Nurse Practitioner Primary Care; Visit Provider Nurse Practitioner
DX: Z01.818 Encounter for other preprocedural examination (principal); D64.9 Anemia, unspecified; F19.10 Other psychoactive substance abuse, uncomplicated; R56.9 Unspecified convulsions; B20 Human immunodeficiency virus [HIV] disease; B19.20 Unspecified viral hepatitis C without hepatic coma; B19.10 Unspecified viral hepatitis B without hepatic coma
CPT/HCPCS: 36415; 80053; 85025; 99212

== ENCOUNTER 2024-01-03 10:50 | Outpatient (AMB) | payer MEDICAID, SELFPAY ==
--- NOTE | 2024-01-03 11:04 | A.OFFVIS_ITS ---
Intake Vital Signs 3 01/03/24 11:15 Height 5 ft 1 in Weight 130 lb BMI 24.6 BP 138/69 Blood Pressure Location Rt brachial Position Sitting Pulse 80 Intake Visit Reasons: Anemia, unspecified type, Colonoscopy Screening Intake Note: Patient presets to in office visit today as a new patient for colonoscopy screening. CC: Patient states that he has never had a colonoscopy done. He c/o abdominal pain, constipation, a lot of gas, and feeling something in his throat . Per patient he sometimes chokes with food. 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 He is referred by Dilia Isaac NP of [facility]. PMX HIV Polysubstance abuse -methadone therapy Smoker Traumatic brain injury Asthma Chronic hepatitis C Erectile dysfunction Depression/anxiety BILATERAL EXTREMITY EDEMA * SURGICAL HISTORY Skin excision lower jaw for biopsy * ALLERGIES: NKDA * PCP SUPPLIED LABS: 05/2022 CBC SHOWS MILD ANEMIA 09/26 NORMOCHROMIC, NORMOCYTIC, PLATELETS A REDUCE THE 9000, PATIENT HAS A POSITIVE HIV VIRAL LOAD, AST/ALT TOTAL BILIRUBIN IS NORMAL AND ALK-PHOS IS ELEVATED AT 280, UNREMARKABLE RENAL PANEL, HEPATITIS C VIRAL LOAD IS NEGATIVE, BNP IS MILDLY ELEVATED AT 107, HEPATITIS B IS POSITIVE FOR ANTIBODY BUT NEGATIVE FOR ANTIGEN, TODAY'S VISIT Kinyarwanda Laura Zhang. He has never had a prior colonoscopy that he can remember tell me about. There is a hospital note saying he has chronic pancytopenia likely r/t HIV. this is from 01/2023. However he has significant medications that could be causing his anemia, thrombocytopenia and general pancytopenia. The patient does not know why he is here. I explain that he is here for anemia and my role is to do an investigation to see if he is slowly losing blood through the GI system. The patient says he occasionally spits up blood, but denies any hematochezia or melena. He does experience SOB with even mild exertion such as walking and I have to use my inhaler a lot. His dentition is VERY poor. He does eat meats, but not many green leafy vegetables. However, it is possible that he has medication induced pancytopenia and anemia relative to his Bitarvy, atovaquone, keppra, and to a somewhat lesser extent, seroquel. He denies bowel or upper GI problems. He has Hep C but a negative viral load and his HIV seems to be controlled on antiretrovirals. He has significant asthma as above, he is on methadone therapy. He is relatively naive to anesthesia and sedation. He is not very knowledgeable about his medical history and does not know if he has cardiac problems. He has a seizure disorder that he says is well controlled, yet he did have a seizure 2 mos ago. There is a hospital note questioning if this was r/t his HIV vs cocaine use, and I branch credit counselor him that he needs to avoid illicit drugs including cocaine for at least 2 weeks before the procedure. He tells me that he lost both his brother to an overdose in his father to cancer and that is why he relapsed at that time and committed to stay away from street drugs. ID problems as above. He has severe memory problems r/t TBI. He does not know if there is an FHX of crc or polyps ROV after procedure. [facility] Medical History (Updated 01/03/24 @ 13:21 by GEM Crandall) Pneumonia COVID-19 Polysubstance abuse Seizure Depression with anxiety Polysubstance abuse Substance abuse Hepatitis HIV disease Alcoholism Depression Asthma Surgical History (Updated 01/03/24 @ 13:22 by GEM Crandall) History of skin surgery Social History Household Members: Unknown / Unable to assess Housing: Unknown / Unable to assess Unable to assess alcohol history related to: Unknown Alcohol intake: current Alcohol intake frequency: a few times a week Alcohol type: hard liquor Comment: 1to 1 sitter Patient Tobacco Use Status: Refuse Tobacco use screen Substance Use Type: Crack/Cocaine and Heroin service: No Current occupational status: unemployed and disabled Review of Systems ENT Reports Normal hearing present Neuro Reports Normal hearing present and Denies Abnormal speech present Physical Exam Vital Signs: Last Vital Signs Pulse 80 01/03/24 11:15 BP 138/69 01/03/24 11:15 BMI result Body Mass Index 24.6 Const General: cooperative, no acute distress, well developed and well groomed Nutritional Appearance: average body habitus and well nourished Orientation/consciousness: oriented to person, oriented to place and oriented to time Limitations: language barrier and other limitations HEENT Head: Yes normocephalic and Yes atraumatic Head images: 2 1. surgical scar Teeth and gingiva: poor dentition Eyes General: appearance normal, both eyes and all related structures Pupils: Equal, round and reactive pupils present Neck Neck: Yes normal visual inspection and Yes no lymphadenopathy Thyroid: Thyroid normal Resp Effort & Inspection: normal respiratory effort and able to speak in complete sentences Auscultation: clear to auscultation bilaterally Cardio Rate: regular rate Rhythm: regular rhythm Heart sounds: Murmur heart sound present systolic (very mild end systolic aortic murmur no carotid radiation) late Peripheral pulses: radial pulses present and posterior tibial pulses present GI Inspection: No distended, No Abdominal panniculus present and Yes visible herniation (umbilcal mild) Palpation (GI): Soft to palpation, nontender, no guarding, not rigid and No hepatosplenomegaly present Percussion: Yes normal to percussion Auscultation: normal bowel sounds Rectal Exam - Male: Yes deferred Skin General skin exam: no rashes or lesions noted, turgor normal, skin not dry, no jaundice, No spider nevi and no striae Rashes: no rashes Nails: normal Neuro General: oriented to person, oriented to place and oriented to time Cranial nerves: Yes Equal, round and reactive pupils present and Yes Normal hearing present Speech: No Abnormal speech present Extrem General: Yes normal to inspection, No clubbing, No cyanosis and No edema Psych Thought process: Normal thought process present and not confabulating Thought content: Normal thought content present Insight: Good insight present (Psych) Judgement: Good judgement present (Psych) Assessment & Plan Assessment & Plan (1) Anemia: Code(s): D64.9 - Anemia, unspecified (2) Polysubstance abuse: Code(s): F19.10 - Other psychoactive substance abuse, uncomplicated (3) Seizure: Code(s): R56.9 - Unspecified convulsions (4) Traumatic brain injury: Code(s): S06.9X9A - Unspecified intracranial injury with loss of consciousness of unspecified duration, initial encounter (5) HIV disease: Code(s): B20 - Human immunodeficiency virus [HIV] disease (6) Hepatitis C: Code(s): B19.20 - Unspecified viral hepatitis C without hepatic coma (7) Pre-op examination: Code(s): Z01.818 - Encounter for other preprocedural examination (8) Hepatitis B: Code(s): B19.10 - Unspecified viral hepatitis B without hepatic coma Plan Kinyarwanda #Gaur[facility] Live. He has never had a prior colonoscopy that he can remember tell me about. There is a hospital note saying he has chronic pancytopenia likely r/t HIV. this is from 01/2023. However he has significant medications that could be causing his anemia, thrombocytopenia and general pancytopenia. The patient does not know why he is here. I explain that he is here for anemia and my role is to do an investigation to see if he is slowly losing blood through the GI system. The patient says he occasionally spits up blood, but denies any hematochezia or melena. He does experience SOB with even mild exertion such as walking and I have to use my inhaler a lot. His dentition is VERY poor. He does eat meats, but not many green leafy vegetables. However, it is possible that he has medication induced pancytopenia and anemia relative to his Bitarvy, atovaquone, keppra, and to a somewhat lesser extent, seroquel. He denies bowel or upper GI problems. He has Hep C but a negative viral load and his HIV seems to be controlled on antiretrovirals. He has significant asthma as above, he is on methadone therapy. He is relatively naive to anesthesia and sedation. He is not very knowledgeable about his medical history and does not know if he has cardiac problems. He has a seizure disorder that he says is well controlled, yet he did have a seizure 2 mos ago. There is a hospital note questioning if this was r/t his HIV vs cocaine use, and I branch credit counselor him that he needs to avoid illicit drugs including cocaine for at least 2 weeks before the procedure. He tells me that he lost both his brother to an overdose in his father to cancer and that is why he relapsed at that time and committed to stay away from street drugs. ID problems as above. He has severe memory problems r/t TBI. He does not know if there is an FHX of crc or polyps ROV after procedure. Orders: Orders 2 Comprehensive Met. Panel Today D64.9 - Anemia, unspecified Complete Blood Count Auto Diff Today D64.9 - Anemia, unspecified EGD/[place] Combo - GI Use Only Today D64.9 - Anemia, unspecified Medications: New 2 peg 3350-electrolytes 236-22.74-6.74 -5.86 gram (Golytely) until fecal effluent is clear; do not exceed a total volume of 2,000 mL 240 mL PO Q10M 1 day 4,000 mL 0RF Z12.11 - Encounter for screening for malignant neoplasm of colon bisacodyl (Dulcolax (bisacodyl)) 10 mg (2 x 5 mg) PO BEDTIME 2 days 4 tabs 0RF Coding Level of Care Code New Pt Level 3 (27396) Diagnoses Anemia D64.9 Polysubstance abuse F19.10 Seizure R56.9 Traumatic brain injury S06.9X9A HIV disease B20 Hepatitis C B19.20 Pre-op examination Z01.818 Hepatitis B B19.10
[2024-01-03 11:15] VITALS: BP 138/69; PULSE 80; BMI 24.6
== END 2024-01-03 12:06 | disposition home or self-care (01) ==
PROVIDERS: Visit Provider Nurse Practitioner
DX: D64.9 Anemia, unspecified (principal); F19.10 Other psychoactive substance abuse, uncomplicated; R56.9 Unspecified convulsions; S06.9X9A Unspecified intracranial injury with loss of consciousness of unspecified duration, initial encounter; B20 Human immunodeficiency virus [HIV] disease; B19.20 Unspecified viral hepatitis C without hepatic coma; Z01.818 Encounter for other preprocedural examination; B19.10 Unspecified viral hepatitis B without hepatic coma
CPT/HCPCS: 99203

== ENCOUNTER 2024-07-01 14:19 | Outpatient (REF) | payer MEDICAID, SELFPAY ==
[2024-07-01 16:10] LABS: Basophils Percent Auto 0.4 % (0-2); Eosinophils Absolute Auto 0.1 X10*3/uL (0.0-0.4); Eosinophils Percent Auto 2.6 % (0-4); Hematocrit 35.1 % (42.0-52.0); Hemoglobin 11.3 g/dl (14.0-18.0); Imm Gran Abs Auto 0.01 X10*3/uL (0.00-0.03); Imm Gran Pct Auto 0.4 % (0.0-0.4); Lymphocytes Absolute Auto 0.6 X10*3/uL (1.2-4.9); Lymphocytes Percent Auto 23.6 % (20-40); MANUAL DIFF FLAG SCAN; Mean Corpuscular HGB Conc 32.2 g/dl (31.0-36.0); Mean Corpuscular Hemoglobin 29.6 pg (27.0-33.0); Mean Corpuscular Volume 91.9 fL (80.0-98.0); Mean Platelet Volume 12.2 fL (9.4-12.4); Monocytes Absolute Auto 0.4 X10*3/uL (0.1-1.2); Monocytes Percent Auto 17.6 % (2-11); Neutrophils Absolute Auto 1.3 x10*3/uL (2.0-8.3); Neutrophils Percent Auto 55.4 % (45-73); Red Blood Count 3.82 X10*6/uL (4.60-5.80); Red Cell Distribution Width 15.6 % (11.0-16.0); SCAN SMEAR FLAG 1
[2024-07-01 16:17] LABS: Platelet Count 73 X10*3/uL (160-400); White Blood Count 2.3 X10*3/uL (4.8-10.8)
[2024-07-01 16:23] LABS: Alanine Aminotransferase 21 U/L (0-40); Albumin Level 3.1 g/dL (3.5-5.0); Alkaline Phosphatase 122 U/L (39-117); Anion Gap 11 (12-20); Aspartate Amino Transferase 53 U/L (5-37); Bilirubin Total 0.6 mg/dL (0.0-1.0); Blood Urea Nitrogen 10 mg/dL (9-16); Calcium 9.1 mg/dL (8.4-10.2); Carbon Dioxide 26 mmol/L (22-29); Chloride 105 mmol/L (96-108); Estimated Glomerular Filt Rate > 60; Glucose Random 90 mg/dL (60-115); Potassium 4.2 mmol/L (3.3-5.1); Sodium 138 mmol/L (135-145); Total Protein 8.3 g/dL (6.5-8.0)
[2024-07-01 17:45] LABS: SLIDE REVIEW VERIFIED
[2024-07-03 12:04] LABS: HIV RNA PCR Qn Copies NOT DETECTED copies/mL (NOT DETECTED); HIV RNA PCR Qn Log Copies NOT DETECTED (NOT DETECTED)
[2024-07-06 13:22] LABS: Absolute CD3 Count 347 cells/uL (840-3060); Absolute CD4 Count 140 cells/uL (490-1740); Absolute CD8 Count 198 cells/uL (180-1170); Absolute Lymphocytes 480 cells/uL (850-3900); CD4 CD8 Ratio 0.71 (0.86-5.00); Percent CD3 Cells 72 % (57-85); Percent CD4 Cells 29 % (30-61); Percent CD8 Cells 41 % (12-42)
== END 2024-07-01 14:20 | disposition home or self-care (01) ==
LOC: HO.HHCL 14:19
PROVIDERS: Visit Provider Internal Medicine
DX: B20 Human immunodeficiency virus [HIV] disease (principal)
CPT/HCPCS: 36415; 80053; 85025; 86359; 86360; 87536

== ENCOUNTER 2024-08-17 23:25 | Emergency (ER) | payer MEDICAID, SELFPAY ==
--- NOTE | ~2024-08-17 | XR_ITS ---
EXAMINATION: XR CHEST CLINICAL INFORMATION: Respiratory failure. Intubation. COMPARISON: April 27, 2023 TECHNIQUE: Frontal view of the chest was obtained. FINDINGS: The cardiomediastinal silhouette is stable. There is an endotracheal tube seen in good position above the jaymie. A gastric tube extends below the diaphragm into the upper abdomen also in good position. The tip of the nasogastric tube is not seen. There is no focal lung consolidation or pleural effusions. The bony structures and the soft tissues are unremarkable. XR/XR chest 1V IMPRESSION: The endotracheal tube and gastric tube are in good position. The tip of the nasogastric tube is not seen. There is no focal lung consolidation or pleural effusions. Electronically signed by: Jeff Hollins MD 08/18/2024 12:39 AM EDT
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
[2024-08-17 23:30] VITALS: BP 133/71; PULSE 97; RESP 23; TEMP 38.1
[2024-08-17 23:38] VITALS: BP 163/106; PULSE 110; RESP 18; O2SAT 100
[2024-08-18] VITALS: BP 127/82; PULSE 104; RESP 17; O2SAT 100
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
[2024-08-18 00:03] VITALS: BP 152/87; PULSE 106; RESP 23; O2SAT 98
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
[2024-08-18 00:44] VITALS: BP 155/82; PULSE 104; RESP 17; TEMP 38.1; O2SAT 100
== END 2024-08-18 00:10 | disposition short-term general hospital (02) ==
PROVIDERS: Emergency Provider Emergency Medicine
DX: S01.83XA Puncture wound without foreign body of other part of head, initial encounter (principal); W34.00XA Accidental discharge from unspecified firearms or gun, initial encounter; Y93.9 Activity, unspecified; Y92.9 Unspecified place or not applicable; Y99.9 Unspecified external cause status; S01.03XA Puncture wound without foreign body of scalp, initial encounter; J96.90 Respiratory failure, unspecified, unspecified whether with hypoxia or hypercapnia
CPT/HCPCS: 70450; 71045; 72125; 96374; 99285; J0330; J0690; J2250

== ENCOUNTER 2024-11-21 14:11 | Outpatient (REF) | payer MEDICAID, SELFPAY ==
--- OUTSIDE RECORDS SUMMARY | 2024-11-21 14:13 | XMS_ITS | Clinical Summary ---
Author Organization Unknown Care Team Providers Care Environmental Health Aide Name Role Phone JACK SOFTWARE CLERK, ROSETTA Unavailable Unavailable LINDA SIMON, MILY Unavailable Unavailable Payers Payer Name Policy Type Policy Number Effective Date Expira tion Date MEDICAID [facility] [id number] Problems Condition Name Condition Details Condition Category Status Onset Date Resolution Date Last Treatment Date Treating Clinician Comments DEPRESSION, UNSPECIFIED Active 2021-11 0 00:00: 00 Allergies, Adverse Reactions, Alerts Allergy Name Allergy Type Status Severity Reaction(s) Onset Date Inactive Date Treating Clinician Comments NKA Propensity to adverse reactions Active 2022-09 19:11:1 9 Medications Ordered Medication Name Filled Medication Name Start Date Stop Date Current Medication? Ordering Clinician Indication Dosage Frequency Signature (SIG) Comments Components hydrocortis one 1 % topical cream 2021-11 00:00: 00 Yes [id number] Per instruc tions TWICE DAILY DIRECTED Per instructio ns TWICE DAILY DIRECTED (route: topical) Med Classific ation: Dermatolo gical albuterol sulfate HFA 90 mcg/actuati on aerosol inhaler 2021-11 00:00: 00 Yes [id number] 2 puff DIRECTED 2 puff DIRECTED (route: inhalation ) Med Classific ation: Respirato ry Therapy Agents Biktarvy 50 mg-200 mg-25 mg tablet 2021-11 00:00: 00 Yes [id number] 50 mg DAILY 50 mg DAILY (route: oral) Med Classific ation: Anti-Infe ctive Agents cetirizine 10 mg tablet 2021-11 00:00: 00 Yes [id number] 10 mg NEEDED 10 mg NEEDED (route: oral) Med Classific ation: Respirato ry Therapy Agents Colace 100 mg capsule 2021-11 00:00: 00 Yes [id number] 100 mg 2 TIMES DAILY 100 mg 2 TIMES DAILY (route: oral) Med Classific ation: Gastroint estinal Therapy Agents famotidine 20 mg tablet 2021-11 00:00: 00 Yes [id number] 20 mg 2 TIMES DAILY 20 mg 2 TIMES DAILY (route: oral) Med Classific ation: Gastroint estinal Therapy Agents levetiracet am 1,000 mg tablet 2021-11 00:00: 00 02-18 23:59 :00 No [id number] 1000 mg 2 TIMES DAILY 1000 mg 2 TIMES DAILY (route: oral) Med Classific ation: Central Nervous System Agents mirtazapine 7.5 mg tablet 2021-11 00:00: 00 Yes [id number] 7.5 mg BEDTIME 7.5 mg BEDTIME (route: oral) Med Classific ation: Central Nervous System Agents multivitami n tablet 2021-11 00:00: 00 Yes [id number] 1 tablet DAILY 1 tablet DAILY (route: oral) Med Classific ation: Electroly te Balance-N utritiona l Products Seroquel 100 mg tablet 2021-11 00:00: 00 02-18 23:59 :00 No [id number] 100 mg DAILY 100 mg DAILY (route: oral) Med Classific ation: Central Nervous System Agents sertraline 50 mg tablet 2021-11 00:00: 00 01-02 23:59 :00 No [id number] 50 mg DAILY 50 mg DAILY (route: oral) Med Classific ation: Central Nervous System Agents sertraline 25 mg tablet 01-02 00:00: 00 Yes [id number] 25 mg DAILY 25 mg DAILY (route: oral) Med Classific ation: Central Nervous System Agents doxycycline hyclate 100 mg capsule 02-18 00:00: 00 02-24 23:59 :00 No [id number] 100 mg 2 TIMES DAILY 100 mg 2 TIMES DAILY (route: oral) Med Classific ation: Anti-Infe ctive Agents levetiracet am 500 mg tablet 02-18 00:00: 00 Yes [id number] 500 mg 2 TIMES DAILY 500 mg 2 TIMES DAILY (route: oral) Med Classific ation: Central Nervous System Agents Seroquel 50 mg tablet 02-18 00:00: 00 Yes [id number] 50 mg BEDTIME 50 mg BEDTIME (route: oral) Med Classific ation: Central Nervous System Agents Vital Signs Vital Name Observation Time Observation Value Commen ts Temperature 2023-03-08 13:59:00.000 97.5 [degF] Temperature 2023-03-06 13:27:00.000 97.5 [degF] Temperature 2023-03-05 18:46:00.000 97.5 [degF] Temperature 2023-03-03 17:29:00.000 97.5 [degF] Temperature 2023-03-02 20:38:00.000 97.5 [degF] Temperature 2023-02-27 13:45:00.000 97.5 [degF] Temperature 2023-02-24 12:26:00.000 97.5 [degF] Temperature 2023-02-22 14:12:00.000 97.6 [degF] Temperature 2023-02-20 14:28:00.000 97.5 [degF] Temperature 2023-02-18 13:53:00.000 97.5 [degF] Temperature 2023-02-15 14:20:00.000 97.5 [degF] Temperature 2023-02-13 14:38:00.000 97.5 [degF] Temperature 2023-02-10 13:46:00.000 97.5 [degF] BMI (%) 2023-03-02 20:43:43.000 23 kg/m2 Height 2023-03-02 20:43:43.000 66 [in_us] Pulse 2023-03-02 20:38:00.000 72 /min Respirations 2023-03-02 20:38:00.000 20 /min Weight (lbs) 2023-03-02 20:38:00.000 145 [lb_av] Systolic Blood Pressure 2023-03-02 20:38:00.000 114 mm [Hg] Diastolic Blood Pressure 2023-03-02 20:38:00.000 70 mm [Hg] Plan of Treatment Planned Activity Planned Date Details Comments Future Scheduled Test SKILLED NU RSE TO EVALUATE PATIENT, IDENTIFY PRIMARY AND CO-MORBID CONDITIONS CODED PER CODING GUIDELINES, AND DEVELOP PATIENT SPECIFIC PLAN OF CARE THAT INCLUDES PATIENT GOAL FOR HOME HEALTH. CLINICAL SUMMARY (SOC/ARYA/RECERT, 10 DAY, 60 DAY) THE PATIENT IS RECEIVING HOMECARE DUE TO MENTAL HEALTH RECENT HOSPITALIZATION/INPATIENT ADMISSION RELATED TO: NONE NEW OR CHANGED MEDICATIONS: YES PATIENT LIVING SITUATION/CAREGIVER STATUS: ALONE RECENT FALLS: NONE SUMMARIZE SKILLED NEED: MEDICATION MANAGEMENT, VITAL SIGNS ASSESSMENT, MENTAL STATUS ASSESSMENT AND DIAGNOSIS MANAGEMENT ADDITIONAL DISCIPLINES NEEDED OR DECLINED ORDERED SERVICES: NONE [code = SKILLED NURSE TO EVALUATE PATIENT, IDENTIFY PRIMARY AND CO-MORBID CONDITIONS CODED PER CODING GUIDELINES, AND DEVELOP PATIENT SPECIFIC PLAN OF CARE THAT INCLUDES PATIENT GOAL FOR HOME HEALTH. CLINICAL SUMMARY (SOC/ARYA/RECERT, 10 DAY, 60 DAY) THE PATIENT IS RECEIVING HOMECARE DUE TO MENTAL HEALTH RECENT HOSPITALIZATION/INPATIENT ADMISSION RELATED TO: NONE NEW OR CHANGED MEDICATIONS: YES PATIENT LIVING SITUATION/CAREGIVER STATUS: ALONE RECENT FALLS: NONE SUMMARIZE SKILLED NEED: MEDICATION MANAGEMENT, VITAL SIGNS ASSESSMENT, MENTAL STATUS ASSESSMENT AND DIAGNOSIS MANAGEMENT ADDITIONAL DISCIPLINES NEEDED OR DECLINED ORDERED SERVICES: NONE ] Future Scheduled Test SKILLED NU RSE TO O/A OF PATIENTS MENTAL/BEHAVIORAL STATUS, ASSESS VITAL SIGNS THREE TIMES A WEEK [code = SKILLED NURSE TO O/A OF PATIENTS MENTAL/BEHAVIORAL STATUS, ASSESS VITAL SIGNS THREE TIMES A WEEK ] Future Scheduled Test SKILLED NU RSE FOR O/A OF GENERAL HEALTH STATUS OF PAIN, CARDIAC, RESPIRATORY, GASTROINTESTINAL, GENITOURINARY, SKIN, NEUROLOGIC, ENDOCRINE SYSTEMS TO IDENTIFY CHANGES ASSOCIATED WITH EXACERBATION FOR EARLY INTERVENTION OF COMPLICATIONS THREE TIMES A WEEK [code = SKILLED NURSE FOR O/A OF GENERAL HEALTH STATUS OF PAIN, CARDIAC, RESPIRATORY, GASTROINTESTINAL, GENITOURINARY, SKIN, NEUROLOGIC, ENDOCRINE SYSTEMS TO IDENTIFY CHANGES ASSOCIATED WITH EXACERBATION FOR EARLY INTERVENTION OF COMPLICATIONS THREE TIMES A WEEK ] Future Scheduled Test SKILLED NU RSE TO ADMINISTER MEDICATIONS THREE TIMES A WEEK AND PRE-POUR MEDICATIONS TILL NEXT SN VISIT PER MEDICATION LIST. [code = SKILLED NURSE TO ADMINISTER MEDICATIONS THREE TIMES A WEEK AND PRE-POUR MEDICATIONS TILL NEXT SN VISIT PER MEDICATION LIST.] Future Scheduled Test PATIENT MA Y HAVE ONE SET OF EMERGENCY MEDICATION NOT TO BE PRE-POURED ANY SOONER THAN 24 HOURS BEFORE SEVERE INCLEMENT WEATHER AND FOLLOWING SKILLED NURSE EVALUATION OF PATIENT SAFETY. [code = PATIENT MAY HAVE ONE SET OF EMERGENCY MEDICATION NOT TO BE PRE-POURED ANY SOONER THAN 24 HOURS BEFORE SEVERE INCLEMENT WEATHER AND FOLLOWING SKILLED NURSE EVALUATION OF PATIENT SAFETY.] Future Scheduled Test SKILLED NU RSE FOR O/A AND SKILLED TEACHING RELATED TO MANAGEMENT OF DEPRESSIVE SYMPTOMS AND/OR DEPRESSION INCLUDING PARTICIPATION IN [facility]. SN TO REPORT SIGNIFICANT CHANGE IN DEPRESSIVE SYMPTOMS TO CLINICAL PROVIDER FOR EARLY INTERVENTION. [code = SKILLED NURSE FOR O/A AND SKILLED TEACHING RELATED TO MANAGEMENT OF DEPRESSIVE SYMPTOMS AND/OR DEPRESSION INCLUDING PARTICIPATION IN [facility]. SN TO REPORT SIGNIFICANT CHANGE IN DEPRESSIVE SYMPTOMS TO CLINICAL PROVIDER FOR EARLY INTERVENTION.] Future Scheduled Test SKILLED NU RSE FOR O/A OF PATIENT'S RISK FOR VIOLENCE (TOWARD SELF OR OTHERS) AND TO PROVIDE INTERVENTION TECHNIQUES TO PROMOTE SAFETY TO PATIENT AND OTHERS [code = SKILLED NURSE FOR O/A OF PATIENT'S RISK FOR VIOLENCE (TOWARD SELF OR OTHERS) AND TO PROVIDE INTERVENTION TECHNIQUES TO PROMOTE SAFETY TO PATIENT AND OTHERS] Future Scheduled Test SKILLED NU RSE FOR O/A OF SIGNS AND SYMPTOMS OF SUBSTANCE USE INCLUDING PARTICIPATION IN [facility] SPECIAL[facility] PROGRAM. INSTRUCT PATIENT ON RELATED RISKS AND WILL NOTIFY TREATMENT TEAM NEEDED. [code = SKILLED NURSE FOR O/A OF SIGNS AND SYMPTOMS OF SUBSTANCE USE INCLUDING PARTICIPATION IN [facility] SPECIAL[facility] PROGRAM. INSTRUCT PATIENT ON RELATED RISKS AND WILL NOTIFY TREATMENT TEAM NEEDED.] Future Scheduled Test SKILLED NU RSE FOR O/A OF SIGNS AND SYMPTOMS OF SUBSTANCE USE INCLUDING PARTICIPATION IN [facility] PROGRAM. NURSE TO COLLABORATE WITH PATIENT AND COMMUNITY PROVIDERS IN THE DEVELOPMENT AND IMPLEMENTATION OF A TARGETED RECOVERY PLAN. [code = SKILLED NURSE FOR O/A OF SIGNS AND SYMPTOMS OF SUBSTANCE USE INCLUDING PARTICIPATION IN [facility] SPECIAL[facility] PROGRAM. NURSE TO COLLABORATE WITH PATIENT AND COMMUNITY PROVIDERS IN THE DEVELOPMENT AND IMPLEMENTATION OF A TARGETED RECOVERY PLAN.] Future Scheduled Test SKILLED NU RSE FOR O/A AND SKILLED TEACHING OF COPING SKILLS TO MANAGE ANXIETY AND MAINTAIN SAFETY INCLUDING PARTICIPATION IN [facility]. [code = SKILLED NURSE FOR O/A AND SKILLED TEACHING OF COPING SKILLS TO MANAGE ANXIETY AND MAINTAIN SAFETY INCLUDING PARTICIPATION IN [facility].] Future Scheduled Test SKILLED NU RSE FOR O/A OF NEUROCOGNITIVE AND BEHAVIORAL STATUS [code = SKILLED NURSE FOR O/A OF NEUROCOGNITIVE AND BEHAVIORAL STATUS] Future Scheduled Test SKILLED NU RSE FOR O/A OF ALTERED MOOD [code = SKILLED NURSE FOR O/A OF ALTERED MOOD] Future Scheduled Test SKILLED NU RSE FOR OBSERVATION AND ASSESSMENT OF PATIENTS PAIN LEVEL AND EFFECTIVENESS OF PAIN MANAGEMENT REGIMEN. SKILLED NURSE TO INSTRUCT PATIENT/CAREGIVER REGARDING PHARMACOLOGIC AND NON-PHARMACOLOGIC PAIN CONTROL MEASURES. SKILLED NURSE TO REPORT TO PHYSICIAN IF PAIN IS UNCONTROLLED WITH CURRENT PAIN MANAGEMENT REGIMEN. [code = SKILLED NURSE FOR OBSERVATION AND ASSESSMENT OF PATIENTS PAIN LEVEL AND EFFECTIVENESS OF PAIN MANAGEMENT REGIMEN. SKILLED NURSE TO INSTRUCT PATIENT/CAREGIVER REGARDING PHARMACOLOGIC AND NON-PHARMACOLOGIC PAIN CONTROL MEASURES. SKILLED NURSE TO REPORT TO PHYSICIAN IF PAIN IS UNCONTROLLED WITH CURRENT PAIN MANAGEMENT REGIMEN.] Future Scheduled Test SKILLED NU RSE TO PROVIDE INSTRUCTION ON FALL PREVENTION MEASURES. [code = SKILLED NURSE TO PROVIDE INSTRUCTION ON FALL PREVENTION MEASURES.] Future Scheduled Test SKILLED NU RSE MAY PICKUP AND TRANSPORT MEDICATIONS [code = SKILLED NURSE MAY PICKUP AND TRANSPORT MEDICATIONS] Goal 2022-12-07 Patient Goal - TAKING MY MED S Goal 2023-02-06 Patient Goal - TAKING MY MED S Goal 2023-03-10 Patient Goal - TAKING MY MED S Goal Provider Goal - A PLAN OF CARE WILL BE ESTABLISHED THAT MEETS PATIENT'S INTERMEDIATE NEEDS AND INCLUDES PATIENT GOAL FOR HOME HEALTH. Goal Provider Goal - ALTERED MENTAL/BEHAVIORAL STATUS WILL BE IDENTIFIED PROMPTLY AND INTERVENTION INITIATED QUICKLY TO MINIMIZE ASSOCIATED RISKS Goal Provider Goal - CHANGE IN GENERAL HEALTH STATUS WILL BE IDENTIFIED AND REPORTED TO PHYSICIAN FOR PROMPT INTERVENTION TO MINIMIZE ASSOCIATED RISKS THROUGHOUT CERTIFICATION PERIOD. Goal Provider Goal - PATIENT WILL COMPLY WITH MEDICATION WHEN SKILLED NURSE ADMINISTERS AND PRE-POURS MEDICATION. Goal Provider Goal - Goal Provider Goal - PATIENT WILL REMAIN SAFE WITHOUT DECOMPENSATION IN DEPRESSIVE CONDITION, WHILE MAINTAINING OPTIMAL LEVEL OF MENTAL HEALTH AND WELL BEING. Goal Provider Goal - PATIENT WILL REMAIN SAFE IN COMMUNITY WITHOUT EVIDENCE OF INJURY/HARM TO SELF OR OTHERS Goal Provider Goal - PATIENT WILL REMAIN SAFE IN COMMUNITY AND WILL ACKNOWLEDGE RELATED RISKS OF SUBSTANCE USE. Goal Provider Goal - PATIENT WILL ACTIVELY PARTICTPATE IN AN ONGOING TARGETED RECOVERY PLAN Goal Provider Goal - PATIENT WILL BE ABLE TO PERFORM DAILY FUNCTIONS AND HAVE OPTIMAL IMPROVEMENT IN LEVEL OF ANXIETY Goal Provider Goal - PATIENT WILL BE ABLE TO PERFORM DAILY FUNCTIONS AND MAINTAIN OPTIMAL BEHAVIORAL/NEUROCOGNITIVE STATUS. Goal Provider Goal - PATIENT WILL BE ABLE TO PERFORM DAILY FUNCTIONS AND HAVE OPTIMAL IMPROVEMENT IN MOOD STABILITY. Goal Provider Goal - INCREASED PAIN OR INEFFECTIVE PAIN CONTROL MEASURES WILL BE IDENTIFIED AND PROMPTLY REPORTED TO PHYSICIAN THROUGHOUT THE CERTIFICATION PERIOD. Goal Provider Goal - PATIENT/CAREGIVER DEMONSTRATES UNDERSTANDING OF FALL PREVENTION MEASURES BY THE END OF THE CERTIFICATION PERIOD. Reason for Visit INDEPENDENT WITH USE OF ASSISTIVE DEVICE Encounters Start Date/Time End Date/Time Encounter Type Admission Type Attending [facility] Care Facility Care Department Encounter ID Discharge Date Discharge Status Discharge Condition Discharge Reason Percent Goals Met 2022-10-12 00:00:00 2023-03-10 00:00:00 Outpatient RECERTIFIC ATSOF[facility] [id number] 0926-04-14 00:00:00 DISCHARGED /TRANSFERR ED TO A HOME UNDER CARE OF ORGANIZED HOME HEALTH SERVICE ORGANIZATI ON IN ANTICIPATI ON OF COVERED SKILLED CARE INDEPENDEN T WITH USE OF ASSISTIVE DEVICE TRANSFER TO ANOTHER [facility] ( ONLY) 7.89
[2024-11-21 16:01] LABS: MANUAL DIFF FLAG NO
[2024-11-21 16:09] LABS: Basophils Percent Auto 0.4 % (0-2); Hematocrit 28.7 % (42.0-52.0); Hemoglobin 9.1 g/dl (14.0-18.0); Mean Corpuscular HGB Conc 31.7 g/dl (31.0-36.0); SCAN SMEAR FLAG 1
[2024-11-21 16:10] LABS: Basophils Percent Auto 0.8 % (0-2); Eosinophils Absolute Auto 0.1 X10*3/uL (0.0-0.4); Eosinophils Percent Auto 3.5 % (0-4); Hematocrit 28.9 % (42.0-52.0); Lymphocytes Absolute Auto 0.7 X10*3/uL (1.2-4.9); Lymphocytes Percent Auto 27.5 % (20-40); Mean Corpuscular HGB Conc 31.1 g/dl (31.0-36.0); Mean Corpuscular Hemoglobin 26.8 pg (27.0-33.0); Mean Platelet Volume 12.3 fL (9.4-12.4); Monocytes Absolute Auto 0.4 X10*3/uL (0.1-1.2); Monocytes Percent Auto 14.7 % (2-11); Neutrophils Absolute Auto 1.4 x10*3/uL (2.0-8.3); Neutrophils Percent Auto 53.5 % (45-73); Platelet Count 103 X10*3/uL (160-400); Red Blood Count 3.36 X10*6/uL (4.60-5.80); Red Cell Distribution Width 16.3 % (11.0-16.0); White Blood Count 2.6 X10*3/uL (4.8-10.8)
[2024-11-21 16:12] LABS: Eosinophils Absolute Auto 0.1 X10*3/uL (0.0-0.4); Eosinophils Percent Auto 3.1 % (0-4); Lymphocytes Absolute Auto 0.7 X10*3/uL (1.2-4.9); Lymphocytes Percent Auto 26.8 % (20-40); Mean Corpuscular Hemoglobin 27.3 pg (27.0-33.0); Mean Corpuscular Volume 86.2 fL (80.0-98.0); Monocytes Absolute Auto 0.4 X10*3/uL (0.1-1.2); Monocytes Percent Auto 14.2 % (2-11); Neutrophils Absolute Auto 1.5 x10*3/uL (2.0-8.3); Neutrophils Percent Auto 55.5 % (45-73); Red Blood Count 3.33 X10*6/uL (4.60-5.80); Red Cell Distribution Width 16.3 % (11.0-16.0); White Blood Count 2.6 X10*3/uL (4.8-10.8)
[2024-11-21 16:33] LABS: PLT ABN DIST 1; Platelet Count 92 X10*3/uL (160-400)
[2024-11-21 16:41] LABS: Alanine Aminotransferase 32 U/L (0-40); Anion Gap 9 (12-20); Aspartate Amino Transferase 52 U/L (5-37); Bilirubin Total 0.5 mg/dL (0.0-1.0); Blood Urea Nitrogen 23 mg/dL (9-16); Calcium 8.3 mg/dL (8.4-10.2); Carbon Dioxide 28 mmol/L (22-29); Chloride 105 mmol/L (96-108); Cholesterol 124 mg/dL (<200); Estimated Glomerular Filt Rate > 60; Glucose Random 101 mg/dL (60-115); HDL Cholesterol 24 mg/dL (>40); LDL Cholesterol Calculated 66 mg/dL (<100); Potassium 4.2 mmol/L (3.3-5.1); Sodium 138 mmol/L (135-145); Total Protein 7.9 g/dL (6.5-8.0); Triglycerides 174 mg/dL (<150)
[2024-11-21 17:00] LABS: Alkaline Phosphatase 158 U/L (39-117)
[2024-11-21 17:40] LABS: Reflex LDLD? No
[2024-11-22 08:30] LABS: ~Hepatitis C Antibody Reactive (Nonreactive)
[2024-11-22 12:18] LABS: RPR Rapid Plasma Reagin NON-REACTIVE (NON-REACTIVE)
[2024-11-22 12:33] LABS: HIV RNA PCR Qn Copies NOT DETECTED copies/mL (NOT DETECTED); HIV RNA PCR Qn Log Copies NOT DETECTED (NOT DETECTED)
[2024-11-23 12:27] LABS: Absolute CD3 Count 413 cells/uL (840-3060); Absolute CD4 Count 176 cells/uL (490-1740); Absolute CD8 Count 232 cells/uL (180-1170); Absolute Lymphocytes 604 cells/uL (850-3900); CD4 CD8 Ratio 0.76 (0.86-5.00); Percent CD3 Cells 68 % (57-85); Percent CD4 Cells 29 % (30-61); Percent CD8 Cells 38 % (12-42)
[2024-11-25 14:18] LABS: HCV Log PCR <1.18 NOT DETECTED Log IU/mL (NOT DETECTED); HepC Viral Load <15 NOT DETECTED IU/mL (NOT DETECTED)
== END 2024-11-21 14:12 | disposition home or self-care (01) ==
LOC: HO.HHCL 14:11
PROVIDERS: Nurse Practitioner Primary Care; Visit Provider Internal Medicine
DX: S06.9X9D Unspecified intracranial injury with loss of consciousness of unspecified duration, subsequent encounter (principal); B20 Human immunodeficiency virus [HIV] disease
CPT/HCPCS: 36415; 80053; 80061; 85025; 86359; 86360; 86592; 86803; 87522; 87536

== ENCOUNTER 2025-05-07 11:05 | Outpatient (REF) | payer MEDICAID, SELFPAY ==
[2025-05-07 13:49] LABS: Basophils Percent Auto 0.5 % (0-2); Eosinophils Absolute Auto 0.1 X10*3/uL (0.0-0.4); Eosinophils Percent Auto 2.4 % (0-4); Hematocrit 30.3 % (42.0-52.0); Hemoglobin 9.2 g/dl (14.0-18.0); Lymphocytes Absolute Auto 0.8 X10*3/uL (1.2-4.9); Lymphocytes Percent Auto 39.5 % (20-40); Mean Corpuscular HGB Conc 30.4 g/dl (31.0-36.0); Mean Corpuscular Hemoglobin 27.7 pg (27.0-33.0); Mean Corpuscular Volume 91.3 fL (80.0-98.0); Monocytes Absolute Auto 0.3 X10*3/uL (0.1-1.2); Monocytes Percent Auto 12.4 % (2-11); Neutrophils Percent Auto 45.2 % (45-73); Red Blood Count 3.32 X10*6/uL (4.60-5.80); Red Cell Distribution Width 16.5 % (11.0-16.0); SCAN SMEAR FLAG 1
[2025-05-07 13:50] LABS: Platelet Count 97 X10*3/uL (160-400); White Blood Count 2.1 X10*3/uL (4.8-10.8)
[2025-05-07 13:51] LABS: MANUAL DIFF FLAG SCAN
[2025-05-07 14:10] LABS: Alanine Aminotransferase 20 U/L (0-40); Alkaline Phosphatase 152 U/L (39-117); Anion Gap 8 (12-20); Aspartate Amino Transferase 50 U/L (5-37); Bilirubin Total 0.2 mg/dL (0.0-1.0); Blood Urea Nitrogen 13 mg/dL (9-16); Calcium 8.5 mg/dL (8.4-10.2); Carbon Dioxide 28 mmol/L (22-29); Chloride 103 mmol/L (96-108); Estimated Glomerular Filt Rate > 60; Glucose Random 102 mg/dL (60-115); Sodium 135 mmol/L (135-145); Total Protein 8.1 g/dL (6.5-8.0)
[2025-05-07 14:31] LABS: SLIDE REVIEW VERIFIED
[2025-05-07 15:27] LABS: CT PCR NOT DETECTED (Not Detect.); NG PCR NOT DETECTED (Not Detect.)
[2025-05-08 15:43] LABS: HIV RNA PCR Qn Copies 124 copies/mL (NOT DETECTED); HIV RNA PCR Qn Log Copies 2.09 (NOT DETECTED)
[2025-05-10 02:29] LABS: TS Negative Control Passed; TS Panel A 0; TS Panel B 0; TS Positive Control Passed; TSpotTB Negative (Negative)
[2025-05-10 05:57] LABS: Absolute CD3 Count 520 cells/uL (840-3060); Absolute CD4 Count 169 cells/uL (490-1740); Absolute CD8 Count 347 cells/uL (180-1170); Absolute Lymphocytes 693 cells/uL (850-3900); CD4 CD8 Ratio 0.49 (0.86-5.00); Percent CD3 Cells 75 % (57-85); Percent CD4 Cells 24 % (30-61); Percent CD8 Cells 50 % (12-42)
== END 2025-05-07 11:06 | disposition home or self-care (01) ==
LOC: HO.HHCL 11:05
PROVIDERS: Visit Provider Internal Medicine
DX: B20 Human immunodeficiency virus [HIV] disease (principal)
CPT/HCPCS: 80053; 85025; 86359; 86360; 86481; 87491; 87536; 87591

== ENCOUNTER 2025-07-29 23:19 | Emergency (ER) | payer MEDICARE, MEDICAID, SELFPAY ==
--- NOTE | ~2025-07-29 | CT_ITS ---
CLINICAL HISTORY: trauma CT head without contrast Comparison: CT/SR - CT HEAD/BRAIN WO IV CON - 08/17/24 23:43 EDT Findings: No intra-axial mass, midline shift, hydrocephalus, or acute hemorrhage. Right occipital and parietal encephalomalacia is present. Nonspecific white matter hypodensities are present with moderate volume loss. The visualized paranasal sinuses and mastoid air cells are normal. The orbits are within normal limits. There is no acute fracture. IMPRESSION: 1. No acute intracranial findings. This document has been electronically signed by: Arnel De La Cruz MD, PHD on 07/30/2025 03:51:11
--- NOTE | ~2025-07-29 | XR_ITS ---
CLINICAL HISTORY: Pain RUQ 1 view chest x-ray Comparison: CR/SR - XR CHEST 1 VIEW - 08/17/24 23:47 EDT Findings: The lungs are clear. Mild enlargement of the cardiac silhouette. No acute fracture. IMPRESSION: 1. No acute findings. This document has been electronically signed by: Arnel De La Cruz MD, PHD on 07/30/2025 05:11:13
--- NOTE | ~2025-07-29 | CT_ITS ---
CLINICAL HISTORY: trauma CT cervical spine without contrast Comparison: CT/SR - CT CERVICAL SPINE WITHOUT IV CONTRAST - 08/17/24 23:43 EDT Findings: There is straightening of the normal cervical lordosis. Moderate multilevel degenerative changes are present. No acute fractures or dislocations. No acute findings on limited view of the intracranial contents. No cervical fluid collections or masses. No consolidation or effusion at the lung apices. 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 Atherosclerotic carotid bulb calcifications are present. IMPRESSION: No acute findings. This document has been electronically signed by: Arnel De La Cruz MD, PHD on 07/30/2025 03:47:25
[2025-07-29 23:38] VITALS: BP 140/82; BP 162/87; PULSE 71; PULSE 72; RESP 25; TEMP 36.8; O2SAT 95; O2SAT 99; BMI 19.7
--- NOTE | 2025-07-29 23:39 | ECG_ITS ---
Test Reason : FALL Blood Pressure : */* mmHG Vent. Rate : 69 BPM Atrial Rate : 69 BPM P-R Int : 192 ms QRS Dur : 88 ms QT Int : 456 ms P-R-T Axes : 63 25 73 degrees QTcB Int : 488 ms Normal sinus rhythm Prolonged QT Abnormal ECG When compared with ECG of 15-Feb-2023 11:31, No significant change was found Referred By: Generic ED Physician Electronically Signed By: Octavio Salinas
--- NOTE | 2025-07-29 23:53 | PC.NURSE ---
PT comes in for AMS found trying to open apartment doors. HX of seizures and LULI Labs ordered, ekg ordered and complete. PT in spinal immobilization. Awaiting to be seen
[2025-07-30 00:32] LABS: MANUAL DIFF FLAG NO
[2025-07-30 00:34] LABS: Hematocrit 27.3 % (42.0-52.0); Hemoglobin 9.3 g/dl (14.0-18.0); Imm Gran Abs Auto 0.02 X10*3/uL (0.00-0.03); Imm Gran Pct Auto 0.6 % (0.0-0.4); Lymphocytes Absolute Auto 0.5 X10*3/uL (1.2-4.9); Mean Corpuscular HGB Conc 34.1 g/dl (31.0-36.0); Mean Corpuscular Hemoglobin 29.2 pg (27.0-33.0); Mean Corpuscular Volume 85.8 fL (80.0-98.0); NRBC Abs Auto 0.000 X10*3/uL (0.0-0.012); NRBC Pct Auto 0.0 /100WBC (0.0-0.2); Platelet Count 74 X10*3/uL (160-400); Red Blood Count 3.18 X10*6/uL (4.60-5.80); White Blood Count 3.4 X10*3/uL (4.8-10.8)
[2025-07-30 00:38] LABS: INTERNATIONAL NORM RATIO 1.2 (0.9-1.1); Prothrombin Time 14.1 SEC (10.9-12.4)
[2025-07-30 00:46] LABS: Alanine Aminotransferase 26 U/L (0-40); Albumin Level 2.9 g/dL (3.5-5.0); Alkaline Phosphatase 132 U/L (39-117); Anion Gap 11 (12-20); Aspartate Amino Transferase 82 U/L (5-37); Blood Urea Nitrogen 13 mg/dL (9-16); Calcium 8.3 mg/dL (8.4-10.2); Carbon Dioxide 24 mmol/L (22-29); Chloride 105 mmol/L (96-108); Creatinine Clr Calc Pharmacy 73.3; Estimated Glomerular Filt Rate > 60; Lipase 18 U/L (8-78); Magnesium 1.9 mg/dL (1.6-2.6); Potassium 3.3 mmol/L (3.3-5.1); Sodium 137 mmol/L (135-145); Total Protein 7.7 g/dL (6.5-8.0)
[2025-07-30 00:53] LABS: Troponin-I High Sensitivity 10.8 ng/L (<3.5-35.0)
--- NOTE | 2025-07-30 01:24 | ED.GENADULT ---
HPI - General Adult General Chief complaint: Altered Mental Status Stated complaint: seizure hx of sz, fell,c-collar,knocking on doors Time Seen by Provider: 07/30/25 01:23 Source: patient and EMS Limitations: language barrier and other (intoxicated) History of Present Illness ED Provider: Elizabeth Garnica PA-C HPI narrative: 65-year-old male with a history of polysubstance abuse, seizure disorder on Keppra, prior TBI, hepatitis-B, hepatitis-C, HIV presents with concern for intoxication. Patient was found by [place] police [employer] attempting to break in to someone else's apartment. Patient states he fell earlier today. History limited as patient not wanting to engage in conversation so as to obtain detailed history. Related Data Home Medications ?Medication ?Instructions ?Recorded ?Confirmed albuterol sulfate 90 mcg/actuation 2 puff inhalation Q6H PRN 09/19/22 02/15/23 aerosol inhaler (ProAir HFA) Shortness Of Breath hydrocortisone 1 % topical cream 1 appl topical BID 09/19/22 02/15/23 methadone 10 mg/mL oral concentrate 60 mg PO DAILY 09/20/22 09/20/22 atovaquone 750 mg/5 mL oral 5 ml PO DAILY 02/15/23 02/15/23 suspension bictegravir 50 mg-emtricitabine 1 tab PO BEDTIME 02/15/23 02/15/23 200 mg-tenofovir alafenam 25 mg tablet (Biktarvy) cetirizine 10 mg tablet 1 tab PO DAILY 02/15/23 02/15/23 docusate sodium 100 mg capsule 1 cap PO BID PRN constipation 02/15/23 02/15/23 mirtazapine 7.5 mg tablet 1 tab PO BEDTIME 02/15/23 02/15/23 famotidine 20 mg tablet 20 mg PO 01/03/24 furosemide 20 mg tablet 20 mg PO QAM 01/03/24 multivitamin 1 tab PO QAM 01/03/24 mupirocin 2 % topical ointment topical TID 01/03/24 nicotine (polacrilex) 2 mg buccal 2 mg PO Q2H PRN 01/03/24 lozenge nicotine (polacrilex) 2 mg gum 2 mg PO 01/03/24 quetiapine 50 mg tablet 50 mg PO BEDTIME 01/03/24 sertraline 50 mg tablet 50 mg PO QAM 01/03/24 Previous Rx's ?Medication ?Instructions ?Recorded levetiracetam 500 mg tablet 500 mg PO BID #60 tabs 02/18/23 benzonatate 200 mg capsule 200 mg PO TID PRN cough #20 caps 04/27/23 bisacodyl 5 mg tablet,delayed 10 mg (2 x 5 mg) PO BEDTIME 2 days 01/03/24 release (Dulcolax (bisacodyl)) #4 tabs peg 3350-electrolytes 236 240 ml PO Q10M 1 day #4,000 mL 01/03/24 gram-22.74 gram-6.74 gram-5.86 gram solution (Golytely) bisacodyl 5 mg tablet,delayed 20 mg (4 x 5 mg) PO ONCE 1 day #4 04/15/24 release (Dulcolax (bisacodyl)) tabs peg 3350-electrolytes 236 240 ml PO Q10M #4,000 mL 04/15/24 gram-22.74 gram-6.74 gram-5.86 gram solution Allergies Allergy/AdvReac Type Severity Reaction Status Date / Time No Known Allergies (No Known Allergy Verified 07/29/25 23:45 Allergies*) Review of Systems Review of Systems: Unable to obtain Yes all other systems are reviewed and are negative [facility] Past Medical History Attestation statement: The following information was validated with the patient. Medical History Pneumonia Seizure COVID-19 Depression with anxiety Polysubstance abuse Substance abuse Hepatitis HIV disease Alcoholism Asthma Surgical History History of skin surgery Social History Social History Household Members: Unknown / Unable to assess Housing: Unknown / Unable to assess Unable to assess alcohol history related to: Unknown Alcohol intake: current Alcohol intake frequency: a few times a week Alcohol type: hard liquor Comment: 1to 1 sitter Patient Tobacco Use Status: Refuse Tobacco use screen Use of substances other than those prescribed or required for medical reasons: Yes Substance Use Type: Heroin Advance Directives: No Advance Directives Information Provided: Yes service: No Current occupational status: unemployed and disabled Physical Exam ED Vital Signs: Vital Signs - 24 hr 07/29/25 23:38 07/30/25 04:00 07/30/25 06:00 Temperature 98.2 F 98.2 F Pulse Rate 72 66 59 Respiratory Rate 25 H 16 18 Blood Pressure 140/82 H 150/80 H 159/84 H Pulse Oximetry 95 98 98 Oxygen Delivery Method Room Air Room Air 07/30/25 08:00 07/30/25 09:59 Temperature 97.7 F 0 F L Pulse Rate 69 80 Respiratory Rate 14 16 Blood Pressure 152/78 H 97/73 Pulse Oximetry 99 97 Oxygen Delivery Method Room Air Room Air BMI result Body Mass Index 19.7 Const Other: Sleeping, we will, verbal stimuli, pulling the covers over his head, not wanting to engage in conversation Orientation/consciousness: patient oriented x3 Eyes Other: Pinpoint pupils Resp Effort & Inspection: normal respiratory effort Cardio Other: Normal peripheral perfusion Skin Other: Warm dry no rash Neuro General: patient oriented x3, gait normal, no focal motor deficits and CN's II-XI intact bilaterally Psych Other: Uncooperative Medications Administered Discontinued Medications Generic Name Dose Route Start Last Admin Trade Name Freq PRN Reason Stop Dose Admin Naloxone HCl 8 mg 07/30/25 09:45 07/30/25 09:56 Naloxone Hcl Nasal Take Home 4 Mg [place] NOSTRILALT 07/30/25 09:46 8 mg ONCE ONE Administration Medical Decision Making Medical Decision Making [facility] Narrative: 65-year-old male with a history of polysubstance abuse, seizure disorder on Keppra, prior TBI, hepatitis-B, hepatitis-C, HIV presents with concern for intoxication. Patient was found by [place] police [employer] attempting to break in to someone else's apartment. Patient states he fell earlier today. History limited as patient not wanting to engage in conversation so as to obtain detailed history. Problem: Polysubstance abuse, seizure disorder, hep B, hep C, HIV History: Primarily via EMS I have considered the following differential diagnoses: Intracranial hemorrhage, cervical spine injury, rib fracture, alcohol/drug intoxication Plan: On exam, the patient appears intoxicated, his pupils are pinpoint. He is neurologically intact, not actively vomiting, to suggest intracranial hemorrhage. He is not a reliable historian, we will be scanning his head and neck. Adding a chest x-ray as well, he is complaining of right lower rib pain. We will screen basic labs in the event the patient did sustain an acute injury and requires intervention. I have independently reviewed the following tests: Labs: Stable pancytopenia, no electrolyte abnormality, U tox positive for opiates, fentanyl, cocaine ethanol less than 10 Chest x-ray: Findings: The lungs are clear. Mild enlargement of the cardiac silhouette. No acute fracture. IMPRESSION: 1. No acute findings. CT brain:Findings: No intra-axial mass, midline shift, hydrocephalus, or acute hemorrhage. Right occipital and parietal encephalomalacia is present. Nonspecific white matter hypodensities are present with moderate volume loss. The visualized paranasal sinuses and mastoid air cells are normal. The orbits are within normal limits. There is no acute fracture. IMPRESSION: 1. No acute intracranial findings. CT cervical spine:indings: There is straightening of the normal cervical lordosis. Moderate multilevel degenerative changes are present. No acute fractures or dislocations. No acute findings on limited view of the intracranial contents. No cervical fluid collections or masses. No consolidation or effusion at the lung apices. 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 Atherosclerotic carotid bulb calcifications are present. IMPRESSION: No acute findings. Time: 09:41 Date: 07/30/25 Provider: Rojelio Gamboa MD I assumed care of this patient from my colleague, Dr. Norton at 07:00 hours. The patient presented with altered mental status. CT scan of the head and spine did not reveal any acute abnormalities. Patient's drug screen was positive for fentanyl, cocaine and THC (marijuana). Patient admits to using intranasal drugs. He states he does have intranasal Narcan at home and is amenable to taking another dose pack home. I told him that if he is going to use street drugs that he should make sure that there is a sober person your hand that has a intranasal Narcan you can save his life if he passes out and stops breathing. Patient does not want to be evaluated by the recovery team. He denies being suicidal or homicidal.. Differential Diagnosis Differential Diagnoses: The differential diagnosis associated with the presentation includes See medical decision-making Admission/Observation Consideration of admission/observation: Escalation of care including admission/observation considered Not applicable Lab Data MDM Lab Attestation statement: I reviewed the patient's lab results. 07/30/25 00:28 07/30/25 00:28 Labs: Lab Results 07/30/25 07/30/25 Range/Units 00:28 04:56 WBC 3.4 L (4.8-10.8) X10*3/uL RBC 3.18 L (4.60-5.80) X10*6/uL Hgb 9.3 L (14.0-18.0) g/dl Hct 27.3 L (42.0-52.0) % MCV 85.8 (80.0-98.0) fL MCH 29.2 (27.0-33.0) pg MCHC 34.1 (31.0-36.0) g/dl RDW 14.9 (11.0-16.0) % Plt Count 74 L (160-400) X10*3/uL MPV 11.9 (9.4-12.4) fL Immature Gran % (Auto) 0.6 H (0.0-0.4) % Neut % (Auto) 69.2 (45-73) % Lymph % (Auto) 16.0 L (20-40) % [place] % (Auto) 13.9 H (2-11) % Eos % (Auto) 0.3 (0-4) % Baso % (Auto) 0.0 (0-2) % Lymph # (Auto) 0.5 L (1.2-4.9) X10*3/uL [place] # (Auto) 0.5 (0.1-1.2) X10*3/uL Eos # (Auto) 0.0 (0.0-0.4) X10*3/uL Baso # (Auto) 0.0 (0.0-0.2) X10*3/uL Abs Immat Gran (auto) 0.02 (0.00-0.03) X10*3/uL Absolute Neuts (auto) 2.3 (2.0-8.3) x10*3/uL Absolute Nucleated RBC 0.000 (0.0-0.012) X10*3/uL Nucleated RBC % (auto) 0.0 (0.0-0.2) /100WBC PT 14.1 H (10.9-12.4) SEC INR 1.2 H (0.9-1.1) Sodium 137 (135-145) mmol/L Potassium 3.3 (3.3-5.1) mmol/L Chloride 105 (96-108) mmol/L Carbon Dioxide 24 (22-29) mmol/L Anion Gap 11 L (12-20) BUN 13 (9-16) mg/dL Creatinine 0.74 (0.5-1.4) mg/dL Estim Creat Clear Calc 73.3 Estimated GFR > 60 Random Glucose 107 (60-115) mg/dL Calcium 8.3 L (8.4-10.2) mg/dL Magnesium 1.9 (1.6-2.6) mg/dL Total Bilirubin 0.6 (0.0-1.0) mg/dL AST 82 H (5-37) U/L ALT 26 (0-40) U/L Alkaline Phosphatase 132 H (39-117) U/L Troponin I High Sens 10.8 D (<3.5-35.0) ng/L Total Protein 7.7 (6.5-8.0) g/dL Albumin 2.9 L (3.5-5.0) g/dL Lipase 18 (8-78) U/L Urine Color Red A Urine Appearance Hazy Urine pH 8.5 (5.0-9.0) Ur Specific [place] 1.015 (1.005-1.025) Urine Protein 30 (1+) H (Neg-Trace) mg/dL Urine Glucose (UA) Negative (Negative) mg/dL Urine Ketones Negative (Negative) mg/dL Urine Blood Large (3+) H (Negative) Urine Nitrite Negative (Negative) Ur Leukocyte Esterase Negative (Negative) Urine RBC >20 H (0-2) /HPF Urine WBC 0-5 (0-5) /HPF Ur Squamous Epith Cells 0-2 (0-2) /HPF Urine Bacteria None Seen (None Seen) Hyaline Casts 0-2 (0-2) /LPF Urine Opiates Screen POSITIVE H (Not Detect) Ur Buprenorphine Scrn Not Detected (Not Detect) ng/mL Ur Oxycodone Screen Not Detected (Not Detect) ng/mL Urine Methadone Screen Not Detected (Not Detect) ng/mL Urine Fentanyl Screen POSITIVE H (Not Detect) Ur Barbiturates Screen Not Detected (Not Detect) Ur Phencyclidine Scrn Not Detected (Not Detect) Ur Amphetamines Screen Not Detected (Not Detect) U Benzodiazepines Scrn Not Detected (Not Detect) Urine Cocaine Screen POSITIVE H (Not Detect) U Marijuana (THC) Screen Not Detected (Not Detect) Ethyl Alcohol < 10 mg/dL Radiology Impression Discussion of test interpretation with radiology: I have reviewed the radiologist's reading. Chronic Conditions Patient?s care impacted by: Other (Polysubstance use disorder) Discharge Plan Discharge Clinical Impression: Fall at home, Polysubstance abuse Patient Disposition: Home, Self-Care Instructions: Polysubstance Use Disorder (ED) Additional Instructions: CT scan of your brain and cervical spine were normal. The chest x-ray was normal. You sustained contusions. Follow up with primary care as needed. Your urine tox screen was positive for fentanyl, cocaine and marijuana. Your are being discharged home with intranasal Narcan. If you are going to continue to use heroin, you should make sure that there is a sober person with you that is not using drugs and that this person can administer intranasal Narcan in the event that you stop breathing. Opiate use disorder You were seen in our Emergency Department today for treatment of opiate use disorder. You may have been dosed with medication for opiate use disorder (MOUD) in the form of suboxone or methadone. You also may have been given naloxone (narcan) to take home with you. This medication is used to potentially treat opiate overdose. If you decide you want to stop or cut down on how much you?re using, you can call or walk into our outpatient Addiction Treatment office: [facility] (M-F 9am-5p) [address] [place] [address], [phone] You may have been provided with safer injection?items, please take time to take care of YOU and your health. Use new supplies whenever possible to lessen the chances of infections and other illnesses.? ?If you need more supplies, please go [facility],? [address] [place] [address] OR you can call or text to coordinate delivery of safer supplies. You were also provided a list of several treatment providers in the area.? If you experience any worsening symptoms you cannot control please return to the ED or call 911. Please follow up at your next appointment. Things to look out for are fevers, chest pain, shortness of breath, severe pain, dizziness, fainting or any other concerns. Prescriptions: No Action peg 3350-electrolytes 236-22.74-6.74 -5.86 gram recon soln 240 ml PO Q10M Qty: 4000 0RF Rx Instructions: Refer to prep instructions given/ mailed to you from GI OFFICE. until fecal effluent is clear bisacodyl [Dulcolax (bisacodyl)] 5 mg tablet,delayed release (DR/EC) 20 mg PO ONCE 1 Days Qty: 4 0RF Rx Instructions: take at noon the day before colonoscopy hydrocortisone 1 % cream 1 appl topical BID albuterol sulfate [ProAir HFA] 90 mcg/actuation HFA aerosol inhaler 2 puff INHALATION Q6H MDD 4 PRN (Reason: Shortness Of Breath) methadone 10 mg/mL Concentrate 60 mg PO DAILY Rx Instructions: CALLED [facility] AND VERIFIED DOSE cetirizine 10 mg tablet 1 tab PO DAILY docusate sodium 100 mg capsule 1 cap PO BID PRN (Reason: constipation) atovaquone 750 mg/5 mL suspension 5 ml PO DAILY mirtazapine 7.5 mg tablet 1 tab PO BEDTIME Biktarvy 50-200-25 mg tablet 1 tab PO BEDTIME levetiracetam 500 mg Tablet 500 mg PO BID Qty: 60 2RF quetiapine 50 mg tablet 50 mg PO BEDTIME benzonatate 200 mg capsule 200 mg PO TID PRN (Reason: cough) Qty: 20 0RF nicotine (polacrilex) 2 mg gum 2 mg PO nicotine (polacrilex) 2 mg lozenge 2 mg PO Q2H PRN multivitamin Tablet 1 tab PO QAM famotidine 20 mg tablet 20 mg PO furosemide 20 mg tablet 20 mg PO QAM sertraline 50 mg tablet 50 mg PO QAM mupirocin 2 % ointment topical TID peg 3350-electrolytes [Golytely] 236-22.74-6.74 -5.86 gram recon soln 240 ml PO Q10M 1 Days Qty: 4000 0RF Rx Instructions: until fecal effluent is clear; do not exceed a total volume of 2,000 mL bisacodyl [Dulcolax (bisacodyl)] 5 mg tablet,delayed release (DR/EC) 10 mg PO BEDTIME 2 Days Qty: 4 0RF Interventions: ED Discharge Assessment Last Done: 07/30/25 09:59 Discharge Date/Time: 07/30/25 10:00 Print Language: Italian
[2025-07-30 04:00] VITALS: BP 150/80; PULSE 66; RESP 16; TEMP 36.8; O2SAT 98
[2025-07-30 05:02] LABS: Appearance Urine Hazy; Glucose Urine UA Negative (Negative); PH 8.5 (5.0-9.0); Specific Gravity - Urine 1.015 (1.005-1.025); UMIC TRIGGER UACC YES
[2025-07-30 05:15] LABS: Cannabinoid Screen Urine Not Detected (Not Detect)
[2025-07-30 06:00] VITALS: BP 159/84; PULSE 59; RESP 18; O2SAT 98
[2025-07-30 08:00] VITALS: BP 152/78; PULSE 69; RESP 14; TEMP 36.5; O2SAT 99
--- NOTE | 2025-07-30 08:45 | PC.NURSE ---
Assumed care of patient. Pt is A+Ox1 to self, confused. Pt keeps trying to get up, camera in room with patient. RR even and unlabored, no visible s/s of distress. Pt denies having any pain at this time.
--- NOTE | 2025-07-30 09:16 | PC.NURSE ---
Pt seen with mind reader. Pt denies any pain at this time. Pt knows it's july 2025 but was unsure of day of the week, A+Ox3. Will let provider know. Pt would like to go home.
[2025-07-30] MEDS: Naloxone HCl Nasal TAKE HOME 4 MG SPRAY 8 MG NOSTRILALT (09:56)
[2025-07-30 09:59] VITALS: BP 97/73; PULSE 80; RESP 16; TEMP -17.7; TEMP 0; O2SAT 97
[2025-08-02 01:28] LABS: Levetiracetam Keppra 16.8 mcg/mL (6.0-46.0)
== END 2025-07-30 10:00 | disposition home or self-care (01) ==
PROVIDERS: Physician Assistant Medical; Emergency Provider Emergency Medicine Emergency Medical Services
DX: F11.10 Opioid abuse, uncomplicated (principal); R07.81 Pleurodynia; G40.802 Other epilepsy, not intractable, without status epilepticus; B20 Human immunodeficiency virus [HIV] disease; B19.20 Unspecified viral hepatitis C without hepatic coma; Z79.899 Other long term (current) drug therapy; Z91.81 History of falling
CPT/HCPCS: 36415; 51701; 70450; 71045; 72125; 80053; 80177; 80307; 81001; 81003; 83690; 83735; 84484; 85025; 85610; 93005; 99284; 99285

== ENCOUNTER → 2025-07-29 23:39 | Outpatient (BNV) | payer MEDICARE, MEDICAID, SELFPAY | PROVIDERS: Emergency Provider Emergency Medicine Emergency Medical Services; Visit Provider Internal Medicine Cardiovascular Disease | DX: R94.31 Abnormal electrocardiogram [ECG] [EKG] (principal); Z04.3 Encounter for examination and observation following other accident | CPT/HCPCS: 93010 ==

== ENCOUNTER → 2025-07-30 01:58 | Outpatient (BNV) | payer MEDICAID, SELFPAY | PROVIDERS: Visit Provider General Practice | DX: M50.322 Other cervical disc degeneration at C5-C6 level (principal); R90.82 White matter disease, unspecified; R10.11 Right upper quadrant pain | CPT/HCPCS: 70450; 71045; 72125 ==

== ENCOUNTER 2025-09-05 09:27 | Inpatient (IN) | payer OTHER, SELFPAY ==
[2025-09-05] VITALS (7 sets, daily range): BP systolic 106–142; BP diastolic 61–82; PULSE 62–76; RESP 14–18; TEMP 36.4–37.6; O2SAT 91–98; BMI 21.3; BMI 17.4
--- NOTE | ~2025-09-05 | CT_ITS ---
EXAMINATION: CT HEAD WITHOUT CONTRAST CLINICAL INFORMATION: Fall COMPARISON: CT 07/30/2025 TECHNIQUE: Contiguous axial imaging was performed from the skull base to vertex without intravenous administration of contrast. This CT examination was performed using dose optimization techniques as appropriate, variously including the following: *Automated exposure control *Adjustment of mA and/or kV according to patient size (this includes techniques or standardized protocols for targeted exams where dose is matched to indication/reason for exam; i.e. extremities or head) *Use of iterative reconstruction technique FINDINGS: There is no evidence of acute intracranial hemorrhage or edematous large vessel territorial infarction. Right occipital and parietal encephalomalacia is redemonstrated. No abnormal mass effect or midline shift is seen. Agudelo to white matter differentiation is well preserved. No abnormal extra-axial fluid collections are identified. Commensurate prominence of the ventricles and sulci is compatible with generalized parenchymal volume loss. There is moderate periventricular and subcortical white matter hypoattenuation, most likely representing microangiopathic disease. No acute calvarial fracture.. Mild ethmoid sinus mucosal thickening. Paranasal sinuses otherwise and mastoid air cells are well-aerated. CT/CT head/brain wo IV con IMPRESSION: No CT evidence of acute intracranial hemorrhage or edematous territorial infarction.. Chronic changes as detailed above. Electronically signed by: Yvon Francois MD 09/05/2025 12:45 PM EDT
--- NOTE | ~2025-09-05 | CT_ITS ---
EXAMINATION: CT CHEST WITHOUT CONTRAST CLINICAL INFORMATION: Pneumonia. Dyspnea. Abnormal chest x-ray. COMPARISON: None available. TECHNIQUE: Multidetector volumetric CT imaging of the chest was done. Axial MIP volume rendering provided. Sagittal and coronal reformatted images were obtained. This CT examination was performed using dose optimization techniques as appropriate, variously including the following: *Automated exposure control *Adjustment of mA and/or kV according to patient size (this includes techniques or standardized protocols for targeted exams where dose is matched to indication/reason for exam; i.e. extremities or head) *Use of iterative reconstruction technique FINDINGS: Study is moderately limited by respiratory motion artifact, particularly in the mid aspect of the lungs. This limits the sensitivity of the exam. LUNGS: There are confluent peribronchiolar nodular airspace opacities throughout the inferior right lower lobe, and to lesser degree the left lower lobe, and also in the anterior medial right middle lobe. There is a small focus in the anterior segment of the right upper lobe as well. There is diffuse small airway thickening in keeping with bronchitis/inflammatory airways disease. This is most significant in the lower lobes, and right middle lobe. Findings are consistent with multifocal bronchopneumonia . There is no pleural effusion. The left upper lobe is clear. MEDIASTINUM: Mild to moderate cardiomegaly present, without pericardial effusion. There are mild coronary calcifications. The aorta is normal in caliber and course without aneurysm. Mild atheromatous calcification. Great vessels branch normally. Main pulmonary artery is prominent, suggesting possible increased pulmonary pressures. Esophagus is grossly normal. Central airways are patent. PLEURA: There is no pleural effusion. No pleural mass or thickening. AXILLA/CHEST WALL: No mass or abnormal lymph nodes. UPPER ABDOMEN: Mild splenomegaly. There is a large splenule. Suggestion of cirrhotic changes of the liver. Remainder of the imaged upper abdominal contents appear normal. OSSEOUS STRUCTURES: No suspicious lytic or blastic bone lesions. Mild segmentation anomaly noted involving T1 and T2, with partial fusion of the vertebral bodies and facet joints. Fusion of the right first and second ribs, as well as the third and fourth ribs. No acute fractures noted. CT/CT chest wo IV con IMPRESSION: 1. Multifocal bronchopneumonia most confluent in the right lower lobe. Diffuse associated small airway thickening. No effusions. 2. Mild to moderate cardiac enlargement. Findings suggesting possible pulmonary hypertension. 3. Mild splenomegaly with likely early cirrhotic morphology of liver. 4. Additional ancillary findings as discussed. Electronically signed by: Arpan Espinosa MD 09/05/2025 03:34 PM EDT
--- NOTE | ~2025-09-05 | XR_ITS ---
EXAMINATION: XR CHEST CLINICAL INFORMATION: cough COMPARISON: 07/30/2025. TECHNIQUE: 2 views of the chest were obtained. FINDINGS: The cardiac silhouette is mildly enlarged. The mediastinal and hilar contours are normal. Mild aortic mural calcification. There is airspace opacity in the right base and retrocardiac region, suspicious for pneumonia. There appears to be a small airway thickening in the perihilar regions. There is no pneumothorax or pleural effusion. There is no focal osseous or soft tissue abnormality. XR/XR chest 2V IMPRESSION: 1. Bibasilar pneumonia. No definite effusions. 2. Evidence of small airway thickening suggestive of small airway inflammatory disease. Electronically signed by: Arpan Espinosa MD 09/05/2025 11:02 AM EDT
--- NOTE | ~2025-09-05 | CT_ITS ---
EXAMINATION: CT CERVICAL SPINE WITHOUT CONTRAST CLINICAL INFORMATION: Fall COMPARISON: X-ray 08/26/2025 TECHNIQUE: Axial imaging. Sagittal and coronal reconstructions. This CT examination was performed using dose optimization techniques as appropriate, variously including the following: *Automated exposure control *Adjustment of mA and/or kV according to patient size (this includes techniques or standardized protocols for targeted exams where dose is matched to indication/reason for exam; i.e. extremities or head) *Use of iterative reconstruction technique FINDINGS: Straightening of the normal cervical lordosis. Predens space is maintained. No evidence of acute fracture or spondylolisthesis. Moderate multilevel disc degenerative changes. Redemonstrated Klippel Feil deformity at T1-2. No suspicious bony lesions. No prevertebral soft tissue swelling. Lung apices are clear. CT/CT cervical spine wo IV con IMPRESSION: No acute osseous findings. Moderate cervical spondylosis. Fleischner guidelines were followed. Electronically signed by: Yvon Francois MD 09/05/2025 12:56 PM EDT
--- NOTE | 2025-09-05 10:25 | ED.URI ---
HPI - URI/Sore Throat General Chief Complaint: Upper Respiratory Symptoms Stated Complaint: feeling unwell, flu like symptoms Time Seen by Provider: 09/05/25 10:21 Source: patient, EMS, RN notes reviewed and old records reviewed Mode of arrival: EMS History of Present Illness ED Provider: Aurea Carson PA-C HPI Narrative: 65-year-old [place]an-speaking male with a past medical history polysubstance abuse, seizure disorder on Keppra, prior TBI, hepatitis-B, hepatitis-C, HIV, presenting to the ED via EMS s/p being found on sidewalk outside. Patient reports dry cough, subjective fever, and left-sided chest wall pain. States he fell out of bed yesterday, unknown head trauma, denies LOC. Patient is poor historian. Denies headache, neck/back pain, SOB, abdominal pain, hematuria, vomiting. Reports substance use. Denies EtOH Related Data Home Medications ?Medication ?Instructions ?Recorded ?Confirmed albuterol sulfate 90 mcg/actuation 2 puff inhalation Q6H PRN 09/19/22 02/15/23 aerosol inhaler (ProAir HFA) Shortness Of Breath hydrocortisone 1 % topical cream 1 appl topical BID 09/19/22 02/15/23 methadone 10 mg/mL oral concentrate 60 mg PO DAILY 09/20/22 09/20/22 atovaquone 750 mg/5 mL oral 5 ml PO DAILY 02/15/23 02/15/23 suspension bictegravir 50 mg-emtricitabine 1 tab PO BEDTIME 02/15/23 02/15/23 200 mg-tenofovir alafenam 25 mg tablet (Biktarvy) cetirizine 10 mg tablet 1 tab PO DAILY 02/15/23 02/15/23 docusate sodium 100 mg capsule 1 cap PO BID PRN constipation 02/15/23 02/15/23 mirtazapine 7.5 mg tablet 1 tab PO BEDTIME 02/15/23 02/15/23 famotidine 20 mg tablet 20 mg PO 01/03/24 furosemide 20 mg tablet 20 mg PO QAM 01/03/24 multivitamin 1 tab PO QAM 01/03/24 mupirocin 2 % topical ointment topical TID 01/03/24 nicotine (polacrilex) 2 mg buccal 2 mg PO Q2H PRN 01/03/24 lozenge nicotine (polacrilex) 2 mg gum 2 mg PO 01/03/24 quetiapine 50 mg tablet 50 mg PO BEDTIME 01/03/24 sertraline 50 mg tablet 50 mg PO QAM 01/03/24 Previous Rx's ?Medication ?Instructions ?Recorded levetiracetam 500 mg tablet 500 mg PO BID #60 tabs 02/18/23 benzonatate 200 mg capsule 200 mg PO TID PRN cough #20 caps 04/27/23 bisacodyl 5 mg tablet,delayed 10 mg (2 x 5 mg) PO BEDTIME 2 days 01/03/24 release (Dulcolax (bisacodyl)) #4 tabs peg 3350-electrolytes 236 240 ml PO Q10M 1 day #4,000 mL 01/03/24 gram-22.74 gram-6.74 gram-5.86 gram solution (Golytely) bisacodyl 5 mg tablet,delayed 20 mg (4 x 5 mg) PO ONCE 1 day #4 04/15/24 release (Dulcolax (bisacodyl)) tabs peg 3350-electrolytes 236 240 ml PO Q10M #4,000 mL 04/15/24 gram-22.74 gram-6.74 gram-5.86 gram solution Allergies Allergy/AdvReac Type Severity Reaction Status Date / Time No Known Allergies (No Known Allergy Verified 09/05/25 09:55 Allergies*) Review of Systems Review of Systems: Yes all other systems are reviewed and are negative Constitutional: Constitutional: Reports as per [facility] Past Medical History Attestation statement: The following information was validated with the patient. Source: old records reviewed Medical History Pneumonia Seizure COVID-19 Depression with anxiety Polysubstance abuse Substance abuse Hepatitis HIV disease Alcoholism Asthma Surgical History History of skin surgery Social History Social History Household Members: Unknown / Unable to assess Housing: Unknown / Unable to assess Alcohol intake: current Alcohol intake frequency: a few times a week Alcohol type: hard liquor Comment: 1to 1 sitter Patient Tobacco Use Status: Refuse Tobacco use screen Smoked in Last 30 Days: No Use of substances other than those prescribed or required for medical reasons: Yes Substance Use Type: Heroin Substance Use Frequency: Chronic Longstanding Advance Directives: No Advance Directives Information Provided: Yes Do you have a plan to hurt others: No Plan service: No Current occupational status: unemployed and disabled Physical Exam Vital Signs: Vital Signs: Last Vital Signs Temp 99.6 F 09/05/25 11:06 Pulse 69 09/05/25 13:19 Resp 18 09/05/25 13:19 BP 141/82 H 09/05/25 13:19 Pulse Ox 93 09/05/25 14:43 O2 Del Method Room Air 09/05/25 14:43 BMI result Body Mass Index 21.3 Const: Other: Appears under the influence General: cooperative and no acute distress Nutritional Appearance: thin HEENT: Head: Yes normal to inspection and Yes atraumatic Ears: hearing grossly normal bilaterally General nose exam: Normal external nose present Face and sinus: Yes normal facial exam Throat: Yes posterior oropharynx normal and Yes uvula midline Eyes: General: appearance normal, both eyes and all related structures Pupils: Equal, round and reactive pupils present EOM: EOMs intact bilaterally Neck: Neck: Yes normal visual inspection, Yes no meningeal signs and Yes supple Chest: Other: + left-sided anterior lateral reproducible rib tenderness to palpation. No erythema/ecchymosis. No crepitus. No flail chest. Chest palpation & inspection: normal inspection of the chest Resp: Effort & Inspection: normal respiratory effort and no respiratory distress Auscultation: crackles on the left at the base Cardio: Rate: regular rate Heart sounds: S1 normal heart sound present and S2 normal heart sound present GI: Inspection: Yes normal to inspection Palpation (GI): Soft to palpation, nontender, no guarding and not rigid : General: Yes no CVA tenderness Back/Spine/Pelvis: Other: No midline cervical/thoracic/lumbar spinous tenderness/step-off or deformity Back: no CVA tenderness Skin: Rashes: no rashes Wounds: no wounds Neuro: General: tone normal, moves all extremities, no meningeal signs and CN's II-XI intact bilaterally Cranial nerves: Yes CN's II-XII intact bilaterally and Yes Equal, round and reactive pupils present Extrem: General: Yes normal to inspection Course Course Course Narrative: -1410--no leukocytosis. H&H at patient's baseline -lactic acid WNL. AST acute on chronically elevated. Alk phos acute on chronically elevated. -tox screen positive for opiates, methadone, fentanyl, cocaine -viral testing negative CT head/brain wo IV con IMPRESSION: No CT evidence of acute intracranial hemorrhage or edematous territorial infarction.. Chronic changes as detailed above. CT cervical spine wo IV con IMPRESSION: No acute osseous findings. Moderate cervical spondylosis. Fleischner guidelines were followed. XR chest 2V IMPRESSION: 1. Bibasilar pneumonia. No definite effusions. 2. Evidence of small airway thickening suggestive of small airway inflammatory disease. > patient given dose of IV Rocephin, doxycycline and Bactrim in the ED > no need for steroids at this time. Bactrim given for PCP coverage. Plan to admit for further management. Patient agreeable. Medications Administered Discontinued Medications Generic Name Dose Route Start Last Admin Trade Name Freq PRN Reason Stop Dose Admin Ceftriaxone Sodium 1 gm 09/05/25 12:23 09/05/25 13:06 Ceftriaxone Sodium 1 Gm Vial IVPUSH 09/05/25 12:24 1 gm ONCE ONE Administration Doxycycline Hyclate 100 mg/ 250 mls @ 166.67 mls/hr 09/05/25 12:23 09/05/25 13:38 Sodium Chloride IV 09/05/25 13:52 166.67 mls/hr ONCE ONE Administration Naloxone HCl 8 mg 09/05/25 11:09 09/05/25 13:06 Naloxone Hcl Nasal Take Home 4 Mg Blairs NOSTRILALT 09/05/25 11:10 8 mg ONCE ONE Administration Trimethoprim/Sulfamethoxazole 1 tab 09/05/25 12:23 09/05/25 13:06 Sulfamethox/Trimeth 800/160 Tablet PO 09/05/25 12:24 1 tab ONCE ONE Administration Medical Decision Making Medical Decision Making MDM Narrative: 65-year-old [place]-speaking male with a past medical history polysubstance abuse, seizure disorder on Keppra, prior TBI, hepatitis-B, hepatitis-C, HIV, presenting to the ED via EMS s/p being found on sidewalk outside. Patient reports dry cough, subjective fever, and left-sided chest wall pain. States he fell out of bed yesterday, unknown head trauma, denies LOC. Patient is poor historian. On exam vital signs stable, NAD, nontoxic appearing, appears under the influence, no evidence of overt trauma. No midline spinous tenderness. No focal neuro deficits. Reproducible left anterior lateral rib wall tenderness. Left basilar crackles noted. Concern for viral illness vs pneumonia vs rib fracture/contusion. Concern for ?ICH vs concussion. Low suspicion for CVA/TIA or SAH. Concern for polysubstance use. No evidence of withdrawal at this time. Plan: EKG, head/C-spine CT, x-ray, viral testing, tox screen Please refer to course for remaining clinical decision making, interpretation of labs/imaging results, and discussions with consultants and/or family members. Differential Diagnosis Differential Diagnoses: The differential diagnosis associated with the presentation includes As above Admission/Observation Consideration of admission/observation: Escalation of care including admission/observation considered Lab Data MDM Lab Attestation statement: I reviewed the patient's lab results. 09/05/25 12:23 09/05/25 12:23 Labs: Lab Results 09/05/25 09/05/25 09/05/25 Range/Units 11:10 12:06 12:23 WBC 5.3 (4.8-10.8) X10*3/uL RBC 3.14 L (4.60-5.80) X10*6/uL Hgb 9.2 L (14.0-18.0) g/dl Hct 27.6 L (42.0-52.0) % MCV 87.9 (80.0-98.0) fL MCH 29.3 (27.0-33.0) pg MCHC 33.3 (31.0-36.0) g/dl RDW 14.6 (11.0-16.0) % Plt Count 117 L D (160-400) X10*3/uL MPV 11.2 (9.4-12.4) fL Immature Gran % (Auto) 0.4 (0.0-0.4) % Neut % (Auto) 84.0 H (45-73) % Lymph % (Auto) 7.9 L (20-40) % Baca % (Auto) 7.3 (2-11) % Eos % (Auto) 0.2 (0-4) % Baso % (Auto) 0.2 (0-2) % Lymph # (Auto) 0.4 L (1.2-4.9) X10*3/uL [place]aca # (Auto) 0.4 (0.1-1.2) X10*3/uL Eos # (Auto) 0.0 (0.0-0.4) X10*3/uL Baso # (Auto) 0.0 (0.0-0.2) X10*3/uL Abs Immat Gran (auto) 0.02 (0.00-0.03) X10*3/uL Absolute Neuts (auto) 4.5 (2.0-8.3) x10*3/uL Absolute Nucleated RBC 0.000 (0.0-0.012) X10*3/uL Nucleated RBC % (auto) 0.0 (0.0-0.2) /100WBC VBG pH (7.32-7.43) VBG pCO2 mmHg VBG pO2 mmHg VBG HCO3 (22-26) mmol/L VBG O2 Saturation VBG Base Excess mmol/L Sodium 133 L (135-145) mmol/L Potassium 3.8 (3.3-5.1) mmol/L Chloride 101 (96-108) mmol/L Carbon Dioxide 28 (22-29) mmol/L Anion Gap 8 L (12-20) BUN 14 (9-16) mg/dL Creatinine 0.69 (0.5-1.4) mg/dL Estim Creat Clear Calc 95.8 Estimated GFR > 60 Random Glucose 118 H (60-115) mg/dL Lactic Acid (0.5-2.0) mmol/L Calcium 8.3 L (8.4-10.2) mg/dL Magnesium 2.0 (1.6-2.6) mg/dL Total Bilirubin 0.7 (0.0-1.0) mg/dL AST 134 H (5-37) U/L ALT 41 H (0-40) U/L Alkaline Phosphatase 226 H (39-117) U/L Total Protein 8.2 H (6.5-8.0) g/dL Albumin 2.7 L (3.5-5.0) g/dL Urine Color Yellow Urine Appearance Clear Urine pH 6.0 (5.0-9.0) Ur Specific Embudo 1.010 (1.005-1.025) Urine Protein 30 (1+) H (Neg-Trace) mg/dL Urine Glucose (UA) Negative (Negative) mg/dL Urine Ketones Negative (Negative) mg/dL Urine Blood Trace H (Negative) Urine Nitrite Negative (Negative) Ur Leukocyte Esterase Negative (Negative) Urine RBC 0-2 (0-2) /HPF Urine WBC 0-5 (0-5) /HPF Ur Squamous Epith Cells 0-2 (0-2) /HPF Urine Bacteria 3+ (None Seen) Hyaline Casts 0-2 (0-2) /LPF Urine Opiates Screen POSITIVE H (Not Detect) Ur Buprenorphine Scrn Not Detected (Not Detect) ng/mL Ur Oxycodone Screen Not Detected (Not Detect) ng/mL Urine Methadone Screen Positive H (Not Detect) ng/mL Urine Fentanyl Screen POSITIVE H (Not Detect) Ur Barbiturates Screen Not Detected (Not Detect) Ur Phencyclidine Scrn Not Detected (Not Detect) Ur Amphetamines Screen Not Detected (Not Detect) U Benzodiazepines Scrn Not Detected (Not Detect) Urine Cocaine Screen POSITIVE H (Not Detect) U Marijuana (THC) Screen Not Detected (Not Detect) COVID-19 (SAIDA) Negative (Negative) COVID-19 Clin Com See Note Influenza Type A (TREVON) Negative (Negative) Influenza Type B (TREVON) Negative (Negative) Influenza A & B Note See Note 09/05/25 09/05/25 Range/Units 12:24 12:55 WBC (4.8-10.8) X10*3/uL RBC (4.60-5.80) X10*6/uL Hgb (14.0-18.0) g/dl Hct (42.0-52.0) % MCV (80.0-98.0) fL MCH (27.0-33.0) pg MCHC (31.0-36.0) g/dl RDW (11.0-16.0) % Plt Count (160-400) X10*3/uL MPV (9.4-12.4) fL Immature Gran % (Auto) (0.0-0.4) % Neut % (Auto) (45-73) % Lymph % (Auto) (20-40) % Baca % (Auto) (2-11) % Eos % (Auto) (0-4) % Baso % (Auto) (0-2) % Lymph # (Auto) (1.2-4.9) X10*3/uL Baca # (Auto) (0.1-1.2) X10*3/uL Eos # (Auto) (0.0-0.4) X10*3/uL Baso # (Auto) (0.0-0.2) X10*3/uL Abs Immat Gran (auto) (0.00-0.03) X10*3/uL Absolute Neuts (auto) (2.0-8.3) x10*3/uL Absolute Nucleated RBC (0.0-0.012) X10*3/uL Nucleated RBC % (auto) (0.0-0.2) /100WBC VBG pH 7.43 (7.32-7.43) VBG pCO2 40 mmHg VBG pO2 77 mmHg VBG HCO3 27 H (22-26) mmol/L VBG O2 Saturation TNP VBG Base Excess 3.0 mmol/L Sodium (135-145) mmol/L Potassium (3.3-5.1) mmol/L Chloride (96-108) mmol/L Carbon Dioxide (22-29) mmol/L Anion Gap (12-20) BUN (9-16) mg/dL Creatinine (0.5-1.4) mg/dL Estim Creat Clear Calc Estimated GFR Random Glucose (60-115) mg/dL Lactic Acid 1.0 (0.5-2.0) mmol/L Calcium (8.4-10.2) mg/dL Magnesium (1.6-2.6) mg/dL Total Bilirubin (0.0-1.0) mg/dL AST (5-37) U/L ALT (0-40) U/L Alkaline Phosphatase (39-117) U/L Total Protein (6.5-8.0) g/dL Albumin (3.5-5.0) g/dL Urine Color Urine Appearance Urine pH (5.0-9.0) Ur Specific Embudo (1.005-1.025) Urine Protein (Neg-Trace) mg/dL Urine Glucose (UA) (Negative) mg/dL Urine Ketones (Negative) mg/dL Urine Blood (Negative) Urine Nitrite (Negative) Ur Leukocyte Esterase (Negative) Urine RBC (0-2) /HPF Urine WBC (0-5) /HPF Ur Squamous Epith Cells (0-2) /HPF Urine Bacteria (None Seen) Hyaline Casts (0-2) /LPF Urine Opiates Screen (Not Detect) Ur Buprenorphine Scrn (Not Detect) ng/mL Ur Oxycodone Screen (Not Detect) ng/mL Urine Methadone Screen (Not Detect) ng/mL Urine Fentanyl Screen (Not Detect) Ur Barbiturates Screen (Not Detect) Ur Phencyclidine Scrn (Not Detect) Ur Amphetamines Screen (Not Detect) U Benzodiazepines Scrn (Not Detect) Urine Cocaine Screen (Not Detect) U Marijuana (THC) Screen (Not Detect) COVID-19 (SAIDA) (Negative) COVID-19 Clin Com Influenza Type A (TREVON) (Negative) Influenza Type B (TREVON) (Negative) Influenza A & B Note Independent Interpretation I performed an independent interpretation of an: EKG and Plain X-Ray Radiology Impression Discussion of test interpretation with radiology: I have reviewed the radiologist's reading. Independent Historian Clinical information obtained from an independent historian. History obtained from or confirmed by: EMS External Record Review External record reviewed: Inpatient record, Office record, Outpatient record, Prior outpatient labs, Prior outpatient radiology, Primary care record and Outside ED record Tests considered The following testing was considered but not selected: As above Prescription Management I considered prescription management with: Pain Medication and Other Chronic Conditions Patient?s care impacted by: Other Social Determinants Patient?s care significantly limited by Social Determinants of Health including: Alcoholism and drug addiction in family, Problems related to primary support group, Unemployment and Other Social Determinant of Health Critical Care Time Critical Care Time Critical Care Time: Yes Total Critical Care Time: 40 Attestation: I have personally provided critical care time exclusive of time spent on separately billable procedures. Time includes review of lab data, radiology results, discussion with consultants, and monitoring for potential decompensation. Intervention performed as documented. Discharge Plan Discharge Clinical Impression: Polysubstance abuse Pneumonia Qualifiers: Pneumonia type: due to unspecified organism Laterality: bilateral Lung location: lower lobe of lung Qualified Code(s): J18.9 - Pneumonia, unspecified organism Patient Disposition: Admitted As Inpatient
--- NOTE | 2025-09-05 11:09 | ECG_ITS ---
Test Reason : left chest wall pain Blood Pressure : */* mmHG Vent. Rate : 64 BPM Atrial Rate : 64 BPM P-R Int : 154 ms QRS Dur : 80 ms QT Int : 430 ms P-R-T Axes : 18 50 76 degrees QTcB Int : 443 ms Normal sinus rhythm Normal ECG When compared with ECG of 29-Jul-2025 23:44, No significant change was found Referred By: Aurea Carson Electronically Signed By: RSOALINDA SHEPHERD MD
[2025-09-05 11:32] LABS: COVID-19 Test Negative (Negative); IDNOW Serial# 55D5AD1C; IDNOW Serial# 58CA691E; Influenza B2 Negative (Negative)
[2025-09-05 12:15] LABS: Appearance Urine Clear; Glucose Urine UA Negative (Negative); PH 6.0 (5.0-9.0); Specific Gravity - Urine 1.010 (1.005-1.025); UMIC TRIGGER UACC YES
[2025-09-05 12:30] LABS: MANUAL DIFF FLAG NO
[2025-09-05 12:33] LABS: Hematocrit 27.6 % (42.0-52.0); Hemoglobin 9.2 g/dl (14.0-18.0); Imm Gran Abs Auto 0.02 X10*3/uL (0.00-0.03); Imm Gran Pct Auto 0.4 % (0.0-0.4); Lymphocytes Absolute Auto 0.4 X10*3/uL (1.2-4.9); Mean Corpuscular HGB Conc 33.3 g/dl (31.0-36.0); Mean Corpuscular Hemoglobin 29.3 pg (27.0-33.0); Mean Corpuscular Volume 87.9 fL (80.0-98.0); NRBC Abs Auto 0.000 X10*3/uL (0.0-0.012); NRBC Pct Auto 0.0 /100WBC (0.0-0.2); Platelet Count 117 X10*3/uL (160-400); Red Blood Count 3.14 X10*6/uL (4.60-5.80); White Blood Count 5.3 X10*3/uL (4.8-10.8)
[2025-09-05 12:48] LABS: Alanine Aminotransferase 41 U/L (0-40); Albumin Level 2.7 g/dL (3.5-5.0); Alkaline Phosphatase 226 U/L (39-117); Anion Gap 8 (12-20); Aspartate Amino Transferase 134 U/L (5-37); Blood Urea Nitrogen 14 mg/dL (9-16); Calcium 8.3 mg/dL (8.4-10.2); Carbon Dioxide 28 mmol/L (22-29); Chloride 101 mmol/L (96-108); Creatinine Clr Calc Pharmacy 95.8; Estimated Glomerular Filt Rate > 60; Magnesium 2.0 mg/dL (1.6-2.6); Potassium 3.8 mmol/L (3.3-5.1); Sodium 133 mmol/L (135-145); Total Protein 8.2 g/dL (6.5-8.0)
[2025-09-05 12:57] LABS: Venous Blood Gas Refer to POC result
[2025-09-05 12:58] LABS: Cannabinoid Screen Urine Not Detected (Not Detect)
[2025-09-05 12:59] LABS: VBG HCO3 27 mmol/L (22-26)
[2025-09-05] MEDS: Sulfamethox/Trimeth 800/160 TABLET 1 TAB PO ×2 (13:06→16:51)
[2025-09-05] MEDS: Naloxone HCl Nasal TAKE HOME 4 MG SPRAY 8 MG NOSTRILALT (13:06)
--- NOTE | 2025-09-05 14:49 | MHC.EDTECH ---
Patient refused to get out of bed to ambulate for an oxygen check.
--- NOTE | 2025-09-05 14:55 | PC.NURSE ---
Pt refused ambulating O2 trial. Pt educated on need for ambulating O2- pt continues to decline. Aware.
--- NOTE | 2025-09-05 16:12 | PM.IMHP ---
History of Present Illness Date of Service: 09/05/25 Chief Complaint: cough 65yo M with HIV/AIDS on Josktarvy [last CD4 169, HIV RNA 124 on 05/07/25], HBV, HCV, polysubstance abuse, seizure disorder on Zhengra brought in by EMS after being found by bystanders out on a sidewalk outside. Pt reporting dry cough and subjective fever but otherwise is a poor historian. Denies EtOH but endorses drug abuse. No hemoptysis, no coughing up blood, no thrush. Denies SI. No recent seizure. Found to have multifocal PNA. Not hypoxic. Concern for PCP. Given ceftriaxone, doxycycline, Bactrim; also Narcan for somnolence. Review of Systems Review of Systems: Yes all other systems are reviewed and are negative [facility] Medical History Pneumonia Seizure COVID-19 Depression with anxiety Polysubstance abuse Substance abuse Hepatitis HIV disease Alcoholism Asthma Surgical History History of skin surgery Social History Household Members: Unknown / Unable to assess Housing: Unknown / Unable to assess Alcohol intake: current Alcohol intake frequency: a few times a week Alcohol type: hard liquor Comment: 1to 1 sitter Patient Tobacco Use Status: Refuse Tobacco use screen Smoked in Last 30 Days: No Use of substances other than those prescribed or required for medical reasons: Yes Substance Use Type: Heroin Substance Use Frequency: Chronic Longstanding Advance Directives: No Advance Directives Information Provided: Yes Do you have a plan to hurt others: No Plan service: No Current occupational status: unemployed and disabled Meds Allergies Allergy/AdvReac Type Severity Reaction Status Date / Time No Known Allergies (No Known Allergy Verified 09/05/25 09:55 Allergies*) Active Medications: Current Medications Acetaminophen (Acetaminophen 325 Mg Tablet) 650 mg PO Q6H PRN PRN Reason: Pain, Mild 1-3,fever,headache Calcium Carbonate (Calcium Carbonate 750 Mg Tab.Chew) 750 mg PO Q4H PRN PRN Reason: Heartburn Ceftriaxone Sodium (Ceftriaxone Sodium 1 Gm Vial) 1 gm IVPUSH Q24H [facility] Doxycycline Monohydrate (Doxycycline Monohydrate 100 Mg Capsule) 100 mg PO Q12H [facility] Enoxaparin Sodium (Enoxaparin Sodium 40 Mg/0.4 Ml Syringe) 40 mg SUBCUT Q24H [facility] Magnesium Hydroxide (Milk Of Magnesia 30 Ml Oral.Susp) 30 ml PO DAILY PRN PRN Reason: Constipation Melatonin (Melatonin 3 Mg Tablet) 6 mg PO BEDTIME PRN PRN Reason: Insomnia Ondansetron HCl (Ondansetron Hcl 4 Mg/2 Ml Vial) 4 mg IVPUSH Q8H PRN PRN Reason: Nausea and Vomiting Sodium Chloride (0.9 % Sodium Chloride Flush 3 Ml Syringe) 3 ml IVFLUSH QSHIFT [facility] Trimethoprim/Sulfamethoxazole (Sulfamethox/Trimeth 800/160 Tablet) 2 tab PO Q8H [facility] Home Medications ?Medication ?Instructions ?Recorded ?Confirmed ?Last Taken ?Type albuterol sulfate 90 mcg/actuation 2 puff inhalation Q6H PRN 09/19/22 02/15/23 Unknown History aerosol inhaler (ProAir HFA) Shortness Of Breath hydrocortisone 1 % topical cream 1 appl topical BID 09/19/22 02/15/23 Unknown History methadone 10 mg/mL oral concentrate 60 mg PO DAILY 09/20/22 09/20/22 09/15/22 History atovaquone 750 mg/5 mL oral 5 ml PO DAILY 02/15/23 02/15/23 Unknown History suspension bictegravir 50 mg-emtricitabine 1 tab PO BEDTIME 02/15/23 02/15/23 Unknown History 200 mg-tenofovir alafenam 25 mg tablet (Biktarvy) cetirizine 10 mg tablet 1 tab PO DAILY 02/15/23 02/15/23 Unknown History docusate sodium 100 mg capsule 1 cap PO BID PRN constipation 02/15/23 02/15/23 Unknown History mirtazapine 7.5 mg tablet 1 tab PO BEDTIME 02/15/23 02/15/23 Unknown History famotidine 20 mg tablet 20 mg PO 01/03/24 Unknown History furosemide 20 mg tablet 20 mg PO QAM 01/03/24 Unknown History multivitamin 1 tab PO DAILY 01/03/24 Unknown History mupirocin 2 % topical ointment topical TID 01/03/24 Unknown History nicotine (polacrilex) 2 mg buccal 2 mg PO Q2H PRN 01/03/24 Unknown History lozenge nicotine (polacrilex) 2 mg gum 2 mg PO 01/03/24 Unknown History quetiapine 50 mg tablet 50 mg PO BEDTIME 01/03/24 Unknown History sertraline 50 mg tablet 50 mg PO DAILY 01/03/24 Unknown History folic acid 1 mg tablet 1 mg PO DAILY 09/05/25 Unknown History levetiracetam 750 mg tablet 1,500 mg PO BID 09/05/25 Unknown History omega-3 acid ethyl esters 1 gram 1 cap PO BID 09/05/25 Unknown History capsule thiamine HCl (vitamin B1) 100 mg 100 mg PO QAM 09/05/25 Unknown History tablet Physical Exam Vital Signs and Narrative: Vital Signs: Last Vital Signs Temp 98.1 F 09/05/25 16:00 Pulse 68 09/05/25 16:00 Resp 18 09/05/25 16:00 BP 136/68 09/05/25 16:00 Pulse Ox 94 09/05/25 16:00 O2 Del Method Room Air 09/05/25 16:00 BMI result Body Mass Index 17.4 Gen: in no acute distress, malnourished HEENT: sclera anicteric, moist mucus membranes Neck: supple Lungs: bilateral inspiratory crackles Heart: regular rate and rhythm, no murmurs Abd: soft, non-tender, non-distended Ext: no edema Skin: warm/well-perfused Neuro: somnolent but arousable ,moves all extremities Psych: restricted affect Results Labs 09/05/25 12:23 09/05/25 12:23 Labs: Laboratory Results - last 24 hr 09/05/25 09/05/25 09/05/25 11:10 12:06 12:23 MCV 87.9 MCH 29.3 MCHC 33.3 RDW 14.6 Plt Count 117 L D MPV 11.2 Immature Gran % (Auto) 0.4 Neut % (Auto) 84.0 H Lymph % (Auto) 7.9 L Wells % (Auto) 7.3 Eos % (Auto) 0.2 Baso % (Auto) 0.2 Lymph # (Auto) 0.4 L Wells # (Auto) 0.4 Eos # (Auto) 0.0 Baso # (Auto) 0.0 Abs Immat Gran (auto) 0.02 Absolute Neuts (auto) 4.5 Absolute Nucleated RBC 0.000 Nucleated RBC % (auto) 0.0 VBG pH VBG pCO2 VBG pO2 VBG HCO3 VBG O2 Saturation VBG Base Excess Anion Gap 8 L Estim Creat Clear Calc 95.8 Estimated GFR > 60 Random Glucose 118 H Lactic Acid Calcium 8.3 L Magnesium 2.0 Total Bilirubin 0.7 AST 134 H ALT 41 H Alkaline Phosphatase 226 H Lactate Dehydrogenase 215 Total Protein 8.2 H Albumin 2.7 L Urine Color Yellow Urine Appearance Clear Urine pH 6.0 Ur Specific [place] 1.010 Urine Protein 30 (1+) H Urine Glucose (UA) Negative Urine Ketones Negative Urine Blood Trace H Urine Nitrite Negative Ur Leukocyte Esterase Negative Urine RBC 0-2 Urine WBC 0-5 Ur Squamous Epith Cells 0-2 Urine Bacteria 3+ Hyaline Casts 0-2 Urine Opiates Screen POSITIVE H Ur Buprenorphine Scrn Not Detected Ur Oxycodone Screen Not Detected Urine Methadone Screen Positive H Urine Fentanyl Screen POSITIVE H Ur Barbiturates Screen Not Detected Ur Phencyclidine Scrn Not Detected Ur Amphetamines Screen Not Detected U Benzodiazepines Scrn Not Detected Urine Cocaine Screen POSITIVE H U Marijuana (THC) Screen Not Detected COVID-19 (SAIDA) Negative COVID-19 Clin Com See Note Influenza Type A (TREVON) Negative Influenza Type B (TREVON) Negative Influenza A & B Note See Note 09/05/25 09/05/25 12:24 12:55 MCV MCH MCHC RDW Plt Count MPV Immature Gran % (Auto) Neut % (Auto) Lymph % (Auto) Wells % (Auto) Eos % (Auto) Baso % (Auto) Lymph # (Auto) Wells # (Auto) Eos # (Auto) Baso # (Auto) Abs Immat Gran (auto) Absolute Neuts (auto) Absolute Nucleated RBC Nucleated RBC % (auto) VBG pH 7.43 VBG pCO2 40 VBG pO2 77 VBG HCO3 27 H VBG O2 Saturation TNP VBG Base Excess 3.0 Anion Gap Estim Creat Clear Calc Estimated GFR Random Glucose Lactic Acid 1.0 Calcium Magnesium Total Bilirubin AST ALT Alkaline Phosphatase Lactate Dehydrogenase Total Protein Albumin Urine Color Urine Appearance Urine pH Ur Specific [place] Urine Protein Urine Glucose (UA) Urine Ketones Urine Blood Urine Nitrite Ur Leukocyte Esterase Urine RBC Urine WBC Ur Squamous Epith Cells Urine Bacteria Hyaline Casts Urine Opiates Screen Ur Buprenorphine Scrn Ur Oxycodone Screen Urine Methadone Screen Urine Fentanyl Screen Ur Barbiturates Screen Ur Phencyclidine Scrn Ur Amphetamines Screen U Benzodiazepines Scrn Urine Cocaine Screen U Marijuana (THC) Screen COVID-19 (SAIDA) COVID-19 Clin Com Influenza Type A (TREVON) Influenza Type B (TREVON) Influenza A & B Note Imaging Radiologist's Impressions: Impressions Chest X-Ray 09/05/25 10:45 IMPRESSION: 1. Bibasilar pneumonia. No definite effusions. 2. Evidence of small airway thickening suggestive of small airway inflammatory disease. Electronically signed by: Arpan Espinosa MD 09/05/2025 11:02 AM EDT RP Cervical Spine CT 09/05/25 11:45 IMPRESSION: No acute osseous findings. Moderate cervical spondylosis. Fleischner guidelines were followed. Electronically signed by: Yvon Francois MD 09/05/2025 12:56 PM EDT RP Head CT 09/05/25 11:45 IMPRESSION: No CT evidence of acute intracranial hemorrhage or edematous territorial infarction.. Chronic changes as detailed above. Electronically signed by: Yvon Francois MD 09/05/2025 12:45 PM EDT RP Chest CT 09/05/25 15:03 IMPRESSION: 1. Multifocal bronchopneumonia most confluent in the right lower lobe. Diffuse associated small airway thickening. No effusions. 2. Mild to moderate cardiac enlargement. Findings suggesting possible pulmonary hypertension. 3. Mild splenomegaly with likely early cirrhotic morphology of liver. 4. Additional ancillary findings as discussed. Electronically signed by: Arpan Espinosa MD 09/05/2025 03:34 PM EDT RP Assessment and Plan (1) Polysubstance (including opioids) dependence, daily use: Status: Acute Plan 65yo M with HIV/AIDS on Biktarvy [last CD4 169, HIV RNA 124 on 05/07/25], HBV, HCV, polysubstance abuse, seizure disorder on Keppra brought in by EMS after being found by bystanders out on a sidewalk outside. Reporting cough. Active drug abuse- fentayl, methadone, cocaine. Found to have multifocal PNA. Somnolent. multifocal PNA - admit to M/S, check PCT, follow BCx, check LDH, check sputum for PCP, Fungitell, ID consult, empiric treatment for CAP + PCP with ceftriaxone/doxycycline/TMP-SMX, monitor for hypoxia HIV/AIDS - Biktarvy, CD4, HIV-1 RNA HBV/HCV - check HBV serology, HCV RNA toxic encephalopathy due to polysubstance abuse - Addiction Medicine consultation, monitor for withdrawal, confirm methadone dose seizure disorder - [facility] MEDICATION RECONCILIATION PENDING VTE ppx: enoxaparin dispo: TBD code: full I anticipate that the patient will stay at least 2 midnights as an inpatient in the hospital due to the above reasons. It is neither reasonable nor safe to care for them in a less acute setting. Quality Stroke Does the patient have a stroke diagnosis?: No VTE Prior VTE?: No VTE Risk Level:: Medical - moderate - high VTE Device Contraindication: N/A - Device Ordered VTE Drug Contraindication: N/A - Med Ordered
--- NOTE | 2025-09-05 16:15 | PC.NURSE ---
PO Bactrim 800/160, one tablet po- given per JAN @1306. Inpatient MD ordered scheduled doses of two tablets PO Bactrim 800/160 @ 1500. Per MD- ok to give one tablet to complete two tablet dose. Additional tablet held. Next scheduled dose will continue two tablets.
--- NOTE | 2025-09-05 16:44 | W.PM.IDCN ---
History of Present Illness Data of Consult Service Date: 09/05/25 Requesting physician: Mathew Montgomery Primary Care Provider: [facility] HPI Reason for consult: RML pneumonia,AIDS He presents with found down on street. He has weakness and had fallen out of bed yesterday. He has dry cough. He has RML pneumonia. He is seen at HIV clinic at [facility] but not seen lately. He is supposed to be on Biktarvy. His last CD4 count seen is 169 with viral load 124 on 05/07/2025. Review of Systems Review of Systems: Yes all other systems are reviewed and are negative [facility] Past Medical History Medical History Pneumonia Seizure COVID-19 Depression with anxiety Polysubstance abuse Substance abuse Hepatitis HIV disease Alcoholism Asthma Family History Family history: reviewed and not pertinent Surgical History Surgical History History of skin surgery Social History Social History Household Members: Unknown / Unable to assess Housing: Unknown / Unable to assess Alcohol intake: current Alcohol intake frequency: a few times a week Alcohol type: hard liquor Comment: 1to 1 sitter Patient Tobacco Use Status: Refuse Tobacco use screen Smoked in Last 30 Days: No Use of substances other than those prescribed or required for medical reasons: Yes Substance Use Type: Heroin Substance Use Frequency: Chronic Longstanding Advance Directives: No Advance Directives Information Provided: Yes Do you have a plan to hurt others: No Plan service: No Current occupational status: unemployed and disabled Meds Allergies Allergy/AdvReac Type Severity Reaction Status Date / Time No Known Allergies (No Known Allergy Verified 09/05/25 09:55 Allergies*) Active Medications: Current Medications Acetaminophen (Acetaminophen 325 Mg Tablet) 650 mg PO Q6H PRN PRN Reason: Pain, Mild 1-3,fever,headache Bictegravir/Emtricitabine/Tenofovir (Bictegrav/Emtricit/Tenofov Ala Tablet) 1 tab PO DAILY [facility] Calcium Carbonate (Calcium Carbonate 750 Mg Tab.Chew) 750 mg PO Q4H PRN PRN Reason: Heartburn Ceftriaxone Sodium (Ceftriaxone Sodium 1 Gm Vial) 1 gm IVPUSH Q24H [facility] Doxycycline Monohydrate (Doxycycline Monohydrate 100 Mg Capsule) 100 mg PO Q12H [facility] Enoxaparin Sodium (Enoxaparin Sodium 40 Mg/0.4 Ml Syringe) 40 mg SUBCUT Q24H [facility] Levetiracetam (Levetiracetam 500 Mg Tablet) 1,500 mg PO BID [facility] Magnesium Hydroxide (Milk Of Magnesia 30 Ml Oral.Susp) 30 ml PO DAILY PRN PRN Reason: Constipation Melatonin (Melatonin 3 Mg Tablet) 6 mg PO BEDTIME PRN PRN Reason: Insomnia Ondansetron HCl (Ondansetron Hcl 4 Mg/2 Ml Vial) 4 mg IVPUSH Q8H PRN PRN Reason: Nausea and Vomiting Sodium Chloride (0.9 % Sodium Chloride Flush 3 Ml Syringe) 3 ml IVFLUSH QSHIFT [facility] Trimethoprim/Sulfamethoxazole (Sulfamethox/Trimeth 800/160 Tablet) 2 tab PO Q8H [facility] Home Medications ?Medication ?Instructions ?Recorded ?Confirmed ?Last Taken ?Type albuterol sulfate 90 mcg/actuation 2 puff inhalation Q6H PRN 09/19/22 02/15/23 Unknown History aerosol inhaler (ProAir HFA) Shortness Of Breath hydrocortisone 1 % topical cream 1 appl topical BID 09/19/22 02/15/23 Unknown History methadone 10 mg/mL oral concentrate 60 mg PO DAILY 09/20/22 09/20/22 09/15/22 History atovaquone 750 mg/5 mL oral 5 ml PO DAILY 02/15/23 02/15/23 Unknown History suspension bictegravir 50 mg-emtricitabine 1 tab PO BEDTIME 02/15/23 02/15/23 Unknown History 200 mg-tenofovir alafenam 25 mg tablet (Biktarvy) cetirizine 10 mg tablet 1 tab PO DAILY 02/15/23 02/15/23 Unknown History docusate sodium 100 mg capsule 1 cap PO BID PRN constipation 02/15/23 02/15/23 Unknown History mirtazapine 7.5 mg tablet 1 tab PO BEDTIME 02/15/23 02/15/23 Unknown History famotidine 20 mg tablet 20 mg PO 01/03/24 Unknown History furosemide 20 mg tablet 20 mg PO QAM 01/03/24 Unknown History multivitamin 1 tab PO DAILY 01/03/24 Unknown History mupirocin 2 % topical ointment topical TID 01/03/24 Unknown History nicotine (polacrilex) 2 mg buccal 2 mg PO Q2H PRN 01/03/24 Unknown History lozenge nicotine (polacrilex) 2 mg gum 2 mg PO 01/03/24 Unknown History quetiapine 50 mg tablet 50 mg PO BEDTIME 01/03/24 Unknown History sertraline 50 mg tablet 50 mg PO DAILY 01/03/24 Unknown History folic acid 1 mg tablet 1 mg PO DAILY 09/05/25 Unknown History levetiracetam 750 mg tablet 1,500 mg PO BID 09/05/25 Unknown History omega-3 acid ethyl esters 1 gram 1 cap PO BID 09/05/25 Unknown History capsule thiamine HCl (vitamin B1) 100 mg 100 mg PO QAM 09/05/25 Unknown History tablet Physical Exam Vital Signs: Vital Signs: Last Vital Signs Temp 98.1 F 09/05/25 16:00 Pulse 68 09/05/25 16:00 Resp 18 09/05/25 16:00 BP 136/68 09/05/25 16:00 Pulse Ox 94 09/05/25 16:00 O2 Del Method Room Air 09/05/25 16:00 BMI result Body Mass Index 17.4 Const: General: cooperative Nutritional Appearance: cachectic HEENT: Head: Yes normal to inspection Face and sinus: Yes normal facial exam Mouth: Normal oral and palatal mucosa present Teeth and gingiva: dentition normal Eyes: General: appearance normal, both eyes and all related structures Pupils: Equal, round and reactive pupils present Resp: Other: rhonchi right base Cardio: Rate: regular rate Rhythm: regular rhythm GI: Palpation (GI): Soft to palpation and nontender : General: Yes no CVA tenderness Back/Spine/Pelvis: Back: no CVA tenderness Skin: General skin exam: no rashes or lesions noted Neuro: General: moves all extremities Cranial nerves: Yes Equal, round and reactive pupils present Extrem: General: Yes normal to inspection Psych: Appearance: grossly normal Results Labs 09/05/25 12:23 09/05/25 12:23 Labs: Short CBC 09/05/25 Range/Units 12:23 WBC 5.3 (4.8-10.8) X10*3/uL Hgb 9.2 L (14.0-18.0) g/dl Hct 27.6 L (42.0-52.0) % Plt Count 117 L D (160-400) X10*3/uL BMP 09/05/25 12:23 Sodium 133 L Potassium 3.8 Chloride 101 Carbon Dioxide 28 BUN 14 Creatinine 0.69 Calcium 8.3 L Liver Function 09/05/25 Range/Units 12:23 Total Bilirubin 0.7 (0.0-1.0) mg/dL AST 134 H (5-37) U/L ALT 41 H (0-40) U/L Alkaline Phosphatase 226 H (39-117) U/L Albumin 2.7 L (3.5-5.0) g/dL Urine 09/05/25 Range/Units 12:06 Urine Color Yellow Urine Appearance Clear Urine pH 6.0 (5.0-9.0) Ur Specific [place] 1.010 (1.005-1.025) Urine Protein 30 (1+) H (Neg-Trace) mg/dL Urine Glucose (UA) Negative (Negative) mg/dL Assessment and Plan (1) Opioid use disorder: Status: Acute (2) Polysubstance abuse: Status: Acute (3) Hepatitis B: Status: Acute (4) HIV disease: Status: Acute (5) Pneumonia: Qualifiers: Laterality: bilateral Lung location: lower lobe of lung Pneumonia type: due to unspecified organism Qualified Code(s): J18.9 - Pneumonia, unspecified organism Status: Acute Plan He may have PJP pneumonia although unusual with low viral load if still taking Biktarvy. He likely has CAP with possible atypical. Check sputum PJP PCR. Check urine Legionella antigen and strep pneumonia Check blood cultures. Continue Biktarvy. Consider viral load and CD4 count. Reduce Bactrim 2DS tid to bid due to TMP dose at 15 mg/kg /day is 780 /day needed and at tid is 960 a day which is more than needed. Continue Cefriaxone and Doxycycline. Check nares MRSA. Duration antibiotics to be determined ,possible 3-5 d IV and then po depends on above tests.
[2025-09-05 17:17] LABS: Procalcitonin 0.15 ng/mL
--- NOTE | 2025-09-05 18:29 | PHA.MEDREC ---
Addendum entered by Fernandez Herrera RPh 09/05/25 19:00: MED REC REVIEWED BY [facility] Original Note: Pharmacy Consult ? Medication Reconciliation Pharmacy has completed the medication reconciliation. Spoke to patient through wheel cutter service to confirm med list. Patient is a poor historian. Patient states he fills all his medications from [facility] and instructed me to call them. Patient confirm he takes Methadone 35 mg Daily , however he doesn't know where he gets them from. Patient said My nurse outreach case manager delivers them to me . Patent couldn't recall when the last time he had his medications.
[2025-09-05] MEDS: Bictegrav/Emtricit/Tenofov Ala TABLET 1 TAB PO (18:59)
[2025-09-05] MEDS: guaiFENesin DM 100/10/5 ML 5 ML SYRUP PO (21:01)
[2025-09-05] MEDS: Sulfamethox/Trimeth 800/160 TABLET 2 TAB PO (21:02)
[2025-09-05] MEDS: 0.9 % Sodium Chloride Flush 3 ML SYRINGE IVFLUSH (21:07)
[2025-09-06] VITALS: BP 116/64; PULSE 67; RESP 18; TEMP 36.3; O2SAT 96
[2025-09-06 03:56] VITALS: BP 122/62; PULSE 64; RESP 18; TEMP 36.3; O2SAT 93
[2025-09-06] MEDS: guaiFENesin DM 100/10/5 ML 5 ML SYRUP PO (05:18)
[2025-09-06] MEDS: Sulfamethox/Trimeth 800/160 TABLET 2 TAB PO (05:19)
[2025-09-06 06:36] LABS: Hematocrit 28.3 % (42.0-52.0); Hemoglobin 9.4 g/dl (14.0-18.0); Mean Corpuscular HGB Conc 33.2 g/dl (31.0-36.0); Mean Corpuscular Hemoglobin 29.2 pg (27.0-33.0); Mean Corpuscular Volume 87.9 fL (80.0-98.0); NRBC Abs Auto 0.000 X10*3/uL (0.0-0.012); NRBC Pct Auto 0.0 /100WBC (0.0-0.2); Red Blood Count 3.22 X10*6/uL (4.60-5.80)
[2025-09-06 06:37] LABS: Platelet Count 98 X10*3/uL (160-400); White Blood Count 2.5 X10*3/uL (4.8-10.8)
[2025-09-06 06:55] LABS: Alanine Aminotransferase 37 U/L (0-40); Albumin Level 2.5 g/dL (3.5-5.0); Alkaline Phosphatase 196 U/L (39-117); Anion Gap 9 (12-20); Aspartate Amino Transferase 106 U/L (5-37); Blood Urea Nitrogen 11 mg/dL (9-16); Calcium 8.1 mg/dL (8.4-10.2); Carbon Dioxide 24 mmol/L (22-29); Chloride 106 mmol/L (96-108); Creatinine Clr Calc Pharmacy 83.3; Estimated Glomerular Filt Rate > 60; Potassium 3.8 mmol/L (3.3-5.1); Sodium 135 mmol/L (135-145); Total Protein 7.6 g/dL (6.5-8.0)
[2025-09-06 07:55] VITALS: BP 123/73; PULSE 60; RESP 16; TEMP 36.1; O2SAT 92
[2025-09-06 08:55] LABS: HBS Num1 25.85 mIU/mL (0-7.99); HBc Num1 8.69 S/CO (0.00-0.79); HBsAGNum1 0.28 S/CO (0.00-0.99); HIV Num 1 692.47 S/CO (0.00-0.99); Hepatitis B Surface Antigen Negative (Negative); ~Hepatitis B Surface Antibody REACTIVE (Nonreactive)
[2025-09-06] MEDS: 0.9 % Sodium Chloride Flush 3 ML SYRINGE IVFLUSH (08:57)
[2025-09-06] MEDS: Hydrocortisone 1 % Cream 28.35 GM TUBE 1 APPL TOPICAL (09:07)
--- NOTE | 2025-09-06 09:43 | PM.DS ---
DS: Providers Provider Date of Service: 09/06/25 Date of admission: 09/05/25 14:42 Date of discharge: 09/06/25 Primary care physician: [facility] Consults: 09/05/25 14:37 Consult to Infectious Diseases Routine Consulting Provider: [facility] Reason for consultation: PNA, HIV 09/05/25 14:38 Addiction Medicine Provider Routine Consulting Provider: Addiction Covering Reason for consultation: overdose DS: Diagnosis Discharge Diagnosis (1) Opioid use disorder: Status: Acute (2) Polysubstance abuse: Status: Acute (3) HIV disease: Status: Acute (4) Pneumonia: Status: Acute (5) Left against medical advice: Status: Acute (6) Hepatitis C: Status: Acute (7) AIDS: Status: Acute (8) Toxic encephalopathy: Status: Acute (9) Thrombocytopenia: Status: Acute DS: Summary Hospital Course Hospital Course: from my admission H+P, 09/05/25: 65yo M with HIV/AIDS on Biktarvy [last CD4 169, HIV RNA 124 on 05/07/25], HBV, HCV, polysubstance abuse, seizure disorder on Kera brought in by EMS after being found by bystanders out on a sidewalk outside. Pt reporting dry cough and subjective fever but otherwise is a poor historian. Denies EtOH but endorses drug abuse. No hemoptysis, no coughing up blood, no thrush. Denies SI. No recent seizure. Found to have multifocal PNA. Not hypoxic. Concern for PCP. Given ceftriaxone, doxycycline, Bactrim; also Narcan for somnolence. 65yo M with HIV/AIDS on Biktarvy [last CD4 169, HIV RNA 124 on 05/07/25], HBV, HCV, polysubstance abuse, seizure disorder on Keppra brought in by EMS after being found by bystanders out on a sidewalk outside, reporting cough, actively abusing drugs with Utox positive for fentayl, methadone, cocaine. Found to have multifocal PNA. Admitted to the medical-surgical unit with Infectious Disease consultation. Given low CD4, concern for PCP pneumonia. He was treated for CAP with ceftriaxone and doxycycline; with TMP-SMX for PCP. Not hypoxic. Unfortunately, on hospital d2, he quite suddenly decided to sign out AGAINST MEDICAL ADVICE despite counseling on the risks of disability and . He was advised to return to the hospital as soon as possible and in the meanwhile, was prescribed doxycycline and atovaquone. He was advised to avoid drug abuse. Time Attestation Discharge Coordination Time (in mins): 45 Quality: Safe Use of Opioids Does Pt have an Active Cancer Diagnosis on the Problem List?: No Quality: Stroke Does the patient have a stroke diagnosis?: No Physical Exam Vital Signs: Vital Signs: Last Vital Signs Temp 96.9 F 09/06/25 07:55 Pulse 60 09/06/25 07:55 Resp 16 09/06/25 07:55 BP 123/73 09/06/25 07:55 Pulse Ox 92 09/06/25 07:55 O2 Del Method Room Air 09/06/25 07:55 BMI result Body Mass Index 17.4 Gen: in no acute distress, malnourished HEENT: sclera anicteric, moist mucus membranes, no thrush Neck: supple Lungs: bilateral inspiratory crackles Heart: regular rate and rhythm, no murmurs Abd: soft, non-tender, non-distended Ext: no edema Skin: warm/well-perfused Neuro: alert, oriented x3, ambulatory Psych: appropriate affect DS: Data Data Completed and Pending Completed studies during hospitalization [Text1]: Laboratory Results WBC 2.5 X10*3/uL (4.8-10.8) L 09/06/25 06:18 RBC 3.22 X10*6/uL (4.60-5.80) L 09/06/25 06:18 Hgb 9.4 g/dl (14.0-18.0) L 09/06/25 06:18 Hct 28.3 % (42.0-52.0) L 09/06/25 06:18 MCV 87.9 fL (80.0-98.0) 09/06/25 06:18 MCH 29.2 pg (27.0-33.0) 09/06/25 06:18 MCHC 33.2 g/dl (31.0-36.0) 09/06/25 06:18 RDW 14.2 % (11.0-16.0) 09/06/25 06:18 Plt Count 98 X10*3/uL (160-400) L 09/06/25 06:18 MPV 11.3 fL (9.4-12.4) 09/06/25 06:18 Immature Gran % (Auto) 0.4 % (0.0-0.4) 09/05/25 12: Neut % (Auto) 84.0 % (45-73) H 09/05/25 12:23 Lymph % (Auto) 7.9 % (20-40) L 09/05/25 12:23 [place] % (Auto) 7.3 % (2-11) 09/05/25 12: Eos % (Auto) 0.2 % (0-4) 09/05/25 12: Baso % (Auto) 0.2 % (0-2) 09/05/25 12: Lymph # (Auto) 0.4 X10*3/uL (1.2-4.9) L 09/05/25 12: [place] # (Auto) 0.4 X10*3/uL (0.1-1.2) 09/05/25 12: Eos # (Auto) 0.0 X10*3/uL (0.0-0.4) 09/05/25 12: Baso # (Auto) 0.0 X10*3/uL (0.0-0.2) 09/05/25 12: Abs Immat Gran (auto) 0.02 X10*3/uL (0.00-0.03) 09/05/25 12: Absolute Neuts (auto) 4.5 x10*3/uL (2.0-8.3) 09/05/25 12: Absolute Nucleated RBC 0.000 X10*3/uL (0.0-0.012) 09/06/25 06:18 Nucleated RBC % (auto) 0.0 /100WBC (0.0-0.2) 09/06/25 06:18 VBG pH 7.43 (7.32-7.43) 09/05/25 12:55 VBG pCO2 40 mmHg 09/05/25 12:55 VBG pO2 77 mmHg 09/05/25 12:55 VBG HCO3 27 mmol/L (22-26) H 09/05/25 12:55 VBG O2 Saturation TNP 09/05/25 12:55 VBG Base Excess 3.0 mmol/L 09/05/25 12:55 Sodium 135 mmol/L (135-145) 09/06/25 06:18 Potassium 3.8 mmol/L (3.3-5.1) 09/06/25 06:18 Chloride 106 mmol/L (96-108) 09/06/25 06:18 Carbon Dioxide 24 mmol/L (22-29) 09/06/25 06:18 Anion Gap 9 (12-20) L 09/06/25 06:18 BUN 11 mg/dL (9-16) 09/06/25 06:18 Creatinine 0.65 mg/dL (0.5-1.4) 09/06/25 06:18 Estim Creat Clear Calc 83.3 09/06/25 06:18 Estimated GFR > 60 09/06/25 06:18 Random Glucose 115 mg/dL (60-115) 09/06/25 06:18 Lactic Acid 1.0 mmol/L (0.5-2.0) 09/05/25 12:24 Calcium 8.1 mg/dL (8.4-10.2) L 09/06/25 06:18 Magnesium 2.0 mg/dL (1.6-2.6) 09/05/25 12:23 Total Bilirubin 0.5 mg/dL (0.0-1.0) 09/06/25 06:18 Direct Bilirubin 0.3 mg/dL (0.0-0.5) 09/06/25 06:18 AST 106 U/L (5-37) H 09/06/25 06:18 ALT 37 U/L (0-40) 09/06/25 06:18 Alkaline Phosphatase 196 U/L (39-117) H 09/06/25 06:18 Lactate Dehydrogenase 215 U/L (118-273) 09/05/25 12:23 Total Protein 7.6 g/dL (6.5-8.0) 09/06/25 06:18 Albumin 2.5 g/dL (3.5-5.0) L 09/06/25 06:18 Procalcitonin 0.15 ng/mL 09/05/25 12:23 Urine Color Yellow 09/05/25 12:06 Urine Appearance Clear 09/05/25 12:06 Urine pH 6.0 (5.0-9.0) 09/05/25 12:06 Ur Specific [place] 1.010 (1.005-1.025) 09/05/25 12:06 Urine Protein 30 (1+) mg/dL (Neg-Trace) H 09/05/25 12:06 Urine Glucose (UA) Negative mg/dL (Negative) 09/05/25 12:06 Urine Ketones Negative mg/dL (Negative) 09/05/25 12:06 Urine Blood Trace (Negative) H 09/05/25 12:06 Urine Nitrite Negative (Negative) 09/05/25 12:06 Ur Leukocyte Esterase Negative (Negative) 09/05/25 12:06 Urine RBC 0-2 /HPF (0-2) 09/05/25 12:06 Urine WBC 0-5 /HPF (0-5) 09/05/25 12:06 Ur Squamous Epith Cells 0-2 /HPF (0-2) 09/05/25 12:06 Urine Bacteria 3+ (None Seen) 09/05/25 12:06 Hyaline Casts 0-2 /LPF (0-2) 09/05/25 12:06 Urine Opiates Screen POSITIVE (Not Detect) H 09/05/25 12:06 Ur Buprenorphine Scrn Not Detected ng/mL (Not Detect) 09/05/25 12:06 Ur Oxycodone Screen Not Detected ng/mL (Not Detect) 09/05/25 12:06 Urine Methadone Screen Positive ng/mL (Not Detect) H 09/05/25 12:06 Urine Fentanyl Screen POSITIVE (Not Detect) H 09/05/25 12:06 Ur Barbiturates Screen Not Detected (Not Detect) 09/05/25 12:06 Ur Phencyclidine Scrn Not Detected (Not Detect) 09/05/25 12:06 Ur Amphetamines Screen Not Detected (Not Detect) 09/05/25 12:06 U Benzodiazepines Scrn Not Detected (Not Detect) 09/05/25 12:06 Urine Cocaine Screen POSITIVE (Not Detect) H 09/05/25 12:06 U Marijuana (THC) Screen Not Detected (Not Detect) 09/05/25 12:06 COVID-19 (SAIDA) Negative (Negative) 09/05/25 11:10 COVID-19 Clin Com See Note 09/05/25 11:10 Hep Bs Antigen Negative (Negative) 09/06/25 06:18 Hep Bs Antibody REACTIVE (Nonreactive) 09/06/25 06:18 Influenza Type A (TREVON) Negative (Negative) 09/05/25 11:10 Influenza Type B (TREVON) Negative (Negative) 09/05/25 11:10 Influenza A & B Note See Note 09/05/25 11:10 Impressions Chest X-Ray 09/05/25 10:45 IMPRESSION: 1. Bibasilar pneumonia. No definite effusions. 2. Evidence of small airway thickening suggestive of small airway inflammatory disease. Electronically signed by: Arpan Espinosa MD 09/05/2025 11:02 AM EDT RP Cervical Spine CT 09/05/25 11:45 IMPRESSION: No acute osseous findings. Moderate cervical spondylosis. Fleischner guidelines were followed. Electronically signed by: Yvon Francois MD 09/05/2025 12:56 PM EDT RP Head CT 09/05/25 11:45 IMPRESSION: No CT evidence of acute intracranial hemorrhage or edematous territorial infarction.. Chronic changes as detailed above. Electronically signed by: Yvon Francois MD 09/05/2025 12:45 PM EDT RP Chest CT 09/05/25 15:03 IMPRESSION: 1. Multifocal bronchopneumonia most confluent in the right lower lobe. Diffuse associated small airway thickening. No effusions. 2. Mild to moderate cardiac enlargement. Findings suggesting possible pulmonary hypertension. 3. Mild splenomegaly with likely early cirrhotic morphology of liver. 4. Additional ancillary findings as discussed. Electronically signed by: Arpan Espinosa MD 09/05/2025 03:34 PM EDT RP Discharge Plan Discharge Patient Disposition: Left Against Medical Advice Discharge Diagnosis: left hospital AGAINST MEDICAL ADVICE multifocal pneumonia HIV/AIDS substance abuse Referrals: [facility] [Primary Care Provider, Medical] - 1 Week Discharge Medications: New doxycycline monohydrate 100 mg Capsule 100 mg PO Q12H Qty: 14 0RF atovaquone 750 mg/5 mL suspension 750 mg PO BID Qty: 210 0RF Rx Instructions: must administer with food, preferably a high-fat meal naloxone [Narcan] 4 mg/actuation spray,non-aerosol 4 mg intranasal Q2M Qty: 2 0RF Rx Instructions: spray 1 dose into ONE nostril; alternate nostrils w each dose until help arrives Continued methadone 10 mg/mL Concentrate 60 mg PO DAILY Rx Instructions: CALLED [facility] AND VERIFIED DOSE Biktarvy 50-200-25 mg tablet 1 tab PO DAILY thiamine HCl (vitamin B1) 100 mg tablet 100 mg PO DAILY folic acid 1 mg tablet 1 mg PO DAILY levetiracetam 750 mg tablet 1,500 mg PO BID omega-3 acid ethyl esters 1 gram capsule 1 cap PO BID quetiapine 100 mg tablet 100 mg PO BEDTIME hydrocortisone 2.5 % cream 1 appl topical BID albuterol sulfate [Ventolin HFA] 90 mcg/actuation HFA aerosol inhaler 2 puff INHALATION Q6H PRN (Reason: Shortness Of Breath Or Wheezing) multivitamin Tablet 1 tab PO DAILY sertraline 50 mg tablet 50 mg PO DAILY Discharge Orders: Discharge Order (Routine); Ordered 09/06/25 Ordered By: Mathew Montgomery Diet: Advance to usual diet Print Language: Icelandic Care Plan Goals: to treat your medical problems correctly Health Concerns: left hospital AGAINST MEDICAL ADVICE multifocal pneumonia HIV/AIDS substance abuse Plan of Treatment: return to the hospital as soon as possible to resume correct medical care in the meanwhile, take atovaquone 5 mL twice daily for 21 days and doxycycline 100 mg twice daily for 7 days AVOID SUBSTANCE ABUSE in case of overdose, use Narcan Assessment: See Discharge Summary.
--- NOTE | 2025-09-06 09:47 | PC.NURSE ---
Pt wanted to leave ama, pt is of sound mind and able to make his own decisions. Encouraged to stay for treatment, MD at bedside, patient wants to leave AMA. IV out, Singed paper, security escorted patient out. Educated about risks of leaving, patient stated he did not care, left ama.
[2025-09-06 09:54] LABS: HIV Num 2 694.61 S/CO; HIV Num 3 723.95 S/CO
[2025-09-06 10:02] LABS: HBc Num2 9.50 S/CO; HBc Num3 8.95 S/CO
[2025-09-06 10:45] LABS: MRSA Nasal PCR POSITIVE (Negative); SA Nasal PCR POSITIVE (Negative)
--- NOTE | 2025-09-06 15:04 | MHC.CM.PN ---
Patient left AMA prior to CM assessment.
[2025-09-09 15:19] LABS: HCV Log PCR <1.18 NOT DETECTED Log IU/mL (NOT DETECTED); HepC Viral Load <15 NOT DETECTED IU/mL (NOT DETECTED)
[2025-09-09 21:59] LABS: HIV RNA PCR Qn Copies 26 copies/mL (NOT DETECTED); HIV RNA PCR Qn Log Copies 1.41 (NOT DETECTED)
[2025-09-10 05:04] LABS: Strep Pneumo Ag urine Not Detected (Not Detected)
[2025-09-11 21:53] LABS: Pneumocystis jir Ql PCR NOT DETECTED; Pneumocystis jir source SPUTUM
[2025-09-11 23:34] LABS: HIV 1 Antibody POSITIVE (NEGATIVE); HIV 2 Antibody NEGATIVE (NEGATIVE)
[2025-09-12 01:05] LABS: Absolute CD3 Count 164 cells/uL (840-3060); Absolute CD8 Count 95 cells/uL (180-1170); Percent CD3 Cells 65 % (57-85); Percent CD8 Cells 37 % (12-42)
[2025-09-12 12:04] LABS: Fungitell 1,3 beta glucan Negative
== END 2025-09-06 09:47 | disposition left against medical advice (07) | DRG 974 ==
LOC: HO.ED 14:20 → HO.EDOVER 14:42 → HO.S3 15:01
PROVIDERS: Physician Assistant; Admitting Provider Family Medicine; Emergency Provider Emergency Medicine Emergency Medical Services; Visit Provider Family Medicine
DX: J18.9 Pneumonia, unspecified organism (principal); G92.8 Other toxic encephalopathy; B20 Human immunodeficiency virus [HIV] disease; F11.20 Opioid dependence, uncomplicated; F19.20 Other psychoactive substance dependence, uncomplicated; G40.909 Epilepsy, unspecified, not intractable, without status epilepticus; Z20.822 Contact with and (suspected) exposure to COVID-19; Z79.899 Other long term (current) drug therapy
CPT/HCPCS: 36415; 70450; 71046; 71250; 72125; 80048; 80053; 80076; 80307; 81001; 82803; 83605; 83615; 83735; 84145; 85025; 85027; 86359; 86360; 86701; 86702; 86704; 86706; 87040; 87340; 87389; 87449; 87502; 87522; 87536; 87635; 87640; 87641; 87798; 87899; 93005; 99285; J0696; J1271; J1650

== ENCOUNTER → 2025-09-05 10:26 | Outpatient (BNV) | payer MEDICARE, MEDICAID, SELFPAY | PROVIDERS: Emergency Provider Emergency Medicine Emergency Medical Services; Visit Provider Radiology Diagnostic Radiology | DX: J18.0 Bronchopneumonia, unspecified organism (principal); I51.7 Cardiomegaly; J18.9 Pneumonia, unspecified organism | CPT/HCPCS: 71046; 71250 ==

== ENCOUNTER → 2025-09-05 11:09 | Outpatient (BNV) | payer OTHER, SELFPAY | PROVIDERS: Emergency Provider Emergency Medicine Emergency Medical Services; Visit Provider Internal Medicine Cardiovascular Disease | DX: R07.89 Other chest pain (principal) | CPT/HCPCS: 93010 ==

== ENCOUNTER → 2025-09-05 14:42 | Outpatient (BNV) | payer OTHER, SELFPAY | PROVIDERS: Admitting Provider Family Medicine; Emergency Provider Emergency Medicine Emergency Medical Services; Visit Provider Family Medicine | DX: F11.90 Opioid use, unspecified, uncomplicated (principal); F19.10 Other psychoactive substance abuse, uncomplicated; B20 Human immunodeficiency virus [HIV] disease; J18.9 Pneumonia, unspecified organism; Z53.29 Procedure and treatment not carried out because of patient's decision for other reasons; B19.20 Unspecified viral hepatitis C without hepatic coma; G92.9 Unspecified toxic encephalopathy; D69.6 Thrombocytopenia, unspecified | CPT/HCPCS: 99239 ==

== ENCOUNTER → 2025-09-05 14:42 | Outpatient (BNV) | payer OTHER, SELFPAY | PROVIDERS: Admitting Provider Family Medicine; Emergency Provider Emergency Medicine Emergency Medical Services; Visit Provider Internal Medicine | DX: F11.90 Opioid use, unspecified, uncomplicated (principal); F19.10 Other psychoactive substance abuse, uncomplicated; B19.10 Unspecified viral hepatitis B without hepatic coma; B20 Human immunodeficiency virus [HIV] disease; J18.9 Pneumonia, unspecified organism | CPT/HCPCS: 99223 ==

== ENCOUNTER 2025-09-09 16:15 | Inpatient (IN) | payer OTHER, SELFPAY ==
--- NOTE | ~2025-09-09 | XR_ITS ---
EXAMINATION: XR CHEST CLINICAL INFORMATION: recently admitted for PNA, left AMA COMPARISON: 09/05/2025 TECHNIQUE: 2 views of the chest were obtained. FINDINGS: Lungs are hyperexpanded with linear densities in the right upper lung greater than the left apex. Dense opacity in the right lower lobe base present on prior examination has decreased since the prior. Retrocardiac opacity has nearly resolved in the left lung base. Heart size normal. There is no pleural effusion. XR/XR chest 2V IMPRESSION: Improving right lower lobe pneumonia and nearly resolved left lung base retrocardiac density. Hyperexpanded lungs likely with underlying scarring and emphysema. Electronically signed by: Vik Painter MD 09/09/2025 05:03 PM EDT
--- NOTE | ~2025-09-09 | CT_ITS ---
CLINICAL HISTORY: multiple falls CT Head without contrast. CT cervical spine without contrast. Comparison: CT/SR - CT HEAD WITHOUT IV CONTRAST - 09/05/25 11:[address]/SR - CT CERVICAL SPINE WO IV CON - 07/30/25 02:[address] Head: No intracranial mass, midline shift, hydrocephalus, or acute hemorrhage. Mild heterogeneous low attenuation in the periventricular white matter. Few basal ganglia calcifications present. Mild cerebral atrophy. Right mesial parietal occipital encephalomalacia. There is no sinus or mastoid fluid. The orbits are within normal limits. No skull fracture. CT Cervical Spine: No cervical fluid collections or masses. No consolidation or effusion at the lung apices. Vertebral alignment is within normal limits. No acute fractures or dislocations. Mild osteopenia. C3-4: Mild DJD. Mild anterior spurring. C5-6: Mild DJD. Mild anterior spurring. C6-7: Mild DJD. IMPRESSION: 1. Right mesial parietal occipital encephalomalacia. 2. Mild cerebral atrophy. 3. Mild periventricular white matter hypodensities. 4. No acute intracranial or cervical spine findings. This document has been electronically signed by: Marcial Choudhury MD on 09/09/2025 17:36:50
--- NOTE | ~2025-09-09 | CT_ITS ---
CLINICAL HISTORY: multiple falls CT head without contrast Comparison: CT/SR - CT HEAD WITHOUT IV CONTRAST - 09/05/25 11:[address]/SR - CT HEAD/BRAIN WO IV CON - 07/30/25 02:19 EDT Findings: No intra-axial mass, midline shift, hydrocephalus, or acute hemorrhage. Heterogeneous low attenuation in the periventricular white matter. Right parietal occipital mesial encephalomalacia. Mild cerebral atrophy. Few basal ganglia calcifications are present. The visualized paranasal sinuses and mastoid air cells are normal. The orbits are unremarkable. No skull fracture. IMPRESSION: 1. Right parietal occipital mesial encephalomalacia, stable. 2. Mild chronic periventricular microvascular ischemic disease. 3. Mild cerebral atrophy. 4. Few basal ganglia calcifications. 5. No acute intracranial findings. This document has been electronically signed by: Marcial Choudhury MD on 09/09/2025 17:37:16
[2025-09-09 16:25] VITALS: BP 132/73; PULSE 67; O2SAT 99
[2025-09-09 16:40] VITALS: BP 90/54; PULSE 67; RESP 18; TEMP 36.7; O2SAT 99; BMI 18.0
--- NOTE | 2025-09-09 16:40 | ED.GENADULT ---
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 Patient was admitted on 09/05/2025 for multifocal pneumonia. Due to a CD4 count less than 200 he was treated for PCP pneumonia and he was initially on ceftriaxone, doxycycline and Bactrim Infectious disease recommended 3-5 days of IV antibiotics and then titrating to treatment based on Legionella, strep pneumonia and PCP pneumonia testing. The patient ultimately left AMA the following day on 09/06/2025. He was prescribed doxycycline and atovaquone which he reports he has been taking He saw his primary doctor today who recommended and come back to the hospital. The patient also reports diarrhea but denies abdominal pain He complains of dizziness, multiple falls and increased weakness Denies any fevers He endorses mild shortness of breath and continued cough Related Data Home Medications ?Medication ?Instructions ?Recorded ?Confirmed methadone 10 mg/mL oral concentrate 60 mg PO DAILY 09/20/22 09/20/22 bictegravir 50 mg-emtricitabine 1 tab PO DAILY 02/15/23 09/05/25 200 mg-tenofovir alafenam 25 mg tablet (Biktarvy) albuterol sulfate 90 mcg/actuation 2 puff inhalation Q6H PRN 09/05/25 09/05/25 aerosol inhaler (Ventolin HFA) Shortness Of Breath Or Wheezing folic acid 1 mg tablet 1 mg PO DAILY 09/05/25 09/05/25 hydrocortisone 2.5 % topical cream 1 appl topical BID 09/05/25 09/05/25 levetiracetam 750 mg tablet 1,500 mg PO BID 09/05/25 09/05/25 multivitamin 1 tab PO DAILY 09/05/25 09/05/25 omega-3 acid ethyl esters 1 gram 1 cap PO BID 09/05/25 09/05/25 capsule quetiapine 100 mg tablet 100 mg PO BEDTIME 09/05/25 09/05/25 sertraline 50 mg tablet 50 mg PO DAILY 09/05/25 09/05/25 thiamine HCl (vitamin B1) 100 mg 100 mg PO DAILY 09/05/25 09/05/25 tablet Allergies Allergy/AdvReac Type Severity Reaction Status Date / Time No Known Allergies (No Known Allergy Verified 09/09/25 16:43 Allergies*) Review of Systems Constitutional: Constitutional: Reports body ache(s), Reports chills, Denies fever(s) and Denies headache(s) Eyes: Eyes: Denies blurry vision ENT: Denies vertigo, Reports dizziness and Denies headache(s) Cardiovascular: Cardiovascular: Reports chest pain, Reports dyspnea and Reports dyspnea on exertion Respiratory: Respiratory: Reports cough, Reports pain with cough, Reports dyspnea and Reports dyspnea on exertion Gastrointestinal: Gastrointestinal: Denies abdominal pain, Denies nausea and Denies vomiting Musculoskeletal: Musculoskeletal: Denies back pain Integumentary/Breasts: Skin/Breast: Denies rash Neurologic: Denies vertigo, Reports dizziness and Denies headache(s) [facility] Past Medical History Medical History (Updated 09/09/25 @ 23:36 by Silas Major) Left against medical advice Pneumonia Seizure COVID-19 Depression with anxiety Polysubstance abuse Substance abuse Hepatitis HIV disease Alcoholism Asthma Surgical History History of skin surgery Social History Social History Household Members: None Housing: Apartment Do you presently have visiting nurse or other home services: No Alcohol intake: current Alcohol intake frequency: a few times a week Alcohol type: hard liquor Comment: 1to 1 sitter Patient Tobacco Use Status: Current everyday Tobacco user Tobacco use type: Cigarette Cigarettes Per Day: 10 Second Hand Smoke Exposure: No Substance Use Type: Heroin Advance Directives: No Advance Directives Information Provided: No Do you have a plan to hurt others: No Plan service: No Current occupational status: unemployed and disabled Physical Exam ED Vital Signs: Vital Signs - 24 hr 09/09/25 16:40 09/09/25 22:00 Temperature 98.1 F 98.4 F Pulse Rate 67 68 Respiratory Rate 18 20 Blood Pressure 90/54 L 127/62 Pulse Oximetry 99 94 Oxygen Delivery Method Room Air Room Air BMI result Body Mass Index 18.0 Const General: comfortable, no acute distress, alert, awake and ill appearing Nutritional Appearance: cachectic Orientation/consciousness: patient oriented x3 HENMT Head: Yes normocephalic and Yes atraumatic Eyes Eyelids: Yes eyelids normal Conjunctivae: conjunctivae normal Sclerae: sclerae normal Corneas: corneas normal Pupils: Equal, round and reactive pupils present EOM: EOMs intact bilaterally Neck Neck: Yes full ROM Resp Effort & Inspection: normal respiratory effort, able to speak in complete sentences, no audible wheezes and not labored Auscultation: clear to auscultation bilaterally Cardio Rate: regular rate Rhythm: regular rhythm GI Inspection: No distended Palpation (GI): Soft to palpation, not firm, nontender, no guarding and not rigid Skin General skin exam: no rashes or lesions noted and elasticity normal Neuro General: patient oriented x3 Cranial nerves: Yes CN's II-XII intact bilaterally, Yes Equal, round and reactive pupils present and Yes Bilaterally intact EOM present Cognition (Neuro): normal cognition Extrem Other: Moving all extremities well without any obvious deformities Course Course Course Narrative: This is a rapid medical exam performed by Alfredito Eaton NP: Additional HPI, ROS, PE not included below will be deferred to primary provider. Patient is a 65y/o Cypriot speaking male with pmhx HIV, multifocal PNA , seizures, polysubstance dependence presenting from [facility] clinic after being told by providers there to return for treatment. Left AMA from inpatient unit on 09/06. Plan: labs, CXR Medical Decision Making Medical Decision Making [facility] Narrative: 65-year-old male past medical history as above presents for evaluation of continued cough, shortness of breath, weakness and multiple falls. The patient's vital signs are stable, his chest x-ray does appear to show improving pneumonia with near resolution of the left lung base and improving right mid lung opacity. However he has continued to feel weak and dizzy with multiple falls, his labs show no significant change, his white count has decreased and he has mild leukopenia. I reviewed his serology testing from his last admission which is all still pending. I reordered the medications he was taking with ceftriaxone, doxycycline and Bactrim we will discuss with the hospitalist for admission due to the patient's complicated medical history. The patient does not meet sepsis criteria, vital signs within normal limits. Differential Diagnosis Differential Diagnoses: The differential diagnosis associated with the presentation includes PCP pneumonia Strep pneumonia HIV Age Sepsis Admission/Observation Consideration of admission/observation: Escalation of care including admission/observation considered Consult Healthcare Provider Management of the patient was discussed with: Hospitalist Lab Data MDM Lab Attestation statement: I reviewed the patient's lab results. Mild pancytopenia likely due to history of HIV and HCV as well as HBV. No significant chemistry abnormalities warranting intervention. 09/09/25 17:43 09/09/25 17:43 Labs: Lab Results 09/09/25 09/09/25 Range/Units 17:32 17:43 WBC 2.1 L (4.8-10.8) X10*3/uL RBC 2.89 L (4.60-5.80) X10*6/uL Hgb 8.3 L (14.0-18.0) g/dl Hct 25.6 L (42.0-52.0) % MCV 88.6 (80.0-98.0) fL MCH 28.7 (27.0-33.0) pg MCHC 32.4 (31.0-36.0) g/dl RDW 15.2 (11.0-16.0) % Plt Count 125 L D (160-400) X10*3/uL MPV 11.6 (9.4-12.4) fL Immature Gran % (Auto) 0.5 H (0.0-0.4) % Neut % (Auto) 54.3 (45-73) % Lymph % (Auto) 30.3 (20-40) % [place] % (Auto) 12.5 H (2-11) % Eos % (Auto) 1.9 (0-4) % Baso % (Auto) 0.5 (0-2) % Lymph # (Auto) 0.6 L (1.2-4.9) X10*3/uL [place] # (Auto) 0.3 (0.1-1.2) X10*3/uL Eos # (Auto) 0.0 (0.0-0.4) X10*3/uL Baso # (Auto) 0.0 (0.0-0.2) X10*3/uL Abs Immat Gran (auto) 0.01 (0.00-0.03) X10*3/uL Absolute Neuts (auto) 1.1 L (2.0-8.3) x10*3/uL Absolute Nucleated RBC 0.000 (0.0-0.012) X10*3/uL Nucleated RBC % (auto) 0.0 (0.0-0.2) /100WBC Smear Tech's Comments VERIFIED Sodium 138 (135-145) mmol/L Potassium 4.3 (3.3-5.1) mmol/L Chloride 109 H (96-108) mmol/L Carbon Dioxide 25 (22-29) mmol/L Anion Gap 8 L (12-20) BUN 14 (9-16) mg/dL Creatinine 0.83 (0.5-1.4) mg/dL Estim Creat Clear Calc 59.6 Estimated GFR > 60 Random Glucose 65 (60-115) mg/dL Calcium 8.3 L (8.4-10.2) mg/dL Magnesium 1.7 (1.6-2.6) mg/dL Total Bilirubin 0.3 (0.0-1.0) mg/dL AST 62 H (5-37) U/L ALT 26 (0-40) U/L Alkaline Phosphatase 169 H (39-117) U/L Total Protein 8.2 H (6.5-8.0) g/dL Albumin 2.6 L (3.5-5.0) g/dL COVID-19 (SAIDA) Negative (Negative) COVID-19 Clin Com See Note Influenza Type A (TREVON) Negative (Negative) Influenza Type B (TREVON) Negative (Negative) Influenza A & B Note See Note Independent Interpretation I performed an independent interpretation of an: EKG (Normal sinus rhythm with a rate of [address] changes) and Plain X-Ray Interpretation: Agree with Radiology interpretation, improving pneumonia Discharge Plan Discharge Clinical Impression: AIDS, Pneumonia Patient Disposition: Admitted As Inpatient Print Language: Cypriot
[2025-09-09 17:55] LABS: Hematocrit 25.6 % (42.0-52.0); Hemoglobin 8.3 g/dl (14.0-18.0); Imm Gran Abs Auto 0.01 X10*3/uL (0.00-0.03); Imm Gran Pct Auto 0.5 % (0.0-0.4); Lymphocytes Absolute Auto 0.6 X10*3/uL (1.2-4.9); MANUAL DIFF FLAG SCAN; Mean Corpuscular HGB Conc 32.4 g/dl (31.0-36.0); Mean Corpuscular Hemoglobin 28.7 pg (27.0-33.0); Mean Corpuscular Volume 88.6 fL (80.0-98.0); NRBC Abs Auto 0.000 X10*3/uL (0.0-0.012); NRBC Pct Auto 0.0 /100WBC (0.0-0.2); Platelet Count 125 X10*3/uL (160-400); Red Blood Count 2.89 X10*6/uL (4.60-5.80); SCAN SMEAR FLAG 1
[2025-09-09 17:56] LABS: White Blood Count 2.1 X10*3/uL (4.8-10.8)
[2025-09-09 18:10] LABS: COVID-19 Test Negative (Negative); IDNOW Serial# 6674DD1D
[2025-09-09 18:16] LABS: Alanine Aminotransferase 26 U/L (0-40); Albumin Level 2.6 g/dL (3.5-5.0); Alkaline Phosphatase 169 U/L (39-117); Anion Gap 8 (12-20); Aspartate Amino Transferase 62 U/L (5-37); Blood Urea Nitrogen 14 mg/dL (9-16); Calcium 8.3 mg/dL (8.4-10.2); Carbon Dioxide 25 mmol/L (22-29); Chloride 109 mmol/L (96-108); Creatinine Clr Calc Pharmacy 59.6; Estimated Glomerular Filt Rate > 60; Magnesium 1.7 mg/dL (1.6-2.6); Potassium 4.3 mmol/L (3.3-5.1); Sodium 138 mmol/L (135-145); Total Protein 8.2 g/dL (6.5-8.0)
[2025-09-09 18:21] LABS: IDNOW Serial# 08D9AD1C
[2025-09-09 18:22] LABS: Influenza B2 Negative (Negative)
--- OUTSIDE RECORDS SUMMARY | 2025-09-09 18:50 | XMS_ITS | Data Portability ---
Author Organization [facility], Main Office Address [address] [place] [address] [address] [place] [address] Care Team Providers Care Real Estate Specialist Name Role Phone [facility] OTHER Assessment Encounter Date Assessment Date Assessment LastModified by Organization Details LastModified Time 01/02/2019 01/02/201901/01 bun 11, creat 0.8, na 128, k 4.0, wbc 3.93, hgb 10.9, hct 31.9 Not available 01/02/2019 13:07:29 01/15/2019 01/15/201901/01 bun 11, creat 0.8, na 128, k 4.0, wbc 3.93, hgb 10.9, hct 31.9 01/14 wbc 3.76, hgb 11.1, hct 34.0, bun 12, creat 0.7, na 134, k 4.5 Not available 01/15/2019 15:34:05 01/25/2019 01/25/201901/01 bun 11, creat 0.8, na 128, k 4.0, wbc 3.93, hgb 10.9, hct 31.9 01/14 wbc 3.76, hgb 11.1, hct 34.0, bun 12, creat 0.7, na 134, k 4.5 01/21 wbc 3.0, hgb 11.0, hct 33.6, bun 14, creat 0.7 Not available 01/25/2019 11:28:50 01/28/2019 01/28/201901/01 bun 11, creat 0.8, na 128, k 4.0, wbc 3.93, hgb 10.9, hct 31.9 01/14 wbc 3.76, hgb 11.1, hct 34.0, bun 12, creat 0.7, na 134, k 4.5 01/21 wbc 3.0, hgb 11.0, hct 33.6, bun 14, creat 0.7 01/28 wbc 3.49, hgb 11.6, hct 35.9, bun 18, creat 0.7 Not available 01/28/2019 13:30:31 Plan of Treatment Reminders Order Date Submit Date Provider Last Modified By Organization Details Last Modified Time Details Appointments None record ed. Lab None record ed. Referral None record ed. Procedures None record ed. Surgeries None record ed. Imaging None record ed. Medication Orders None record ed. Patient TargetsNo targets recorded. Patient InstructionsNo instructions recorded. Reason for Referral None Reported. Problems Name Problem SNOMED Code Status Onset Date Resolution Date Notes Provider Name and Address Organization Details Recorded Time Intracranial hemorrhage 5572697 Active [address] [facility] 9 12:49:51 Sepsis caused by Streptococcus 529462110 Active [address] [facility] 9 12:50:27 Human immunodeficien cy virus infection 52423581 Active [address] [facility] 9 12:50:42 Harmful pattern of use of multiple substances 964828466 Active [address] [facility] 9 12:50:50 Tobacco user 856845054 Active 2018 Tobi Abarca MD [address] [facility] [address], [place], [address], [facility] 9 14:38:19 Primary insomnia 2838137 Active 2018 Tboi Abarca MD [address] [facility] [address], [place], [address], [facility] 9 14:42:17 Problem Notes None recorded. Medical Equipment None Reported. Allergies No known drug allergies Vitals Date Recorded Systolic And Diastolic Provider Name and Address Organization Details Last Updated DateTime 01/02/2019 126/74 mm[Hg] Sarita German [facility] 01/02/2019 12:23:32 Date Recorded Heart rate Systolic And Diastolic Provider Name and Address Organization Details Last Updated DateTime 01/15/2019 67 /min 135/78 mm[Hg] Sarita German [facility] 01/15/2019 15:22:36 Date Recorded Systolic And Diastolic Provider Name and Address Organization Details Last Updated DateTime 01/25/2019 108/76 mm[Hg] Sarita German [facility] 01/25/2019 11:30:27 Date Recorded Systolic And Diastolic Provider Name and Address Organization Details Last Updated DateTime 01/28/2019 122/70 mm[Hg] Sarita German [facility] 01/28/2019 13:29:00 Social History Question Answer Notes LastModified by Organizat ion Details LastModified Time Tobacco Smoking Status Current Every Day Smoker Not Available [facility] 09/22/2020 03:13:20 Do You Have An Advance Directive? Yes Full Code [id number] Information not available 09/22/2020 Do You Have A Medical Power Of Packer? No [id number] Information not available 09/22/2020 What Was The Date Of Your Most Recent Tobacco Screening? 01/28/2019 [id number] Information not available 09/22/2020 How Much Tobacco Do You Smoke? 0.5 PPD [id number] Information not available 09/22/2020 Has Tobacco Cessation Counseling Been Provided? Yes [id number] Information not available 09/22/2020 On What Date Was Tobacco Cessation Counseling Provided? 01/28/2019 [id number] Information not available 09/22/2020 Sex: Unknown Functional Status Question Answer Note LastModified by Organization D etails LastModified Time What is your level of alcohol consumption? None [id number] Information not available 09/22/2020 Mental Status None recorded. Family History Nothing Reported Notes:N/C Medical History No medical history recorded. Past Encounters Encounter ID Performer Location Encounter Start Date Encounter Closed Date Diagnosis/Indication Diagnosis SNOMED-CT Code Diagnosis ICD10 Code Diagnosis IMO Codes Diagnosis Note [id number] JORDI Marshall [facility] on [address] [place] [id number] 01/02/2019 12:22:01 01/16/2019 13:30:40 Intracranial hemorrhage 4604986 I61.8 See HPINeeds repeat head CT in 3-4 weeks and MRI in 6-8 weeksF/u with ID and neurosurge ryPT/OT eval and treatMonit or Sepsis cau sed by Streptococcus 184500898 A40.8 Complete 4 week course of IV penicillin G (end date 01/24)Weekl y CMP, CBCF/u with IDMonitor Human immunodeficiency virus infection 64862688 B20 On Biktarvy and AbacavirF/ u with ID Harmful pa ttern of use of multiple substances 397924701 F19.10 Avoid narcotic usePreviou sly on suboxone however not on currentlyM onitor for withdrawal Hyponatremia 53844385 E8 7.1 Sodium noted to be low on admission labsRepeat BMP 01/04 Insomnia 758338236 G47.0 9 Add melatonin 5 mg QHS Depressive disorder 3548 9007 F33.8 Reports he typically takes Seroquel 50 mg QHS-will restartReq uest psych consult [id number] Tobi Abarca MD [facility] on [address] [place] [phone] 01/05/2019 14:27:25 01/16/2019 13:56:36 Intracranial hemorrhage 7407613 I61.1 see HPIlarge subacute right occipital hemorrhage follow neurosurge ry recsmonito r sx and control blood pressurePT OT eval and treatno anticoagul ation Sepsis cau sed by Streptococcus 960503537 A40.8 see HPIstrep viridansPe n G q 4 hours to complete 28 day coursemoni tor vital Harmful pa ttern of use of multiple substances 632750619 F19.10 active IV heroin and cocaine userefusin g drug treatment or suboxoneat tempt to assist with support in community Human immunodeficiency virus infection 85364408 B20 followed by IDcontinue current medication s Tobacco user 200652032 Z 72.0 currently on nicotine patchmonit or for effect Primary insomnia 9217801 F51.01 will add trazadone 25 mg qhsmonitor for effectcont inue melatonin [id number] JORDI Marshall [facility] on [address] [place] [phone] 01/15/2019 15:22:04 01/23/2019 09:27:09 Intracranial hemorrhage 7885289 I61.8 See HPINeeds repeat head CT in 3-4 weeks and MRI in 6-8 weeksF/u with ID and neurosurge ryMonitor labs Sepsis cau sed by Streptococcus 292717211 A40.8 Complete 4 week course of IV penicillin G (end date 01/24)Weekl y CMP, CBCF/u with IDMonitor Human immunodeficiency virus infection 15135056 B20 On Biktarvy and AbacavirF/ u with ID Hyponatremia 37720141 E8 7.1 [place] [id number] Sarita German [facility] on [address] [place] [phone] 01/25/2019 11:17:36 01/30/2019 10:05:21 Intracranial hemorrhage 0921994 I61.8 See HPINeeds repeat head CT in 3-4 weeks and MRI in 6-8 weeksF/u with ID and neurosurge ryMonitor labs Sepsis cau sed by Streptococcus 401198716 A40.8 Complete 4 week course of IV penicillin G (end date 01/26)Weekly CMP, CBCF/u with ID as scheduledM onitor Human immunodeficiency virus infection 67321808 B20 On Biktarvy and AbacavirF/ u with ID Hyponatremia 75844551 E8 7.1 [place] [id number] Sarita German [facility] on [address] [place] [phone] 01/28/2019 13:27:39 01/30/2019 10:30:15 Sepsis caused by Streptococcus 012958648 A40.8 Has completed 4 week course of IV penicillin G (end date 01/26)Needs ID f/uLabs stable-pat ient feeling wellAppear s resolved Intracrani al hemorrhage 2650813 I61.8 See HPINeeds repeat head CT in 3-4 weeks and MRI in 6-8 weeksF/u with ID and neurosurge ryMonitor labs Human immunodeficiency virus infection 83694258 B20 On Biktarvy and AbacavirF/ u with ID Health Concerns Section Related Observation LastModified by Organization Detai ls LastModified Time None Recorded Concern Status LastModified by Organization Details LastModified Time None Recorded Advance Directives Directive Y: full code Payers Insurance Date Sequence Insurance Name Policy Number Policy Mix Covered Member ID Mix Member ID Guarantor Name 05/07/2024 1 [place] [facility] Mino Goldstein [id number] Mino Goldstein Notes Date Note Type Note Provider Name and Address Organization Details Recorded Time 01/02/2019 text/html 58 yo male with hx of polysubstance abuse, HIV admit from hospital after presenting with confusion, vomiting and headache. CT of head showed large parieto-occipital hemorrhage with mass effect and 2 mm midline shift without evidence of hydrocephalus. Hasty to be sub-acute, eval by neuro-surg and did not recommend intervention. Repeat head CT in 3-4 weeks and repeat MRI in 6-8 weeks. Also noted with fever and blood cultures returned positive for strep group viridans. ECHO negative for vegetation. 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 To complete 4 week course of IV penicillin G and f/u with ID. Admit for continued care and therapy. [place]-speaking only, seen with maintenance mechanic telephone present. Sarita caraballo [employer] 01/02/2019 14:32:25 01/05/2019 text/html Patient is a 58 yo male admit from hospital after presenting with headache, weakness, vomiting, and altered mental status x [address] head positive for large right sided occipital hemorrhage, eval by neurosurgery and felt to be subacute. Blood cultures positive for gram positive cocci started on rocephin and vanco. OD consulted in patient with known HIV and active IV drug use of heroin and cocaine. Will need at least 4 weeks IV antibiotics PMH significant forHIV substance abuse admit to facility for continued care and therapy Tobi Abarca MD [address] [place] [address], [address], [place], [address], [employer] 01/05/2019 14:45:25 01/15/2019 text/html 58 yo male seen for acute rounding visit. 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 To complete 4 week course of IV penicillin G and f/u with ID. Patient reports doing well-ambulating normally. Reports mild headache otherwise denies complaints. Sarita caraballo [employer]ve 01/15/2019 15:34:47 01/25/2019 text/html 58 yo male seen for acute rounding visit. 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 To complete 4 week course of IV penicillin G and f/u with ID. Patient reports doing well. No headaches, dizziness, blurred vision. Ambulating normally and appetite good. Remains on IV penicillin which is scheduled to finish tomorrow. Sarita caraballo [employer] [facility] 01/25/2019 11:32:17 01/28/2019 text/html 58 yo male seen for 30 day routine rounding. 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 To complete 4 week course of IV penicillin G and f/u with ID. Patient has now completed antibiotic course-noted to have low grade temp yesterday, afebrile today. Patient states he feels well, denies complaints. Sarita caraballo [employer] [facility] 01/28/2019 14:07:13
[2025-09-09 22:00] VITALS: BP 127/62; PULSE 68; RESP 20; TEMP 36.9; O2SAT 94
--- NOTE | 2025-09-09 23:28 | ECG_ITS ---
Test Reason : PAIN Blood Pressure : */* mmHG Vent. Rate : 53 BPM Atrial Rate : 53 BPM P-R Int : 194 ms QRS Dur : 76 ms QT Int : 450 ms P-R-T Axes : 51 10 62 degrees QTcB Int : 422 ms Sinus bradycardia Otherwise normal ECG When compared with ECG of 05-Sep-2025 11:21, No significant change was found Referred By: Silas Major Electronically Signed By: Octavio Salinas
[2025-09-10] VITALS (14 sets, daily range): BP systolic 116–139; BP diastolic 58–85; PULSE 59–82; RESP 18–20; TEMP 36.2–37; O2SAT 95–100; BMI 18.2
--- NOTE | 2025-09-10 00:44 | PM.IMHP ---
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 Patient states he left AMA because he did not get his methadone. Patient was told by his doctor to return to the hospital. Patient reports mild intermittent diarrhea currently with multiple falls. Patient does confirm that he has been using continued IV drug use involving fentanyl and cocaine. Patient does not appear to be under the influence at time of admission and is currently able to follow commands and protect his airway. Last admission , Patient's MRSA did come back positive. Testing for Legionnaires and strep pneumonia are still pending from previous admission. PCP, PJP testing also pending from previous admission. Patient's Viral HIV testing is still pending from previous admission. Patient does confirm that he is taking his Biktarvy everyday in the morning. Patient reports some mild mouth sores on his lower lip. Hepatitis-B antigen and HCV viral load both negative. Patient is currently on room air and not experiencing any chest pain or shortness of breath at rest. Patient understands that he is being admitted for ongoing pneumonia and explanation provided regarding how dosing methadone works once admitted to the hospital. Patient is agreeable to admission. Patient has been seen by infectious disease this previous admission and patient was continue on Bactrim DS b.i.d., ceftriaxone and doxycycline. Concern expressed for PJP pneumonia. Infectious Disease felt patient should be on these antibiotics for at least 3-5 days IV and then oral dosing based on results of pending tests which were ordered this past admission. Antibiotics have been continued in the ED. Workup in the ED noted a chest x-ray which shows improvement of the right lower lobe pneumonia with emphysema, noted pancytopenia, previous CD4 count of 169 and viral load of 124. Patient's head CT and CT of the cervical spine were negative for acute findings. COVID, flu and RSV testing are all negative. Stool panel pending. Review of Systems Review of Systems: Patient denies any chest pain or shortness of breath at rest. Patient reports healthy appetite is requesting cookies. Patient denies any difficulty swallowing, nausea or vomiting. Patient is having intermittent diarrhea. Yes all other systems are reviewed and are negative [facility] Medical History Left against medical advice Pneumonia Seizure COVID-19 Depression with anxiety Polysubstance abuse Substance abuse Hepatitis HIV disease Alcoholism Asthma Cognitive capacity: Alert and orientated x3 Functional capacity: independent ambulation Surgical History History of skin surgery Social History Household Members: None Housing: Apartment Do you presently have visiting nurse or other home services: No Alcohol intake: current Alcohol intake frequency: a few times a week Alcohol type: hard liquor Comment: 1to 1 sitter Patient Tobacco Use Status: Current everyday Tobacco user Tobacco use type: Cigarette Cigarettes Per Day: 10 Second Hand Smoke Exposure: No Substance Use Type: Heroin Advance Directives: No Advance Directives Information Provided: No Do you have a plan to hurt others: No Plan service: No Current occupational status: unemployed and disabled Ebola Risk: Travel/Contact With Anyone From Affected Area/s: No Has Patient Experienced Ebola Symptoms: No Meds Allergies Allergy/AdvReac Type Severity Reaction Status Date / Time No Known Allergies (No Known Allergy Verified 09/09/25 16:43 Allergies*) Active Medications: Current Medications Doxycycline Hyclate 100 mg/ (Sodium Chloride) 250 mls @ 166.67 mls/hr IV ONCE ONE Stop: 09/10/25 00:54 Sodium Chloride (Ns) 1,000 mls @ 999 mls/hr IV .Q1H1M DEBORA Stop: 09/10/25 00:45 Home Medications ?Medication ?Instructions ?Recorded ?Confirmed ?Last Taken ?Type methadone 10 mg/mL oral concentrate 60 mg PO DAILY 09/20/22 09/20/22 09/15/22 History bictegravir 50 mg-emtricitabine 1 tab PO DAILY 02/15/23 09/05/25 Unknown History 200 mg-tenofovir alafenam 25 mg tablet (Biktarvy) albuterol sulfate 90 mcg/actuation 2 puff inhalation Q6H PRN 09/05/25 09/05/25 Unknown History aerosol inhaler (Ventolin HFA) Shortness Of Breath Or Wheezing folic acid 1 mg tablet 1 mg PO DAILY 09/05/25 09/05/25 Unknown History hydrocortisone 2.5 % topical cream 1 appl topical BID 09/05/25 09/05/25 Unknown History levetiracetam 750 mg tablet 1,500 mg PO BID 09/05/25 09/05/25 Unknown History multivitamin 1 tab PO DAILY 09/05/25 09/05/25 Unknown History omega-3 acid ethyl esters 1 gram 1 cap PO BID 09/05/25 09/05/25 Unknown History capsule quetiapine 100 mg tablet 100 mg PO BEDTIME 09/05/25 09/05/25 Unknown History sertraline 50 mg tablet 50 mg PO DAILY 09/05/25 09/05/25 Unknown History thiamine HCl (vitamin B1) 100 mg 100 mg PO DAILY 09/05/25 09/05/25 Unknown History tablet Physical Exam Vital Signs and Narrative: Vital Signs: Last Vital Signs Temp 98.4 F 09/09/25 22:00 Pulse 68 09/09/25 22:00 Resp 20 09/09/25 22:00 BP 127/62 09/09/25 22:00 Pulse Ox 94 09/09/25 22:00 O2 Del Method Room Air 09/09/25 22:00 BMI result Body Mass Index 18.0 Alert and orientated X3, able to give good history. Patient able to protect airway and follow commands. Neuro: CN II-X11 intact, no deficits, visual acuity intact EYES: PERRLA, EOM intact, sclerae nonicteric, conjunctiva pink ENT: hearing intact, no issues with swallowing, uvula midline, lips moist, sores noted on lower lip, nares patent no epistaxis Cardiac: S1 S2 RRR, no murmur, no JVD, no edema in Lower ext Pulmonary: lungs diminished bilaterally Abdominal: BS active in all 4 quadrants, no guarding, tenderness, rebounding, patient very thin MSK: strength 5/5 upper and lower extremities : no CVA tenderness no bladder distension Extremities: no edema in lower extremities, PT and DP pulses palpable +2 Psych: mood stable, judgement and insight good Results Labs 09/09/25 17:43 09/09/25 17:43 Labs: Laboratory Results - last 24 hr 09/09/25 09/09/25 09/10/25 17:32 17:43 00:04 MCV 88.6 MCH 28.7 MCHC 32.4 RDW 15.2 Plt Count 125 L D MPV 11.6 Immature Gran % (Auto) 0.5 H Neut % (Auto) 54.3 Lymph % (Auto) 30.3 [place] % (Auto) 12.5 H Eos % (Auto) 1.9 Baso % (Auto) 0.5 Lymph # (Auto) 0.6 L [place] # (Auto) 0.3 Eos # (Auto) 0.0 Baso # (Auto) 0.0 Abs Immat Gran (auto) 0.01 Absolute Neuts (auto) 1.1 L Absolute Nucleated RBC 0.000 Nucleated RBC % (auto) 0.0 Smear Tech's Comments VERIFIED Anion Gap 8 L Estim Creat Clear Calc 59.6 Estimated GFR > 60 Random Glucose 65 Lactic Acid 1.3 Calcium 8.3 L Magnesium 1.7 Total Bilirubin 0.3 AST 62 H ALT 26 Alkaline Phosphatase 169 H Total Protein 8.2 H Albumin 2.6 L COVID-19 (SAIDA) Negative COVID-19 Clin Com See Note Influenza Type A (TREVON) Negative Influenza Type B (TREVON) Negative Influenza A & B Note See Note ECG Attestation: I personally reviewed and interpreted this ECG as follows: (Sinus bradycardia QTC 422 MD 194) Prior ECG tracings: available for review Imaging Radiologist's Impressions: Impressions Chest X-Ray 09/09/25 16:49 IMPRESSION: Improving right lower lobe pneumonia and nearly resolved left lung base retrocardiac density. Hyperexpanded lungs likely with underlying scarring and emphysema. 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 Patient states he left AMA because he did not get his methadone. Patient was told by his doctor to return to the hospital. Patient being admitted for continued treatment of pneumonia. Patient is not hypoxic, tachypneic, tachycardic or hypotensive. Lactic acid 1.3. CAP/ Multifocal PNA Patient will continue doxycycline, ceftriaxone and Bactrim as prescribed with previous admission Duo nebs p.r.n. Patient currently on room air Incentive spirometry Strep pneumonia and legionnaires are still pending from previous admission. PCP, PJP testing still pending from previous admission ID consulted MRSA screen positive last admission, patient is on doxycycline Explained importance of patient remaining in the hospital for completion of treatment versus leaving AMA Recent falls Head CT and cervical spine CT negative for any acute findings. PT eval ordered Orthostatics ordered Q shift x3 Do not suspect syncope or near syncopal episodes No evidence of dehydration or hypoglycemia the patient is reporting diarrhea intermittently, stool panel pending BMI 18, ordering nutritional consultation for review Ensure t.i.d. ordered Recommend patient use cane or other appropriate assistive device Pancytopenia Anemia stable, no indication for transfer Leukopenia and thrombocytopenia chronic No spontaneous bleeding issues currently report HIV/AIDS Continue Biktarvy Pneumocystis screening is still pending from previous admission HIV viral testing pending from previous admission, AB/AG testing reactive Hepatitis B, C Hepatitis-B antigen negative previous admission Hepatitis-C viral load not detected Substance use disorder Patient continues on methadone daily, dose confirmation expected in the a.m. Tox screen 09/05/2025 positive for fentanyl, cocaine - no indication of AMS, overdose or need for narcan this admission Patient admits to continued use of IV drugs Addictions consulted Seizure DO Continue Kepra Mouth sores HSV testing pending Topical antiviral ordered DVT prophylaxis: Lovenox Med rec pending Full code status Quality Stroke Does the patient have a stroke diagnosis?: No Reason for No Anti-thrombotic by Day Two: N/A - Med Ordered VTE Prior VTE?: No VTE Risk Level:: Medical - moderate - high VTE Device Contraindication: N/A - Device Ordered VTE Drug Contraindication: N/A - Med Ordered
[2025-09-10] MEDS: Sulfamethox/Trimeth 800/160 TABLET 1 TAB PO ×3 (01:01→23:19)
[2025-09-10 05:27] LABS: Hematocrit 25.8 % (42.0-52.0); Mean Corpuscular Volume 89.0 fL (80.0-98.0); NRBC Abs Auto 0.000 X10*3/uL (0.0-0.012); NRBC Pct Auto 0.0 /100WBC (0.0-0.2); PLT CLUMP 1; Red Blood Count 2.90 X10*6/uL (4.60-5.80)
[2025-09-10 05:29] LABS: Hemoglobin 8.2 g/dl (14.0-18.0); Mean Corpuscular HGB Conc 31.8 g/dl (31.0-36.0); Mean Corpuscular Hemoglobin 28.3 pg (27.0-33.0)
[2025-09-10 05:46] LABS: Alanine Aminotransferase 20 U/L (0-40); Albumin Level 2.3 g/dL (3.5-5.0); Alkaline Phosphatase 150 U/L (39-117); Anion Gap 9 (12-20); Aspartate Amino Transferase 61 U/L (5-37); Blood Urea Nitrogen 11 mg/dL (9-16); Calcium 7.9 mg/dL (8.4-10.2); Carbon Dioxide 21 mmol/L (22-29); Chloride 113 mmol/L (96-108); Creatinine Clr Calc Pharmacy 77.3; Estimated Glomerular Filt Rate > 60; Potassium 3.9 mmol/L (3.3-5.1); Sodium 139 mmol/L (135-145); Total Protein 7.3 g/dL (6.5-8.0)
[2025-09-10 06:03] LABS: Platelet Count 81 X10*3/uL (160-400); White Blood Count 1.2 X10*3/uL (4.8-10.8)
--- NOTE | 2025-09-10 07:17 | PHA.MEDREC ---
Addendum entered by Eitan Courtney PharmD 09/10/25 08:41: reviewed Original Note: Pharmacy Consult ? Medication Reconciliation Pharmacy has completed the medication reconciliation. Patient is a poor historian. Patient left AMA 09/06/25 Utilized discharge packet to confirm med list.
--- NOTE | 2025-09-10 07:46 | HO.PM.IMPN ---
Subjective Subjective Date of Service: 09/10/25 Interval History: Pt reports he wants his regular methadone - and per Addiction medicine - its 35mg daily Reinforced the need to stay in the hosp Review of Systems Review of Systems: Yes all other systems are reviewed and are negative Physical Exam Exam: Exam: Gen: sleepy while I saw him in ED, appears malnourished(mod PCM), HEENT: sclera anicteric, moist mucus membranes, no thrush Lungs: bilateral inspiratory crackles Heart: regular rate and rhythm, no murmurs Abd: soft, non-tender, non-distended Vital Signs: Vital Signs: Last Vital Signs Temp 98.5 F 09/10/25 06:16 Pulse 82 09/10/25 06:16 Resp 20 09/09/25 22:00 BP 116/79 09/10/25 06:16 Pulse Ox 96 09/10/25 06:16 O2 Del Method Room Air 09/10/25 06:16 BMI result Body Mass Index 18.0 Objective Data Active Medications Acetaminophen (Acetaminophen 325 Mg Tablet) 650 mg PO Q6H PRN PRN Reason: Pain, Mild 1-3,fever,headache Albuterol/Ipratropium (Albuterol/Iprat 2.5/0.5mg 3 Ml Ampul.Neb) 3 ml INHALE Q4H PRN PRN Reason: Shortness of Breath/Wheezing Calcium Carbonate (Calcium Carbonate 750 Mg Tab.Chew) 750 mg PO Q4H PRN PRN Reason: Heartburn Ceftriaxone Sodium (Ceftriaxone Sodium 1 Gm Vial) 1 gm IVPUSH Q24H OMAR Docosanol (Docosanol 10 % Cream 2 Gm Tube) 1 appl TOPICAL 5XD OMAR; Protocol Enoxaparin Sodium (Enoxaparin Sodium 40 Mg/0.4 Ml Syringe) 40 mg SUBCUT Q24H OMAR Last Admin: 09/10/25 01:28 Dose: 40 mg Documented By: ANGELLA Doxycycline Hyclate 100 mg/ (Sodium Chloride) 250 mls @ 166.67 mls/hr IV Q12H OMAR Magnesium Hydroxide (Milk Of Magnesia 30 Ml Oral.Susp) 30 ml PO DAILY PRN PRN Reason: Constipation Melatonin (Melatonin 3 Mg Tablet) 6 mg PO BEDTIME PRN PRN Reason: Insomnia Ondansetron HCl (Ondansetron Hcl 4 Mg/2 Ml Vial) 4 mg IVPUSH Q8H PRN PRN Reason: Nausea and Vomiting Polyethylene Glycol (Polyethylene Glycol 3350 17 Gm Powd.Pack) 17 gm PO DAILY PRN PRN Reason: Constipation Sodium Chloride (0.9 % Sodium Chloride Flush 3 Ml Syringe) 3 ml IVFLUSH QSHIFT [facility] Trimethoprim/Sulfamethoxazole (Sulfamethox/Trimeth 800/160 Tablet) 1 tab PO Q12H [facility] Labs 09/10/25 05:11 09/10/25 05:11 Labs: Laboratory Results - last 24 hr 09/09/25 09/09/25 09/10/25 17:32 17:43 00:04 MCV 88.6 MCH 28.7 MCHC 32.4 RDW 15.2 Plt Count 125 L D MPV 11.6 Immature Gran % (Auto) 0.5 H Neut % (Auto) 54.3 Lymph % (Auto) 30.3 [place] % (Auto) 12.5 H Eos % (Auto) 1.9 Baso % (Auto) 0.5 Lymph # (Auto) 0.6 L [place] # (Auto) 0.3 Eos # (Auto) 0.0 Baso # (Auto) 0.0 Abs Immat Gran (auto) 0.01 Absolute Neuts (auto) 1.1 L Absolute Nucleated RBC 0.000 Nucleated RBC % (auto) 0.0 Smear Tech's Comments VERIFIED Anion Gap 8 L Estim Creat Clear Calc 59.6 Estimated GFR > 60 Random Glucose 65 Lactic Acid 1.3 Calcium 8.3 L Magnesium 1.7 Total Bilirubin 0.3 AST 62 H ALT 26 Alkaline Phosphatase 169 H Total Protein 8.2 H Albumin 2.6 L COVID-19 (SAIDA) Negative COVID-19 Clin Com See Note HSV I & II ([facility]) Influenza Type A (TREVON) Negative Influenza Type B (TREVON) Negative Influenza A & B Note See Note 09/10/25 09/10/25 01:51 05:11 MCV 89.0 MCH 28.3 MCHC 31.8 RDW 15.1 Plt Count 81 L D MPV 11.4 Immature Gran % (Auto) Neut % (Auto) Lymph % (Auto) [place] % (Auto) Eos % (Auto) Baso % (Auto) Lymph # (Auto) [place] # (Auto) Eos # (Auto) Baso # (Auto) Abs Immat Gran (auto) Absolute Neuts (auto) Absolute Nucleated RBC 0.000 Nucleated RBC % (auto) 0.0 Smear Tech's Comments Anion Gap 9 L Estim Creat Clear Calc 77.3 Estimated GFR > 60 Random Glucose 90 Lactic Acid Calcium 7.9 L Magnesium Total Bilirubin 0.3 AST 61 H ALT 20 Alkaline Phosphatase 150 H Total Protein 7.3 Albumin 2.3 L COVID-19 (SAIDA) COVID-19 Clin Com HSV I & II ([facility]) Cancelled Influenza Type A (TREVON) Influenza Type B (TREVON) Influenza A & B Note Assessment and Plan (1) AIDS: Status: Acute Plan 65 yo vietnamese speaking male with PMH of poor historian and medication noncompliance and AMA , LULI on methadone positive for cocaine, fentnayl, tobacco dependnece, PNA, HIV/AIDS, hepatitis-B and C, TBI, Seizure d/o, Depression, HLD, COPD (not on home O2), was readmitted to the ED after leaving AMA being asked by his OP physician to complete abx course for prior atypical pna AHRF -multifactorial AECOPD vs PJP in AIDS vs Nicotine vs LULI vs asp vs MRSA pna vs atypical AECOPD - Steroids IV (cautious), Ceftrixone , nebs MRSA pna - colonized likely - Doxycycline home dose po to be cont PJP pna - less likely given CD4 164 in June Atypical pna - Doxycycline po to be cont AIDS / HIV on Bictarvy - will cont Bictarvy Currently awaiting CD4 counts from prior (hence not repeating this admission) He's on PJP px with Bactrim LULI - Cont Methadone , addiction med consulted Pancytopenia - worse than prior - will cont monitoring , likely 2/2 prior hosp and BM suppression Seizures, TBI 2/2 med non Nicotine replacement for dependance LULI - repeating urine tox screen , BAL , SUDS consult High fall risk- PT,OT ,asp precautions and fall precautions Mood disorder/Depression - Cont home Quetiapine &sertraline , QTC wnl POA Hep B/C - OP ID or GI mx Constipation px - will try to be agreesive given Methadone AUD - thiamine &folate supplementation PT/OT -deconditioing PCM - Moderate POA - regular diet with Protein TID omar Pt is at high risk of decompensation if he were not to complete IV abx, hence he needs 1-2 days of hosp. Multimodality rx ongoing. This note is constructed using voice recognition software. While every effort has been made to ensure accuracy, system support analyst errors may have been included. Quality Stroke Does the patient have a stroke diagnosis?: No Reason for No Anti-thrombotic by Day Two: N/A - Med Ordered VTE Prior VTE?: No VTE Risk Level:: Medical - moderate - high VTE Device Contraindication: N/A - Device Ordered VTE Drug Contraindication: N/A - Med Ordered
[2025-09-10] MEDS: methADONE HCl 20 MG/2 ML ORAL.CONC 35 MG PO (09:50)
[2025-09-10] MEDS: 0.9 % Sodium Chloride Flush 3 ML SYRINGE IVFLUSH ×3 (09:50→23:08)
--- NOTE | 2025-09-10 12:05 | MHC.CM.PN ---
[facility] DELIVERED LIVES ALONE AND IS FUNCTIONALLY INDEPENDENT. PT GETS METHADONE DELIVERED BY [facility] FROM [facility]. NO DME. PT DECLINES COMPLETING A HCP AT THIS TIME. PCP DR. ROSETTA SANTIAGO DP: HOME, NO SERVICES IS THE GOAL. PT WILL NEED ASSIST WITH A RIDE HOME. CM WILL CONTINUE TO FOLLOW FOR ANY CHANGE TO DC PLAN/NEEDS.
--- NOTE | 2025-09-10 14:24 | MHC.CLN ---
NUTRITION REGULAR DIET ENSURE TID TO PROVIDE 1050 KCALS, 60 G PROTEIN NO PRESSURE INJURIES NOTED DIET LIBERALIZED FROM CARDIAC TO REGULAR TO PROMOTE PO INTAKE QUALIFIES MODERATELY MALNOURISHED IN THE CONTEXT OF CHRONIC ILLNESS FOLLOW FOR PO INTAKE SEE CLINICAL NUTRITION ASSESSMENT 09/10/25
--- NOTE | 2025-09-10 14:43 | MHC.RECOVRN ---
TW made two attempts to meet with pt today in after consult placed to Addiction Medicine for IV drug use. On approach pt was laying in bed, eyes closed, in no apparent distress. No restlessness or diaphoresis noted. Respirations were even and unlabored.? TW will attempt to interview pt tomorrow morning and is available for questions or concerns as needed.
[2025-09-10] MEDS: docosanoL 10 % Cream 2 GM TUBE 1 APPL TOPICAL ×2 (16:01→22:23)
[2025-09-10] MEDS: Bictegrav/Emtricit/Tenofov Ala TABLET 1 TAB PO (18:21)
[2025-09-10] MEDS: Nicotine 21 MG PATCH.TD24 TRANSDERMA (22:18)
[2025-09-10] MEDS: Hydrocortisone 1 % Cream 28.35 GM TUBE 1 APPL TOPICAL (22:23)
[2025-09-11] VITALS (10 sets, daily range): BP systolic 77–134; BP diastolic 56–76; PULSE 58–106; RESP 12–18; TEMP 36.1–36.4; O2SAT 93–98
[2025-09-11 01:41] LABS: Appearance Urine Clear; Glucose Urine UA Negative (Negative); PH 7.5 (5.0-9.0); Specific Gravity - Urine 1.015 (1.005-1.025)
[2025-09-11 02:09] LABS: Cannabinoid Screen Urine Not Detected (Not Detect)
[2025-09-11] MEDS: docosanoL 10 % Cream 2 GM TUBE 1 APPL TOPICAL ×5 (05:14→20:29)
[2025-09-11 06:13] LABS: NRBC Abs Auto 0.000 X10*3/uL (0.0-0.012); NRBC Pct Auto 0.0 /100WBC (0.0-0.2); PLT CLUMP 1; SCAN SMEAR FLAG 1
[2025-09-11 06:15] LABS: Hematocrit 31.9 % (42.0-52.0); Hemoglobin 10.0 g/dl (14.0-18.0); Imm Gran Abs Auto 0.00 X10*3/uL (0.00-0.03); Imm Gran Pct Auto 0.0 % (0.0-0.4); Lymphocytes Absolute Auto 0.4 X10*3/uL (1.2-4.9); MANUAL DIFF FLAG SCAN; Mean Corpuscular HGB Conc 31.3 g/dl (31.0-36.0); Mean Corpuscular Hemoglobin 28.1 pg (27.0-33.0); Mean Corpuscular Volume 89.6 fL (80.0-98.0); Red Blood Count 3.56 X10*6/uL (4.60-5.80)
[2025-09-11 06:20] LABS: Platelet Count 99 X10*3/uL (160-400); White Blood Count 1.3 X10*3/uL (4.8-10.8)
[2025-09-11 06:21] LABS: INTERNATIONAL NORM RATIO 1.2 (0.9-1.1); Prothrombin Time 14.2 SEC (10.9-12.4)
[2025-09-11 06:43] LABS: Alanine Aminotransferase 33 U/L (0-40); Albumin Level 2.6 g/dL (3.5-5.0); Alkaline Phosphatase 176 U/L (39-117); Anion Gap 11 (12-20); Aspartate Amino Transferase 97 U/L (5-37); Blood Urea Nitrogen 11 mg/dL (9-16); Calcium 8.6 mg/dL (8.4-10.2); Carbon Dioxide 24 mmol/L (22-29); Chloride 106 mmol/L (96-108); Creatinine Clr Calc Pharmacy 69.7; Estimated Glomerular Filt Rate > 60; Magnesium 1.5 mg/dL (1.6-2.6); Potassium 5.2 mmol/L (3.3-5.1); Sodium 136 mmol/L (135-145); Total Protein 8.5 g/dL (6.5-8.0)
[2025-09-11] MEDS: Nicotine 21 MG PATCH.TD24 TRANSDERMA (07:10)
[2025-09-11] MEDS: Bictegrav/Emtricit/Tenofov Ala TABLET 1 TAB PO (07:10)
[2025-09-11] MEDS: 0.9 % Sodium Chloride Flush 3 ML SYRINGE IVFLUSH ×3 (07:11→20:27)
--- NOTE | 2025-09-11 07:11 | P.PNIM_ITS ---
Subjective Subjective Date of Service: 09/11/25 Interval History: Pt reports feeling well overall, has no concerns, no ON events Physical Exam 2 Exam: Exam: Gen: sleepy while I saw him in ED, appears malnourished(mod PCM), HEENT: sclera anicteric, moist mucus membranes, no thrush Lungs: bilateral inspiratory crackles Heart: regular rate and rhythm, no murmurs Abd: soft, non-tender, non-distended Vital Signs: Vital Signs: Last Vital Signs Temp 97.3 F 09/11/25 06:44 Pulse 92 09/11/25 06:45 Resp 18 09/11/25 06:44 BP 96/67 09/11/25 06:45 Pulse Ox 97 09/11/25 06:44 O2 Del Method Room Air 09/11/25 06:44 BMI result Body Mass Index 18.2 Objective Data Active Medications Acetaminophen (Acetaminophen 325 Mg Tablet) 650 mg PO Q6H PRN PRN Reason: Pain, Mild 1-3,fever,headache Albuterol Sulfate (Albuterol Sulfate 90 Mcg 8 Gm Inhaler) 2 puff INHALE Q6H PRN PRN Reason: Shortness Of Breath Or Wheezing Albuterol/Ipratropium (Albuterol/Iprat 2.5/0.5mg 3 Ml Ampul.Neb) 3 ml INHALE Q4H PRN PRN Reason: Shortness of Breath/Wheezing Albuterol/Ipratropium (Albuterol/Iprat 2.5/0.5mg 3 Ml Ampul.Neb) 3 ml INHALE RQ6H WHILE AWAKE [facility] Last Admin: 09/10/25 20:11 Dose: Not Given Documented By: NIMA Non-Admin Reason: Patient Refused Atovaquone (Atovaquone 750 Mg/5 Ml Oral.Susp) 750 mg PO BID [facility] Last Admin: 09/10/25 22:18 Dose: 750 mg Documented By: ARAM Bictegravir/Emtricitabine/Tenofovir (Bictegrav/Emtricit/Tenofov Ala Tablet) 1 tab PO DAILY [facility] Last Admin: 09/10/25 18:21 Dose: 1 tab Documented By: VENUS Bisacodyl (Bisacodyl 5 Mg Tablet.Dr) 5 mg PO BEDTIME PRN PRN Reason: Constipation Calcium Carbonate (Calcium Carbonate 750 Mg Tab.Chew) 750 mg PO Q4H PRN PRN Reason: Heartburn Ceftriaxone Sodium (Ceftriaxone Sodium 1 Gm Vial) 1 gm IVPUSH Q24H [facility] Last Admin: 09/10/25 23:08 Dose: 1 gm Documented By: ARAM Docosanol (Docosanol 10 % Cream 2 Gm Tube) 1 appl TOPICAL 5XD [facility]; Protocol Last Admin: 09/11/25 05:14 Dose: 1 appl Documented By: ARAM Enoxaparin Sodium (Enoxaparin Sodium 40 Mg/0.4 Ml Syringe) 40 mg SUBCUT Q24H [facility] Last Admin: 09/11/25 02:30 Dose: Not Given Documented By: ARAM Non-Admin Reason: Patient Refused Folic Acid (Folic Acid 1 Mg Tablet) 1 mg PO DAILY [facility] Last Admin: 09/10/25 18:21 Dose: 1 mg Documented By: VENUS Hydrocortisone (Hydrocortisone 1 % Cream 28.35 Gm Tube) 1 appl TOPICAL BID [facility] Last Admin: 09/10/25 22:23 Dose: 1 appl Documented By: ARAM Doxycycline Hyclate 100 mg/ (Sodium Chloride) 250 mls @ 166.67 mls/hr IV Q12H [facility] Last Infusion: 09/11/25 00:38 Dose: Infused Documented By: ARAM Levetiracetam (Levetiracetam 500 Mg Tablet) 1,500 mg PO BID [facility] Last Admin: 09/10/25 22:18 Dose: 1,500 mg Documented By: ARAM Magnesium Hydroxide (Milk Of Magnesia 30 Ml Oral.Susp) 30 ml PO DAILY PRN PRN Reason: Constipation Melatonin (Melatonin 3 Mg Tablet) 6 mg PO BEDTIME PRN PRN Reason: Insomnia Methadone HCl (Methadone Hcl 20 Mg/2 Ml Oral.Conc) 35 mg PO DAILY@0800 [facility] Multivitamins/Vitamin C (Multivitamin Tablet) 1 tab PO DAILY [facility] Last Admin: 09/10/25 18:21 Dose: 1 tab Documented By: VENUS Nicotine (Nicotine 21 Mg Patch.Td24) 21 mg TRANSDERMA DAILY [facility] Last Admin: 09/10/25 22:18 Dose: 21 mg Documented By: ARAM Nicotine Polacrilex (Nicotine Polacrilex Lozenge 2 Mg Lozenge) 2 mg BUCCAL Q1H PRN PRN Reason: Nicotine Cravings Ondansetron HCl (Ondansetron Hcl 4 Mg/2 Ml Vial) 4 mg IVPUSH Q8H PRN PRN Reason: Nausea and Vomiting Polyethylene Glycol (Polyethylene Glycol 3350 17 Gm Powd.Pack) 17 gm PO DAILY PRN PRN Reason: Constipation Polyethylene Glycol (Polyethylene Glycol 3350 17 Gm Powd.Pack) 17 gm PO DAILY [facility] Last Admin: 09/10/25 22:26 Dose: Not Given Documented By: ARAM Non-Admin Reason: Pt declines, having diarrhea yest Quetiapine Fumarate (Quetiapine Fumarate 100 Mg Tablet) 100 mg PO BEDTIME [facility] Last Admin: 09/10/25 22:18 Dose: 100 mg Documented By: ARAM Sertraline HCl (Sertraline Hcl 50 Mg Tablet) 50 mg PO DAILY [facility] Last Admin: 09/10/25 18:21 Dose: 50 mg Documented By: VENUS Sodium Chloride (0.9 % Sodium Chloride Flush 3 Ml Syringe) 3 ml IVFLUSH QSHIFT [facility] Last Admin: 09/10/25 23:08 Dose: 3 ml Documented By: ARAM Thiamine HCl (Thiamine Hcl 100 Mg Tablet) 100 mg PO DAILY [facility] Last Admin: 09/10/25 18:21 Dose: 100 mg Documented By: VENUS Trimethoprim/Sulfamethoxazole (Sulfamethox/Trimeth 800/160 Tablet) 1 tab PO Q12H [facility] Last Admin: 09/10/25 23:19 Dose: 1 tab Documented By: ARAM Labs 09/11/25 05:52 09/11/25 05:52 Labs: Laboratory Results - last 24 hr 09/10/25 09/11/25 09/11/25 05:11 01:21 01:24 Smear Path Review SEE NOTE PT INR Anion Gap Estim Creat Clear Calc Estimated GFR Random Glucose Calcium Magnesium Total Bilirubin AST ALT Alkaline Phosphatase Total Protein Albumin Urine Color Yellow Urine Appearance Clear Urine pH 7.5 Ur Specific [place] 1.015 Urine Protein Negative Urine Glucose (UA) Negative Urine Ketones Negative Urine Blood Negative Urine Nitrite Negative Ur Leukocyte Esterase Negative Urine Opiates Screen Not Detected Ur Buprenorphine Scrn Not Detected Ur Oxycodone Screen Not Detected Urine Methadone Screen Positive H Urine Fentanyl Screen POSITIVE H Ur Barbiturates Screen Not Detected Ur Phencyclidine Scrn Not Detected Ur Amphetamines Screen Not Detected U Benzodiazepines Scrn Not Detected Urine Cocaine Screen POSITIVE H U Marijuana (THC) Screen Not Detected HSV I IgG Ab <0.90 HSV II IgG 11.00 H 09/11/25 05:52 Smear Path Review PT 14.2 H INR 1.2 H Anion Gap 11 L Estim Creat Clear Calc 69.7 Estimated GFR > 60 Random Glucose 98 Calcium 8.6 D Magnesium 1.5 L Total Bilirubin 0.3 AST 97 H ALT 33 Alkaline Phosphatase 176 H Total Protein 8.5 H Albumin 2.6 L Urine Color Urine Appearance Urine pH Ur Specific [place] Urine Protein Urine Glucose (UA) Urine Ketones Urine Blood Urine Nitrite Ur Leukocyte Esterase Urine Opiates Screen Ur Buprenorphine Scrn Ur Oxycodone Screen Urine Methadone Screen Urine Fentanyl Screen Ur Barbiturates Screen Ur Phencyclidine Scrn Ur Amphetamines Screen U Benzodiazepines Scrn Urine Cocaine Screen U Marijuana (THC) Screen HSV I IgG Ab HSV II IgG Microbiology Microbiology Results: Microbiology 09/10/25 00:04 Blood Culture - Preliminary Blood - Venous No growth after 24 hours. 09/10/25 00:04 Blood Culture - Preliminary Blood - Venous No growth after 24 hours. Assessment and Plan (1) AIDS: Status: Acute Plan 65 yo bhutanese speaking male with PMH of poor historian and medication noncompliance and AMA , LULI on methadone positive for cocaine, fentnayl, tobacco dependnece, PNA, HIV/AIDS, hepatitis-B and C, TBI, Seizure d/o, Depression, HLD, COPD (not on home O2), was readmitted to the ED after leaving AMA being asked by his OP physician to complete abx course for prior atypical pna- will cont current mx as stillawaiting CD4 counts to adjust his meds. AHRF -multifactorial AECOPD vs PJP in AIDS vs Nicotine vs LULI vs asp vs MRSA pna vs atypical AECOPD - Steroids IV (cautious), Ceftrixone IV 1 more day, nebs MRSA pna - colonized likely - Doxycycline home dose po to be cont PJP pna - less likely given CD4 164 in June , awaiting updated CD4 count Atypical pna - Doxycycline po to be cont AIDS / HIV on Bictarvy - will cont Bictarvy Currently awaiting CD4 counts from prior (hence not repeating this admission) He's on PJP px with Bactrim LULI - Cont Methadone , addiction med consulted Pancytopenia - plateuing -worse than prior - will cont monitoring , likely 2/2 prior hosp and BM suppression Seizures, TBI 2/2 med noncompliant - cont home meds, seizure precautions Nicotine replacement for dependance LULI - repeating urine tox screen , BAL , SUDS consult High fall risk- PT,OT ,asp precautions and fall precautions Mood disorder/Depression - Cont home Quetiapine &sertraline , QTC wnl POA Hep B/C - OP ID or GI mx Constipation px - will try to be agreesive given Methadone AUD - thiamine &folate supplementation PT/OT -deconditioing PCM - Moderate POA - regular diet with Protein TID omar Pt is at high risk of decompensation if he were not to complete IV abx, hence he needs 1-2 days of hosp. Multimodality rx ongoing. This note is constructed using voice recognition software. While every effort has been made to ensure accuracy, agricultural production engineer errors may have been included. Quality Stroke Does the patient have a stroke diagnosis?: No Reason for No Anti-thrombotic by Day Two: N/A - Med Ordered VTE Prior VTE?: No VTE Risk Level:: Medical - moderate - high VTE Device Contraindication: N/A - Device Ordered VTE Drug Contraindication: N/A - Med Ordered
[2025-09-11] MEDS: methADONE HCl 20 MG/2 ML ORAL.CONC 35 MG PO (07:14)
--- NOTE | 2025-09-11 07:44 | PC.NURSE ---
End of Shift Nursing Note. 09/11/25 [id number] Pt alert oriented x4, primarily Martiniquais speaking but can speak and understand simple Sinhala. Gerald Herrera [facility] coordinator utilized for assessment, education and med administration. Patient educated on plan of care with treating pneumonia with antibiotics, obtaining urine, stool and sputum samples and scheduled medications. Patient denying SOB, pain and or Nausea/Vomiting. Pt did pass a large soft BM but unable to send for sample as contaminated with urine. Patient health status remained stable throughout the shift. No safety issues overnight. Snacks provided as patient requested, tolerating well. Patient orthostatic VS obtained as ordered at 0645 am and documented by [employer]. Pt denying dizziness at this time and Verbal handoff report given to oncoming RN, Daisy Fairchild at 0645.
[2025-09-11] MEDS: Albuterol/Iprat 2.5/0.5MG 3 ML AMPUL.NEB INHALE (08:16)
[2025-09-11] MEDS: Hydrocortisone 1 % Cream 28.35 GM TUBE 1 APPL TOPICAL (11:47)
[2025-09-11] MEDS: Sulfamethox/Trimeth 800/160 TABLET 1 TAB PO (11:48)
--- NOTE | 2025-09-11 15:11 | HO.ADDICT_ITS ---
History of Present Illness Date of Service: 09/11/2025 Chief Complaint: Pneumonia Reason for Consult: LULI Sources of Information: patient interviewed and chart reviewed HPI Narrative: Patient is a 65 year old Malay speaking male with medical history that includes, HIV hepatitis C, OUD. Medically admitted with pneumonia and concern related to recurrent falls. Consult request due to ongoing substance use. Patient seen in room 376. He is awake, alert, pleasant and engaged in interview. He reports he has been taking methadone for some time now, and finds it helpful. He states a nurse comes to his home to administer medication. When asked about substance use, he replied that he was unsure why he continues to use, I don't need to anymore, but I still do, I don't know . He does note that his amount and frequency of use has decreased. He is appears comfortable, no withdrawal or discomfort noted. He reports dose is effective. Shares that he works closely with clinical team from [facility], who provide CM, primary care and ID care. Briefly discussed risk reduction related to ongoing use, however patient states he knows all that . Shared that his concern is being able to get his ensure filled by pharmacy. Past Psychiatric History: Hx of OP psych services at [facility], has not followed up since 10/2021, non-adherent with remeron, sertraline, and seroquel since 06/2022. Medical Evaluation Reviewed: Yes Review of Systems Constitutional: Reports as per HPI and Reports no additional constitutional complaints Diagnostics Vital Signs (24Hr): Vital Signs - 24 hr 09/10/25 15:38 09/10/25 15:39 09/10/25 15:39 Temperature 98.6 F Pulse Rate 70 82 65 Respiratory Rate 18 Blood Pressure 139/78 124/66 120/70 Pulse Oximetry 95 Oxygen Delivery Method Room Air 09/10/25 19:26 09/10/25 19:29 09/10/25 19:30 Temperature 98.3 F Pulse Rate 63 64 68 Respiratory Rate 18 Blood Pressure 117/63 117/63 125/74 Pulse Oximetry 95 Oxygen Delivery Method Room Air 09/10/25 19:33 09/11/25 04:00 09/11/25 06:00 Temperature 97.3 F Pulse Rate 80 71 71 Respiratory Rate 18 Blood Pressure 118/74 124/63 103/63 Pulse Oximetry 93 Oxygen Delivery Method Room Air 09/11/25 06:44 09/11/25 06:45 09/11/25 08:01 Temperature 97.3 F 96.9 F Pulse Rate 63 92 58 Respiratory Rate 18 12 Blood Pressure 111/64 96/67 134/60 Pulse Oximetry 97 98 Oxygen Delivery Method Room Air Room Air 09/11/25 08:20 Temperature Pulse Rate 66 Respiratory Rate 16 Blood Pressure Pulse Oximetry Oxygen Delivery Method BMI result Body Mass Index 18.2 Labs 09/11/25 05:52 09/11/25 05:52 Labs: Laboratory Results - last 48 hr 09/09/25 09/09/25 09/10/25 17:32 17:43 00:04 WBC 2.1 L RBC 2.89 L Hgb 8.3 L Hct 25.6 L MCV 88.6 MCH 28.7 MCHC 32.4 RDW 15.2 Plt Count 125 L D MPV 11.6 Immature Gran % (Auto) 0.5 H Neut % (Auto) 54.3 Lymph % (Auto) 30.3 [place] % (Auto) 12.5 H Eos % (Auto) 1.9 Baso % (Auto) 0.5 Lymph # (Auto) 0.6 L [place] # (Auto) 0.3 Eos # (Auto) 0.0 Baso # (Auto) 0.0 Abs Immat Gran (auto) 0.01 Absolute Neuts (auto) 1.1 L Absolute Nucleated RBC 0.000 Nucleated RBC % (auto) 0.0 Smear Tech's Comments VERIFIED Smear Path Review PT INR Sodium 138 Potassium 4.3 Chloride 109 H Carbon Dioxide 25 Anion Gap 8 L BUN 14 Creatinine 0.83 Estim Creat Clear Calc 59.6 Estimated GFR > 60 Random Glucose 65 Lactic Acid 1.3 Calcium 8.3 L Magnesium 1.7 Total Bilirubin 0.3 AST 62 H ALT 26 Alkaline Phosphatase 169 H Total Protein 8.2 H Albumin 2.6 L Urine Color Urine Appearance Urine pH Ur Specific [place] Urine Protein Urine Glucose (UA) Urine Ketones Urine Blood Urine Nitrite Ur Leukocyte Esterase Urine Opiates Screen Ur Buprenorphine Scrn Ur Oxycodone Screen Urine Methadone Screen Urine Fentanyl Screen Ur Barbiturates Screen Ur Phencyclidine Scrn Ur Amphetamines Screen U Benzodiazepines Scrn Urine Cocaine Screen U Marijuana (THC) Screen COVID-19 (SAIDA) Negative COVID-19 Clin Com See Note HSV I & II (IHC) HSV I IgG Ab HSV II IgG Influenza Type A (TREVON) Negative Influenza Type B (TREVON) Negative Influenza A & B Note See Note 09/10/25 09/10/25 09/11/25 01:51 05:11 01:21 WBC 1.2 L RBC 2.90 L Hgb 8.2 L Hct 25.8 L MCV 89.0 MCH 28.3 MCHC 31.8 RDW 15.1 Plt Count 81 L D MPV 11.4 Immature Gran % (Auto) Neut % (Auto) Lymph % (Auto) [place] % (Auto) Eos % (Auto) Baso % (Auto) Lymph # (Auto) [place] # (Auto) Eos # (Auto) Baso # (Auto) Abs Immat Gran (auto) Absolute Neuts (auto) Absolute Nucleated RBC 0.000 Nucleated RBC % (auto) 0.0 Smear Tech's Comments Smear Path Review SEE NOTE PT INR Sodium 139 Potassium 3.9 Chloride 113 H Carbon Dioxide 21 L Anion Gap 9 L BUN 11 Creatinine 0.64 Estim Creat Clear Calc 77.3 Estimated GFR > 60 Random Glucose 90 Lactic Acid Calcium 7.9 L Magnesium Total Bilirubin 0.3 AST 61 H ALT 20 Alkaline Phosphatase 150 H Total Protein 7.3 Albumin 2.3 L Urine Color Yellow Urine Appearance Clear Urine pH 7.5 Ur Specific [place] 1.015 Urine Protein Negative Urine Glucose (UA) Negative Urine Ketones Negative Urine Blood Negative Urine Nitrite Negative Ur Leukocyte Esterase Negative Urine Opiates Screen Ur Buprenorphine Scrn Ur Oxycodone Screen Urine Methadone Screen Urine Fentanyl Screen Ur Barbiturates Screen Ur Phencyclidine Scrn Ur Amphetamines Screen U Benzodiazepines Scrn Urine Cocaine Screen U Marijuana (THC) Screen COVID-19 (SAIDA) COVID-19 Clin Com HSV I & II (IHC) Cancelled HSV I IgG Ab <0.90 HSV II IgG 11.00 H Influenza Type A (TREVON) Influenza Type B (TREVON) Influenza A & B Note 09/11/25 09/11/25 01:24 05:52 WBC 1.3 L RBC 3.56 L D Hgb 10.0 L D Hct 31.9 L D MCV 89.6 MCH 28.1 MCHC 31.3 RDW 15.2 Plt Count 99 L MPV 11.7 Immature Gran % (Auto) 0.0 Neut % (Auto) 56.8 Lymph % (Auto) 28.0 [place] % (Auto) 12.9 H Eos % (Auto) 2.3 Baso % (Auto) 0.0 Lymph # (Auto) 0.4 L [place] # (Auto) 0.2 Eos # (Auto) 0.0 Baso # (Auto) 0.0 Abs Immat Gran (auto) 0.00 Absolute Neuts (auto) 0.8 L Absolute Nucleated RBC 0.000 Nucleated RBC % (auto) 0.0 Smear Tech's Comments VERIFIED Smear Path Review PT 14.2 H INR 1.2 H Sodium 136 Potassium 5.2 H D Chloride 106 Carbon Dioxide 24 Anion Gap 11 L BUN 11 Creatinine 0.72 Estim Creat Clear Calc 69.7 Estimated GFR > 60 Random Glucose 98 Lactic Acid Calcium 8.6 D Magnesium 1.5 L Total Bilirubin 0.3 AST 97 H ALT 33 Alkaline Phosphatase 176 H Total Protein 8.5 H Albumin 2.6 L Urine Color Urine Appearance Urine pH Ur Specific [place] Urine Protein Urine Glucose (UA) Urine Ketones Urine Blood Urine Nitrite Ur Leukocyte Esterase Urine Opiates Screen Not Detected Ur Buprenorphine Scrn Not Detected Ur Oxycodone Screen Not Detected Urine Methadone Screen Positive H Urine Fentanyl Screen POSITIVE H Ur Barbiturates Screen Not Detected Ur Phencyclidine Scrn Not Detected Ur Amphetamines Screen Not Detected U Benzodiazepines Scrn Not Detected Urine Cocaine Screen POSITIVE H U Marijuana (THC) Screen Not Detected COVID-19 (SAIDA) COVID-19 Clin Com HSV I & II (IHC) HSV I IgG Ab HSV II IgG Influenza Type A (TREVON) Influenza Type B (TREVON) Influenza A & B Note Imaging Radiology Impressions: ITS Impressions Chest X-Ray 09/09/25 16:49 IMPRESSION: Improving right lower lobe pneumonia and nearly resolved left lung base retrocardiac density. Hyperexpanded lungs likely with underlying scarring and emphysema. Electronically signed by: Vik Painter MD 09/09/2025 05:03 PM EDT RP Mental Status Exam Mental Status Exam Patient Appearance: Appropriate Level of Consciousness: Awake, Appropriate and Alert Patient Behavior: Appropriate, Guarded and Cooperative Affect Description: Calm Speech Pattern: Clear Thought Process: Intact Thought Content: positive for [place] Judgement: Fair Medications Medications Current Medications Acetaminophen (Acetaminophen 325 Mg Tablet) 650 mg PO Q6H PRN PRN Reason: Pain, Mild 1-3,fever,headache Albuterol Sulfate (Albuterol Sulfate 90 Mcg 8 Gm Inhaler) 2 puff INHALE Q6H PRN PRN Reason: Shortness Of Breath Or Wheezing Albuterol/Ipratropium (Albuterol/Iprat 2.5/0.5mg 3 Ml Ampul.Neb) 3 ml INHALE Q4H PRN PRN Reason: Shortness of Breath/Wheezing Albuterol/Ipratropium (Albuterol/Iprat 2.5/0.5mg 3 Ml Ampul.Neb) 3 ml INHALE RQ6H WHILE AWAKE [facility] Last Admin: 09/11/25 08:16 Dose: 3 ml Atovaquone (Atovaquone 750 Mg/5 Ml Oral.Susp) 750 mg PO BID [facility] Last Admin: 09/11/25 07:09 Dose: 750 mg Bictegravir/Emtricitabine/Tenofovir (Bictegrav/Emtricit/Tenofov Ala Tablet) 1 tab PO DAILY [facility] Last Admin: 09/11/25 07:10 Dose: 1 tab Bisacodyl (Bisacodyl 5 Mg Tablet.Dr) 5 mg PO BEDTIME PRN PRN Reason: Constipation Calcium Carbonate (Calcium Carbonate 750 Mg Tab.Chew) 750 mg PO Q4H PRN PRN Reason: Heartburn Ceftriaxone Sodium (Ceftriaxone Sodium 1 Gm Vial) 1 gm IVPUSH Q24H [facility] Last Admin: 09/10/25 23:08 Dose: 1 gm Docosanol (Docosanol 10 % Cream 2 Gm Tube) 1 appl TOPICAL 5XD [facility]; Protocol Last Admin: 09/11/25 07:16 Dose: 1 appl Enoxaparin Sodium (Enoxaparin Sodium 40 Mg/0.4 Ml Syringe) 40 mg SUBCUT Q24H [facility] Last Admin: 09/11/25 02:30 Dose: Not Given Folic Acid (Folic Acid 1 Mg Tablet) 1 mg PO DAILY [facility] Last Admin: 09/11/25 07:10 Dose: 1 mg Hydrocortisone (Hydrocortisone 1 % Cream 28.35 Gm Tube) 1 appl TOPICAL BID [facility] [place] Last Admin: 09/11/25 11:47 Dose: 1 appl Doxycycline Hyclate 100 mg/ (Sodium Chloride) 250 mls @ 166.67 mls/hr IV Q12H [facility] Last Infusion: 09/11/25 12:18 Dose: 0 mls/hr Levetiracetam (Levetiracetam 500 Mg Tablet) 1,500 mg PO BID [facility] Last Admin: 09/11/25 07:09 Dose: 1,500 mg Magnesium Hydroxide (Milk Of Magnesia 30 Ml Oral.Susp) 30 ml PO DAILY PRN PRN Reason: Constipation Melatonin (Melatonin 3 Mg Tablet) 6 mg PO BEDTIME PRN PRN Reason: Insomnia Methadone HCl (Methadone Hcl 20 Mg/2 Ml Oral.Conc) 35 mg PO DAILY@0800 [facility] Last Admin: 09/11/25 07:14 Dose: 35 mg Multivitamins/Vitamin C (Multivitamin Tablet) 1 tab PO DAILY [facility] [place] Last Admin: 09/11/25 07:10 Dose: 1 tab Nicotine (Nicotine 21 Mg Patch.Td24) 21 mg TRANSDERMA DAILY [facility] Last Admin: 09/11/25 07:10 Dose: 21 mg Nicotine Polacrilex (Nicotine Polacrilex Lozenge 2 Mg Lozenge) 2 mg BUCCAL Q1H PRN PRN Reason: Nicotine Cravings Ondansetron HCl (Ondansetron Hcl 4 Mg/2 Ml Vial) 4 mg IVPUSH Q8H PRN PRN Reason: Nausea and Vomiting Polyethylene Glycol (Polyethylene Glycol 3350 17 Gm Powd.Pack) 17 gm PO DAILY PRN PRN Reason: Constipation Polyethylene Glycol (Polyethylene Glycol 3350 17 Gm Powd.Pack) 17 gm PO DAILY [facility] [place] Last Admin: 09/11/25 07:17 Dose: Not Given Quetiapine Fumarate (Quetiapine Fumarate 100 Mg Tablet) 100 mg PO BEDTIME [facility] [place] Last Admin: 09/10/25 22:18 Dose: 100 mg Sertraline HCl (Sertraline Hcl 50 Mg Tablet) 50 mg PO DAILY [facility] Last Admin: 09/11/25 07:10 Dose: 50 mg Sodium Chloride (0.9 % Sodium Chloride Flush 3 Ml Syringe) 3 ml IVFLUSH QSHIFT [facility] [place] Last Admin: 09/11/25 07:11 Dose: 3 ml Thiamine HCl (Thiamine Hcl 100 Mg Tablet) 100 mg PO DAILY [facility] Last Admin: 09/11/25 07:10 Dose: 100 mg Trimethoprim/Sulfamethoxazole (Sulfamethox/Trimeth 800/160 Tablet) 1 tab PO Q12H [facility] [place] Last Admin: 09/11/25 11:48 Dose: 1 tab Allergies Allergies Allergy/AdvReac Type Severity Reaction Status Date / Time No Known Allergies (No Known Allergy Verified 09/09/25 16:43 Allergies*) Assessment & Plan Assessment & Plan (1) Opioid use disorder: Status: Acute Code(s): F11.90 - Opioid use, unspecified, uncomplicated Assessment and Plan: * methadone 35mg QD --already connected to OTP in the community * discussed risk reduction and overdose prevention strategies * encouraged patient to remain connected to recovery supports at [facility]--t/w left message for CM at [facility] to call patient as he requesed * take home narcan at discharge and last dose letter Total time managing care of this patient today _30___ minutes. PMFSH Past Medical History Medical History (Updated 09/10/25 @ 19:04 by Sola Kam MD) Left against medical advice Pneumonia (~08/2025) Seizure COVID-19 Depression with anxiety Polysubstance abuse Substance abuse Hepatitis HIV disease Alcoholism Asthma Surgical History Surgical History History of skin surgery Social History Social History Household Members: None Housing: Apartment Do you presently have visiting nurse or other home services: No Alcohol intake: current Alcohol intake frequency: a few times a week Alcohol type: hard liquor Comment: 1to 1 sitter Patient Tobacco Use Status: Current everyday Tobacco user Tobacco use type: Cigarette Cigarettes Per Day: 10 Smoked in Last 30 Days: Yes e-Cigarette/Vaping Use: Currently Using Patient Interested in Nicotine Replacement: No Patient Given Instructions on How to Stop Smoking: No Second Hand Smoke Exposure: No Substance Use Type: Heroin Currently Displaying Signs/Symptoms of Drug Intoxication Withdrawal: No Have you been hit, kicked, punched, or otherwise hurt by someone within the past year? If so, by whom?: No Do you feel safe in your current relationship?: Yes Is there a partner from a previous relationship who is making you feel unsafe now?: No Are you made to feel afraid or neglected: No Advance Directives: No Advance Directives Information Provided: No Do you have a plan to hurt others: No Plan Recently lost weight without trying: No Nutrition Risks: No Nutritional Risk Poor oral hygiene: No service: No Current occupational status: unemployed and disabled
--- NOTE | 2025-09-11 23:25 | P.CNID_ITS ---
History of Present Illness Data of Consult Service Date: 09/10/25 Requesting physician: Sola Kam Primary Care Provider: Dilia Isaac NP HPI Reason for consult: shortness of breath He was hospitalized 09/05-09/06 for pneumonia and left AMA. He reports taking Doxycycline and Mepron for pneumona He takes Biktarvy for HIV care. I see him at [facility] CD4 count and viral load pending. Review of Systems 2 Review of Systems: Yes all other systems are reviewed and are negative [facility] Past Medical History Medical History Left against medical advice Pneumonia (~08/2025) Seizure COVID-19 Depression with anxiety Polysubstance abuse Substance abuse Hepatitis HIV disease Alcoholism Asthma Family History Family history: reviewed and not pertinent Surgical History Surgical History History of skin surgery Social History Social History Household Members: None Housing: Apartment Do you presently have visiting nurse or other home services: No Alcohol intake: current Alcohol intake frequency: a few times a week Alcohol type: hard liquor Comment: 1to 1 sitter Patient Tobacco Use Status: Current everyday Tobacco user Tobacco use type: Cigarette Cigarettes Per Day: 10 Smoked in Last 30 Days: Yes e-Cigarette/Vaping Use: Currently Using Patient Interested in Nicotine Replacement: No Patient Given Instructions on How to Stop Smoking: No Second Hand Smoke Exposure: No Substance Use Type: Heroin Currently Displaying Signs/Symptoms of Drug Intoxication Withdrawal: No Have you been hit, kicked, punched, or otherwise hurt by someone within the past year? If so, by whom?: No Do you feel safe in your current relationship?: Yes Is there a partner from a previous relationship who is making you feel unsafe now?: No Are you made to feel afraid or neglected: No Advance Directives: No Advance Directives Information Provided: No Do you have a plan to hurt others: No Plan Recently lost weight without trying: No Nutrition Risks: No Nutritional Risk Poor oral hygiene: No service: No Current occupational status: unemployed and disabled Travel History Ebola Risk: Travel/Contact With Anyone From Affected Area/s: No Has Patient Experienced Ebola Symptoms: No Meds Allergies Allergy/AdvReac Type Severity Reaction Status Date / Time No Known Allergies (No Known Allergy Verified 09/09/25 16:43 Allergies*) Active Medications: Current Medications Acetaminophen (Acetaminophen 325 Mg Tablet) 650 mg PO Q6H PRN PRN Reason: Pain, Mild 1-3,fever,headache Albuterol Sulfate (Albuterol Sulfate 90 Mcg 8 Gm Inhaler) 2 puff INHALE Q6H PRN PRN Reason: Shortness Of Breath Or Wheezing Albuterol/Ipratropium (Albuterol/Iprat 2.5/0.5mg 3 Ml Ampul.Neb) 3 ml INHALE Q4H PRN PRN Reason: Shortness of Breath/Wheezing Albuterol/Ipratropium (Albuterol/Iprat 2.5/0.5mg 3 Ml Ampul.Neb) 3 ml INHALE RQ6H WHILE AWAKE [facility] Last Admin: 09/11/25 19:50 Dose: Not Given Atovaquone (Atovaquone 750 Mg/5 Ml Oral.Susp) 750 mg PO BID [facility] Last Admin: 09/11/25 20:24 Dose: 750 mg Bictegravir/Emtricitabine/Tenofovir (Bictegrav/Emtricit/Tenofov Ala Tablet) 1 tab PO DAILY [facility] Last Admin: 09/11/25 07:10 Dose: 1 tab Bisacodyl (Bisacodyl 5 Mg Tablet.Dr) 5 mg PO BEDTIME PRN PRN Reason: Constipation Calcium Carbonate (Calcium Carbonate 750 Mg Tab.Chew) 750 mg PO Q4H PRN PRN Reason: Heartburn Ceftriaxone Sodium (Ceftriaxone Sodium 1 Gm Vial) 1 gm IVPUSH Q24H [facility] Last Admin: 09/10/25 23:08 Dose: 1 gm Docosanol (Docosanol 10 % Cream 2 Gm Tube) 1 appl TOPICAL 5XD [facility]; Protocol Last Admin: 09/11/25 20:29 Dose: 1 appl Enoxaparin Sodium (Enoxaparin Sodium 40 Mg/0.4 Ml Syringe) 40 mg SUBCUT Q24H [facility] Last Admin: 09/11/25 02:30 Dose: Not Given Folic Acid (Folic Acid 1 Mg Tablet) 1 mg PO DAILY [facility] Last Admin: 09/11/25 07:10 Dose: 1 mg Hydrocortisone (Hydrocortisone 1 % Cream 28.35 Gm Tube) 1 appl TOPICAL BID [facility] Last Admin: 09/11/25 20:13 Dose: Not Given Doxycycline Hyclate 100 mg/ (Sodium Chloride) 250 mls @ 166.67 mls/hr IV Q12H [facility] Last Infusion: 09/11/25 15:45 Dose: Infused Levetiracetam (Levetiracetam 500 Mg Tablet) 1,500 mg PO BID [facility] Last Admin: 09/11/25 20:24 Dose: 1,500 mg Magnesium Hydroxide (Milk Of Magnesia 30 Ml Oral.Susp) 30 ml PO DAILY PRN PRN Reason: Constipation Melatonin (Melatonin 3 Mg Tablet) 6 mg PO BEDTIME PRN PRN Reason: Insomnia Methadone HCl (Methadone Hcl 20 Mg/2 Ml Oral.Conc) 35 mg PO DAILY@0800 [facility] Last Admin: 09/11/25 07:14 Dose: 35 mg Multivitamins/Vitamin C (Multivitamin Tablet) 1 tab PO DAILY [facility] Last Admin: 09/11/25 07:10 Dose: 1 tab Nicotine (Nicotine 21 Mg Patch.Td24) 21 mg TRANSDERMA DAILY [facility] Last Admin: 09/11/25 07:10 Dose: 21 mg Nicotine Polacrilex (Nicotine Polacrilex Lozenge 2 Mg Lozenge) 2 mg BUCCAL Q1H PRN PRN Reason: Nicotine Cravings Ondansetron HCl (Ondansetron Hcl 4 Mg/2 Ml Vial) 4 mg IVPUSH Q8H PRN PRN Reason: Nausea and Vomiting Polyethylene Glycol (Polyethylene Glycol 3350 17 Gm Powd.Pack) 17 gm PO DAILY PRN PRN Reason: Constipation Polyethylene Glycol (Polyethylene Glycol 3350 17 Gm Powd.Pack) 17 gm PO DAILY [facility] Last Admin: 09/11/25 07:17 Dose: Not Given Quetiapine Fumarate (Quetiapine Fumarate 100 Mg Tablet) 100 mg PO BEDTIME [facility] Last Admin: 09/11/25 20:25 Dose: 100 mg Sertraline HCl (Sertraline Hcl 50 Mg Tablet) 50 mg PO DAILY [facility] Last Admin: 09/11/25 07:10 Dose: 50 mg Sodium Chloride (0.9 % Sodium Chloride Flush 3 Ml Syringe) 3 ml IVFLUSH QSHIFT [facility] Last Admin: 09/11/25 20:27 Dose: 3 ml Thiamine HCl (Thiamine Hcl 100 Mg Tablet) 100 mg PO DAILY [facility] Last Admin: 09/11/25 07:10 Dose: 100 mg Trimethoprim/Sulfamethoxazole (Sulfamethox/Trimeth 800/160 Tablet) 1 tab PO Q12H [facility] Last Admin: 09/11/25 11:48 Dose: 1 tab Home Medications ?Medication ?Instructions ?Recorded ?Confirmed ?Last Taken ?Type methadone 10 mg/mL oral concentrate 60 mg PO DAILY 09/20/22 09/15/22 History bictegravir 50 mg-emtricitabine 1 tab PO DAILY 02/15/ 3 09/10/25 Unknown History 200 mg-tenofovir alafenam 25 mg tablet (Biktarvy) albuterol sulfate 90 mcg/actuation 2 puff inhalation Q 6H PRN 09/05/25 09/10/25 Unknown History aerosol inhaler (Ventolin HFA) Shortness Of Breath Or Wheezing folic acid 1 mg tablet 1 mg PO DAILY 09/05/2509/10 Unknown History hydrocortisone 2.5 % topical cream 1 appl topical BID 09/05/25 09/10/25 Unknown History levetiracetam 750 mg tablet 1,500 mg PO BID 09/05/25 1 Unknown History multivitamin 1 tab PO DAILY 09/05/2508/27 Unknown History omega-3 acid ethyl esters 1 gram 1 cap PO BID 09/05/25 09/10/25 Unknown History capsule quetiapine 100 mg tablet 100 mg PO BEDTIME 09/05/25 Unknown History sertraline 50 mg tablet 50 mg PO DAILY 09/05/2508/27 Unknown History thiamine HCl (vitamin B1) 100 mg 100 mg PO DAILY 09/0509/10/25 Unknown History tablet atovaquone 750 mg/5 mL oral 750 mg PO BID 09/10/25 Unknown History suspension doxycycline monohydrate 100 mg 100 mg PO BID 09/10/25 09/10/25 Unknown History capsule Physical Exam 2 Vital Signs: Vital Signs: Last Vital Signs Temp 97.6 F 09/11/25 19:30 Pulse 65 09/11/25 19:30 Resp 18 09/11/25 19:30 BP 128/72 09/11/25 19:30 Pulse Ox 98 09/11/25 19:30 O2 Del Method Room Air 09/11/25 19:30 BMI result Body Mass Index 18.2 Const: General: cooperative HEENT: Head: Yes normal to inspection Face and sinus: Yes normal facial exam Mouth: Normal oral and palatal mucosa present Teeth and gingiva: d entition normal Eyes: General: appearance normal, both eyes and all related structures P upils: Equal, round and reactive pupils present Resp: Effort & Inspection: normal respiratory effort Cardio: Rate: regular rate Rhythm: regular rhythm GI: Palpation (GI): Soft to palpation and nontender : General: Yes no CVA tenderness Back/Spine/Pelvis: Back: no CVA tenderness Skin: General skin exam: no rashes or lesions noted Neuro: General: moves all extremities Cranial nerves: Yes Equal, round and reactive pupils present Extrem: General: Yes normal to inspection Psych: Appearance: grossly normal Results Labs 09/11/25 05:52 09/11/25 05:52 Labs: Short CBC 09/11/25 Range/Units 05:52 WBC 1.3 L (4.8-10.8) X10*3/uL Hgb 10.0 L D (14.0-18.0) g/dl Hct 31.9 L D (42.0-52.0) % Plt Count 99 L (160-400) X10*3/uL BMP 09/11/25 05:52 Sodium 136 Potassium 5.2 H D Chloride 106 Carbon Dioxide 24 BUN 11 Creatinine 0.72 Calcium 8.6 D Liver Function 09/11/25 Range/Units 05:52 Total Bilirubin 0.3 (0.0-1.0) mg/dL AST 97 H (5-37) U/L ALT 33 (0-40) U/L Alkaline Phosphatase 176 H (39-117) U/L Albumin 2.6 L (3.5-5.0) g/dL Urine 09/11/25 Range/Units 01:21 Urine Color Yellow Urine Appearance Clear Urine pH 7.5 (5.0-9.0) Ur Specific [place] 1.015 (1.005-1.025) Urine Protein Negative (Neg-Trace) mg/dL Urine Glucose (UA) Negative (Negative) mg/dL Microbiology Microbiology Results: Microbiology 09/10/25 00:04 Blood - Venous Blood Culture - Preliminary No growth after 24 hours. 09/10/25 00:04 Blood - Venous Blood Culture - Preliminary No growth after 24 hours. Assessment and Plan (1) Opioid use disorder: Status: Acute (2) Left against medical advice: Status: Acute (3) Polysubstance (including opioids) dependence, daily use: Status: Acute (4) Hepatitis B: Status: Acute Plan Continue Ceftriaxone and Doxycycline (IV Ceftriaxone)for three days snd then switch to po atovaquon every day for treatment and prevention.
--- NOTE | 2025-09-12 00:04 | P.EN_ITS ---
Event Note Date of Service: 09/12/25 Event Note: Nursing notified this scientific technical writer that patient is currently orthostatic but asymptomatic. Results as follows: laying = 107/71 and 68 hr, sitting 93/60 and 89 and standing 77/56 and 106 HR. Ordering patient 1 bolus of fluid. Staff will continue to do orthostatics Q shift. Day provider will need to further evaluate and decide if further workup is indicated including echocardiogram. If patient becomes symptomatic, patient may benefit from midodrine. Urinalysis f rom the 16th normal. Patient is currently scheduled to receive ensure t.i.d. to help with low weight and low protein stores. Time Spent With Patient Time: Total time managing care of this patient today ____ minutes.
--- NOTE | 2025-09-12 00:24 | PC.NURSE ---
Orthostatics as followed - Pt BP in semi fowlers was 107/71 and HR 68. Pt while sitting had a BP of 93/60 and HR 89. While standing pt was 77/56 and HR of 106. Pt did not report any dizziness or blurred vision at this time. RIDGE Vanegas notified at this time. New order for fluid bolus was given at this time per JAN. Pt resting comfortably with eyes closed, respirations even and unlabored. Will continue to monitor patient.
[2025-09-12 03:37] VITALS: BP 100/68; PULSE 75; RESP 16; TEMP 36.6; O2SAT 96
[2025-09-12] MEDS: docosanoL 10 % Cream 2 GM TUBE 1 APPL TOPICAL (05:46)
[2025-09-12 06:00] VITALS: BP 124/72; PULSE 72
[2025-09-12 06:09] VITALS: BP 127/72; PULSE 67; RESP 18; TEMP 36.3; O2SAT 96
[2025-09-12 06:10] VITALS: BP 116/75; PULSE 86
--- NOTE | 2025-09-12 07:14 | P.PNIM_ITS ---
Subjective Subjective Date of Service: 09/12/25 Physical Exam 2 Vital Signs: Vital Signs: Last Vital Signs Temp 97.3 F 09/12/25 06:09 Pulse 86 09/12/25 06:10 Resp 18 09/12/25 06:09 BP 116/75 09/12/25 06:10 Pulse Ox 96 09/12/25 06:09 O2 Del Method Room Air 09/12/25 06:09 BMI result Body Mass Index 18.2 Objective Data Active Medications Acetaminophen (Acetaminophen 325 Mg Tablet) 650 mg PO Q6H PRN PRN Reason: Pain, Mild 1-3,fever,headache Albuterol Sulfate (Albuterol Sulfate 90 Mcg 8 Gm Inhaler) 2 puff INHALE Q6H PRN PRN Reason: Shortness Of Breath Or Wheezing Albuterol/Ipratropium (Albuterol/Iprat 2.5/0.5mg 3 Ml Ampul.Neb) 3 ml INHALE Q4H PRN PRN Reason: Shortness of Breath/Wheezing Albuterol/Ipratropium (Albuterol/Iprat 2.5/0.5mg 3 Ml Ampul.Neb) 3 ml INHALE RQ6H WHILE AWAKE [facility] Last Admin: 09/11/25 19:50 Dose: Not Given Documented By: SURESH Non-Admin Reason: Patient Refused Atovaquone (Atovaquone 750 Mg/5 Ml Oral.Susp) 750 mg PO BID [facility] Last Admin: 09/11/25 20:24 Dose: 750 mg Documented By: JOSE Bictegravir/Emtricitabine/Tenofovir (Bictegrav/Emtricit/Tenofov Ala Tablet) 1 tab PO DAILY [facility] Last Admin: 09/11/25 07:10 Dose: 1 tab Documented By: VENUS Bisacodyl (Bisacodyl 5 Mg Tablet.Dr) 5 mg PO BEDTIME PRN PRN Reason: Constipation Calcium Carbonate (Calcium Carbonate 750 Mg Tab.Chew) 750 mg PO Q4H PRN PRN Reason: Heartburn Ceftriaxone Sodium (Ceftriaxone Sodium 1 Gm Vial) 1 gm IVPUSH Q24H [facility] Last Admin: 09/11/25 23:52 Dose: 1 gm Documented By: JOSE Docosanol (Docosanol 10 % Cream 2 Gm Tube) 1 appl TOPICAL 5XD [facility]; Protocol Last Admin: 09/12/25 05:46 Dose: 1 appl Documented By: JOSE Enoxaparin Sodium (Enoxaparin Sodium 40 Mg/0.4 Ml Syringe) 40 mg SUBCUT Q24H [facility] Last Admin: 09/11/25 23:43 Dose: Not Given Documented By: JOSE Non-Admin Reason: Patient Refused Folic Acid (Folic Acid 1 Mg Tablet) 1 mg PO DAILY [facility] Last Admin: 09/11/25 07:10 Dose: 1 mg Documented By: VENUS Hydrocortisone (Hydrocortisone 1 % Cream 28.35 Gm Tube) 1 appl TOPICAL BID [facility] Last Admin: 09/11/25 20:13 Dose: Not Given Documented By: JOSE Non-Admin Reason: pt declines being itchy Doxycycline Hyclate 100 mg/ (Sodium Chloride) 250 mls @ 166.67 mls/hr IV Q12H [facility] Last Infusion: 09/12/25 01:54 Dose: Infused Documented By: JOSE Levetiracetam (Levetiracetam 500 Mg Tablet) 1,500 mg PO BID [facility] Last Admin: 09/11/25 20:24 Dose: 1,500 mg Documented By: JOSE Magnesium Hydroxide (Milk Of Magnesia 30 Ml Oral.Susp) 30 ml PO DAILY PRN PRN Reason: Constipation Melatonin (Melatonin 3 Mg Tablet) 6 mg PO BEDTIME PRN PRN Reason: Insomnia Methadone HCl (Methadone Hcl 20 Mg/2 Ml Oral.Conc) 35 mg PO DAILY@0800 [facility] Last Admin: 09/11/25 07:14 Dose: 35 mg Documented By: VENUS Co-signed By: DORON Multivitamins/Vitamin C (Multivitamin Tablet) 1 tab PO DAILY [facility] Last Admin: 09/11/25 07:10 Dose: 1 tab Documented By: VENUS Nicotine (Nicotine 21 Mg Patch.Td24) 21 mg TRANSDERMA DAILY [facility] Last Admin: 09/11/25 07:10 Dose: 21 mg Documented By: VENUS Nicotine Polacrilex (Nicotine Polacrilex Lozenge 2 Mg Lozenge) 2 mg BUCCAL Q1H PRN PRN Reason: Nicotine Cravings Ondansetron HCl (Ondansetron Hcl 4 Mg/2 Ml Vial) 4 mg IVPUSH Q8H PRN PRN Reason: Nausea and Vomiting Polyethylene Glycol (Polyethylene Glycol 3350 17 Gm Powd.Pack) 17 gm PO DAILY PRN PRN Reason: Constipation Polyethylene Glycol (Polyethylene Glycol 3350 17 Gm Powd.Pack) 17 gm PO DAILY [facility] Last Admin: 09/11/25 07:17 Dose: Not Given Documented By: VENUS Non-Admin Reason: loose stools Quetiapine Fumarate (Quetiapine Fumarate 100 Mg Tablet) 100 mg PO BEDTIME [facility] Last Admin: 09/11/25 20:25 Dose: 100 mg Documented By: JOSE Sertraline HCl (Sertraline Hcl 50 Mg Tablet) 50 mg PO DAILY [facility] Last Admin: 09/11/25 07:10 Dose: 50 mg Documented By: VENUS Sodium Chloride (0.9 % Sodium Chloride Flush 3 Ml Syringe) 3 ml IVFLUSH QSHIFT [facility] Last Admin: 09/11/25 20:27 Dose: 3 ml Documented By: JOSE Thiamine HCl (Thiamine Hcl 100 Mg Tablet) 100 mg PO DAILY [facility] Last Admin: 09/11/25 07:10 Dose: 100 mg Documented By: VENUS Labs 09/11/25 05:52 09/11/25 05:52 Labs: Laboratory Results - last 24 hr 09/11/25 05:52 MCV 89.6 MCH 28.1 MCHC 31.3 RDW 15.2 Plt Count 99 L MPV 11.7 Immature Gran % (Auto) 0.0 Neut % (Auto) 56.8 Lymph % (Auto) 28.0 Leslie % (Auto) 12.9 H Eos % (Auto) 2.3 Baso % (Auto) 0.0 Lymph # (Auto) 0.4 L Leslie # (Auto) 0.2 Eos # (Auto) 0.0 Baso # (Auto) 0.0 Abs Immat Gran (auto) 0.00 Absolute Neuts (auto) 0.8 L Absolute Nucleated RBC 0.000 Nucleated RBC % (auto) 0.0 Smear Tech's Comments VERIFIED Microbiology Microbiology Results: Microbiology 09/10/25 00:04 Blood Culture - Preliminary Blood - Venous No growth after 48 hours. 09/10/25 00:04 Blood Culture - Preliminary Blood - Venous No growth after 48 hours. Quality Stroke Does the patient have a stroke diagnosis?: No Reason for No Anti-thrombotic by Day Two: N/A - Med Ordered VTE Prior VTE?: No VTE Risk Level:: Medical - moderate - high VTE Device Contraindication: N/A - Device Ordered VTE Drug Contraindication: N/A - Med Ordered
[2025-09-12] MEDS: methADONE HCl 20 MG/2 ML ORAL.CONC 35 MG PO (07:58)
[2025-09-12 08:00] VITALS: BP 114/65; PULSE 80; RESP 18; TEMP 36.2; O2SAT 93
[2025-09-12] MEDS: Nicotine 21 MG PATCH.TD24 TRANSDERMA (08:00)
[2025-09-12] MEDS: 0.9 % Sodium Chloride Flush 3 ML SYRINGE IVFLUSH (08:06)
[2025-09-12] MEDS: Bictegrav/Emtricit/Tenofov Ala TABLET 1 TAB PO (08:09)
[2025-09-12] MEDS: Hydrocortisone 1 % Cream 28.35 GM TUBE 1 APPL TOPICAL (08:13)
[2025-09-12] MEDS: Albuterol/Iprat 2.5/0.5MG 3 ML AMPUL.NEB INHALE (08:13)
[2025-09-12 08:16] VITALS: PULSE 80; RESP 18; O2SAT 93
--- NOTE | 2025-09-12 09:15 | MHC.CM.PN ---
IMM 09/10/25 Patient is discharged to home today self care. He will resume MAT. A Last dose letter has been provided. Transportation is set up with the [facility] shuttle. A coupon has been provided. 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
--- NOTE | 2025-09-12 10:44 | PC.NURSE ---
pt dressed with coat on with first contact, states he is ready to leave, he feels better. 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 He will leave AMA if not able to discharge quickly. MD Kam aware. Pt decided he could not wait. He was given his last dose letter and signed out AMA with customer development representative at [phone]. He took his belongings and stated he was walking to the [facility] as he could not wait for a ride or the bus.
--- NOTE | 2025-09-12 11:23 | P.DS_ITS ---
DS: Providers Provider Date of Service: 09/12/25 Date of admission: 09/09/25 23:50 Date of discharge: 09/12/25 Primary care physician: Dilia Isaac NP Consults: 09/10/25 01:41 Consult to Infectious Diseases Routine Consulting Provider: [facility] Reason for consultation: ,Patient left AMA is back with pneumonia 09/10/25 01:42 Addiction Medicine Provider Routine Consulting Provider: Addiction Covering Reason for consultation: Patient on methadone continues to IV drugs including fentanyl and cocaine 09/10/25 18:15 Consult to Infectious Diseases Routine Consulting Provider: [facility] Reason for consultation: HIV,AIDS, recent pna, ?PJP vs atypical ? adjustment in meds DS: Diagnosis Discharge Diagnosis (1) Left against medical advice: Status: Acute DS: Summary Hospital Course Hospital Course: MRSA pna - colonized likely - Doxycycline home dose po to be cont for 10 more days Atypical pna - Doxycycline po to be cont 10 more days 65 yo azeri speaking male with PMH of poor historian and medication noncompliance and h/o leaving AMA , LULI on methadone positive for cocaine, fentnayl, tobacco dependnece, PNA, HIV/AIDS, hepatitis-B and C, TBI, Seizure d/o, Depression, HLD, COPD (not on home O2), was readmitted to the ED after leaving AMA being asked by his OP physician to complete abx course for prior aty pical pna, left AMA again this admission and even had to be brught back to the room on 09/12/2025 before we could even do the morning rounds. He was not hypoxic on room air however had a brief mild hypotensive episode requiring a bolus of fluids overnight. I wanted to check orthostatics, and ensure adequate antibiotic coverage prior to discharge and hemodynamic status. Patient signed out AMA prior to as advising him on ongoing care and he has been told about the dangers of leaving AMA which include and decompensation Probably PJP pneumonia on atovaquone as CD4 count 70 (compliance could be an issue) as he is on Biktarvy Acute on chronic AHRF -multifactorial AECOPD vs PJP in AIDS vs Nicotine vs LULI vs asp vs MRSA pna vs atypical (was treated for all of these with broad-spectrum antibiotics, nebulizers and continued Biktarvy, atovaquone and doxycycline. AIDS / HIV on Bictarvy CD4 count 70- will cont Bictarvy daily , He's on PJP px with atovaquone LULI - Cont Methadone , addiction med consulted Pancytopenia - plateuing -worse than prior - likely 2/2 prior hosp and BM suppression and AIDS Seizures, TBI 2/2 med noncompliant - cont home meds, seizure precautions, medication compliance reinforced Nicotine replacement for dependance High fall risk- PT,OT ,asp precautions and fall precautions Mood disorder/Depression - Cont home Quetiapine &sertraline , QTC wnl POA Hep B/C - OP ID or GI mx Constipation px - will try to be agreesive given Methadone AUD - thiamine &folate supplementation PT/OT -deconditioing PCM - Moderate POA - regular diet with Protein TID omar Pt is at high risk of decompensation and advised him to follow-up with PCP, ID, medication compliance, refraining from substance use. He has been given forms regarding where to seek help by addiction Medicine. Patient still wanted to leave if AMA-before completely being advised about the medications. This note is constructed using voice recognition software. While every effort has been made to ensure accuracy, cloud solutions architect errors may have been included. Time spent discussing smoking cessation with patient: more than 10 minutes Time Attestation Discharge Coordination Time (in mins): 45 Quality: Safe Use of Opioids Does Pt have an Active Cancer Diagnosis on the Problem List?: No Quality: Stroke Does the patient have a stroke diagnosis?: No Physical Exam Vital Signs: Vital Signs: Last Vital Signs Temp 97.1 F 09/12/25 08:00 Pulse 80 09/12/25 08:16 Resp 18 09/12/25 08:16 BP 114/65 09/12/25 08:00 Pulse Ox 93 09/12/25 08:00 O2 Del Method Room Air 09/12/25 08:00 BMI result Body Mass Index 18.2 DS: Data Data Completed and Pending Completed studies during hospitalization [Text1]: Procedures Detoxification Services for Substance Abuse Treatment (09/18/22) Insertion of Endotracheal Airway into Trachea, Via Natural or Artificial Opening (01/25/22) Insertion of Infusion Device into Left External Jugular Vein, Percutaneous Approach (01/25/22) Labs on day of discharge: Preliminary micro results at discharge 09/11/25 17:00 Sputum Culture - Preliminary Sputum - Expectorated Culture in progress. 09/10/25 00:04 Blood Culture - Preliminary Blood - Venous No growth after 48 hours. 09/10/25 00:04 Blood Culture - Preliminary Blood - Venous No growth after 48 hours. Discharge Plan Discharge Anticipated Discharge Date/Time: 09/12/25 09:50 Patient Disposition: Left Against Medical Advice Discharge Diagnosis: AIDS PJP pna readmitted to complete rx for pna , Referrals: Dilia Isaac, [facility] [Primary Care Provider, Internal Medicine] - 1 Week Discharge Medications: New polyethylene glycol 3350 17 gram Powder In Packet 17 g PO DAILY PRN (Reason: Constipation) 30 Days Qty: 30 0RF Antacid Ext Str (calcium carb) 300 mg (750 mg) Tablet,Chewable 2.5 tab PO Q4H PRN (Reason: Heartburn) 30 Days Qty: 30 0RF melatonin 3 mg Tablet 6 mg PO BEDTIME PRN (Reason: Insomnia) 30 Days Qty: 30 0RF magnesium hydroxide [Milk of Magnesia] 400 mg/5 mL Suspension 30 ml PO DAILY PRN (Reason: Constipation) 30 Days Qty: 30 0RF bisacodyl 5 mg Tablet,Delayed Release (Dr/Ec) 5 mg PO BEDTIME PRN (Reason: Constipation) 30 Days Qty: 30 0RF Continued Biktarvy 50-200-25 mg tablet 1 tab PO DAILY thiamine HCl (vitamin B1) 100 mg tablet 100 mg PO DAILY folic acid 1 mg tablet 1 mg PO DAILY levetiracetam 750 mg tablet 1,500 mg PO BID omega-3 acid ethyl esters 1 gram capsule 1 cap PO BID quetiapine 100 mg tablet 100 mg PO BEDTIME hydrocortisone 2.5 % cream 1 appl topical BID albuterol sulfate [Ventolin HFA] 90 mcg/actuation HFA aerosol inhaler 2 puff INHALATION Q6H PRN (Reason: Shortness Of Breath Or Wheezing) multivitamin Tablet 1 tab PO DAILY sertraline 50 mg tablet 50 mg PO DAILY atovaquone 750 mg/5 mL Suspension 750 mg PO BID Rx Instructions: must administer with food, preferably a high-fat meal doxycycline monohydrate 100 mg Capsule 100 mg PO BID 10 Days Qty: 20 0RF Discontinued methadone 10 mg/mL Concentrate 60 mg PO DAILY Rx Instructions: CALLED [facility] AND VERIFIED DOSE Discharge Orders: Discharge Order (Routine); Ordered 09/12/25 Ordered By: Sola Kam Diet: Low salt diet Activity on Discharge: As tolerated Print Language: Romansh Care Plan Goals: Follow-up with ID physician for ongoing care for HIV aids Follow up with PCP Be compliant with meds Advised to avoid substance use Endorse need for compliance with meds and medical care given frailty and protein calorie malnutrition and prior history of noncompliance and frequent admissions. Atovaquone 1500 daily. Doxycycline 100 bid for 10 days and Biktarvy daily Please do not take Bactrim (atovaquone for PJP until CD4 count greater than 200 to be followed by ID physician) Health Concerns: See above Plan of Treatment: See above Assessment: See above Patient Instructions: AIDS (DC), Pneumonia (DC) Discharge Date/Time: 09/12/25 09:55
[2025-09-15 10:20] LABS: Alcohol, Ethyl Urine Screen NEGATIVE
== END 2025-09-12 09:55 | disposition left against medical advice (07) | DRG 974 ==
LOC: HO.ED 23:36 → HO.EDOVER 09-10 00:52 → HO.S3 09-10 07:33
PROVIDERS: Nurse Practitioner Family; Physician Assistant; Registered Nurse Emergency; Admitting Provider Internal Medicine; Emergency Provider Emergency Medicine; PCP Nurse Practitioner Primary Care; Visit Provider Student in an Organized Health Care Education/Training Program
DX: J15.212 Pneumonia due to Methicillin resistant Staphylococcus aureus (principal); J96.01 Acute respiratory failure with hypoxia; B20 Human immunodeficiency virus [HIV] disease; E44.0 Moderate protein-calorie malnutrition; F11.20 Opioid dependence, uncomplicated; J44.1 Chronic obstructive pulmonary disease with (acute) exacerbation; J44.0 Chronic obstructive pulmonary disease with (acute) lower respiratory infection; Z68.1 Body mass index [BMI] 19.9 or less, adult; Z22.322 Carrier or suspected carrier of Methicillin resistant Staphylococcus aureus; F17.210 Nicotine dependence, cigarettes, uncomplicated; Z71.6 Tobacco abuse counseling; Z20.822 Contact with and (suspected) exposure to COVID-19; G40.909 Epilepsy, unspecified, not intractable, without status epilepticus; F32.A Depression, unspecified; K59.00 Constipation, unspecified; Z87.820 Personal history of traumatic brain injury; Z79.899 Other long term (current) drug therapy
CPT/HCPCS: 36415; 70450; 71046; 72125; 80053; 80307; 81003; 83605; 83735; 85025; 85027; 85610; 86695; 86696; 87040; 87070; 87205; 87502; 87635; 93005; 94640; 97161; 99285; J0696; J1271; J1650

== ENCOUNTER → 2025-09-09 16:42 | Outpatient (BNV) | payer OTHER, SELFPAY | PROVIDERS: PCP Nurse Practitioner Primary Care; Visit Provider Radiology Diagnostic Radiology | DX: G93.89 Other specified disorders of brain (principal); J18.9 Pneumonia, unspecified organism | CPT/HCPCS: 70450; 71046; 72125 ==

== ENCOUNTER → 2025-09-09 23:28 | Outpatient (BNV) | payer OTHER, SELFPAY | PROVIDERS: Admitting Provider Internal Medicine; Emergency Provider Emergency Medicine; PCP Nurse Practitioner Primary Care; Visit Provider Internal Medicine Cardiovascular Disease | DX: R00.1 Bradycardia, unspecified (principal) | CPT/HCPCS: 93010 ==

== ENCOUNTER → 2025-09-09 23:50 | Outpatient (BNV) | payer OTHER, SELFPAY | PROVIDERS: Admitting Provider Internal Medicine; Emergency Provider Emergency Medicine; PCP Nurse Practitioner Primary Care; Visit Provider Nurse Practitioner Psychiatric/Mental Health | DX: F11.90 Opioid use, unspecified, uncomplicated (principal) | CPT/HCPCS: 99221 ==

== ENCOUNTER → 2025-09-09 23:50 | Outpatient (BNV) | payer OTHER, SELFPAY | PROVIDERS: Admitting Provider Internal Medicine; Emergency Provider Emergency Medicine; PCP Nurse Practitioner Primary Care; Visit Provider Internal Medicine | DX: F11.90 Opioid use, unspecified, uncomplicated (principal); Z53.29 Procedure and treatment not carried out because of patient's decision for other reasons; F11.20 Opioid dependence, uncomplicated; F19.20 Other psychoactive substance dependence, uncomplicated; B19.10 Unspecified viral hepatitis B without hepatic coma | CPT/HCPCS: 99222 ==

== ENCOUNTER → 2025-09-09 23:50 | Outpatient (BNV) | payer OTHER, SELFPAY | PROVIDERS: Admitting Provider Internal Medicine; Emergency Provider Emergency Medicine; PCP Nurse Practitioner Primary Care; Visit Provider Nurse Practitioner Family | DX: J18.9 Pneumonia, unspecified organism (principal); B20 Human immunodeficiency virus [HIV] disease | CPT/HCPCS: 99223; 99499 ==

== ENCOUNTER 2025-11-18 14:36 | Outpatient (REF) | payer OTHER, SELFPAY ==
--- OUTSIDE RECORDS SUMMARY | 2025-11-18 15:54 | XMS_ITS | Data Portability ---
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 Medical Equipment None Reported. Allergies No known drug allergies Vitals Date Recorded Systolic And Diastolic Provider Name and Address Organization Details Last Updated DateTime 01/02/2019 126/74 mm[Hg] Sarita German [facility] 01/02/2019 12:23:32 Date Recorded Heart rate Systolic And Diastolic Provider Name and Address Organization Details Last Updated DateTime 01/15/2019 67 /min 135/78 mm[Hg] Sarita German [facility] [address] 01/15/2019 15:22:36 Date Recorded Systolic And Diastolic Provider Name and Address Organization Details Last Updated DateTime 01/25/2019 108/76 mm[Hg] Sarita German [facility] 01/25/2019 11:30:27 Date Recorded Systolic And Diastolic Provider Name and Address Organization Details Last Updated DateTime 01/28/2019 122/70 mm[Hg] Sarita German [facility] 01/28/2019 13:29:00 Social History Question Answer Notes LastModified by Organizat ion Details LastModified Time Tobacco Smoking Status Current Every Day Smoker Not Available [facility] 09/22/2020 03:13:20 Do You Have An Advance Directive? 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 No [id number] Information not available 09/22/2020 What Was The Date Of Your Most Recent Tobacco Screening? 01/28/2019 [id number] Information not available 09/22/2020 How Much Tobacco Do You Smoke? 0.5 PPD [id number] Information not available 09/22/2020 Has Tobacco Cessation Counseling Been Provided? Yes [id number] Information not available 09/22/2020 On What Date Was Tobacco Cessation Counseling Provided? 01/28/2019 [id number] Information not available 09/22/2020 Sex: Unknown Functional Status Question Answer Note LastModified by Organization D etails LastModified Time What is your level of alcohol consumption? None [id number] Information not available 09/22/2020 Mental Status None recorded. Family History Nothing Reported Notes:N/C Medical History No medical history recorded. Past Encounters Encounter ID Performer Location Encounter Start Date Encounter Closed Date Diagnosis/Indication Diagnosis SNOMED-CT Code Diagnosis ICD10 Code Diagnosis IMO Codes Diagnosis Note [id number] JORDI Marshall [facility] on [address] [place] [id number] 01/02/2019 12:22:01 01/16/2019 13:30:40 Intracranial hemorrhage 9670902 I61.8 See HPINeeds repeat head CT in 3-4 weeks and MRI in 6-8 weeksF/u with ID and neurosurge ryPT/OT eval and treatMonit or Sepsis cau sed by Streptococcus 157014476 A40.8 Complete 4 week course of IV penicillin G (end date 01/24)Weekl y CMP, CBCF/u with IDMonitor Human immunodeficiency virus infection 65826313 B20 On Biktarvy and AbacavirF/ u with ID Harmful pa ttern of use of multiple substances 458270255 F19.10 Avoid narcotic usePreviou sly on suboxone however not on currentlyM onitor for withdrawal Hyponatremia 75568337 E8 7.1 Sodium noted to be low on admission labsRepeat BMP 01/04 Insomnia 283011269 G47.0 9 Add melatonin 5 mg QHS Depressive disorder 3548 9007 F33.8 Reports he typically takes Seroquel 50 mg QHS-will restartReq uest psych consult [id number] Tobi Abarca MD [facility] on [address] [place] [id number] 01/05/2019 14:27:25 01/16/2019 13:56:36 Intracranial hemorrhage 0963497 I61.1 see HPIlarge subacute right occipital hemorrhage follow neurosurge ry recsmonito r sx and control blood pressurePT OT eval and treatno anticoagul ation Sepsis cau sed by Streptococcus 809082091 A40.8 see HPIstrep viridansPe n G q 4 hours to complete 28 day coursemoni tor vital Harmful pa ttern of use of multiple substances 563818133 F19.10 active IV heroin and cocaine userefusin g drug treatment or suboxoneat tempt to assist with support in community Human immunodeficiency virus infection 05341894 B20 followed by IDcontinue current medication s Tobacco user 801357645 Z 72.0 currently on nicotine patchmonit or for effect Primary insomnia 4348163 F51.01 will add trazadone 25 mg qhsmonitor for effectcont inue melatonin [id number] JORDI Marshall [facility] on [address] [place] [id number] 01/15/2019 15:22:04 01/23/2019 09:27:09 Intracranial hemorrhage 5963710 I61.8 See HPINeeds repeat head CT in 3-4 weeks and MRI in 6-8 weeksF/u with ID and neurosurge ryMonitor labs Sepsis cau sed by Streptococcus 604203741 A40.8 Complete 4 week course of IV penicillin G (end date 01/24)Weekl y CMP, CBCF/u with IDMonitor Human immunodeficiency virus infection 29216988 B20 On Biktarvy and AbacavirF/ u with ID Hyponatremia 60313813 E8 7.1 [place] [id number] Sarita German [facility] on [address] [place] [id number] 01/25/2019 11:17:36 01/30/2019 10:05:21 Intracranial hemorrhage 9398284 I61.8 See HPINeeds repeat head CT in 3-4 weeks and MRI in 6-8 weeksF/u with ID and neurosurge ryMonitor labs Sepsis cau sed by Streptococcus 708141638 A40.8 Complete 4 week course of IV penicillin G (end date 01/26)Weekly CMP, CBCF/u with ID as scheduledM onitor Human immunodeficiency virus infection 39535176 B20 On Biktarvy and AbacavirF/ u with ID Hyponatremia 29819009 E8 7.1 [place] [id number] Sarita German [facility] on [address] [place] [id number] 01/28/2019 13:27:39 01/30/2019 10:30:15 Sepsis caused by Streptococcus 485105075 A40.8 Has completed 4 week course of IV penicillin G (end date 01/26)Needs ID f/uLabs stable-pat ient feeling wellAppear s resolved Intracrani al hemorrhage 0005006 I61.8 See HPINeeds repeat head CT in 3-4 weeks and MRI in 6-8 weeksF/u with ID and neurosurge ryMonitor labs Human immunodeficiency virus infection 73918590 B20 On Biktarvy and AbacavirF/ u with ID Health Concerns Section Related Observation LastModified by Organization Detai ls LastModified Time None Recorded Concern Status LastModified by Organization Details LastModified Time None Recorded Advance Directives Directive Y: full code Payers Insurance Date Sequence Insurance Name Policy Number Policy Mix Covered Member ID Mix Member ID Guarantor Name 05/07/2024 1 [place]: [facility] Mino Goldstein [id number] Mino Goldstein Notes Date Note Type Note Provider Name and Address Organization Details Recorded Time 01/02/2019 text/html 58 yo male with hx of polysubstance abuse, HIV admit from hospital after presenting with confusion, vomiting and headache. CT of head showed large parieto-occipital hemorrhage with mass effect and 2 mm midline shift without evidence of hydrocephalus. [place] to be sub-acute, eval by neuro-surg and [...] ID. Admit for continued care and therapy. Chinese-speaking only, seen with physician non invasive cardiologist present. Sarita caraballo [email or web address] [employer] 01/02/2019 14:32:25 01/05/2019 text/html Patient is a [...] continued care and therapy Tobi Abarca MD [address] [place] [address], [address], [place], [address], [email or web address] [facility] [employer] 01/05/2019 14:45:25 01/15/2019 text/html 58 yo male seen for acute rounding visit. 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 To complete 4 week course of IV penicillin G and f/u with ID. Patient reports doing well-ambulating normally. Reports mild headache otherwise denies complaints. Sarita caraballo [email or web address] [employer] 01/15/2019 15:34:47 01/25/2019 text/html 58 yo male [...] is scheduled to finish tomorrow. Sarita caraballo [employer] [facility] 01/25/2019 11:32:17 01/28/2019 text/html 58 yo male [...] he feels well, denies complaints. Sarita caraballo [employer] [facility] 01/28/2019 14:07:13
[2025-11-18 16:21] LABS: MANUAL DIFF FLAG NO
[2025-11-18 16:23] LABS: Hematocrit 32.3 % (42.0-52.0); Hemoglobin 10.1 g/dl (14.0-18.0); Imm Gran Abs Auto 0.01 X10*3/uL (0.00-0.03); Imm Gran Pct Auto 0.2 % (0.0-0.4); Lymphocytes Absolute Auto 0.8 X10*3/uL (1.2-4.9); Mean Corpuscular HGB Conc 31.3 g/dl (31.0-36.0); Mean Corpuscular Hemoglobin 28.9 pg (27.0-33.0); Mean Corpuscular Volume 92.3 fL (80.0-98.0); NRBC Abs Auto 0.000 X10*3/uL (0.0-0.012); NRBC Pct Auto 0.0 /100WBC (0.0-0.2); Red Blood Count 3.50 X10*6/uL (4.60-5.80); White Blood Count 4.3 X10*3/uL (4.8-10.8)
[2025-11-18 16:24] LABS: Platelet Count 75 X10*3/uL (160-400)
[2025-11-18 16:36] LABS: Alanine Aminotransferase 20 U/L (0-40); Albumin Level 3.4 g/dL (3.5-5.0); Alkaline Phosphatase 146 U/L (39-117); Anion Gap 8 (12-20); Aspartate Amino Transferase 64 U/L (5-37); Blood Urea Nitrogen 19 mg/dL (9-16); Calcium 9.0 mg/dL (8.4-10.2); Carbon Dioxide 28 mmol/L (22-29); Chloride 107 mmol/L (96-108); Cholesterol 129 mg/dL (<200); Estimated Glomerular Filt Rate > 60; HDL Cholesterol 32 mg/dL (>40); Potassium 4.2 mmol/L (3.3-5.1); Sodium 139 mmol/L (135-145); Total Protein 8.7 g/dL (6.5-8.0); Triglycerides 64 mg/dL (<150)
[2025-11-18 19:16] LABS: Reflex LDLD? No
[2025-11-19 03:39] LABS: Syphilis Screen Nonreactive (Nonreactive)
[2025-11-20 05:09] LABS: HIV RNA PCR Qn Copies 86 copies/mL (NOT DETECTED); HIV RNA PCR Qn Log Copies 1.93 (NOT DETECTED)
[2025-11-20 06:03] LABS: HCV Log PCR <1.18 NOT DETECTED Log IU/mL (NOT DETECTED); HepC Viral Load <15 NOT DETECTED IU/mL (NOT DETECTED)
== END 2025-11-18 14:37 | disposition home or self-care (01) ==
LOC: HO.HHCL 14:36
PROVIDERS: PCP Nurse Practitioner Primary Care; Visit Provider Internal Medicine
DX: B20 Human immunodeficiency virus [HIV] disease (principal); Z13.6 Encounter for screening for cardiovascular disorders
CPT/HCPCS: 36415; 80053; 80061; 85025; 86359; 86360; 86780; 87522; 87536